=== PATIENT | female | born 1960 | race Caucasian/White ===

== ENCOUNTER → 2020-04-15 15:00 | Outpatient (BNVA) | payer OTHER, SELFPAY | PROVIDERS: PCP Nurse Practitioner Family; Visit Provider Physician Assistant Medical | DX: Z76.89 Persons encountering health services in other specified circumstances (principal) | CPT/HCPCS: G0296 ==

== ENCOUNTER 2020-05-18 | Outpatient (REF) | payer OTHER, SELFPAY ==
--- NOTE | ~2020-05-18 | CT_ITS ---
EXAMINATION: CT CHEST SCREENING CLINICAL INFORMATION: Nicotine dependence. COMPARISON: None. TECHNIQUE: Multidetector volumetric CT imaging of the chest is performed without contrast using low dose technique. Additional 2D coronal and sagittal reformatted images and axial 3D maximum intensity projection (MIP) images are generated on the CT workstation. This CT examination was performed using dose optimization techniques as appropriate, variously including the following: *Automated exposure control *Adjustment of mA and/or kV according to patient size (this includes techniques or standardized protocols for targeted exams where dose is matched to indication/reason for exam; i.e. extremities or head) *Use of iterative reconstruction technique DLP: 69 mGy-cm FINDINGS: LUNGS: The lungs are clear with no evidence of inflammation or nodules. MEDIASTINUM: Thyroid lobes are symmetrical and normal. The central trachea and the bronchi are widely patent. Heart size and the great vessels are normal caliber. There is no pericardial effusion seen. Central trachea and the bronchi are widely patent. No abnormal-sized nasal lymph nodes or mass seen. A pericardial effusion seen. PLEURA: There is no pleural effusion. No pleural mass or thickening. AXILLA: No lymphadenopathy. UPPER ABDOMEN: Visualized liver, spleen, pancreas and bilateral adrenal glands are unremarkable. OSSEOUS STRUCTURES: No lytic or sclerotic process seen. CT/CT lung screening IMPRESSION: Unremarkable CT chest exam. ASSESSMENT: Lung-RADS category 1: Negative RECOMMENDATION: Low-dose annual CT chest
== END 2020-05-18 00:01 | disposition home or self-care (01) ==
LOC: HO.CT
PROVIDERS: PCP Nurse Practitioner Family; Visit Provider Physician Assistant Medical
DX: Z12.2 Encounter for screening for malignant neoplasm of respiratory organs (principal); F17.210 Nicotine dependence, cigarettes, uncomplicated
CPT/HCPCS: 71271

== ENCOUNTER → 2020-06-21 09:49 | Outpatient (REF) | payer OTHER, SELFPAY ==
--- NOTE | 2020-06-21 10:00 | CA_ITS ---
Acquisition Time: 2020-06-21 10:10:29 Total Exercise Time: 00:03:17 Test Indications: Chest Pain Medications: METFORMIN Protocol: LALO Max HR: 144 BPM 88% of Pred: 162 BPM Max BP: 144/084 mmHG Max Work Load: 4.6 METS Test ended prematurely as pt was unable to walk on the treadmill d/t L knee arthritis. Pt was limping despite modifying Lalo protocol. Pt denies CP during exercise, suboptimal test. Will recommend to PCP pharmacological stress test. Pt reports having sx of palpitation last week, recommend holter monitor. call placed to PCP recommendations for pharmacological stress test, Holter and echocardiogram made. Patient's chest pain was at rest felt like pressure with radiating to her arm. Recommendations for cardiology consult also made. Referred By: Zaira Jewell Overread By: Dasia Nava NP
== END ==
LOC: HO.CARD 09:49
PROVIDERS: Visit Provider Nurse Practitioner Family
DX: R07.89 Other chest pain (principal)
CPT/HCPCS: 93016; 93017; 93018

== ENCOUNTER → 2020-06-29 10:19 | Outpatient (BNVA) | payer OTHER, SELFPAY | PROVIDERS: PCP Nurse Practitioner Family; Visit Provider Advanced Practice Midwife ==

== ENCOUNTER → 2020-07-05 09:31 | Outpatient (REF) | payer OTHER, SELFPAY ==
--- NOTE | 2020-07-05 09:34 | CA_ITS ---
Transthoracic Echocardiogram Patient (Last, First, Middle): Rosetta Pressley, Gender: Female Date of : 1960 Age: 60 Procedure Date: 07/05/2020 Procedure Type: Transthoracic Echocardiogram Location: OP Height: 154.94 cm Weight: 99.79 kg BSA: 1.97 m2 Heart Rate: bpm BP: 110 / 74 mmHg Hydraulic Press Tender: DONTE Referring MD: Faustino Monzon MD Symptoms: R06.02 - Shortness of breath Study Quality: Fair ECG Rhythm: Sinus Conclusions: - The left ventricular systolic function is normal. The visually estimated ejection fraction is between 60-65%. - No obvious valvular pathology seen on this study. - Small pericardial effusion posterior to left ventricle. Findings Procedure Information Contrast agent, definity, is being given per protocol without apparent complications. Left Ventricle Normal left ventricular cavity size. There is normal left ventricular wall thickness. The left ventricular systolic function is normal. The visually estimated ejection fraction is between 60-65%. There is no evidence of regional wall motion abnormalities. Diastolic function is normal for age. Right Ventricle Normal right ventricular cavity size and systolic function. Atria The left atrium is normal in size. The right atrium is normal in size. Aortic Valve There is a normal trileaflet aortic valve. There is no aortic valve stenosis. There is no aortic valve regurgitation. Mitral Valve The mitral valve appears normal. There is trace mitral valve regurgitation. There is no mitral valve stenosis. Pulmonic Valve The pulmonic valve was not well visualized. There is trace pulmonic valve regurgitation. Tricuspid Valve Normal tricuspid valve structure. There is trace tricuspid valve regurgitation. The pulmonary artery systolic pressure is normal. Great Vessels The aortic annulus, sinuses of valsalva, and asc aorta are normal in size. Venous The inferior vena cava was not well visualized. The inferior vena cava is normal in size and collapses greater than 50% with inspiration. Pericardium/Pleural Small pericardial effusion posterior to left ventricle. Prior Study Comparison No prior study available for comparison. Recommendations, Care & Conclusions No obvious valvular pathology seen on this study. Measurements 2D Linear Measurements IVSd: 0.78 0.6-0.9/0.6-1.0 cm LVIDd: 5.06 3.9-5.3/4.2-5.9 cm LVIDs: 3.18 2.0-3.6 cm LVPWd: 1.03 0.7-1.1 cm LV Mass: 201.30 67-162/88-224 g LVOT Diam: 2.05 3.0+(-)1.3 cm 2D Systolic Function EF 4C: 54.00 >55% Mitral Valve MV Pk E: 0.69 MV PK A: 0.83 MV Decel Time: 157.04 E/A: 0.83 Decel Hand: 4.38 Aortic Valve AoV Pk Meng: 1.36 AoV Pk Grad: 7.35 LVOT LVOT Pk Meng: 1.10 LVOT Mn Meng: 0.71 LVOT VTI: 0.22 LVOT Pk Grad: 4.82 LVOT Mn Grad: 2.33 LVOT Diam: 2.05 LVOT Area: 3.31 Diastolic Function MV Pk E: 0.69 MV Pk A: 0.83 E/A: 0.83 Tricuspid Valve TR Pk Meng: 2.13 TR Pk Grad: 18.21 RA Press: 3.00 RVSP: 21.00 Great Vessels Aorta Ao Asc: 3.18 2.1-3.4 cm Updated in Other Vendor System with Status of Final Scott Hastings MD electronically signed on 07/05/2020 12:41:47 PM with status of Final
== END ==
LOC: HO.CARD 09:31
PROVIDERS: Visit Provider Internal Medicine Cardiovascular Disease
DX: R07.9 Chest pain, unspecified (principal); R06.02 Shortness of breath
CPT/HCPCS: 93306; Q9957

== ENCOUNTER → 2020-07-19 08:37 | Outpatient (REF) | payer OTHER, SELFPAY ==
--- NOTE | ~2020-07-19 | NM_ITS ---
Lexiscan Myocardial perfusion study Indication: Positive family history, diabetes, assess for coronary disease and ischemia Technique: The patient was brought in for a Lexiscan perfusion study on 07/19/2020 and was injected 0.4 mg of Lexiscan intravenously. Within a minute of this injection 30 mCi of sestamibi was given intravenously. Images were obtained using the SPECT gamma camera interlaced with the gating device. Images were obtained in supine position. Resting perfusion study was performed on 07/20/2020. Patient was administered 30 mCi of sestamibi intravenously at rest. Images were then obtained in supine position. Total DLP 112mGy-cm. Images were processed with the software and compared side to side in short axis, horizontal long axis and vertical long axis views. Findings: Raw acquisition was reviewed. The stress perfusion study showed no significant perfusion abnormality. Both uncorrected as well as CT attenuation corrected images were reviewed. The gated study shows normal LV systolic function with calculated LVEF of 70%. LV cavity is normal in size. The gated study shows normal wall thickening and contraction of segments. Resting study shows mildly diminished tracer uptake at the apex possibly artifactual as this area is normal perfusion during stress. Gating at rest reveals normal wall motion with ejection fraction at 66%. The findings are consistent with no definite reversible or fixed perfusion defects. NM/NM donal perf SPECT rest & str Impression: 1. Myocardial perfusion imaging study shows likely normal myocardial perfusion. No definitive evidence of any ischemia or infarction. 2. Gated LVEF is 70% during stress and 66% during rest. 3. Transient ischemic dilatation not present. EKG component of the test reported separately.
--- NOTE | 2020-07-19 08:41 | CA_ITS ---
Acquisition Time: 2020-07-19 09:25:32 Total Exercise Time: 00:02:00 Test Indications: Chest Pain Medications: METFORMIN Protocol: LEXISCAN Max HR: 113 BPM 69% of Pred: 162 BPM Max BP: 140/080 mmHG Max Work Load: 1.0 METS Pharmacological stress test using Lexiscan while sitting and kicking her feet. Pt tolerated well denies any anginal sx. EKG without any arrhythmias, non-diagnostic for ischemia. Nuclear images to follow. Normotensive response to test. Test reviewed with Dr. Hastings Referred By: Faustino Monzon Overread By: Dasia Nava NP
--- NOTE | 2020-07-19 11:05 | ECG_ITS ---
Hook-up date: 2020-07-19 10:18:00 Duration: 25:50:00 Test Indications: PVC'S Medications: 263114 QRS complexes 6 Ventricular ectopics which represent <1 % of total QRS comp. 83 Supraventricular ectopics which represent <1 % of total QRS comp. * Paced QRS complexs which represent % of total QRS comp. VENTRICULAR ECTOPY 6 Isolated 0 Bigeminal Cycles 0 Couplets 0 Runs 0 Beats in Runs * Beats LONGEST at * BPM at :: -- * Beats FASTEST at * BPM at :: -- SUPRAVENTRICULAR ECTOPY 52 Isolated 1 Couplets 4 Runs 29 Beats in Runs 14 Beats LONGEST at 137 BPM at 04:06:03 2020-07-20 3 Beats FASTEST at 145 BPM at 02:21:47 2020-07-20 HEART RATES 50 MIN at 05:40:46 2020-07-20 83 AVG 121 MAX at 08:55:30 2020-07-20 LONGEST RR 1.4400 secs at 05:40:40 2020-07-20 S-T LEVELS Channel 1 - 128 mm at 10:18:00 2020-07-19 - 128 mm at 10:18:00 2020-07-19 Channel 2 - 128 mm at 10:18:00 2020-07-19 - 128 mm at 10:18:00 2020-07-19 Channel 3 - 128 mm at 02:93:71 -- - 128 mm at 02:93:71 Basic rhythm Normal sinus rhythm No long pause or profound bradycardia Rare ectopics Patient reported symptoms correlated with NSR Referred By: Faustino Monzon Overread By: FAUSTINO MONZON MD
== END ==
LOC: HO.CARD 08:37
PROVIDERS: PCP Nurse Practitioner Family; Visit Provider Internal Medicine Cardiovascular Disease
DX: R07.9 Chest pain, unspecified (principal); I49.3 Ventricular premature depolarization; R00.2 Palpitations; R06.02 Shortness of breath; E11.9 Type 2 diabetes mellitus without complications; Z82.49 Family history of ischemic heart disease and other diseases of the circulatory system
CPT/HCPCS: 78452; 93017; 93225; 93226; A9500; J0280; J2785

== ENCOUNTER → 2020-08-08 11:16 | Outpatient (BNVA) | payer OTHER, SELFPAY | PROVIDERS: PCP Nurse Practitioner Family; Visit Provider Internal Medicine Cardiovascular Disease ==

== ENCOUNTER 2020-12-19 10:00 | Outpatient (REF) | payer OTHER, SELFPAY ==
--- NOTE | ~2020-12-19 | MM_ITS ---
EXAMINATION: MM SCREENING DIGITAL BREAST TOMOSYNTHESIS, BILATERAL CLINICAL INFORMATION: Screening. Asymptomatic. The lifetime risk of breast cancer based on the Tyrer-Cuzick Model is 14%. COMPARISON: Mammography: 12/17/2019, 08/11/2018, 07/27/2017 TECHNIQUE: Digital breast tomosynthesis is performed in both the craniocaudal and mediolateral oblique views along with computer-aided detection (CAD). Synthesized 2D images are generated from the tomosynthesis. Additional bilateral CC views are provided. FINDINGS: There are scattered areas of fibroglandular density (ACR BI-RADS breast composition Category b). There are no significant masses, abnormal calcifications, or other abnormalities. There are some increased vascular calcifications central left breast. The bilateral axilla and skin contours are unremarkable. MM/MM tomosynthesis screening BI IMPRESSION: No mammographic evidence of malignancy. ASSESSMENT: BI-RADS 2: Benign RECOMMENDATION: Routine annual mammography screening. This patient's information was entered into a reminder system with a target due date for their next mammogram.
== END 2020-12-19 10:01 | disposition home or self-care (01) ==
LOC: HO.MAMMO 10:00
PROVIDERS: Visit Provider Nurse Practitioner Family
DX: Z12.31 Encounter for screening mammogram for malignant neoplasm of breast (principal)
CPT/HCPCS: 77063; 77067

== ENCOUNTER 2021-04-27 09:07 | Outpatient (REF) | payer OTHER, SELFPAY ==
--- NOTE | ~2021-04-27 | XR_ITS ---
EXAMINATION: XR KNEES, STANDING AP XR KNEE, LEFT CLINICAL INFORMATION: M25.562 - Pain in left knee COMPARISON: None TECHNIQUE: Standing AP view of both knees is performed. Additional lateral and axial patella views of the left knee are also performed. FINDINGS: Left knee shows tricompartment osteoarthritis, greatest medial knee joint compartment with loss of the joint space and mild subchondral sclerosis and osteophytes from the femoral condyles and tibial plateau. There is secondary genu varus. No visible erosive changes. There is small suprapatellar effusion. No lateralization or obvious tilting of the patellar appreciated on axial view. Right knee also shows multicompartment osteoarthritis greater medial compartment with loss joint space and osteophytes and secondary genu varus. No erosive change. XR/XR knee standing BI IMPRESSION: 1. Left: Tricompartment osteoarthritis with secondary genu varus. Small effusion. 2. Right: Multicompartment osteoarthritis with secondary genu varus.
--- NOTE | ~2021-04-27 | XR_ITS ---
EXAMINATION: XR KNEES, STANDING AP XR KNEE, LEFT CLINICAL INFORMATION: M25.562 - Pain in left knee COMPARISON: None TECHNIQUE: Standing AP view of both knees is performed. Additional lateral and axial patella views of the left knee are also performed. FINDINGS: Left knee shows tricompartment osteoarthritis, greatest medial knee joint compartment with loss of the joint space and mild subchondral sclerosis and osteophytes from the femoral condyles and tibial plateau. There is secondary genu varus. No visible erosive changes. There is small suprapatellar effusion. No lateralization or obvious tilting of the patellar appreciated on axial view. Right knee also shows multicompartment osteoarthritis greater medial compartment with loss joint space and osteophytes and secondary genu varus. No erosive change. XR/XR knee LT 2V IMPRESSION: 1. Left: Tricompartment osteoarthritis with secondary genu varus. Small effusion. 2. Right: Multicompartment osteoarthritis with secondary genu varus.
== END 2021-04-27 09:08 | disposition home or self-care (01) ==
LOC: HO.HOSX 09:07
PROVIDERS: Visit Provider Physician Assistant
DX: M25.561 Pain in right knee (principal); M17.12 Unilateral primary osteoarthritis, left knee
CPT/HCPCS: 73560; 73565; 99202

== ENCOUNTER 2021-07-26 07:58 | Outpatient (RCR) | payer BC, SELFPAY | END 2021-08-23 15:29 | disposition home or self-care (01) | LOC: HO.PTCHIC 07:58 | PROVIDERS: PCP Nurse Practitioner Family; Visit Provider Orthopaedic Surgery | DX: M17.12 Unilateral primary osteoarthritis, left knee (principal) | CPT/HCPCS: 97110; 97162 ==

== ENCOUNTER 2021-11-16 17:00 | Outpatient (RCR) | payer BC, SELFPAY | END 2022-01-05 14:19 | disposition home or self-care (01) | LOC: HO.PTCHIC 17:00 | PROVIDERS: PCP Nurse Practitioner Family; Visit Provider Orthopaedic Surgery | DX: Z96.652 Presence of left artificial knee joint (principal) | CPT/HCPCS: 97110; 97112; 97116; 97140; 97161; 97530 ==

== ENCOUNTER 2021-12-20 10:18 | Outpatient (REF) | payer BC, SELFPAY ==
--- NOTE | ~2021-12-20 | MM_ITS ---
EXAMINATION: MM SCREENING DIGITAL BREAST TOMOSYNTHESIS, BILATERAL CLINICAL INFORMATION: Screening. Asymptomatic. The lifetime risk of breast cancer based on the Tyrer-Cuzick Model is 12%. COMPARISON: Mammography: 12/19/2020, 12/17/2019, 08/11/2018 TECHNIQUE: Digital breast tomosynthesis is performed in both the craniocaudal and mediolateral oblique views along with computer-aided detection (CAD). Synthesized 2D images are generated from the tomosynthesis. FINDINGS: There are scattered areas of fibroglandular density (ACR BI-RADS breast composition Category b). Parenchymal pattern is similar to prior exams and there is no developing density or interval mass or architectural abnormality. There are fine vascular calcifications again noted mid lower left breast. The axilla and skin contours are unremarkable. MM/MM tomosynthesis screening BI IMPRESSION: No mammographic evidence of malignancy. ASSESSMENT: BI-RADS 2: Benign RECOMMENDATION: Routine annual mammography screening. This patient's information was entered into a reminder system with a target due date for their next mammogram.
== END 2021-12-20 10:19 | disposition home or self-care (01) ==
LOC: HO.MAMMO 10:18
PROVIDERS: Visit Provider Nurse Practitioner Family
DX: Z12.31 Encounter for screening mammogram for malignant neoplasm of breast (principal)
CPT/HCPCS: 77063; 77067

== ENCOUNTER 2022-01-31 15:47 | Outpatient (REF) | payer BC, SELFPAY ==
--- NOTE | ~2022-01-31 | US_ITS ---
EXAMINATION: US PELVIS CLINICAL INFORMATION: Pelvic pain. LMP 2003. Postmenopausal. COMPARISON: No similar priors. TECHNIQUE: Ultrasound of the pelvis is performed using both transabdominal and transvaginal transducers along with Doppler. Transvaginal imaging is performed due to inadequate visualization transabdominally. FINDINGS: The uterus is anteverted and anteflexed measuring 6.2 x 4.1 x 4.6 cm. There is a 3.7 x 3.8 x 3.6 cm heterogeneous hypovascular mass in the upper uterine myometrium, distorting the junctional zone and endometrial canal which are not well assessed in this examination. The right ovary was not visualized. The left ovary is only identified transabdominally measuring 2.6 x 2.3 x 1.8 cm (6 mL) with preserved flow on color Doppler at the moment of this examination and no discrete measurable lesions. A small amount of free fluid is noted, nonspecific. US/US pelvic and transvaginal IMPRESSION: 1. Limited examination due to patient body habitus and overlying bowel gas. 2. There is a 3.8 cm heterogeneous mass in the upper uterine myometrium which could represent a fibroid but is incompletely characterized in this examination. Further evaluation with an MR of the pelvis with and without intravenous contrast is recommended. 3. The left ovary is grossly unremarkable. The right ovary was not visualized. 4. Small amount of free fluid is nonspecific.
== END 2022-01-31 15:48 | disposition home or self-care (01) ==
LOC: HO.HMGCX 15:47
PROVIDERS: PCP Nurse Practitioner Family; Visit Provider Advanced Practice Midwife
DX: R10.2 Pelvic and perineal pain (principal)
CPT/HCPCS: 76830; 76856

== ENCOUNTER 2022-03-12 16:30 | Outpatient (REF) | payer BC, SELFPAY ==
--- NOTE | ~2022-03-12 | MR_ITS ---
EXAMINATION: MR PELVIS WITH AND WITHOUT CONTRAST CLINICAL INFORMATION: Uterine disorders. Post menopausal. COMPARISON: Pelvic ultrasound 01/31/2022. TECHNIQUE: Multiple routine MRI sequences through the pelvis were obtained on a high-field 1.5 Nahomy MRI before and after the uneventful administration of 10 mL Gadavist gadolinium-based IV contrast. FINDINGS: UTERUS: Anteverted uterus has a normal configuration and measures 6 cm cervix to fundus x 3.6 cm anterior posterior x 4.8 cm transverse. Junctional zone is normal in signal and thickness. There is a 3.8 cm well-defined, round mass in the right upper myometrium demonstrating predominantly low T2 signal with minimal internal heterogeneity. On postcontrast images, there is heterogeneous enhancement lesser than compared to the adjacent myometrium. There is a 1.3 cm well-defined, homogeneously T2 dark lesion in the fundus with at least 50% of submucosal outpouching into the endometrium. This lesion enhances slightly less than the myometrium. The endometrium is distorted and displaced by the above described lesions; however, the well seen portions are within normal limits. CERVIX: Normal. VAGINA: No mass seen. OVARIES: The ovaries are atrophic and symmetric, left on image 13 and right on image 11, series 7. No adnexal mass. KIDNEYS: Two normally positioned kidneys are seen. No hydronephrosis. BLADDER: Urinary bladder normal. PELVIC FREE FLUID: No free fluid or ascites. LYMPH NODES: Prominent bilateral iliac lymph nodes, for instance measuring 0.7 cm short axis in the left external iliac region (7:13) and 7 mm short axis in the right common iliac region (7:7). OSSEOUS STRUCTURES: No acute or suspicious osseous abnormalities. OTHERS: Diverticulosis. No pericolonic inflammatory changes. 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 There is a 1.3 cm homogeneously T2 dark lesion in the fundus with a submucosal component, favoring to represent an additional conventional fibroid without significant degeneration. Nonspecific prominent iliac lymph nodes. Recommend attention on follow-up in future imaging. Colonic diverticulosis.
== END 2022-03-12 16:31 | disposition home or self-care (01) ==
LOC: HO.MRI 16:30
PROVIDERS: Visit Provider Advanced Practice Midwife
DX: N85.8 Other specified noninflammatory disorders of uterus (principal)
CPT/HCPCS: 72197; A9585

== ENCOUNTER 2022-04-03 15:09 | Outpatient (REF) | payer BC, SELFPAY ==
--- NOTE | ~2022-04-03 | CT_ITS ---
EXAMINATION: CT CHEST SCREENING CLINICAL INFORMATION: Current smoker. 44 pack year history. COMPARISON: Previous chest CT May 2020 TECHNIQUE: Multidetector volumetric CT imaging of the chest is performed without contrast using low dose technique. Additional 2D coronal and sagittal reformatted images and axial 3D maximum intensity projection (MIP) images are generated on the CT workstation. This CT examination was performed using dose optimization techniques as appropriate, variously including the following: *Automated exposure control *Adjustment of mA and/or kV according to patient size (this includes techniques or standardized protocols for targeted exams where dose is matched to indication/reason for exam; i.e. extremities or head) *Use of iterative reconstruction technique DLP: 102 mGy-cm FINDINGS: LUNGS: The lungs are clear with no evidence of inflammation or nodules. No endobronchial or endotracheal lesion. MEDIASTINUM: The mediastinum is normal. CORONARY ARTERY CALCIFICATION: None visualized on this study. PLEURA: There is no pleural effusion. No pleural mass or thickening. AXILLA: No lymphadenopathy. UPPER ABDOMEN: Low-attenuation liver suggestive of fatty infiltration. OSSEOUS STRUCTURES: Degenerative changes of the spine. CT/CT lung screening IMPRESSION: Fatty liver. Otherwise unremarkable exam. ASSESSMENT: Lung-RADS category 1: Negative RECOMMENDATION: Annual low-dose chest CT follow-up recommended.
== END 2022-04-03 15:10 | disposition home or self-care (01) ==
LOC: HO.CT 15:09
PROVIDERS: PCP Nurse Practitioner Family; Visit Provider Physician Assistant Medical
DX: Z12.2 Encounter for screening for malignant neoplasm of respiratory organs (principal); F17.210 Nicotine dependence, cigarettes, uncomplicated
CPT/HCPCS: 71271

== ENCOUNTER 2022-07-24 17:00 | Outpatient (RCR) | payer BC, SELFPAY | END 2022-08-01 17:34 | disposition home or self-care (01) | LOC: HO.PTCHIC 17:00 | PROVIDERS: Visit Provider Orthopaedic Surgery | DX: Z96.651 Presence of right artificial knee joint (principal) | CPT/HCPCS: 97110; 97112; 97116; 97140; 97161; 97530 ==

== ENCOUNTER 2022-10-02 08:50 | Inpatient (IN) | payer BC, SELFPAY ==
[2022-10-02] VITALS (7 sets, daily range): BP systolic 130–186; BP diastolic 67–102; PULSE 73–104; RESP 16–20; TEMP 36.3–37.2; O2SAT 93–98; BMI 42.9
--- NOTE | ~2022-10-02 | US_ITS ---
EXAMINATION: US ABDOMEN LIMITED CLINICAL INFORMATION: Rule out gallbladder disease, right upper quadrant pain. COMPARISON: None available. TECHNIQUE: Real-time imaging of the right upper quadrant abdominal viscera. FINDINGS: PANCREAS: Partially obscured by bowel gas. LIVER: Liver is enlarged measuring 18.8 cm. Diffuse increased echogenicity to the liver parenchyma. No focal hepatic lesion. There is no intrahepatic biliary duct dilatation seen. GALLBLADDER: Gallbladder is distended. Posterior gallbladder wall measures 4 mm. Adjacent to the liver edge, there appears to be fluid within the gallbladder wall which measures 7 mm. No evidence of stones, sludge, polyps, wall thickening or pericholecystic fluid. Tenderness was elicited during the study. COMMON BILE DUCT: Normal in caliber measuring 0.5 cm in diameter. RIGHT KIDNEY: Normal. No hydronephrosis. No renal calculi or focal parenchymal lesions. The kidney measures 11.4 cm in maximum dimension. FREE FLUID: None. US/US abdomen limited IMPRESSION: Distended gallbladder with fluid and gallbladder wall and tenderness during scanning. Evaluate clinically for acalculous cholecystitis. Enlarged fatty liver. Inadequate evaluation of the pancreas. This be a region of clinical concern, consider other imaging modality such as CT.
--- NOTE | ~2022-10-02 | CT_ITS ---
EXAMINATION: CT ABDOMEN AND PELVIS WITH CONTRAST CLINICAL INFORMATION: Reason for Exam acalculus cholecystitis COMPARISON: 04/03/[address] scan and 03/12/2022 pelvic MRI. TECHNIQUE: Multidetector volumetric imaging was performed from the superior aspect of the liver through the pubic symphysis following administration of 85 mL Omnipaque 300 intravenous contrast. Sagittal and coronal reformatted images were obtained on the technologist workstation.. This CT examination was performed using dose optimization techniques as appropriate, variously including the following: *Automated exposure control *Adjustment of mA and/or kV according to patient size (this includes techniques or standardized protocols for targeted exams where dose is matched to indication/reason for exam; i.e. extremities or head) *Use of iterative reconstruction technique DLP: 896 mGy-cm FINDINGS: LUNG BASES: Minimal basilar atelectasis LIVER, GALLBLADDER, AND BILIARY TREE: Diffuse fatty infiltration of the liver with mild focal fatty sparing adjacent to the gallbladder fossa. No focal hepatic lesion nor biliary ductal dilatation. Gallbladder is relatively distended. Interestingly on the prior 03/12/2022 MRI there did appear to be a gallstone within the gallbladder although this is less apparent on the ultrasound from today likely in part due to technical limitations from the patient's body habitus. No radio opaque gallstones seen. There is mild gallbladder wall thickening and a small amount of pericholecystic inflammatory change. In the acute setting early cholecystitis would be favored PANCREAS: Unremarkable. SPLEEN: Unremarkable. ADRENAL GLANDS: Unremarkable. KIDNEYS AND URETERS: The kidneys are normal in size, shape, and attenuation. Tiny fat density angiomyolipoma incidentally seen in the posterior midpole of the right kidney. No hydronephrosis, hydroureter, or calculi seen. No perinephric stranding. BLADDER: Unremarkable. GASTROINTESTINAL TRACT: Scattered colonic diverticulosis but no evidence for diverticulitis. Normal-appearing appendix. Small bowel unremarkable ABDOMINAL WALL: No significant hernia is appreciated. LYMPHOVASCULAR STRUCTURES: No lymphadenopathy. The aorta is unremarkable. PELVIC VISCERA: Unremarkable. OSSEOUS STRUCTURES: Degenerative changes in the spine more so at L3/L4 CT/CT abdomen pelvis w IV con IMPRESSION: 1. Gallbladder is relatively distended with mild gallbladder wall thickening and pericholecystic inflammatory change. In the acute setting early cholecystitis would be favored with this appearance. I do not appreciate any biliary ductal dilatation. 2. Diffuse fatty infiltration of the liver. 3. Diverticulosis but no evidence for diverticulitis.
[2022-10-02 10:32] LABS: MANUAL DIFF FLAG NO
--- NOTE | 2022-10-02 10:32 | ED.ABDPAIN ---
HPI - Abdominal Pain General Chief Complaint: Abdominal Pain Stated Complaint: Gallbladder Issues Time Seen by Provider: 10/02/22 09:29 Source: patient Mode of arrival: ambulatory Limitations: no limitations History of Present Illness HPI narrative: 62 year old female with a history of obesity, diabetes, and hypertension, presents today with epigastric abdominal pain with radiation to the back that began after eating dinner last night. States this began with nausea upon getting home from work yesterday then was followed by increased nausea and abdominal pain after having chicken breast and vegetables for dinner. This pain has been constant since onset prompting her to come in for evaluation. No fever, constipation, or diarrhea. Related Data Home Medications Medication Instructions Recorded Confirmed hydrochlorothiazide 12.5 mg capsule 12.5 mg PO DAILY 01/09/22 topiramate 25 mg tablet 25 mg PO DAILY 01/09/22 phentermine 8 mg tablet (Lomaira) 8 mg PO DAILY 02/08/22 cholecalciferol (vitamin D3) 125 125 mcg PO DAILY 03/22/22 mcg (5,000 unit) capsule Previous Rx's Medication Instructions Recorded cane #1 ea 04/27/21 Allergies Allergy/AdvReac Type Severity Reaction Status Date / Time No Known Allergies Allergy Verified 10/02/22 08:56 [No Known Allergies*] Review of Systems Review of Systems Yes all other systems are reviewed and are negative PMFSH Past Medical History Medical History Diabetes mellitus Family history of premature CAD Hypertension Mass of uterus Obesity Surgical History History of endometrial ablation History of knee replacement Family History Family History Paternal Aunt Breast cancer Lung cancer Social History Social History Alcohol intake: never Patient Tobacco Use Status: Former Tobacco user Years Smoked: 44 Smoked in Last 30 Days: Yes e-Cigarette/Vaping Use: Currently Using Use of substances other than those prescribed or required for medical reasons: No Advance Directives: Yes Advance Directives Information Provided: Yes Advance Directives on File: No Patient : No 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 Physical Exam ED Vital Signs: Vital Signs - 24 hr 10/02/22 08:56 10/02/22 10:09 10/02/22 12:09 Temperature 98 F 97.9 F 98.3 F Pulse Rate 85 73 84 Respiratory Rate 19 16 18 Blood Pressure 182/102 H 177/80 H 186/89 H Pulse Oximetry 98 96 95 Oxygen Delivery Method Room Air Room Air Room Air 10/02/22 14:02 Temperature 98.5 F Pulse Rate 82 Respiratory Rate 20 Blood Pressure 175/85 H Pulse Oximetry 93 Oxygen Delivery Method Room Air BMI result Body Mass Index 42.9 Const Other: obese 62 year old, lying comfortably in bed General: cooperative, healthy appearing, comfortable, no acute distress, alert and awake Nutritional Appearance: obese Orientation/consciousness: oriented to person and patient oriented x3 Limitations: no limitations HENMT Head: Yes normal to inspection Ears: external ears normal General nose exam: Normal external nose present Mouth: Normal oral and palatal mucosa present and oropharynx normal Throat: Yes posterior oropharynx normal Eyes General: appearance normal, both eyes and all related structures Neck Neck: Yes normal visual inspection Chest Chest palpation & inspection: normal inspection of the chest Resp Auscultation: clear to auscultation bilaterally Cardio Jugular venous distension: no JVD Rate: regular rate Rhythm: regular rhythm Heart sounds: S1 normal heart sound present and S2 normal heart sound present GI Other: + brothers's sign Inspection: Yes normal to inspection Palpation (GI): Soft to palpation, nontender and No hepatosplenomegaly present Auscultation: normal bowel sounds General: Yes no CVA tenderness Back/Spine/Pelvis Back: no CVA tenderness Skin General skin exam: no rashes or lesions noted Neuro General: oriented to person and patient oriented x3 Cranial nerves: Yes CN's II-XII intact bilaterally Motor exam (neuro): 5/5 motor strength present throughout Extrem General: Yes normal to inspection Psych Appearance: grossly normal Course Reevaluation(s) Reevaluation #1: Patient with elevated WBC coung, very dilated gallbaldder and fluid in the gallbladder wall. Discussed with dr chaidez. will admit. Time: 15:53 Medical Decision Making Differential Diagnosis Differential Diagnoses: The differential diagnosis associated with the presentation includes (cholecystitis, ascending cholangitis, pancreatitis, gastritis) Admission/Observation Consideration of admission/observation: Escalation of care including admission/observation considered (upon arrival this 62 yo female who's obese w diabetes with RUQ pain was considered for admission.) Consult Healthcare Provider Management of the patient was discussed with: Facilities Maintenance Assistant (Dr. Chaidez, general surgery) Lab Data MDM Lab Attestation statement: I reviewed the patient's lab results. (Elevated white count) 10/02/22 10:28 10/02/22 10:28 Labs: Lab Results 10/02/22 10/02/22 10/02/22 Range/Units 10:28 10:28 10:28 WBC 16.2 H (4.8-10.8) X10*3/uL RBC 5.16 (4.20-5.50) X10*6/uL Hgb 14.3 (12.0-16.0) g/dl Hct 43.4 (37.0-47.0) % MCV 84.1 (80.0-98.0) fL MCH 27.7 (27.0-33.0) pg MCHC 32.9 (31.0-35.0) g/dl RDW 13.2 (11.0-16.0) % Plt Count 295 (160-400) X10*3/uL MPV 9.2 L (9.4-12.3) fL Immature Gran % (Auto) 0.2 (0.0-0.4) % Neut % (Auto) 86.2 H (45-73) % Lymph % (Auto) 8.7 L (20-40) % [place] % (Auto) 4.1 (2-11) % Eos % (Auto) 0.4 (0-4) % Baso % (Auto) 0.4 (0-2) % Lymph # (Auto) 1.4 (1.2-4.9) X10*3/uL [place] # (Auto) 0.7 (0.1-1.2) X10*3/uL Eos # (Auto) 0.1 (0.0-0.4) X10*3/uL Baso # (Auto) 0.1 (0.0-0.2) X10*3/uL Abs Immat Gran (auto) 0.04 H (0.00-0.03) X10*3/uL Absolute Neuts (auto) 14.0 H (2.0-8.3) x10*3/uL Absolute Nucleated RBC 0.000 (0.0-0.012) X10*3/uL Nucleated RBC % (auto) 0.0 (0.0-0.2) /100WBC Sodium 134 L (135-145) mmol/L Potassium 4.0 (3.3-5.1) mmol/L Chloride 96 (96-108) mmol/L Carbon Dioxide 28 (22-29) mmol/L Anion Gap 14 (12-20) BUN 11 (9-16) mg/dL Creatinine 0.70 (0.5-1.4) mg/dL Estim Creat Clear Calc 94.3 Estimated GFR > 60 Random Glucose 182 H (60-115) mg/dL Calcium 10.1 (8.4-10.2) mg/dL Total Bilirubin 0.7 (0.0-1.0) mg/dL Direct Bilirubin 0.2 (0.0-0.5) mg/dL AST 18 (5-31) U/L ALT 29 (0-31) U/L Alkaline Phosphatase 106 (39-117) U/L Troponin I High Sens < 2.7 (<3.5-17.0) ng/L Total Protein 7.6 (6.5-8.0) g/dL Albumin 4.2 (3.5-5.0) g/dL Lipase 22 (8-78) U/L Urine Color Urine Appearance Urine pH (5.0-9.0) Ur Specific [place] (1.005-1.025) Urine Protein (Neg-Trace) mg/dL Urine Glucose (UA) (Negative) mg/dL Urine Ketones (Negative) mg/dL Urine Blood (Negative) Urine Nitrite (Negative) Ur Leukocyte Esterase (Negative) Urine RBC (0-2) /HPF Urine WBC (0-5) /HPF Ur Squamous Epith Cells (0-2) /HPF Urine Bacteria (None Seen) Hyaline Casts (0-2) /LPF 10/02/22 Range/Units 12:11 WBC (4.8-10.8) X10*3/uL RBC (4.20-5.50) X10*6/uL Hgb (12.0-16.0) g/dl Hct (37.0-47.0) % MCV (80.0-98.0) fL MCH (27.0-33.0) pg MCHC (31.0-35.0) g/dl RDW (11.0-16.0) % Plt Count (160-400) X10*3/uL MPV (9.4-12.3) fL Immature Gran % (Auto) (0.0-0.4) % Neut % (Auto) (45-73) % Lymph % (Auto) (20-40) % [place] % (Auto) (2-11) % Eos % (Auto) (0-4) % Baso % (Auto) (0-2) % Lymph # (Auto) (1.2-4.9) X10*3/uL [place] # (Auto) (0.1-1.2) X10*3/uL Eos # (Auto) (0.0-0.4) X10*3/uL Baso # (Auto) (0.0-0.2) X10*3/uL Abs Immat Gran (auto) (0.00-0.03) X10*3/uL Absolute Neuts (auto) (2.0-8.3) x10*3/uL Absolute Nucleated RBC (0.0-0.012) X10*3/uL Nucleated RBC % (auto) (0.0-0.2) /100WBC Sodium (135-145) mmol/L Potassium (3.3-5.1) mmol/L Chloride (96-108) mmol/L Carbon Dioxide (22-29) mmol/L Anion Gap (12-20) BUN (9-16) mg/dL Creatinine (0.5-1.4) mg/dL Estim Creat Clear Calc Estimated GFR Random Glucose (60-115) mg/dL Calcium (8.4-10.2) mg/dL Total Bilirubin (0.0-1.0) mg/dL Direct Bilirubin (0.0-0.5) mg/dL AST (5-31) U/L ALT (0-31) U/L Alkaline Phosphatase (39-117) U/L Troponin I High Sens (<3.5-17.0) ng/L Total Protein (6.5-8.0) g/dL Albumin (3.5-5.0) g/dL Lipase (8-78) U/L Urine Color Yellow Urine Appearance Clear Urine pH 7.0 (5.0-9.0) Ur Specific [place] 1.010 (1.005-1.025) Urine Protein Negative (Neg-Trace) mg/dL Urine Glucose (UA) Negative (Negative) mg/dL Urine Ketones Negative (Negative) mg/dL Urine Blood Trace H (Negative) Urine Nitrite Negative (Negative) Ur Leukocyte Esterase Negative (Negative) Urine RBC 3-5 H (0-2) /HPF Urine WBC 0-5 (0-5) /HPF Ur Squamous Epith Cells 0-2 (0-2) /HPF Urine Bacteria 1+ (None Seen) Hyaline Casts 0-2 (0-2) /LPF Independent Interpretation I performed an independent interpretation of an: Ultrasound (large gallbladder) Radiology Impression Discussion of test interpretation with radiology: I have reviewed the radiologist's reading. Independent Historian Clinical information obtained from an independent historian. History obtained from or confirmed by: Spouse Tests considered The following testing was considered but not selected: Considered ct abd/pelvis but US abnormal and patient to be admitted to surgery Chronic Conditions Patient?s care impacted by: Diabetes and Other (obesity) Medications Administered Discontinued Medications Generic Name Dose Route Start Last Admin Trade Name Freq PRN Reason Stop Dose Admin Ketorolac Tromethamine 30 mg 10/02/22 13:21 10/02/22 14:04 Ketorolac Tromethamine 30 Mg/Ml Vial IVPUSH 10/02/22 13:22 30 mg ONCE ONE Administration Discharge Plan Discharge Clinical Impression: Cholecystitis Patient Disposition: Admitted As Inpatient Prescriptions: No Action (DME) cane Device See Rx Instructions [facility] 0RF Rx Instructions: cane hydrochlorothiazide 12.5 mg capsule 12.5 mg PO DAILY topiramate 25 mg tablet 25 mg PO DAILY cholecalciferol (vitamin D3) 125 mcg (5,000 unit) capsule 125 mcg PO DAILY Lomaira 8 mg tablet 8 mg PO DAILY
[2022-10-02 10:34] LABS: Basophils Absolute Auto 0.1 X10*3/uL (0.0-0.2); Basophils Percent Auto 0.4 % (0-2); Eosinophils Absolute Auto 0.1 X10*3/uL (0.0-0.4); Eosinophils Percent Auto 0.4 % (0-4); Hematocrit 43.4 % (37.0-47.0); Hemoglobin 14.3 g/dl (12.0-16.0); Imm Gran Abs Auto 0.04 X10*3/uL (0.00-0.03); Imm Gran Pct Auto 0.2 % (0.0-0.4); Lymphocytes Absolute Auto 1.4 X10*3/uL (1.2-4.9); Lymphocytes Percent Auto 8.7 % (20-40); Mean Corpuscular HGB Conc 32.9 g/dl (31.0-35.0); Mean Corpuscular Hemoglobin 27.7 pg (27.0-33.0); Mean Corpuscular Volume 84.1 fL (80.0-98.0); Mean Platelet Volume 9.2 fL (9.4-12.3); Monocytes Absolute Auto 0.7 X10*3/uL (0.1-1.2); Monocytes Percent Auto 4.1 % (2-11); Neutrophils Percent Auto 86.2 % (45-73); Platelet Count 295 X10*3/uL (160-400); Red Blood Count 5.16 X10*6/uL (4.20-5.50); Red Cell Distribution Width 13.2 % (11.0-16.0); White Blood Count 16.2 X10*3/uL (4.8-10.8)
[2022-10-02 11:01] LABS: Alanine Aminotransferase 29 U/L (0-31); Albumin Level 4.2 g/dL (3.5-5.0); Alkaline Phosphatase 106 U/L (39-117); Anion Gap 14 (12-20); Aspartate Amino Transferase 18 U/L (5-31); Bilirubin Direct 0.2 mg/dL (0.0-0.5); Bilirubin Total 0.7 mg/dL (0.0-1.0); Blood Urea Nitrogen 11 mg/dL (9-16); Calcium 10.1 mg/dL (8.4-10.2); Carbon Dioxide 28 mmol/L (22-29); Chloride 96 mmol/L (96-108); Creatinine Clr Calc Pharmacy 94.3; Estimated Glomerular Filt Rate > 60; Glucose Random 182 mg/dL (60-115); Sodium 134 mmol/L (135-145); Total Protein 7.6 g/dL (6.5-8.0)
[2022-10-02 11:12] LABS: Lipase 22 U/L (8-78); Troponin-I High Sensitivity < 2.7 ng/L (<3.5-17.0)
[2022-10-02 12:26] LABS: Appearance Urine Clear; Color Urine Yellow; Glucose Urine UA Negative (Negative); Leukocyte Esterase Urine Negative (Negative); Nitrite Urine Negative (Negative); UMIC TRIGGER UACC YES; Urine Blood Trace (Negative); Urine Ketones Negative (Negative); Urine Protein Negative (Neg-Trace)
[2022-10-02 12:31] LABS: Bacteria Urine 1+ (None Seen); Hyaline Casts Urine 0-2 /LPF (0-2); Squamous Epithelial Cell Urine 0-2 /HPF (0-2); WBC Urine 0-5 /HPF (0-5)
[2022-10-02] MEDS: Ketorolac Tromethamine 30 MG/ML VIAL IVPUSH (14:04)
--- NOTE | 2022-10-02 16:00 | P.HPGS_ITS ---
History of Present Illness History of Present Illness Date of Service: 10/02/22 Chief complaint: Cholecystitis Narrative: Rosetta Pressley is a 62 year old female who is seen at the request of Dr. Dhaliwal because of right upper quadrant abdominal pain that started yesterday and is progressing and unrelenting. There is no relationship to eating, however it is worse than this morning, so she came to the emergency department for evaluation. She reports a past medical history of type 2 diabetes and believes her hemoglobin A1c was 7.2 a few weeks ago. She uses nicotine via vaping. Review of Systems Review of Systems: Yes all other systems are reviewed and are negative Constitutional: Constitutional: [place] [facility] Past Medical History Medical History (Updated 10/02/22 @ 16:02 by Josh Chaidez MD) Diabetes mellitus Family history of premature CAD Hypertension Mass of uterus Obesity Family History Family History Paternal Aunt Breast cancer Lung cancer Surgical History Surgical History History of endometrial ablation History of knee replacement Social History Social History Household Members: Spouse Housing: House Do you presently have visiting nurse or other home services: No Alcohol intake: never Patient Tobacco Use Status: Current everyday Tobacco user Tobacco use type: Smokeless Tobacco Years Smoked: 44 e-Cigarette/Vaping Use: Currently Using 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 Allergy/AdvReac Type Severity Reaction Status Date / Time No Known Allergies Allergy Verified 10/02/22 08:56 [No Known Allergies*] Active Medications: Current Medications Piperacillin Sod/Tazobactam (Sod 3.375 gm/ Sodium Chloride) 50 mls @ 100 mls/hr IV ONCE ONE Stop: 10/02/22 16:22 Sodium Chloride (Ns) 1,000 mls @ 125 mls/hr IVCONT .Q8H [facility] Home Medications Medication Instructions Recorded Confirmed Last Taken Type hydrochlorothiazide 12.5 mg capsule 12.5 mg PO DAILY 01/09/22 10/02/22 10/02/22 History cholecalciferol (vitamin D3) 125 125 mcg PO DAILY 03/22/22 10/02/22 10/02/22 History mcg (5,000 unit) capsule atorvastatin 20 mg tablet 20 mg PO DAILY 10/02/22 10/02/22 09/30/22 History magnesium 250 mg tablet 250 mg PO DAILY 10/02/22 10/02/22 10/02/22 History multivitamin 1 tab PO DAILY 10/02/22 10/02/22 10/02/22 History Physical Exam Vital Signs: Vital Signs: Last Vital Signs Temp 98.5 F 10/02/22 14:02 Pulse 82 10/02/22 14:02 Resp 20 10/02/22 14:02 BP 175/85 H 10/02/22 14:02 Pulse Ox 93 10/02/22 14:02 O2 Del Method Room Air 10/02/22 14:02 BMI result Body Mass Index 42.9 The patient is non-toxic, but uncomfortable NC/AT, PERRLA, EOMI Mood, affect & judgment all appear appropriate Sclera anicteric conjunctiva pink and moist Oropharynx is clear with no aphthous ulcers, Mallampati class 4, mucous membranes moist Neck is supple with no masses, adenopathy or bruits Heart is regular, normal S1-S2 no rubs or murmurs Lungs are clear and equal anteriorly with no audible wheezing, rubs or dullness to percussion Abdomen is obese with no demonstrable hernias. Right upper quadrant tenderness with guarding is noted. No HSM, rebound, rigidity, guarding, masses or bruits are present. Rectal exam is deferred Skin has good turgor and is free of rashes Extremities free of cyanosis clubbing edema Results Results Labs: Short CBC 10/02/22 Range/Units 10:28 WBC 16.2 H (4.8-10.8) X10*3/uL Hgb 14.3 (12.0-16.0) g/dl Hct 43.4 (37.0-47.0) % Plt Count 295 (160-400) X10*3/uL BMP 10/02/22 10:28 Sodium 134 L Potassium 4.0 Chloride 96 Carbon Dioxide 28 BUN 11 Creatinine 0.70 Calcium 10.1 Liver Function 10/02/22 Range/Units 10:28 Total Bilirubin 0.7 (0.0-1.0) mg/dL Direct Bilirubin 0.2 (0.0-0.5) mg/dL AST 18 (5-31) U/L ALT 29 (0-31) U/L Alkaline Phosphatase 106 (39-117) U/L Albumin 4.2 (3.5-5.0) g/dL Urine 10/02/22 Range/Units 12:11 Urine Color Yellow Urine Appearance Clear Urine pH 7.0 (5.0-9.0) Ur Specific [place] 1.010 (1.005-1.025) Urine Protein Negative (Neg-Trace) mg/dL Urine Glucose (UA) Negative (Negative) mg/dL Abdomen CT scan report/results: report reviewed and image reviewed CT scan - pelvis: report reviewed and image reviewed Abdominal ultrasound report/results: report reviewed and image reviewed Additional studies: Hemoglobin A1c is 7.1 Assessment and Plan (1) Cholecystitis: Status: Acute (2) Diabetes mellitus: Status: Acute (3) Obesity: Status: Acute (4) Hypertension: Status: Acute Plan Patient is at risk for acalculous cholecystitis given her type 2 diabetes. I have ordered a stat CT with IV contrast to better define. Will admit, start IV Zosyn, IV fluid and NPO. Further plan pending CT. ADDENDUM [id number] images and report, I advised the patient that she likely has early acute cholecystitis or possibly acalculous cholecystitis and options include continued observation in hopes of resolution verses operative intervention. I recommended cholecystectomy. I also reviewed the inherent risks to surgery which include, but are not limited to: Bleeding that could require another operation or blood transfusion, the need for open surgery, the unlikely but possible issue of bile leak that could require an ERCP, the risk of retained common duct stones that could require an ERCP, the risk of common bile duct injury which would require transfer to a larger institution for another operation. The patient's ongoing nicotine use, obesity and type 2 diabetes do put her at a greater risk for complications such as incisional hernia, infectious complications as well as unexpected complications related to cardiopulmonary events. Patient seemed to understand her options, declined a lace cutter or 2nd opinion and wants to proceed. Instructions regarding diet and activity reviewed and apparently understood. The patient is advised to avoid rich fatty foods postoperatively to avoid GI distress/diarrhea and advised to not lift more than 20 lb for medical reasons to minimize the risk of hernia postoperatively. I recommended that she discuss th sariah restrictions with her employer and that she is not disabled during this time frame but can perform light duty. The patient's questions seemed to be satisfactorily answered. Patient is added onto the OR schedule for tomorrow and will be kept NPO. IVF, analgesics and antiemetics are ordered. Trend labs. Void urinary bladder environmental conflict manager to surgery and place SCDs. Hospitalist is consulted for her type 2 diabetes and medical issues. Time Spent With Patient Time: Total time managing care of this patient today ____ minutes. Quality Stroke Does the patient have a stroke diagnosis?: No VTE Prior VTE?: No VTE Risk Level:: Surgical - moderate VTE Device Contraindication: N/A - Device Ordered VTE Drug Contraindication: N/A - Med Ordered Procedures Date of Service Date of Service: 10/02/22
[2022-10-02] MEDS: HYDROmorphone HCl 0.5 MG/0.5 ML SYRINGE 0.25 MG IVPUSH (16:29)
[2022-10-02] MEDS: 0.9 % Sodium Chloride 1,000 ML 125 ML IVCONT (16:29)
[2022-10-02] MEDS: Piperacillin Sodium/Tazobactam 3.375 GM in 0.9 % Sodium Chloride 50 ML IV (16:33)
[2022-10-02] MEDS: iohexoL 350 MG/ML 100 ML INFUS..BTL 85 ML IV (16:45)
[2022-10-02 17:05] LABS: Estimated Average Glucose 157 mg/dL; Hemoglobin A1c % 7.1 %
--- NOTE | 2022-10-02 17:27 | PHA.MEDREC ---
Pharmacy Consult ? Medication Reconciliation Pharmacy has completed the medication reconciliation. Pt with bag of medications at bedside, able to confirm dosing and timing
--- NOTE | 2022-10-02 17:45 | PC.NURSE ---
report given to med/surgical aide
[2022-10-02] MEDS: Lactated Ringers 1,000 ML 125 ML IVCONT (18:06)
--- NOTE | 2022-10-02 19:30 | P.CONHOSP_ITS ---
History of Present Illness Data of Consult Service Date: 10/02/22 Primary Care Provider: Zaira Jewell NP HPI Reason for consult: Medical management Patient is a 62-year-old female H significant for non insulin-dependent diabetes type 2, HTN, and HLD who is admitted to the hospital under general surgery for cholecystitis. Patient is NPO and scheduled to undergo cholecystectomy tomorrow. Hospitalist consult for medical management. Patient states that she continues to have upper right quadrant pain though notes that it is ?much better? than it was at time of presentation. Patient has no other acute medical complaints at this time. Denies fever, chills, nausea, vomiting. No chest pain/pressure, palpitations. Denies shortness of breath. Denies headache, vision changes. Patient states that she was diagnosed with diabetes 10 years ago. Originally tried Trulicity for a short period of time but stopped due to side effects of nausea, vomiting. Patient is not on any diabetic medications. Patient also notes she does not quite follow a diabetic diet. Review of Systems Review of Systems: Right upper quadrant pain No fever, chills, nausea, vomiting, diarrhea Denies chest pain/pressure, palpitations No shortness of breath Yes all other systems are reviewed and are negative [facility] Medical History Diabetes mellitus Family history of premature CAD Hypertension Mass of uterus Obesity Family History Paternal Aunt Breast cancer Lung cancer Surgical History History of endometrial ablation History of knee replacement Social History Household Members: Spouse Housing: House Do you presently have visiting nurse or other home services: No Alcohol intake: never Patient Tobacco Use Status: Current everyday Tobacco user Tobacco use type: Smokeless Tobacco Years Smoked: 44 Smoked in Last 30 Days: Yes e-Cigarette/Vaping Use: Currently Using Use of substances other than those prescribed or required for medical reasons: No Have you been hit, kicked, punched, or otherwise hurt by someone within the past year? 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 Allergies Allergy/AdvReac Type Severity Reaction Status Date / Time No Known Allergies Allergy Verified 10/02/22 08:56 [No Known Allergies*] Active Medications: Current Medications Hydromorphone HCl (Hydromorphone Hcl 0.5 Mg/0.5 Ml Syringe) 0.5 mg IVPUSH Q2H PRN; Protocol PRN Reason: Pain, Severe (Pain Scale 7-10) Hydromorphone HCl (Hydromorphone Hcl 0.5 Mg/0.5 Ml Syringe) 0.25 mg IVPUSH Q2H PRN; Protocol PRN Reason: Pain, Moderate(Pain Scale 4-6) Last Admin: 10/02/22 16:29 Dose: 0.25 mg Sodium Chloride (Ns) 1,000 mls @ 125 mls/hr IVCONT .Q8H [facility] Last Infusion: 10/02/22 18:07 Dose: Infused Piperacillin Sod/Tazobactam (Sod 3.375 gm/ Sodium Chloride) 50 mls @ 100 mls/hr IV Q6H [facility] Lactated Ringer's (Lr) 1,000 mls @ 125 mls/hr IVCONT .Q8H [facility] Last Admin: 10/02/22 18:06 Dose: 125 mls/hr Ondansetron HCl (Ondansetron Hcl 4 Mg/2 Ml Vial) 4 mg IVPUSH Q6H PRN PRN Reason: Nausea and Vomiting Home Medications Medication Instructions Recorded Confirmed Last Taken Type hydrochlorothiazide 12.5 mg capsule 12.5 mg PO DAILY 01/09/22 10/02/22 10/02/22 History cholecalciferol (vitamin D3) 125 125 mcg PO DAILY 03/22/22 10/02/22 10/02/22 History mcg (5,000 unit) capsule atorvastatin 20 mg tablet 20 mg PO DAILY 10/02/22 10/02/22 09/30/22 History magnesium 250 mg tablet 250 mg PO DAILY 10/02/22 10/02/22 10/02/22 History multivitamin 1 tab PO DAILY 10/02/22 10/02/22 10/02/22 History Physical Exam Vital Signs and Narrative: Vital Signs: Last Vital Signs Temp 97.4 F 10/02/22 18:00 Pulse 93 10/02/22 18:00 Resp 20 10/02/22 18:00 BP 157/77 H 10/02/22 18:00 Pulse Ox 95 10/02/22 18:00 O2 Del Method Room Air 10/02/22 18:00 BMI result Body Mass Index 42.9 General: AOx3, no acute distress Resp: CTA bilaterally CVS: S1, S2, RRR GI: +BS, central and right-sided tenderness, especially RUQ, no distention Skin: No rash Neuro: Cranial nerves II-XII grossly intact bilaterally. Motor grossly intact bilaterally Extremities: No edema Psych: Appropriate affect Results Labs 10/02/22 10:28 10/02/22 10:28 Labs: Laboratory Results - last 24 hr 10/02/22 10/02/22 10/02/22 10:28 10:28 10:28 MCV 84.1 MCH 27.7 MCHC 32.9 RDW 13.2 Plt Count 295 MPV 9.2 L Immature Gran % (Auto) 0.2 Neut % (Auto) 86.2 H Lymph % (Auto) 8.7 L [place] % (Auto) 4.1 Eos % (Auto) 0.4 Baso % (Auto) 0.4 Lymph # (Auto) 1.4 [place] # (Auto) 0.7 Eos # (Auto) 0.1 Baso # (Auto) 0.1 Abs Immat Gran (auto) 0.04 H Absolute Neuts (auto) 14.0 H Absolute Nucleated RBC 0.000 Nucleated RBC % (auto) 0.0 Anion Gap 14 Estim Creat Clear Calc 94.3 Estimated GFR > 60 Random Glucose 182 H Estimat Average Glucose Hemoglobin A1c % Calcium 10.1 Total Bilirubin 0.7 Direct Bilirubin 0.2 AST 18 ALT 29 Alkaline Phosphatase 106 Troponin I High Sens < 2.7 Total Protein 7.6 Albumin 4.2 Lipase 22 Urine Color Urine Appearance Urine pH Ur Specific [place] Urine Protein Urine Glucose (UA) Urine Ketones Urine Blood Urine Nitrite Ur Leukocyte Esterase Urine RBC Urine WBC Ur Squamous Epith Cells Urine Bacteria Hyaline Casts 10/02/22 10/02/22 12:11 16:24 MCV MCH MCHC RDW Plt Count MPV Immature Gran % (Auto) Neut % (Auto) Lymph % (Auto) [place] % (Auto) Eos % (Auto) Baso % (Auto) Lymph # (Auto) [place] # (Auto) Eos # (Auto) Baso # (Auto) Abs Immat Gran (auto) Absolute Neuts (auto) Absolute Nucleated RBC Nucleated RBC % (auto) Anion Gap Estim Creat Clear Calc Estimated GFR Random Glucose Estimat Average Glucose 157 Hemoglobin A1c % 7.1 Calcium Total Bilirubin Direct Bilirubin AST ALT Alkaline Phosphatase Troponin I High Sens Total Protein Albumin Lipase Urine Color Yellow Urine Appearance Clear Urine pH 7.0 Ur Specific [place] 1.010 Urine Protein Negative Urine Glucose (UA) Negative Urine Ketones Negative Urine Blood Trace H Urine Nitrite Negative Ur Leukocyte Esterase Negative Urine RBC 3-5 H Urine WBC 0-5 Ur Squamous Epith Cells 0-2 Urine Bacteria 1+ Hyaline Casts 0-2 Imaging Radiologist's Impressions: Impressions Abdomen Ultrasound 10/02/22 13:48 IMPRESSION: Distended gallbladder with fluid and gallbladder wall and tenderness during scanning. Evaluate clinically for acalculous cholecystitis. Enlarged fatty liver. Inadequate evaluation of the pancreas. This be a region of clinical concern, consider other imaging modality such as CT. Abdomen/Pelvis CT 10/02/22 16:52 IMPRESSION: 1. Gallbladder is relatively distended with mild gallbladder wall thickening and pericholecystic inflammatory change. In the acute setting early cholecystitis would be favored with this appearance. I do not appreciate any biliary ductal dilatation. 2. Diffuse fatty infiltration of the liver. 3. Diverticulosis but no evidence for diverticulitis. Assessment and Plan (1) Cholecystitis: Status: Acute (2) Diabetes mellitus: Status: Acute Plan Patient is a 62-year-old female H significant for non insulin-dependent diabetes type 2, HTN, and HLD who is admitted to the hospital under general surgery for cholecystitis. Patient is NPO and scheduled to undergo cholecystectomy tomorrow. Hospitalist consult for medical management. Patient states that she continues to have upper right quadrant pain though notes that it is ?much better? than it was at time of presentation. Patient has no other acute medical complaints at this time. Cholecystitis Plan as per General surgery Non insulin-dependent diabetes type 2 Patient not on any diabetic medications, not following diabetic diet Patient apparently has script for Ozempic but is reluctant to take the medication Latest A1c 7.1 Patient will be placed on sliding scale insulin Patient encouraged to take Ozempic, or possibly start on metformin on discharge Showed follow-up outpatient with PCP for diabetes management HTN Continue hydrochlorothiazide HLD Continue statin Thank you for allowing us to participate in the care of this patient. Will continue to follow at this time. Please let us know if there are any acute complaints or questions. Time Spent With Patient Time: Total time managing care of this patient today ____ minutes.
[2022-10-02] MEDS: Pantoprazole Sodium 40 MG/10 ML VIAL IVPUSH (20:10)
[2022-10-02 20:51] LABS: Glucose, Whole Blood 168 mg/dL (60-115)
[2022-10-03] VITALS (20 sets, daily range): BP systolic 132–187; BP diastolic 60–97; PULSE 75–101; RESP 16–37; TEMP 36.1–37.1; O2SAT 88–100; BMI 42.9
[2022-10-03] MEDS: Piperacillin Sodium/Tazobactam 3.375 GM in 0.9 % Sodium Chloride 50 ML IV ×5 (01:14→23:41)
[2022-10-03] MEDS: Lactated Ringers 1,000 ML 125 ML IVCONT ×2 (01:39→13:05)
[2022-10-03 06:33] LABS: MANUAL DIFF FLAG NO
[2022-10-03 06:45] LABS: Basophils Absolute Auto 0.1 X10*3/uL (0.0-0.2); Basophils Percent Auto 0.3 % (0-2); Eosinophils Absolute Auto 0.1 X10*3/uL (0.0-0.4); Eosinophils Percent Auto 0.4 % (0-4); Hemoglobin 12.2 g/dl (12.0-16.0); Imm Gran Abs Auto 0.11 X10*3/uL (0.00-0.03); Imm Gran Pct Auto 0.7 % (0.0-0.4); Lymphocytes Absolute Auto 1.5 X10*3/uL (1.2-4.9); Lymphocytes Percent Auto 9.3 % (20-40); Mean Corpuscular Hemoglobin 27.6 pg (27.0-33.0); Mean Corpuscular Volume 83.7 fL (80.0-98.0); Mean Platelet Volume 9.8 fL (9.4-12.3); Monocytes Absolute Auto 1.1 X10*3/uL (0.1-1.2); Neutrophils Percent Auto 82.3 % (45-73); Platelet Count 283 X10*3/uL (160-400); Red Blood Count 4.42 X10*6/uL (4.20-5.50); Red Cell Distribution Width 13.5 % (11.0-16.0); White Blood Count 15.8 X10*3/uL (4.8-10.8)
[2022-10-03 07:07] LABS: Alanine Aminotransferase 26 U/L (0-31); Albumin Level 3.5 g/dL (3.5-5.0); Alkaline Phosphatase 91 U/L (39-117); Anion Gap 13 (12-20); Aspartate Amino Transferase 18 U/L (5-31); Blood Urea Nitrogen 9 mg/dL (9-16); Calcium 9.4 mg/dL (8.4-10.2); Carbon Dioxide 25 mmol/L (22-29); Chloride 101 mmol/L (96-108); Creatinine Clr Calc Pharmacy 101.5; Estimated Glomerular Filt Rate > 60; Glucose Random 177 mg/dL (60-115); Potassium 3.6 mmol/L (3.3-5.1); Sodium 135 mmol/L (135-145); Total Protein 6.3 g/dL (6.5-8.0)
--- NOTE | 2022-10-03 07:10 | MHC.SHP ---
Pre-Procedural Eval Section A Date of Service: 10/03/22 The patient is an INPATIENT: Yes The History & Physical has been completed within 30 days and I have reviewed it.: Yes Section B Chief Complaint: Cholecystitis Allergies: Allergies Allergy/AdvReac Type Severity Reaction Status Date / Time No Known Allergies Allergy Verified 10/02/22 08:56 [No Known Allergies*] Plan I have reviewed the history and physical and performed a pertinent physical examination on my patient. No changes have occurred unless specified. Time Spent With Patient Time: Total time managing care of this patient today ____ minutes.
[2022-10-03 07:25] LABS: Glucose, Whole Blood 181 mg/dL (60-115)
--- NOTE | 2022-10-03 07:49 | P.CONAN_ITS ---
[facility] Active Problems Active Problems: All Active Problems (Updated 10/02/22 @ 16:02 by Josh Chaidez MD) Hypertension (Acute) Cholecystitis (Acute) Mass of uterus (Acute) Pelvic pain in female (Acute) Encounter for annual routine gynecological examination (Acute) Primary osteoarthritis of left knee (Acute) Obesity (Acute) Family history of premature CAD (Acute) Diabetes mellitus (Acute) Palpitations (Acute) SOB (shortness of breath) on exertion (Acute) Chest pain (Acute) Past Medical History Medical History Diabetes mellitus Family history of premature CAD Hypertension Mass of uterus Obesity Family History Family History Paternal Aunt Breast cancer Lung cancer Family history of problems with anesthesia: No Surgical History Surgical History History of endometrial ablation History of knee replacement History of Problems with Anesthesia: No Social History Social History Household Members: Spouse Housing: House Do you presently have visiting nurse or other home services: No Alcohol intake: never Patient Tobacco Use Status: Current everyday Tobacco user Tobacco use type: Smokeless Tobacco Years Smoked: 44 Smoked in Last 30 Days: Yes e-Cigarette/Vaping Use: Currently Using Use of substances other than those prescribed or required for medical reasons: No Currently Displaying Signs/Symptoms of Drug Intoxication Withdrawal: No Have you been hit, kicked, punched, or otherwise hurt by someone within the past year? 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 Glucose (Glucose Gel 15 Gm Gel..Gram.) 15 gm PO Q15M PRN; Protocol PRN Reason: per Hypoglycemia Standing Ord. Hydrochlorothiazide (Hydrochlorothiazide 12.5 Mg Tablet) 12.5 mg PO DAILY [facility]; Protocol Hydromorphone HCl (Hydromorphone Hcl 0.5 Mg/0.5 Ml Syringe) 0.5 mg IVPUSH Q2H PRN; Protocol PRN Reason: Pain, Severe (Pain Scale 7-10) Hydromorphone HCl (Hydromorphone Hcl 0.5 Mg/0.5 Ml Syringe) 0.25 mg IVPUSH Q2H PRN; Protocol PRN Reason: Pain, Moderate(Pain Scale 4-6) Last Admin: 10/02/22 16:29 Dose: 0.25 mg Piperacillin Sod/Tazobactam (Sod 3.375 gm/ Sodium Chloride) 50 mls @ 100 mls/hr IV Q6H [facility] Last Infusion: 10/03/22 06:31 Dose: Infused Lactated Ringer's (Lr) 1,000 mls @ 125 mls/hr IVCONT .Q8H [facility] Last Admin: 10/03/22 01:39 Dose: 125 mls/hr Insulin Human Lispro (Insulin Lispro 100 Unit/Ml 3 Ml Vial) 0 unit SUBCUT QID ACHS [facility]; Protocol Last Admin: 10/03/22 07:26 Dose: Not Given Magnesium Oxide (Magnesium Oxide 400 Mg Tablet) 200 mg PO DAILY [facility] Multivitamins/Vitamin C (Multivitamin Tablet) 1 tab PO DAILY [facility] Ondansetron HCl (Ondansetron Hcl 4 Mg/2 Ml Vial) 4 mg IVPUSH Q6H PRN PRN Reason: Nausea and Vomiting Vitamin D (Cholecalciferol (Vitamin D3) 25 Mcg Tablet) 125 mcg PO DAILY [facility] Home Medications Medication Instructions Recorded Confirmed Last Taken Type hydrochlorothiazide 12.5 mg capsule 12.5 mg PO DAILY 01/09/22 10/02/22 10/02/22 History cholecalciferol (vitamin D3) 125 125 mcg PO DAILY 03/22/22 10/02/22 10/02/22 History mcg (5,000 unit) capsule atorvastatin 20 mg tablet 20 mg PO DAILY 10/02/22 10/02/22 09/30/22 History magnesium 250 mg tablet 250 mg PO DAILY 10/02/22 10/02/22 10/02/22 History multivitamin 1 tab PO DAILY 10/02/22 10/02/22 10/02/22 History Exam Exam Date and Time: October 03, 2022 0749 Height,Weight and Vital Signs: Height 5 ft 1 in Weight 103 kg Last Vital Signs Temp 98.5 F 10/03/22 07:26 Pulse 91 10/03/22 07:26 Resp 18 10/03/22 07:26 BP 151/78 H 10/03/22 07:26 Pulse Ox 93 10/03/22 07:26 O2 Del Method Room Air 10/03/22 07:26 Pertinent Lab Results Pertinent Lab Results: Laboratory Tests 10/02/22 10/02/22 10/02/22 10:28 10:28 10:28 WBC 16.2 H RBC 5.16 Hgb 14.3 Hct 43.4 MCV 84.1 MCH 27.7 MCHC 32.9 RDW 13.2 Plt Count 295 MPV 9.2 L Immature Gran % (Auto) 0.2 Neut % (Auto) 86.2 H Lymph % (Auto) 8.7 L [place] % (Auto) 4.1 Eos % (Auto) 0.4 Baso % (Auto) 0.4 Lymph # (Auto) 1.4 [place] # (Auto) 0.7 Eos # (Auto) 0.1 Baso # (Auto) 0.1 Abs Immat Gran (auto) 0.04 H Absolute Neuts (auto) 14.0 H Absolute Nucleated RBC 0.000 Nucleated RBC % (auto) 0.0 Sodium 134 L Potassium 4.0 Chloride 96 Carbon Dioxide 28 Anion Gap 14 BUN 11 Creatinine 0.70 Estim Creat Clear Calc 94.3 Estimated GFR > 60 POC Glucose Random Glucose 182 H Estimat Average Glucose Hemoglobin A1c % Calcium 10.1 Total Bilirubin 0.7 Direct Bilirubin 0.2 AST 18 ALT 29 Alkaline Phosphatase 106 Troponin I High Sens < 2.7 Total Protein 7.6 Albumin 4.2 Lipase 22 Urine Color Urine Appearance Urine pH Ur Specific [place] Urine Protein Urine Glucose (UA) Urine Ketones Urine Blood Urine Nitrite Ur Leukocyte Esterase Urine RBC Urine WBC Ur Squamous Epith Cells Urine Bacteria Hyaline Casts 10/02/22 10/02/22 10/02/22 12:11 16:24 20:41 WBC RBC Hgb Hct MCV MCH MCHC RDW Plt Count MPV Immature Gran % (Auto) Neut % (Auto) Lymph % (Auto) [place] % (Auto) Eos % (Auto) Baso % (Auto) Lymph # (Auto) [place] # (Auto) Eos # (Auto) Baso # (Auto) Abs Immat Gran (auto) Absolute Neuts (auto) Absolute Nucleated RBC Nucleated RBC % (auto) Sodium Potassium Chloride Carbon Dioxide Anion Gap BUN Creatinine Estim Creat Clear Calc Estimated GFR POC Glucose 168 H Random Glucose Estimat Average Glucose 157 Hemoglobin A1c % 7.1 Calcium Total Bilirubin Direct Bilirubin AST ALT Alkaline Phosphatase Troponin I High Sens Total Protein Albumin Lipase Urine Color Yellow Urine Appearance Clear Urine pH 7.0 Ur Specific [place] 1.010 Urine Protein Negative Urine Glucose (UA) Negative Urine Ketones Negative Urine Blood Trace H Urine Nitrite Negative Ur Leukocyte Esterase Negative Urine RBC 3-5 H Urine WBC 0-5 Ur Squamous Epith Cells 0-2 Urine Bacteria 1+ Hyaline Casts 0-2 10/03/22 10/03/22 10/03/22 05:46 05:46 07:21 WBC 15.8 H RBC 4.42 Hgb 12.2 Hct 37.0 MCV 83.7 MCH 27.6 MCHC 33.0 RDW 13.5 Plt Count 283 MPV 9.8 Immature Gran % (Auto) 0.7 H Neut % (Auto) 82.3 H Lymph % (Auto) 9.3 L [place] % (Auto) 7.0 Eos % (Auto) 0.4 Baso % (Auto) 0.3 Lymph # (Auto) 1.5 [place] # (Auto) 1.1 Eos # (Auto) 0.1 Baso # (Auto) 0.1 Abs Immat Gran (auto) 0.11 H Absolute Neuts (auto) 13.0 H Absolute Nucleated RBC 0.000 Nucleated RBC % (auto) 0.0 Sodium 135 Potassium 3.6 Chloride 101 Carbon Dioxide 25 Anion Gap 13 BUN 9 Creatinine 0.65 Estim Creat Clear Calc 101.5 Estimated GFR > 60 POC Glucose 181 H Random Glucose 177 H Estimat Average Glucose Hemoglobin A1c % Calcium 9.4 D Total Bilirubin 1.0 Direct Bilirubin AST 18 ALT 26 Alkaline Phosphatase 91 Troponin I High Sens Total Protein 6.3 L Albumin 3.5 Lipase Urine Color Urine Appearance Urine pH Ur Specific [place] Urine Protein Urine Glucose (UA) Urine Ketones Urine Blood Urine Nitrite Ur Leukocyte Esterase Urine RBC Urine WBC Ur Squamous Epith Cells Urine Bacteria Hyaline Casts Airway Heart: RRR Lungs: CTA Assessment and Plan Assessment Anesthesia Assessment: Anesthesia Plan Discussed and Chart Reviewed Final Anesthetic Review Family History of Problems with Anesthesia: No History of Problems with Anesthesia: No NPO: Yes ASA Class: III and Emergency Final Preanesthetic Review: Meds/Allgs Chart Reviewed, Consent Obtained/Reviewed and Anes Risks/Benef Reviewed Patient Risk: Intermediate Procedure Risk: Intermediate Anesthetic Plan Anesthetic Plan: GA Disposition: Standard PACU
--- NOTE | 2022-10-03 08:37 | W.PM.OPN ---
Operative Note Operative Note Date of Service: 10/03/22 Narrative: Preop diagnosis: [Acute calculous cholecystitis] Postop diagnosis: [Gangrenous acute calculous cholecystitis] Procedure: [Lap kayla] Surgeon: Josh Chaidez MD Assist: [Da Sorenson PA-C] Anesthesia: [GET, local: Marcaine, 0.5%] Estimated blood loss: [100cc] Specimen: [1) gallbladder fluid for Gram stain and culture; 2) gallbladder and content] Drain: CHRIS in Morisson's pouch Intraoperative findings: [Gangrenous acute calculous cholecystitis; cystic duct 5 mm; cystic artery 3-4 mm. Hepatomegaly, NAFLD] Indications: [The patient is a 62-year-old woman with a history of type 2 diabetes, morbid obesity with a BMI 42.3, COPD, nicotine use, hypertension who presented with abdominal pain and a leukocytosis. Hemoglobin A1c was 7.1, LFTs normal and abdominal ultrasound and CT confirmed findings of gallbladder wall edema concerning for acute cholecystitis. Options were reviewed with the patient including observation verses cholecystectomy. She seemed understand the risks, benefits and options. She wanted to proceed with a laparoscopic cholecystectomy and I reviewed the inherent risks to surgery which include, but are not limited to: Bleeding that could require another operation or blood transfusion, the need for open surgery, the unlikely but possible issue of bile leak that could require an ERCP, the risk of retained common duct stones that could require an ERCP, the risk of common bile duct injury which would require transfer to a larger institution for another operation. Her nicotine use, obesity, type 2 diabetes puts her at greater risk for complications such as infectious or hernia/healing complications so the option of non operative observation was discussed at length but declined by the patient. Patient seemed to understand her options, declined a public relations sales marketing or 2nd opinion and wants to proceed.] Procedure: [The patient was identified in preoperative holding and again in the operating room and placed supine on the table. An appropriate time-out was performed and preemptive local used at all trocar insertion sites. I began at the patient's supraumbilical midline and placed a Veress needle through a transverse supraumbilical incision. An appropriate drop test was performed. The needle was connected to high flow and opening pressures were 7 mmHg. A pneumoperitoneum of 15 mmHg was then obtained using carbon dioxide. The Veress needle was then removed and I accessed the patient's abdomen through the supraumbilical midline incision using a 5 mm Optiview trocar and 30 degree/5 mm laparoscopic without incident. Next a a 5 mm epigastric and two 5 mm right subcostal ports were placed with preemptive analgesia under direct laparoscopic vision without incident and the supraumbilical trocar upsized to a 12 mm trocar under direct laparoscopic vision. The 5 mm epigastric trocar was upsized to a 12 mm due to need to use a 10 mm clip spot washer. The omentum covered the gallbladder and liver and required retraction and limited lysis of adhesions bluntly. The gallbladder was clearly identified and grasped by its fundus. It was grossly gangrenous and tense requiring needle decompression. The turbid bilious fluid was sent for Gram stain and culture. It was retracted cranially and anteriorly and dissection began in the lateral cystic triangle. The cystic duct was identified at its junction on the gallbladder and dissection carried medially, then circumferentially using the [place] dissector and hook. The cystic artery was then carefully identified and circumferentially dissected. Once dissection of both structures was complete and the critical view of safety demonstrated, the duct and artery were double clipped proximally and once distally and sharply divided. After division of the cystic artery, there was pulsatile blood flow that was rendered hemostatic with clips. Electrocautery was used to remove the gallbladder from its fossa on the liver. Liver bed was inspected for hemostasis and the clips were noted to be on the respective structures. The gallbladder was placed in an Endo-Catch bag and delivered through the umbilicus under direct laparoscopic vision. The abdomen was again inspected with the laparoscoped and a abdomen deflated to assess for hemostasis. The patient was returned to neutral position, the abdomen deflated and the fascia of the supraumbilical incision closed with interrupted Vicryl sutures. Skin was closed with 4-0 Monocryl subcuticular sutures. Mastisol and Steri-Strips were applied followed by Band-Aids. The patient tolerated the procedure well and was extubated recovered in stable condition. All sponge instrument counts were correct. At the patient's request I spoke to her , Da and apprised him of the operation, drain, importance of nicotine cessation, importance of maintaining stable weight and getting her diabetes better controlled. I also explained we would keep her overnight and assess her for safe discharge possibly tomorrow or the next day. His questions seemed to be satisfactorily answered.
[2022-10-03] MEDS: Lactated Ringers 1,000 ML 100 ML IVCONT ×2 (09:03→19:49)
--- NOTE | 2022-10-03 10:28 | HO.PM.IMPN ---
Subjective Subjective Date of Service: 10/03/22 Interval History: patient complaining of abdominal pain this morning slept well last night with no acute events denies nausea vomiting, no fevers, no chills no headache no lightheadedness or dizziness, offers no other acute complaints is NPO and is due for cholecystectomy this morning Review of Systems all other system reviewed and negative. Physical Exam Vital Signs: Vital Signs: Last Vital Signs Temp 98.8 F 10/03/22 08:36 Pulse 85 10/03/22 08:36 Resp 16 10/03/22 08:36 BP 143/85 H 10/03/22 08:36 Pulse Ox 93 10/03/22 08:36 O2 Del Method Room Air 10/03/22 08:36 BMI result Body Mass Index 42.9 Const: Other: General: awake alert resting comfortably, no acute distress Neck no JVD Resp: CTA bilaterally CVS: S1, S2, RRR GI: right upper quadrant and mid abdominal tenderness to palpation, bowel sounds audible, no rigidity no distention Neuro: Cranial nerves II-XII grossly intact bilaterally. Motor grossly intact bilaterally Extremities: No edema Skin no rash Psych: Appropriate affect Objective Data Active Medications Atorvastatin Calcium (Atorvastatin Calcium 20 Mg Tablet) 20 mg PO DAILY [facility] Dextrose (Dextrose 50 % 25 Gm/50 Ml Syringe) 25 gm IVPUSH Q15M PRN; Protocol PRN Reason: per Hypoglycemia Standing Ord. Glucose (Glucose Gel 15 Gm Gel..Gram.) 15 gm PO Q15M PRN; Protocol PRN Reason: per Hypoglycemia Standing Ord. Hydrochlorothiazide (Hydrochlorothiazide 12.5 Mg Tablet) 12.5 mg PO DAILY [facility]; Protocol Hydromorphone HCl (Hydromorphone Hcl 0.5 Mg/0.5 Ml Syringe) 0.5 mg IVPUSH Q2H PRN; Protocol PRN Reason: Pain, Severe (Pain Scale 7-10) Hydromorphone HCl (Hydromorphone Hcl 0.5 Mg/0.5 Ml Syringe) 0.25 mg IVPUSH Q2H PRN; Protocol PRN Reason: Pain, Moderate(Pain Scale 4-6) Last Admin: 10/02/22 16:29 Dose: 0.25 mg Documented By: YOVANI Piperacillin Sod/Tazobactam (Sod 3.375 gm/ Sodium Chloride) 50 mls @ 100 mls/hr IV Q6H ON LICENSE OF [facility] Last Infusion: 10/03/22 06:31 Dose: 0 mls/hr Documented By: DELON Lactated Ringer's (Lr) 1,000 mls @ 125 mls/hr IVCONT .Q8H ON LICENSE OF [facility] Last Admin: 10/03/22 01:39 Dose: 125 mls/hr Documented By: DELON Lactated Ringer's (Lr) 1,000 mls @ 100 mls/hr IVCONT .Q10H ON LICENSE OF [facility] Last Admin: 10/03/22 09:03 Dose: 100 mls/hr Documented By: ALON Insulin Human Lispro (Insulin Lispro 100 Unit/Ml 3 Ml Vial) 0 unit SUBCUT QIDACHS ON LICENSE OF [facility]; Protocol Last Admin: 10/03/22 07:26 Dose: Not Given Documented By: ODALYS Non-Admin Reason: NPO Magnesium Oxide (Magnesium Oxide 400 Mg Tablet) 200 mg PO DAILY ON LICENSE OF [facility] Multivitamins/Vitamin C (Multivitamin Tablet) 1 tab PO DAILY ON LICENSE OF [facility] Ondansetron HCl (Ondansetron Hcl 4 Mg/2 Ml Vial) 4 mg IVPUSH Q6H PRN PRN Reason: Nausea and Vomiting Ondansetron HCl (Ondansetron Hcl 4 Mg/2 Ml Vial) 4 mg IVPUSH ONCE PRN PRN Reason: Nausea and Vomiting Oxycodone HCl (Oxycodone Hcl Immed Release 5 Mg Tablet) 5 mg PO ONCE PRN PRN Reason: Pain, Severe (Pain Scale 7-10) Vitamin D (Cholecalciferol (Vitamin D3) 25 Mcg Tablet) 125 mcg PO DAILY ON LICENSE OF [facility] Labs 10/03/22 05:46 10/03/22 05:46 Labs: Laboratory Results - last 24 hr 10/02/22 10/02/22 10/02/22 10:28 10:28 10:28 MCV 84.1 MCH 27.7 MCHC 32.9 RDW 13.2 Plt Count 295 MPV 9.2 L Immature Gran % (Auto) 0.2 Neut % (Auto) 86.2 H Lymph % (Auto) 8.7 L [place] % (Auto) 4.1 Eos % (Auto) 0.4 Baso % (Auto) 0.4 Lymph # (Auto) 1.4 [place] # (Auto) 0.7 Eos # (Auto) 0.1 Baso # (Auto) 0.1 Abs Immat Gran (auto) 0.04 H Absolute Neuts (auto) 14.0 H Absolute Nucleated RBC 0.000 Nucleated RBC % (auto) 0.0 Anion Gap 14 Estim Creat Clear Calc 94.3 Estimated GFR > 60 POC Glucose Random Glucose 182 H Estimat Average Glucose Hemoglobin A1c % Calcium 10.1 Total Bilirubin 0.7 Direct Bilirubin 0.2 AST 18 ALT 29 Alkaline Phosphatase 106 Troponin I High Sens < 2.7 Total Protein 7.6 Albumin 4.2 Lipase 22 Urine Color Urine Appearance Urine pH Ur Specific [place] Urine Protein Urine Glucose (UA) Urine Ketones Urine Blood Urine Nitrite Ur Leukocyte Esterase Urine RBC Urine WBC Ur Squamous Epith Cells Urine Bacteria Hyaline Casts 10/02/22 10/02/22 10/02/22 12:11 16:24 20:41 MCV MCH MCHC RDW Plt Count MPV Immature Gran % (Auto) Neut % (Auto) Lymph % (Auto) [place] % (Auto) Eos % (Auto) Baso % (Auto) Lymph # (Auto) [place] # (Auto) Eos # (Auto) Baso # (Auto) Abs Immat Gran (auto) Absolute Neuts (auto) Absolute Nucleated RBC Nucleated RBC % (auto) Anion Gap Estim Creat Clear Calc Estimated GFR POC Glucose 168 H Random Glucose Estimat Average Glucose 157 Hemoglobin A1c % 7.1 Calcium Total Bilirubin Direct Bilirubin AST ALT Alkaline Phosphatase Troponin I High Sens Total Protein Albumin Lipase Urine Color Yellow Urine Appearance Clear Urine pH 7.0 Ur Specific [place] 1.010 Urine Protein Negative Urine Glucose (UA) Negative Urine Ketones Negative Urine Blood Trace H Urine Nitrite Negative Ur Leukocyte Esterase Negative Urine RBC 3-5 H Urine WBC 0-5 Ur Squamous Epith Cells 0-2 Urine Bacteria 1+ Hyaline Casts 0-2 10/03/22 10/03/22 10/03/22 05:46 05:46 07:21 MCV 83.7 MCH 27.6 MCHC 33.0 RDW 13.5 Plt Count 283 MPV 9.8 Immature Gran % (Auto) 0.7 H Neut % (Auto) 82.3 H Lymph % (Auto) 9.3 L [place] % (Auto) 7.0 Eos % (Auto) 0.4 Baso % (Auto) 0.3 Lymph # (Auto) 1.5 [place] # (Auto) 1.1 Eos # (Auto) 0.1 Baso # (Auto) 0.1 Abs Immat Gran (auto) 0.11 H Absolute Neuts (auto) 13.0 H Absolute Nucleated RBC 0.000 Nucleated RBC % (auto) 0.0 Anion Gap 13 Estim Creat Clear Calc 101.5 Estimated GFR > 60 POC Glucose 181 H Random Glucose 177 H Estimat Average Glucose Hemoglobin A1c % Calcium 9.4 D Total Bilirubin 1.0 Direct Bilirubin AST 18 ALT 26 Alkaline Phosphatase 91 Troponin I High Sens Total Protein 6.3 L Albumin 3.5 Lipase Urine Color Urine Appearance Urine pH Ur Specific [place] Urine Protein Urine Glucose (UA) Urine Ketones Urine Blood Urine Nitrite Ur Leukocyte Esterase Urine RBC Urine WBC Ur Squamous Epith Cells Urine Bacteria Hyaline Casts Assessment and Plan (1) Hypertension: Status: Acute (2) Cholecystitis: Status: Acute (3) Diabetes mellitus: Status: Acute Plan 62-year-old female PMH significant for non insulin-dependent diabetes type 2, HTN, and HLD who is admitted to the hospital under general surgery for cholecystitis.? Patient is NPO and scheduled to undergo cholecystectomy tomorrow.? Hospitalist consult for medical management.? Patient states that she continues to have upper right quadrant pain though notes that it is ?much better? than it was at time of presentation.? Patient has no other acute medical complaints at this time. acute Cholecystitis NPO scheduled for surgery this morning, continue IV fluids, pain management as per General surgery Non insulin-dependent diabetes type 2 Patient not on taking any diabetic medications, not following diabetic diet Patient apparently has script for Ozempic but is reluctant to take the medication Latest A1c 7.1 continue sliding scale insulin, monitor point of care blood sugars, diabetic diet post surgery encouraged to take Ozempic, or consider other home oral hypoglycemic will discuss use of metformin upon discharge recommend outpatient follow-up with PCP for diabetes management HTN stable BP,Continue hydrochlorothiazide HLD Continue statin, normal LFTs morbid obesity weight reduction recommended, Ozempic will help in weight loss disposition as per General surgery Time Spent With Patient Time: Total time managing care of this patient today ____ minutes. Quality Stroke Does the patient have a stroke diagnosis?: No VTE Prior VTE?: No VTE Risk Level:: Surgical - moderate VTE Device Contraindication: N/A - Device Ordered VTE Drug Contraindication: N/A - Med Ordered
[2022-10-03 13:05] LABS: Glucose, Whole Blood 289 mg/dL (60-115)
[2022-10-03] MEDS: oxyCODONE HCl Immed Release 5 MG TABLET PO ×2 (13:13→20:04)
--- NOTE | 2022-10-03 14:08 | MHC.CM.PN ---
PATIENT LIVES WITH SPOUSE. HE WILL PROVIDE TRANSPORT HOME AT TIME OF DC. EXPECTED TO NEED NO SERVICES. COPY OF HCP REQUESTED OT MEDICAL RECORD. PATIENT IS FULLY INDEPENDENT WITH ADLS. PLAN IS HOME SATURDAY
[2022-10-03] MEDS: Acetaminophen 325 MG TABLET 975 MG PO (16:02)
[2022-10-03 16:35] LABS: Glucose, Whole Blood 232 mg/dL (60-115)
--- NOTE | 2022-10-03 16:36 | PM.PNGS ---
Subjective Subjective Date of Service: 10/03/22 Patient reports: feels better and still having pain Interval history: The patient is seen for her postop check. She was snoring and occluding her airway and gasping. She now admits to having a CPAP machine and contacted her for him to bring it. I contacted her Da at [phone] and he acknowledged he was on his way back to the hospital with the CPAP. Physical Exam Vital Signs: Vital Signs: Last Vital Signs Temp 96.9 F 10/03/22 16:00 Pulse 85 10/03/22 16:00 Resp 20 10/03/22 16:00 BP 155/82 H 10/03/22 16:00 Pulse Ox 91 L 10/03/22 16:00 O2 Del Method Nasal Cannula 10/03/22 16:00 O2 Flow Rate 2 10/03/22 16:00 BMI result Body Mass Index 42.9 Is a entered the room, the patient was loudly snoring and had a woken abruptly gasping for breath. She reports good analgesia Her CHRIS drain has about 20 cc of bloody drainage Objective Data Active Medications Acetaminophen (Acetaminophen 325 Mg Tablet) 975 mg PO Q6H PRN PRN Reason: Pain, Mild (Pain Scale 1-3) Last Admin: 10/03/22 16:02 Dose: 975 mg Documented By: RAY Atorvastatin Calcium (Atorvastatin Calcium 20 Mg Tablet) 20 mg PO DAILY [facility] Last Admin: 10/03/22 11:36 Dose: Not Given Documented By: ODALYS Non-Admin Reason: Off Unit: Surgery Dextrose (Dextrose 50 % 25 Gm/50 Ml Syringe) 25 gm IVPUSH Q15M PRN; Protocol PRN Reason: per Hypoglycemia Standing Ord. Docusate Sodium (Docusate Sodium 100 Mg Capsule) 200 mg PO BID [facility] Glucose (Glucose Gel 15 Gm Gel..Gram.) 15 gm PO Q15M PRN; Protocol PRN Reason: per Hypoglycemia Standing Ord. Hydrochlorothiazide (Hydrochlorothiazide 12.5 Mg Tablet) 12.5 mg PO DAILY [facility]; Protocol Last Admin: 10/03/22 11:36 Dose: Not Given Documented By: ODALYS Non-Admin Reason: Off Unit: Surgery Hydromorphone HCl (Hydromorphone Hcl 0.5 Mg/0.5 Ml Syringe) 0.5 mg IVPUSH Q2H PRN; Protocol PRN Reason: Pain, Severe (Pain Scale 7-10) Hydromorphone HCl (Hydromorphone Hcl 0.5 Mg/0.5 Ml Syringe) 0.25 mg IVPUSH Q2H PRN; Protocol PRN Reason: Pain, Moderate(Pain Scale 4-6) Last Admin: 10/02/22 16:29 Dose: 0.25 mg Documented By: YOVANI Piperacillin Sod/Tazobactam (Sod 3.375 gm/ Sodium Chloride) 50 mls @ 100 mls/hr IV Q6H [facility] Last Infusion: 10/03/22 13:03 Dose: 0 mls/hr Documented By: ODALYS Lactated Ringer's (Lr) 1,000 mls @ 100 mls/hr IVCONT .Q10H [facility] Last Admin: 10/03/22 09:03 Dose: 100 mls/hr Documented By: ALON Insulin Human Lispro (Insulin Lispro 100 Unit/Ml 3 Ml Vial) 0 unit SUBCUT QIDACHS [facility]; Protocol Last Admin: 10/03/22 13:08 Dose: Not Given Documented By: ODALYS Non-Admin Reason: Off Unit: Surgery Magnesium Oxide (Magnesium Oxide 400 Mg Tablet) 200 mg PO DAILY [facility] Last Admin: 10/03/22 11:36 Dose: Not Given Documented By: ODALYS Non-Admin Reason: Off Unit: Surgery Multivitamins/Vitamin C (Multivitamin Tablet) 1 tab PO DAILY [facility] Last Admin: 10/03/22 11:36 Dose: Not Given Documented By: ODALYS Non-Admin Reason: Off Unit: Surgery Ondansetron HCl (Ondansetron Hcl 4 Mg/2 Ml Vial) 4 mg IVPUSH Q6H PRN PRN Reason: Nausea and Vomiting Ondansetron HCl (Ondansetron Hcl 4 Mg/2 Ml Vial) 4 mg IVPUSH ONCE PRN PRN Reason: Nausea and Vomiting Oxycodone HCl (Oxycodone Hcl Immed Release 5 Mg Tablet) 5 mg PO Q4H PRN PRN Reason: Pain, Moderate(Pain Scale 4-6) Vitamin D (Cholecalciferol (Vitamin D3) 25 Mcg Tablet) 125 mcg PO DAILY [facility] Last Admin: 10/03/22 11:36 Dose: Not Given Documented By: ODALYS Non-Admin Reason: Off Unit: Surgery Labs 10/03/22 05:46 10/03/22 05:46 Labs: Laboratory Results - last 24 hr 10/02/22 10/02/22 10/03/22 16:24 20:41 05:46 MCV MCH MCHC RDW Plt Count MPV Immature Gran % (Auto) Neut % (Auto) Lymph % (Auto) [place] % (Auto) Eos % (Auto) Baso % (Auto) Lymph # (Auto) [place] # (Auto) Eos # (Auto) Baso # (Auto) Abs Immat Gran (auto) Absolute Neuts (auto) Absolute Nucleated RBC Nucleated RBC % (auto) Anion Gap 13 Estim Creat Clear Calc 101.5 Estimated GFR > 60 POC Glucose 168 H Random Glucose 177 H Estimat Average Glucose 157 Hemoglobin A1c % 7.1 Calcium 9.4 D Total Bilirubin 1.0 AST 18 ALT 26 Alkaline Phosphatase 91 Total Protein 6.3 L Albumin 3.5 10/03/22 10/03/22 10/03/22 05:46 07:21 13:00 MCV 83.7 MCH 27.6 MCHC 33.0 RDW 13.5 Plt Count 283 MPV 9.8 Immature Gran % (Auto) 0.7 H Neut % (Auto) 82.3 H Lymph % (Auto) 9.3 L [place] % (Auto) 7.0 Eos % (Auto) 0.4 Baso % (Auto) 0.3 Lymph # (Auto) 1.5 [place] # (Auto) 1.1 Eos # (Auto) 0.1 Baso # (Auto) 0.1 Abs Immat Gran (auto) 0.11 H Absolute Neuts (auto) 13.0 H Absolute Nucleated RBC 0.000 Nucleated RBC % (auto) 0.0 Anion Gap Estim Creat Clear Calc Estimated GFR POC Glucose 181 H 289 H Random Glucose Estimat Average Glucose Hemoglobin A1c % Calcium Total Bilirubin AST ALT Alkaline Phosphatase Total Protein Albumin 10/03/22 16:26 MCV MCH MCHC RDW Plt Count MPV Immature Gran % (Auto) Neut % (Auto) Lymph % (Auto) [place] % (Auto) Eos % (Auto) Baso % (Auto) Lymph # (Auto) [place] # (Auto) Eos # (Auto) Baso # (Auto) Abs Immat Gran (auto) Absolute Neuts (auto) Absolute Nucleated RBC Nucleated RBC % (auto) Anion Gap Estim Creat Clear Calc Estimated GFR POC Glucose 232 H Random Glucose Estimat Average Glucose Hemoglobin A1c % Calcium Total Bilirubin AST ALT Alkaline Phosphatase Total Protein Albumin Microbiology Microbiology Results: Microbiology 10/03/22 Unknown Gram Stain - Final Gallbladder Procedures Date of Service Date of Service: 10/03/22 Progress Note: A&P Assessment and plan (1) SANJANA on CPAP: Status: Acute (2) Hypertension: Status: Acute (3) Cholecystitis: Status: Acute (4) Mass of uterus: Status: Acute (5) Obesity: Status: Acute (6) Diabetes mellitus: Status: Acute Plan Continue antibiotics; CPAP; clear liquid; trend labs Patient had questions about going camping this weekend. She is advised that this is a very bad idea given her comorbidities and recent surgery and I would not endorse it. Patient's expressed concerns and he is in agreement that he will not take her camping. The inherent risks of her comorbidities and increased risk of surgical complications was discussed with both the patient and her . Patient's had questions regarding strict bed rest; patient's is advised that this is also not recommended due to the increased risk for skin breakdown and deep vein thrombosis and fatal pulmonary embolism. Patient is encouraged to be up and walking but should not lift more than 20 lb. She should also not shower while the drain is in and the drain will be assessed tomorrow. She may needed for week depending on output. Both the and the patient's questions seemed to be satisfactorily answered. Time Spent With Patient Time: Total time managing care of this patient today ____ minutes. Quality Stroke Does the patient have a stroke diagnosis?: No VTE Prior VTE?: No VTE Risk Level:: Surgical - moderate VTE Device Contraindication: N/A - Device Ordered VTE Drug Contraindication: N/A - Med Ordered
[2022-10-03] MEDS: Insulin Lispro 100 UNIT/ML 3 ML VIAL SUBCUT ×2 (17:29→20:23)
[2022-10-03] MEDS: Docusate Sodium 100 MG CAPSULE 200 MG PO (20:04)
[2022-10-03 20:18] LABS: Glucose, Whole Blood 259 mg/dL (60-115)
[2022-10-04] VITALS (9 sets, daily range): BP systolic 121–163; BP diastolic 66–87; PULSE 63–82; RESP 18–20; TEMP 35.8–36.5; O2SAT 66–95
[2022-10-04] MEDS: HYDROmorphone HCl 0.5 MG/0.5 ML SYRINGE 0.25 MG IVPUSH ×2 (03:20→14:10)
[2022-10-04 06:12] LABS: Basophils Percent Auto 0.2 % (0-2); Eosinophils Percent Auto 0.1 % (0-4); Hematocrit 34.1 % (37.0-47.0); Hematocrit 34.9 % (37.0-47.0); Hemoglobin 11.2 g/dl (12.0-16.0); Imm Gran Abs Auto 0.08 X10*3/uL (0.00-0.03); Imm Gran Pct Auto 0.5 % (0.0-0.4); Lymphocytes Absolute Auto 1.7 X10*3/uL (1.2-4.9); Lymphocytes Percent Auto 10.5 % (20-40); MANUAL DIFF FLAG NO; Mean Corpuscular HGB Conc 32.1 g/dl (31.0-35.0); Mean Corpuscular HGB Conc 32.8 g/dl (31.0-35.0); Mean Corpuscular Volume 85.3 fL (80.0-98.0); Mean Corpuscular Volume 87.3 fL (80.0-98.0); Mean Platelet Volume 9.4 fL (9.4-12.3); Mean Platelet Volume 9.9 fL (9.4-12.3); Monocytes Absolute Auto 0.8 X10*3/uL (0.1-1.2); Monocytes Percent Auto 5.1 % (2-11); Neutrophils Absolute Auto 13.3 x10*3/uL (2.0-8.3); Neutrophils Percent Auto 83.6 % (45-73); Platelet Count 259 X10*3/uL (160-400); Platelet Count 267 X10*3/uL (160-400); Red Cell Distribution Width 13.5 % (11.0-16.0); Red Cell Distribution Width 13.6 % (11.0-16.0); White Blood Count 15.2 X10*3/uL (4.8-10.8); White Blood Count 15.9 X10*3/uL (4.8-10.8)
[2022-10-04 06:36] LABS: Alanine Aminotransferase 70 U/L (0-31); Albumin Level 3.4 g/dL (3.5-5.0); Alkaline Phosphatase 107 U/L (39-117); Anion Gap 10 (12-20); Aspartate Amino Transferase 51 U/L (5-31); Bilirubin Total 0.7 mg/dL (0.0-1.0); Blood Urea Nitrogen 7 mg/dL (9-16); Calcium 9.4 mg/dL (8.4-10.2); Carbon Dioxide 28 mmol/L (22-29); Chloride 101 mmol/L (96-108); Creatinine Clr Calc Pharmacy 111.9; Estimated Glomerular Filt Rate > 60; Glucose Random 152 mg/dL (60-115); Potassium 4.1 mmol/L (3.3-5.1); Sodium 135 mmol/L (135-145); Total Protein 6.2 g/dL (6.5-8.0)
[2022-10-04 07:44] LABS: Glucose, Whole Blood 152 mg/dL (60-115)
--- NOTE | 2022-10-04 08:19 | PM.PNGS ---
Subjective Subjective Date of Service: 10/04/22 Patient reports: no new complaints, feels better and tolerating liquids well Interval history: The patient denies any chest pain, difficulty breathing or shortness of breath. She reports expected incisional pain. She denies any nausea or vomiting. She did tolerate clears and states she got up to the bathroom. Physical Exam Vital Signs: Vital Signs: Last Vital Signs Temp 97.7 F 10/04/22 07:01 Pulse 78 10/04/22 07:01 Resp 18 10/04/22 07:01 BP 130/66 10/04/22 07:01 Pulse Ox 93 10/04/22 07:01 O2 Del Method Nasal Cannula 10/04/22 07:01 O2 Flow Rate 2 10/04/22 07:01 BMI result Body Mass Index 42.9 On exam, she is anicteric She is having no respiratory distress Abdomen is obese with appropriate incisional tenderness CHRIS is serosanguineous Objective Data Active Medications Acetaminophen (Acetaminophen 325 Mg Tablet) 975 mg PO Q6H PRN PRN Reason: Pain, Mild (Pain Scale 1-3) Last Admin: 10/03/22 16:02 Dose: 975 mg Documented By: RAY Atorvastatin Calcium (Atorvastatin Calcium 20 Mg Tablet) 20 mg PO DAILY [facility] Last Admin: 10/03/22 11:36 Dose: Not Given Documented By: ODALYS Non-Admin Reason: Off Unit: Surgery Dextrose (Dextrose 50 % 25 Gm/50 Ml Syringe) 25 gm IVPUSH Q15M PRN; Protocol PRN Reason: per Hypoglycemia Standing Ord. Docusate Sodium (Docusate Sodium 100 Mg Capsule) 200 mg PO BID [facility] Last Admin: 10/03/22 20:04 Dose: 200 mg Documented By: RAY Glucose (Glucose Gel 15 Gm Gel..Gram.) 15 gm PO Q15M PRN; Protocol PRN Reason: per Hypoglycemia Standing Ord. Hydrochlorothiazide (Hydrochlorothiazide 12.5 Mg Tablet) 12.5 mg PO DAILY [facility]; Protocol Last Admin: 10/03/22 11:36 Dose: Not Given Documented By: ODALYS Non-Admin Reason: Off Unit: Surgery Hydromorphone HCl (Hydromorphone Hcl 0.5 Mg/0.5 Ml Syringe) 0.5 mg IVPUSH Q2H PRN; Protocol PRN Reason: Pain, Severe (Pain Scale 7-10) Hydromorphone HCl (Hydromorphone Hcl 0.5 Mg/0.5 Ml Syringe) 0.25 mg IVPUSH Q2H PRN; Protocol PRN Reason: Pain, Moderate(Pain Scale 4-6) Last Admin: 10/04/22 03:20 Dose: 0.25 mg Documented By: BETTY Piperacillin Sod/Tazobactam (Sod 3.375 gm/ Sodium Chloride) 50 mls @ 100 mls/hr IV Q6H [facility] Last Infusion: 10/04/22 00:11 Dose: 0 mls/hr Documented By: BETTY Lactated Ringer's (Lr) 1,000 mls @ 100 mls/hr IVCONT .Q10H [facility] Last Admin: 10/03/22 19:49 Dose: 100 mls/hr Documented By: RAY Insulin Human Lispro (Insulin Lispro 100 Unit/Ml 3 Ml Vial) 0 unit SUBCUT QIDACHS [facility]; Protocol Last Admin: 10/03/22 20:23 Dose: 6 unit Documented By: RAY Magnesium Oxide (Magnesium Oxide 400 Mg Tablet) 200 mg PO DAILY [facility] Last Admin: 10/03/22 11:36 Dose: Not Given Documented By: ODALYS Non-Admin Reason: Off Unit: Surgery Multivitamins/Vitamin C (Multivitamin Tablet) 1 tab PO DAILY [facility] Last Admin: 10/03/22 11:36 Dose: Not Given Documented By: ODALYS Non-Admin Reason: Off Unit: Surgery Ondansetron HCl (Ondansetron Hcl 4 Mg/2 Ml Vial) 4 mg IVPUSH Q6H PRN PRN Reason: Nausea and Vomiting Ondansetron HCl (Ondansetron Hcl 4 Mg/2 Ml Vial) 4 mg IVPUSH ONCE PRN PRN Reason: Nausea and Vomiting Oxycodone HCl (Oxycodone Hcl Immed Release 5 Mg Tablet) 5 mg PO Q4H PRN PRN Reason: Pain, Moderate(Pain Scale 4-6) Last Admin: 10/03/22 20:04 Dose: 5 mg Documented By: RAY Vitamin D (Cholecalciferol (Vitamin D3) 25 Mcg Tablet) 125 mcg PO DAILY [facility] Last Admin: 10/03/22 11:36 Dose: Not Given Documented By: ODALYS Non-Admin Reason: Off Unit: Surgery Labs 10/04/22 05:55 10/04/22 05:55 Labs: Laboratory Results - last 24 hr 10/03/22 10/03/22 10/03/22 13:00 16:26 20:11 MCV MCH MCHC RDW Plt Count MPV Immature Gran % (Auto) Neut % (Auto) Lymph % (Auto) [place] % (Auto) Eos % (Auto) Baso % (Auto) Lymph # (Auto) [place] # (Auto) Eos # (Auto) Baso # (Auto) Abs Immat Gran (auto) Absolute Neuts (auto) Absolute Nucleated RBC Nucleated RBC % (auto) Anion Gap Estim Creat Clear Calc Estimated GFR POC Glucose 289 H 232 H 259 H Random Glucose Calcium Total Bilirubin AST ALT Alkaline Phosphatase Total Protein Albumin 10/04/22 10/04/22 10/04/22 05:55 05:55 05:55 MCV 87.3 85.3 MCH 28.0 28.0 MCHC 32.1 32.8 RDW 13.6 13.5 Plt Count 267 259 MPV 9.9 9.4 Immature Gran % (Auto) 0.5 H Neut % (Auto) 83.6 H Lymph % (Auto) 10.5 L [place] % (Auto) 5.1 Eos % (Auto) 0.1 Baso % (Auto) 0.2 Lymph # (Auto) 1.7 [place] # (Auto) 0.8 Eos # (Auto) 0.0 Baso # (Auto) 0.0 Abs Immat Gran (auto) 0.08 H Absolute Neuts (auto) 13.3 H Absolute Nucleated RBC 0.000 0.000 Nucleated RBC % (auto) 0.0 0.0 Anion Gap 10 L Estim Creat Clear Calc 111.9 Estimated GFR > 60 POC Glucose Random Glucose 152 H Calcium 9.4 Total Bilirubin 0.7 AST 51 H ALT 70 H Alkaline Phosphatase 107 Total Protein 6.2 L Albumin 3.4 L 10/04/22 06:59 MCV MCH MCHC RDW Plt Count MPV Immature Gran % (Auto) Neut % (Auto) Lymph % (Auto) [place] % (Auto) Eos % (Auto) Baso % (Auto) Lymph # (Auto) [place] # (Auto) Eos # (Auto) Baso # (Auto) Abs Immat Gran (auto) Absolute Neuts (auto) Absolute Nucleated RBC Nucleated RBC % (auto) Anion Gap Estim Creat Clear Calc Estimated GFR POC Glucose 152 H Random Glucose Calcium Total Bilirubin AST ALT Alkaline Phosphatase Total Protein Albumin Microbiology Microbiology Results: Microbiology 10/02/22 16:25 Blood Culture - Preliminary Blood - Venous No growth after 24 hours. 10/02/22 16:25 Blood Culture - Preliminary Blood - Venous No growth after 24 hours. 10/03/22 Unknown Gram Stain - Final Gallbladder Intraoperative culture pending; Gram stain: 4+ GPC Procedures Date of Service Date of Service: 10/04/22 Progress Note: A&P Assessment and plan (1) Cholecystitis: Status: Acute (2) Biliary tract infection: Status: Acute (3) SANJANA on CPAP: Status: Acute (4) Hypertension: Status: Acute (5) Mass of uterus: Status: Acute (6) Diabetes mellitus: Status: Acute (7) Family history of premature CAD: Status: Acute (8) Obesity: Status: Acute Plan 4+ GPC on intraop Gram stain; await final speciation and sensitivity Patient's diabetes and other comorbidities make her at significant risk for abscess/deep space infection secondary to bactobilia; continue IV antibiotics and await final speciation and sensitivities Diabetes management and medical issues as per hospitalist service Advanced to low-fat diet and encourage incentive spirometry and ambulation Pt's , Da was called at [phone] was apprised of updates with the need for drain due to infection, possible need for VNA at discharge, my absolute recommendation that she not go on a camping trip this weekend for medical reasons. The patient's 's questions seemed to be satisfactorily answered. Time Spent With Patient Time: Total time managing care of this patient today ____ minutes. Quality Stroke Does the patient have a stroke diagnosis?: No VTE Prior VTE?: No VTE Risk Level:: Surgical - moderate VTE Device Contraindication: N/A - Device Ordered VTE Drug Contraindication: N/A - Med Ordered
[2022-10-04] MEDS: Insulin Lispro 100 UNIT/ML 3 ML VIAL SUBCUT ×4 (08:27→20:44)
[2022-10-04] MEDS: Cholecalciferol (Vitamin D3) 25 MCG TABLET 125 MCG PO (08:28)
[2022-10-04] MEDS: hydroCHLOROthiazide 12.5 MG TABLET PO (08:28)
[2022-10-04] MEDS: Docusate Sodium 100 MG CAPSULE 200 MG PO ×2 (08:29→20:41)
[2022-10-04] MEDS: Atorvastatin Calcium 20 MG TABLET PO (08:29)
[2022-10-04] MEDS: Magnesium Oxide 400 MG TABLET 200 MG PO (08:29)
--- NOTE | 2022-10-04 09:13 | HO.POSTANES ---
Post Anesthesia Evaluation Post Anesthesia Evaluation Date of Service: 10/04/22 Vital Signs: Vital Signs Temp Pulse Resp BP Pulse Ox O2 Del Method O2 Flow Rate 10/04/22 07:01 97.7 F 78 18 130/66 93 Nasal Cannula 2 10/04/22 04:00 97.1 F 82 18 121/72 94 Nasal Cannula 2 10/04/22 03:50 18 10/04/22 00:00 97 F 70 18 126/67 95 Room Air Anesthesia: General Endotracheal-GETA Mental Status: Awake Pain Control: Satisfactory Nausea/Vomiting: None Hydration: Adequate Anesthesia-Related Issues: No Anes. Related Issues
[2022-10-04] MEDS: Multivitamin TABLET 1 TAB PO (10:57)
[2022-10-04] MEDS: Lactated Ringers 1,000 ML 100 ML IVCONT ×2 (10:58→20:41)
[2022-10-04 11:12] LABS: Glucose, Whole Blood 187 mg/dL (60-115)
[2022-10-04] MEDS: Piperacillin Sodium/Tazobactam 3.375 GM in 0.9 % Sodium Chloride 50 ML IV ×2 (12:16→17:21)
--- NOTE | 2022-10-04 15:11 | P.PNIM_ITS ---
Subjective Subjective Date of Service: 10/04/22 Interval History: seen and examined this morning follow up for medical consultation s/p cholecystectomy. having some incisional pain no overnight events Review of Systems Review of Systems: Yes all other systems are reviewed and are negative Constitutional Constitutional: Denies chills and Denies fever(s) ENT Ears, Nose, Mouth, and Throat: Denies dizziness Cardiovascular Cardiovascular: Denies chest pain, Denies palpitations and Denies dyspnea Respiratory Respiratory: Denies cough and Denies dyspnea Gastrointestinal Gastrointestinal: Reports abdominal pain, Denies nausea and Denies vomiting Neurologic Neurologic: Denies dizziness Endocrine Endocrine: Denies palpitations Physical Exam Vital Signs: Vital Signs: Last Vital Signs Temp 97.7 F 10/04/22 11:46 Pulse 63 10/04/22 11:46 Resp 18 10/04/22 11:46 BP 152/87 H 10/04/22 11:46 Pulse Ox 95 10/04/22 11:46 O2 Del Method Room Air 10/04/22 11:46 O2 Flow Rate 2 10/04/22 07:01 Oxygen Flow Rate 2 10/04/22 08:55 BMI result Body Mass Index 42.9 Const: General: comfortable, no acute distress, alert and awake Nutritional Appearance: overweight Orientation/consciousness: patient oriented x3 Resp: Effort & Inspection: normal respiratory effort, able to speak in complete sentences, no respiratory distress and no use of accessory muscles Auscultation: clear to auscultation bilaterally Cardio: Rate: regular rate Heart sounds: S1 normal heart sound present and S2 normal heart sound present GI: Other: +BS CHRIS drain with minimal serosanguenous drainage Inspection: No distended Palpation (GI): Soft to palpation Neuro: General: patient oriented x3, moves all extremities and CN's II-XI intact bilaterally Extrem: General: Yes no pedal edema Objective Data Active Medications Acetaminophen (Acetaminophen 325 Mg Tablet) 975 mg PO Q6H PRN PRN Reason: Pain, Mild (Pain Scale 1-3) Last Admin: 10/03/22 16:02 Dose: 975 mg Documented By: RAY Atorvastatin Calcium (Atorvastatin Calcium 20 Mg Tablet) 20 mg PO DAILY [facility] Last Admin: 10/04/22 08:29 Dose: 20 mg Documented By: BOBBY Dextrose (Dextrose 50 % 25 Gm/50 Ml Syringe) 25 gm IVPUSH Q15M PRN; Protocol PRN Reason: per Hypoglycemia Standing Ord. Docusate Sodium (Docusate Sodium 100 Mg Capsule) 200 mg PO BID [facility] Last Admin: 10/04/22 08:29 Dose: 200 mg Documented By: BOBBY Glucose (Glucose Gel 15 Gm Gel..Gram.) 15 gm PO Q15M PRN; Protocol PRN Reason: per Hypoglycemia Standing Ord. Hydrochlorothiazide (Hydrochlorothiazide 12.5 Mg Tablet) 12.5 mg PO DAILY [facility]; Protocol Last Admin: 10/04/22 08:28 Dose: 12.5 mg Documented By: BOBBY Hydromorphone HCl (Hydromorphone Hcl 0.5 Mg/0.5 Ml Syringe) 0.5 mg IVPUSH Q2H PRN; Protocol PRN Reason: Pain, Severe (Pain Scale 7-10) Hydromorphone HCl (Hydromorphone Hcl 0.5 Mg/0.5 Ml Syringe) 0.25 mg IVPUSH Q2H PRN; Protocol PRN Reason: Pain, Moderate(Pain Scale 4-6) Last Admin: 10/04/22 14:10 Dose: 0.25 mg Documented By: BOBBY Piperacillin Sod/Tazobactam (Sod 3.375 gm/ Sodium Chloride) 50 mls @ 100 mls/hr IV Q6H [facility] Last Infusion: 10/04/22 14:17 Dose: 0 mls/hr Documented By: BOBBY Lactated Ringer's (Lr) 1,000 mls @ 100 mls/hr IVCONT .Q10H [facility] Last Admin: 10/04/22 10:58 Dose: 100 mls/hr Documented By: BOBBY Insulin Human Lispro (Insulin Lispro 100 Unit/Ml 3 Ml Vial) 0 unit SUBCUT QIDACHS [facility]; Protocol Last Admin: 10/04/22 12:16 Dose: 2 unit Documented By: BOBBY Magnesium Oxide (Magnesium Oxide 400 Mg Tablet) 200 mg PO DAILY [facility] Last Admin: 10/04/22 08:29 Dose: 200 mg Documented By: BOBBY Multivitamins/Vitamin C (Multivitamin Tablet) 1 tab PO DAILY [facility] Last Admin: 10/04/22 10:57 Dose: 1 tab Documented By: BOBBY Ondansetron HCl (Ondansetron Hcl 4 Mg/2 Ml Vial) 4 mg IVPUSH Q6H PRN PRN Reason: Nausea and Vomiting Ondansetron HCl (Ondansetron Hcl 4 Mg/2 Ml Vial) 4 mg IVPUSH ONCE PRN PRN Reason: Nausea and Vomiting Oxycodone HCl (Oxycodone Hcl Immed Release 5 Mg Tablet) 5 mg PO Q4H PRN PRN Reason: Pain, Moderate(Pain Scale 4-6) Last Admin: 10/03/22 20:04 Dose: 5 mg Documented By: RAY Vitamin D (Cholecalciferol (Vitamin D3) 25 Mcg Tablet) 125 mcg PO DAILY [facility] Last Admin: 10/04/22 08:28 Dose: 125 mcg Documented By: BOBBY Labs 10/04/22 05:55 10/04/22 05:55 Labs: Laboratory Results - last 24 hr 10/03/22 10/03/22 10/04/22 16:26 20:11 05:55 MCV 87.3 MCH 28.0 MCHC 32.1 RDW 13.6 Plt Count 267 MPV 9.9 Immature Gran % (Auto) Neut % (Auto) Lymph % (Auto) [place] % (Auto) Eos % (Auto) Baso % (Auto) Lymph # (Auto) [place] # (Auto) Eos # (Auto) Baso # (Auto) Abs Immat Gran (auto) Absolute Neuts (auto) Absolute Nucleated RBC 0.000 Nucleated RBC % (auto) 0.0 Anion Gap Estim Creat Clear Calc Estimated GFR POC Glucose 232 H 259 H Random Glucose Calcium Total Bilirubin AST ALT Alkaline Phosphatase Total Protein Albumin 10/04/22 10/04/22 10/04/22 05:55 05:55 06:59 MCV 85.3 MCH 28.0 MCHC 32.8 RDW 13.5 Plt Count 259 MPV 9.4 Immature Gran % (Auto) 0.5 H Neut % (Auto) 83.6 H Lymph % (Auto) 10.5 L [place] % (Auto) 5.1 Eos % (Auto) 0.1 Baso % (Auto) 0.2 Lymph # (Auto) 1.7 [place] # (Auto) 0.8 Eos # (Auto) 0.0 Baso # (Auto) 0.0 Abs Immat Gran (auto) 0.08 H Absolute Neuts (auto) 13.3 H Absolute Nucleated RBC 0.000 Nucleated RBC % (auto) 0.0 Anion Gap 10 L Estim Creat Clear Calc 111.9 Estimated GFR > 60 POC Glucose 152 H Random Glucose 152 H Calcium 9.4 Total Bilirubin 0.7 AST 51 H ALT 70 H Alkaline Phosphatase 107 Total Protein 6.2 L Albumin 3.4 L 10/04/22 11:09 MCV MCH MCHC RDW Plt Count MPV Immature Gran % (Auto) Neut % (Auto) Lymph % (Auto) [place] % (Auto) Eos % (Auto) Baso % (Auto) Lymph # (Auto) [place] # (Auto) Eos # (Auto) Baso # (Auto) Abs Immat Gran (auto) Absolute Neuts (auto) Absolute Nucleated RBC Nucleated RBC % (auto) Anion Gap Estim Creat Clear Calc Estimated GFR POC Glucose 187 H Random Glucose Calcium Total Bilirubin AST ALT Alkaline Phosphatase Total Protein Albumin Microbiology Microbiology Results: Microbiology 10/03/22 Unknown Gram Stain - Final Gallbladder Routine Culture - Preliminary Culture in progress. 10/02/22 16:25 Blood Culture - Preliminary Blood - Venous No growth after 24 hours. 10/02/22 16:25 Blood Culture - Preliminary Blood - Venous No growth after 24 hours. Assessment and Plan (1) Cholecystitis: Status: Acute (2) Hypertension: Status: Acute (3) Diabetes mellitus: Status: Acute Plan 62-year-old female PMH significant for non insulin-dependent diabetes type 2, HT N, and HLD who is admitted to the hospital under general surgery for cholecystitis.? Patient is NPO and scheduled to undergo cholecystectomy tomorrow.? Hospitalist consult for medical management.? Patient states that she continues to have upper right quadrant pain though notes that it is ?much celeste r? than it was at time of presentation.? Patient has no other acute medical complaints at this time. acute Cholecystitis POD #1 s/p cholecystectomy management per surgical service on zosyn Non insulin-dependent diabetes type 2 Patient not on taking any diabetic medications, not following diabetic diet Patient apparently has script for Ozempic but is reluctant to take the medication Latest A1c 7.1 continue sliding scale insulin, monitor point of care blood sugars, diabetic diet encouraged to take Ozempic, or consider other home oral hypoglycemic will discuss use of metformin upon discharge recommend outpatient follow-up with PCP for diabetes management mild transaminitis will hold statin follow lfts HTN stable BP ,Continue hydrochlorothiazide HLD hold statin, mild elevation in LFTs SANJANA CPAP at night morbid obesity BMI 42.9 weight reduction recommended dvt ppx - per surgical team disposition as per General surgery Time Spent With Patient Time: Total time managing care of this patient today ____ minutes. Quality Stroke Does the patient have a stroke diagnosis?: No VTE Prior VTE?: No VTE Risk Level:: Surgical - moderate VTE Device Contraindication: N/A - Device Ordered VTE Drug Contraindication: N/A - Med Ordered
[2022-10-04 16:08] LABS: Glucose, Whole Blood 178 mg/dL (60-115)
[2022-10-04 20:32] LABS: Glucose, Whole Blood 173 mg/dL (60-115)
[2022-10-05] MEDS: Piperacillin Sodium/Tazobactam 3.375 GM in 0.9 % Sodium Chloride 50 ML IV ×5 (01:06→23:39)
[2022-10-05] MEDS: HYDROmorphone HCl 0.5 MG/0.5 ML SYRINGE IVPUSH ×2 (03:36→20:44)
[2022-10-05 04:00] VITALS: BP 167/73; PULSE 74; RESP 19; TEMP 36.6; O2SAT 95
[2022-10-05 05:22] LABS: MANUAL DIFF FLAG NO
[2022-10-05 05:26] LABS: Basophils Absolute Auto 0.1 X10*3/uL (0.0-0.2); Basophils Percent Auto 0.5 % (0-2); Eosinophils Absolute Auto 0.2 X10*3/uL (0.0-0.4); Eosinophils Percent Auto 1.4 % (0-4); Hematocrit 34.8 % (37.0-47.0); Hemoglobin 11.4 g/dl (12.0-16.0); Imm Gran Abs Auto 0.07 X10*3/uL (0.00-0.03); Imm Gran Pct Auto 0.6 % (0.0-0.4); Lymphocytes Absolute Auto 2.4 X10*3/uL (1.2-4.9); Lymphocytes Percent Auto 21.4 % (20-40); Mean Corpuscular HGB Conc 32.8 g/dl (31.0-35.0); Mean Corpuscular Hemoglobin 28.4 pg (27.0-33.0); Mean Corpuscular Volume 86.8 fL (80.0-98.0); Mean Platelet Volume 9.7 fL (9.4-12.3); Monocytes Absolute Auto 0.7 X10*3/uL (0.1-1.2); Monocytes Percent Auto 6.1 % (2-11); Neutrophils Absolute Auto 7.8 x10*3/uL (2.0-8.3); Platelet Count 278 X10*3/uL (160-400); Red Blood Count 4.01 X10*6/uL (4.20-5.50); Red Cell Distribution Width 13.6 % (11.0-16.0); White Blood Count 11.2 X10*3/uL (4.8-10.8)
[2022-10-05 05:50] LABS: Alanine Aminotransferase 56 U/L (0-31); Albumin Level 3.3 g/dL (3.5-5.0); Alkaline Phosphatase 113 U/L (39-117); Anion Gap 12 (12-20); Aspartate Amino Transferase 30 U/L (5-31); Bilirubin Total 0.5 mg/dL (0.0-1.0); Blood Urea Nitrogen 11 mg/dL (9-16); Calcium 9.2 mg/dL (8.4-10.2); Carbon Dioxide 28 mmol/L (22-29); Chloride 100 mmol/L (96-108); Estimated Glomerular Filt Rate > 60; Glucose Random 140 mg/dL (60-115); Potassium 4.2 mmol/L (3.3-5.1); Sodium 136 mmol/L (135-145); Total Protein 6.3 g/dL (6.5-8.0)
[2022-10-05 07:24] VITALS: BP 146/83; PULSE 66; RESP 18; TEMP 36.7; O2SAT 92
[2022-10-05] MEDS: Cholecalciferol (Vitamin D3) 25 MCG TABLET 125 MCG PO (07:30)
[2022-10-05] MEDS: oxyCODONE HCl Immed Release 5 MG TABLET PO ×2 (07:31→15:02)
[2022-10-05] MEDS: hydroCHLOROthiazide 12.5 MG TABLET PO (07:32)
[2022-10-05] MEDS: Magnesium Oxide 400 MG TABLET 200 MG PO (07:32)
[2022-10-05] MEDS: Multivitamin TABLET 1 TAB PO (07:32)
[2022-10-05] MEDS: Docusate Sodium 100 MG CAPSULE 200 MG PO ×2 (07:32→20:37)
[2022-10-05 07:34] LABS: Glucose, Whole Blood 135 mg/dL (60-115)
--- NOTE | 2022-10-05 07:54 | P.PNGS_ITS ---
Subjective Subjective Date of Service: 10/05/22 Patient reports: no new complaints, still having pain, tolerating a regular diet, flatus and bowel movement Interval history: The patient is postop day 2 status post laparoscopic cholecystectomy for gangrenous cholecystitis and his noted to have 4+ Gram-positive cocci in her gallbladder fluid. She denies any chest pain, difficulty breathing or shortness of breath but reports continued epigastric pain worse with inspiration. She denies nausea or vomiting and is tolerating her diet. Physical Exam Vital Signs: Vital Signs: Last Vital Signs Temp 98.1 F 10/05/22 07:24 Pulse 66 10/05/22 07:24 Resp 18 10/05/22 07:24 BP 146/83 H 10/05/22 07:24 Pulse Ox 92 10/05/22 07:24 O2 Del Method Room Air 10/05/22 07:24 O2 Flow Rate 2 10/04/22 07:01 Oxygen Flow Rate 2 10/04/22 08:55 BMI result Body Mass Index 42.9 On exam she is anicteric She is nontoxic She is in no acute respiratory distress Her abdomen is obese with appropriate incisional tenderness; the CHRIS in Morison's pouch puts out serosanguineous, non bilious drainage Objective Data Active Medications Acetaminophen (Acetaminophen 325 Mg Tablet) 975 mg PO Q6H PRN PRN Reason: Pain, Mild (Pain Scale 1-3) Last Admin: 10/03/22 16:02 Dose: 975 mg Documented By: RAY Dextrose (Dextrose 50 % 25 Gm/50 Ml Syringe) 25 gm IVPUSH Q15M PRN; Protocol PRN Reason: per Hypoglycemia Standing Ord. Docusate Sodium (Docusate Sodium 100 Mg Capsule) 200 mg PO BID [facility] Last Admin: 10/05/22 07:32 Dose: 200 mg Documented By: DEYSI Glucose (Glucose Gel 15 Gm Gel..Gram.) 15 gm PO Q15M PRN; Protocol PRN Reason: per Hypoglycemia Standing Ord. Hydrochlorothiazide (Hydrochlorothiazide 12.5 Mg Tablet) 12.5 mg PO DAILY [facility]; Protocol Last Admin: 10/05/22 07:32 Dose: 12.5 mg Documented By: DEYSI Hydromorphone HCl (Hydromorphone Hcl 0.5 Mg/0.5 Ml Syringe) 0.5 mg IVPUSH Q2H PRN; Protocol PRN Reason: Pain, Severe (Pain Scale 7-10) Last Admin: 10/05/22 03:36 Dose: 0.5 mg Documented By: KAMILA Hydromorphone HCl (Hydromorphone Hcl 0.5 Mg/0.5 Ml Syringe) 0.25 mg IVPUSH Q2H PRN; Protocol PRN Reason: Pain, Moderate(Pain Scale 4-6) Last Admin: 10/04/22 14:10 Dose: 0.25 mg Documented By: BOBBY Piperacillin Sod/Tazobactam (Sod 3.375 gm/ Sodium Chloride) 50 mls @ 100 mls/hr IV Q6H [facility] Last Infusion: 10/05/22 06:12 Dose: 0 mls/hr Documented By: KAMILA Insulin Human Lispro (Insulin Lispro 100 Unit/Ml 3 Ml Vial) 0 unit SUBCUT QIDACHS [facility]; Protocol Last Admin: 10/05/22 07:36 Dose: Not Given Documented By: DARWIN Non-Admin Reason: No Insulin Coverage Magnesium Oxide (Magnesium Oxide 400 Mg Tablet) 200 mg PO DAILY [facility] Last Admin: 10/05/22 07:32 Dose: 200 mg Documented By: DEYSI Multivitamins/Vitamin C (Multivitamin Tablet) 1 tab PO DAILY [facility] Last Admin: 10/05/22 07:32 Dose: 1 tab Documented By: DEYSI Ondansetron HCl (Ondansetron Hcl 4 Mg/2 Ml Vial) 4 mg IVPUSH Q6H PRN PRN Reason: Nausea and Vomiting Ondansetron HCl (Ondansetron Hcl 4 Mg/2 Ml Vial) 4 mg IVPUSH ONCE PRN PRN Reason: Nausea and Vomiting Oxycodone HCl (Oxycodone Hcl Immed Release 5 Mg Tablet) 5 mg PO Q4H PRN PRN Reason: Pain, Moderate(Pain Scale 4-6) Last Admin: 10/05/22 07:31 Dose: 5 mg Documented By: DEYSI Vitamin D (Cholecalciferol (Vitamin D3) 25 Mcg Tablet) 125 mcg PO DAILY [facility] Last Admin: 10/05/22 07:30 Dose: 125 mcg Documented By: DEYSI Labs 10/05/22 05:06 10/05/22 05:06 Labs: Laboratory Results - last 24 hr 10/04/22 10/04/22 10/04/22 11:09 16:01 20:27 MCV MCH MCHC RDW Plt Count MPV Immature Gran % (Auto) Neut % (Auto) Lymph % (Auto) [place] % (Auto) Eos % (Auto) Baso % (Auto) Lymph # (Auto) [place] # (Auto) Eos # (Auto) Baso # (Auto) Abs Immat Gran (auto) Absolute Neuts (auto) Absolute Nucleated RBC Nucleated RBC % (auto) Anion Gap Estim Creat Clear Calc Estimated GFR POC Glucose 187 H 178 H 173 H Random Glucose Calcium Total Bilirubin AST ALT Alkaline Phosphatase Total Protein Albumin 10/05/22 10/05/22 10/05/22 05:06 05:06 07:19 MCV 86.8 MCH 28.4 MCHC 32.8 RDW 13.6 Plt Count 278 MPV 9.7 Immature Gran % (Auto) 0.6 H Neut % (Auto) 70.0 Lymph % (Auto) 21.4 [place] % (Auto) 6.1 Eos % (Auto) 1.4 Baso % (Auto) 0.5 Lymph # (Auto) 2.4 [place] # (Auto) 0.7 Eos # (Auto) 0.2 Baso # (Auto) 0.1 Abs Immat Gran (auto) 0.07 H Absolute Neuts (auto) 7.8 Absolute Nucleated RBC 0.000 Nucleated RBC % (auto) 0.0 Anion Gap 12 Estim Creat Clear Calc 88.0 Estimated GFR > 60 POC Glucose 135 H Random Glucose 140 H Calcium 9.2 Total Bilirubin 0.5 AST 30 ALT 56 H Alkaline Phosphatase 113 Total Protein 6.3 L Albumin 3.3 L Microbiology Microbiology Results: Microbiology 10/02/22 16:25 Blood Culture - Preliminary Blood - Venous No growth after 48 hours. 10/02/22 16:25 Blood Culture - Preliminary Blood - Venous No growth after 48 hours. 10/03/22 Unknown Gram Stain - Final Gallbladder Routine Culture - Preliminary Culture in progress. Procedures Date of Service Date of Service: 10/05/22 Progress Note: A&P Assessment and plan (1) Biliary tract infection: Status: Acute (2) S/P laparoscopic cholecystectomy: Status: Acute (3) SANJANA on CPAP: Status: Acute (4) Hypertension: Status: Acute (5) Mass of uterus: Status: Acute (6) Diabetes mellitus: Status: Acute Plan Awaiting speciation and sensitivities of GPC in gallbladder Continue current antibiotics given clinical improvement. A drain will likely need to stay for at least a week, so begin drain teaching with the patient. Encourage out of bed/ambulation and incentive spirometry. Time Spent With Patient Time: Total time managing care of this patient today ____ minutes. Quality Stroke Does the patient have a stroke diagnosis?: No VTE Prior VTE?: No VTE Risk Level:: Surgical - moderate VTE Device Contraindication: N/A - Device Ordered VTE Drug Contraindication: N/A - Med Ordered
[2022-10-05 08:00] VITALS: O2SAT 94
[2022-10-05 11:41] LABS: Glucose, Whole Blood 189 mg/dL (60-115)
[2022-10-05 11:50] VITALS: BP 173/88; PULSE 71; RESP 18; TEMP 36.6; O2SAT 94
[2022-10-05] MEDS: Insulin Lispro 100 UNIT/ML 3 ML VIAL SUBCUT ×2 (11:57→20:37)
--- NOTE | 2022-10-05 15:05 | HO.PM.IMPN ---
Subjective Subjective Date of Service: 10/05/22 Interval History: seen and examined this morning follow up for medical consultation no overnight events having tenderness around incision. otherwise starting to feel better. tolerating diet, had BM last night Review of Systems Review of Systems: Yes all other systems are reviewed and are negative Constitutional Constitutional: Denies chills and Denies fever(s) ENT Ears, Nose, Mouth, and Throat: Denies dizziness Cardiovascular Cardiovascular: Denies chest pain, Denies palpitations and Denies dyspnea Respiratory Respiratory: Denies cough and Denies dyspnea Gastrointestinal Gastrointestinal: Reports abdominal pain, Denies nausea and Denies vomiting Neurologic Neurologic: Denies dizziness Endocrine Endocrine: Denies palpitations Physical Exam Vital Signs: Vital Signs: Last Vital Signs Temp 97.8 F 10/05/22 11:50 Pulse 71 10/05/22 11:50 Resp 18 10/05/22 11:50 BP 173/88 H 10/05/22 11:50 Pulse Ox 94 10/05/22 11:50 O2 Del Method Room Air 10/05/22 11:50 O2 Flow Rate 2 10/04/22 07:01 Oxygen Flow Rate 2 10/04/22 08:55 BMI result Body Mass Index 42.9 Const: General: comfortable, no acute distress, alert and awake Nutritional Appearance: overweight Orientation/consciousness: patient oriented x3 Resp: Effort & Inspection: normal respiratory effort, able to speak in complete sentences, no respiratory distress and no use of accessory muscles Auscultation: clear to auscultation bilaterally Cardio: Rate: regular rate Heart sounds: S1 normal heart sound present and S2 normal heart sound present GI: Other: +BS CHRIS drain with minimal serosanguenous drainage Inspection: No distended Palpation (GI): Soft to palpation Neuro: General: patient oriented x3, moves all extremities and CN's II-XI intact bilaterally Extrem: General: Yes no pedal edema Objective Data Active Medications Acetaminophen (Acetaminophen 325 Mg Tablet) 975 mg PO Q6H PRN PRN Reason: Pain, Mild (Pain Scale 1-3) Last Admin: 10/03/22 16:02 Dose: 975 mg Documented By: RAY Dextrose (Dextrose 50 % 25 Gm/50 Ml Syringe) 25 gm IVPUSH Q15M PRN; Protocol PRN Reason: per Hypoglycemia Standing Ord. Docusate Sodium (Docusate Sodium 100 Mg Capsule) 200 mg PO BID [facility] Last Admin: 10/05/22 07:32 Dose: 200 mg Documented By: DEYSI Glucose (Glucose Gel 15 Gm Gel..Gram.) 15 gm PO Q15M PRN; Protocol PRN Reason: per Hypoglycemia Standing Ord. Hydrochlorothiazide (Hydrochlorothiazide 12.5 Mg Tablet) 12.5 mg PO DAILY [facility]; Protocol Last Admin: 10/05/22 07:32 Dose: 12.5 mg Documented By: DEYSI Hydromorphone HCl (Hydromorphone Hcl 0.5 Mg/0.5 Ml Syringe) 0.5 mg IVPUSH Q2H PRN; Protocol PRN Reason: Pain, Severe (Pain Scale 7-10) Last Admin: 10/05/22 03:36 Dose: 0.5 mg Documented By: KAMILA Hydromorphone HCl (Hydromorphone Hcl 0.5 Mg/0.5 Ml Syringe) 0.25 mg IVPUSH Q2H PRN; Protocol PRN Reason: Pain, Moderate(Pain Scale 4-6) Last Admin: 10/04/22 14:10 Dose: 0.25 mg Documented By: BOBBY Piperacillin Sod/Tazobactam (Sod 3.375 gm/ Sodium Chloride) 50 mls @ 100 mls/hr IV Q6H [facility] Last Infusion: 10/05/22 12:34 Dose: 0 mls/hr Documented By: DARWIN Insulin Human Lispro (Insulin Lispro 100 Unit/Ml 3 Ml Vial) 0 unit SUBCUT QIDACHS [facility]; Protocol Last Admin: 10/05/22 11:57 Dose: 2 unit Documented By: DARWIN Magnesium Oxide (Magnesium Oxide 400 Mg Tablet) 200 mg PO DAILY [facility] Last Admin: 10/05/22 07:32 Dose: 200 mg Documented By: DEYSI Multivitamins/Vitamin C (Multivitamin Tablet) 1 tab PO DAILY [facility] Last Admin: 10/05/22 07:32 Dose: 1 tab Documented By: DEYSI Ondansetron HCl (Ondansetron Hcl 4 Mg/2 Ml Vial) 4 mg IVPUSH Q6H PRN PRN Reason: Nausea and Vomiting Ondansetron HCl (Ondansetron Hcl 4 Mg/2 Ml Vial) 4 mg IVPUSH ONCE PRN PRN Reason: Nausea and Vomiting Oxycodone HCl (Oxycodone Hcl Immed Release 5 Mg Tablet) 5 mg PO Q4H PRN PRN Reason: Pain, Moderate(Pain Scale 4-6) Last Admin: 10/05/22 15:02 Dose: 5 mg Documented By: DARWIN Vitamin D (Cholecalciferol (Vitamin D3) 25 Mcg Tablet) 125 mcg PO DAILY [facility] Last Admin: 10/05/22 07:30 Dose: 125 mcg Documented By: DEYSI Labs 10/05/22 05:06 10/05/22 05:06 Labs: Laboratory Results - last 24 hr 10/04/22 10/04/22 10/05/22 16:01 20:27 05:06 MCV 86.8 MCH 28.4 MCHC 32.8 RDW 13.6 Plt Count 278 MPV 9.7 Immature Gran % (Auto) 0.6 H Neut % (Auto) 70.0 Lymph % (Auto) 21.4 [place] % (Auto) 6.1 Eos % (Auto) 1.4 Baso % (Auto) 0.5 Lymph # (Auto) 2.4 [place] # (Auto) 0.7 Eos # (Auto) 0.2 Baso # (Auto) 0.1 Abs Immat Gran (auto) 0.07 H Absolute Neuts (auto) 7.8 Absolute Nucleated RBC 0.000 Nucleated RBC % (auto) 0.0 Anion Gap Estim Creat Clear Calc Estimated GFR POC Glucose 178 H 173 H Random Glucose Calcium Total Bilirubin AST ALT Alkaline Phosphatase Total Protein Albumin 10/05/22 10/05/22 10/05/22 05:06 07:19 11:36 MCV MCH MCHC RDW Plt Count MPV Immature Gran % (Auto) Neut % (Auto) Lymph % (Auto) [place] % (Auto) Eos % (Auto) Baso % (Auto) Lymph # (Auto) [place] # (Auto) Eos # (Auto) Baso # (Auto) Abs Immat Gran (auto) Absolute Neuts (auto) Absolute Nucleated RBC Nucleated RBC % (auto) Anion Gap 12 Estim Creat Clear Calc 88.0 Estimated GFR > 60 POC Glucose 135 H 189 H Random Glucose 140 H Calcium 9.2 Total Bilirubin 0.5 AST 30 ALT 56 H Alkaline Phosphatase 113 Total Protein 6.3 L Albumin 3.3 L Microbiology Microbiology Results: Microbiology 10/03/22 Unknown Gram Stain - Final Gallbladder Routine Culture - Preliminary Culture in progress. 10/02/22 16:25 Blood Culture - Preliminary Blood - Venous No growth after 48 hours. 10/02/22 16:25 Blood Culture - Preliminary Blood - Venous No growth after 48 hours. Assessment and Plan (1) S/P laparoscopic cholecystectomy: Status: Acute (2) Hypertension: Status: Acute Plan 62-year-old female PMH significant for non insulin-dependent diabetes type 2, HTN, and HLD who is admitted to the hospital under general surgery for cholecystitis.? Patient is NPO and scheduled to undergo cholecystectomy tomorrow.? Hospitalist consult for medical management.? Patient states that she continues to have upper right quadrant pain though notes that it is ?much better? than it was at time of presentation.? Patient has no other acute medical complaints at this time. acute Cholecystitis POD #2 s/p cholecystectomy management per surgical service on zosyn GB fluid - growing GPC - follow final culture results Non insulin-dependent diabetes type 2 Patient not on taking any diabetic medications, not following diabetic diet Patient apparently has script for Ozempic but is reluctant to take the medication Latest A1c 7.1 continue sliding scale insulin, monitor point of care blood sugars, diabetic diet encouraged to take Ozempic, or consider other home oral hypoglycemic will discuss use of metformin upon discharge recommend outpatient follow-up with PCP for diabetes management mild transaminitis will hold statin LFTs trending down HTN bp with some high readings Continue hydrochlorothiazide, consider increasing trend based on trend of bp HLD hold statin, mild elevation in LFTs SANJANA CPAP at night morbid obesity BMI 42.9 weight reduction recommended dvt ppx - per surgical team disposition as per General surgery Time Spent With Patient Time: Total time managing care of this patient today ____ minutes. Quality Stroke Does the patient have a stroke diagnosis?: No VTE Prior VTE?: No VTE Risk Level:: Surgical - moderate VTE Device Contraindication: N/A - Device Ordered VTE Drug Contraindication: N/A - Med Ordered
[2022-10-05 15:36] VITALS: BP 148/76; PULSE 67; RESP 17; TEMP 36.6; O2SAT 95
[2022-10-05 16:09] LABS: Glucose, Whole Blood 143 mg/dL (60-115)
[2022-10-05] MEDS: Heparin Sodium,Porcine 5,000 UNIT/ML VIAL 5000 UNIT SUBCUT (16:58)
[2022-10-05 19:25] VITALS: BP 132/88; PULSE 75; RESP 16; TEMP 36.5; O2SAT 95
[2022-10-05 20:19] LABS: Glucose, Whole Blood 251 mg/dL (60-115)
[2022-10-06] VITALS: BP 160/74; PULSE 71; RESP 18; TEMP 36.4; O2SAT 95
[2022-10-06] MEDS: Heparin Sodium,Porcine 5,000 UNIT/ML VIAL 5000 UNIT SUBCUT (03:25)
[2022-10-06 03:30] VITALS: BP 149/73; PULSE 70; RESP 16; TEMP 36; O2SAT 93
[2022-10-06] MEDS: Piperacillin Sodium/Tazobactam 3.375 GM in 0.9 % Sodium Chloride 50 ML IV (06:11)
[2022-10-06 07:08] VITALS: BP 170/78; PULSE 62; RESP 18; TEMP 36.1; O2SAT 94
[2022-10-06] MEDS: Magnesium Oxide 400 MG TABLET 200 MG PO (08:52)
[2022-10-06] MEDS: oxyCODONE HCl Immed Release 5 MG TABLET PO (08:52)
[2022-10-06] MEDS: hydroCHLOROthiazide 12.5 MG TABLET PO (08:52)
[2022-10-06] MEDS: Cholecalciferol (Vitamin D3) 25 MCG TABLET 125 MCG PO (08:53)
[2022-10-06] MEDS: Multivitamin TABLET 1 TAB PO (08:53)
[2022-10-06] MEDS: Docusate Sodium 100 MG CAPSULE 200 MG PO (08:53)
--- NOTE | 2022-10-06 09:34 | PM.DS ---
DS: Providers Provider Date of Service: 10/06/22 Date of admission: 10/02/22 16:05 Primary care physician: Zaira Jewell NP Consults: 10/02/22 15:36 Consult to General Surgery Stat Consulting Provider: [facility] Reason for consultation: abnormal gallbladder with pain Has provider been notified: Yes 10/02/22 15:57 Consult to Hospitalist Stat Comment: Consulting Provider: Hospitalist Reason For Exam: DM 2, COPD, medical management DS: Diagnosis Discharge Diagnosis (1) S/P laparoscopic cholecystectomy: Status: Acute (2) Hypertension: Status: Acute DS: Summary Hospital Course Hospital Course: See admitting H&P for full details. Briefly, the pt presented with gangrenous cholecystitis, 4+ bacteria on Gram stainif the GB contents during her lap kayla. A CHRIS was left in Head's pouch & will be removed as out pt. THe importance of controlling her DM2, SANJANA & poor compliance with CPAP & weight management were all reviewed & apparently understood. Sergio teaching was done by RNs. Nicotine cessation & activity restrictions including my recommendation to not go camping this weekend were discussed at length & apparently understood. She is discharged on Augmentin. Overall condition at the time of discharge is improved. Time spent discussing smoking cessation with patient: more than 10 minutes Time Spent with Patient Time attestation: Total time managing care of this patient today ____ minutes. Discharge coordination time: Less than 30 minutes Quality: Safe Use of Opioids Does Pt have an Active Cancer Diagnosis on the Problem List?: No Quality: Stroke Does the patient have a stroke diagnosis?: No Physical Exam Vital Signs: Vital Signs: Last Vital Signs Temp 97 F 10/06/22 07:08 Pulse 62 10/06/22 07:08 Resp 18 10/06/22 07:08 BP 170/78 H 10/06/22 07:08 Pulse Ox 94 10/06/22 07:08 O2 Del Method Room Air 10/06/22 07:23 O2 Flow Rate 2 10/04/22 07:01 Oxygen Flow Rate 2 10/04/22 08:55 BMI result Body Mass Index 42.9 DS: Data Data Completed and Pending Completed studies during hospitalization [Text1]: Pending at discharge 10/03/22 10:14 Surgical [PTH] Routine Labs on day of discharge: Laboratory Results - last 24 hr 10/05/22 10/05/22 10/05/22 11:36 16:05 20:08 WBC RBC Hgb Hct MCV MCH MCHC RDW Plt Count MPV Immature Gran % (Auto) Neut % (Auto) Lymph % (Auto) [place] % (Auto) Eos % (Auto) Baso % (Auto) Lymph # (Auto) [place] # (Auto) Eos # (Auto) Baso # (Auto) Abs Immat Gran (auto) Absolute Neuts (auto) Absolute Nucleated RBC Nucleated RBC % (auto) POC Glucose 189 H 143 H 251 H 10/06/22 10/06/22 07:06 08:43 WBC 9.6 RBC 4.56 Hgb 12.8 Hct 39.1 MCV 85.7 MCH 28.1 MCHC 32.7 RDW 13.6 Plt Count 331 MPV 9.6 Immature Gran % (Auto) 0.8 H Neut % (Auto) 72.6 Lymph % (Auto) 18.4 L [place] % (Auto) 5.3 Eos % (Auto) 2.2 Baso % (Auto) 0.7 Lymph # (Auto) 1.8 [place] # (Auto) 0.5 Eos # (Auto) 0.2 Baso # (Auto) 0.1 Abs Immat Gran (auto) 0.08 H Absolute Neuts (auto) 7.0 Absolute Nucleated RBC 0.000 Nucleated RBC % (auto) 0.0 POC Glucose 144 H Preliminary micro results at discharge 10/02/22 16:25 Blood Culture - Preliminary Blood - Venous No growth after 48 hours. 10/02/22 16:25 Blood Culture - Preliminary Blood - Venous No growth after 48 hours. Discharge Plan Discharge Anticipated Discharge Date/Time: 10/06/22 12:00 Patient Disposition: Home, Self-Care Discharge Diagnosis: s/p lap kayla, DM2, nicotine use, obesity Referrals: Zaira Jewell NP [Primary Care Provider] - 1 Week Josh Chaidez MD [Physician] - 1 Week Discharge Medications: New amoxicillin-pot clavulanate 875-125 mg tablet 1 tab PO BID Qty: 14 0RF oxycodone 5 mg tablet 5 mg PO Q4H PRN (Reason: pain) Qty: 14 0RF Rx Instructions: Partial Fill upon patient request. Continued multivitamin Tablet 1 tab PO DAILY atorvastatin 20 mg tablet 20 mg PO DAILY magnesium 250 mg Tablet 250 mg PO DAILY (DME) cane Device See Rx Instructions .MEDSUPPLY Qty: 1 0RF Rx Instructions: cane hydrochlorothiazide 12.5 mg capsule 12.5 mg PO DAILY cholecalciferol (vitamin D3) 125 mcg (5,000 unit) capsule 125 mcg PO DAILY Discharge Orders: Discharge Order (Routine); Ordered 10/06/22 Ordered By: Josh Chaidez Diet: Low fat, low cholesterol Activity on Discharge: No heavy lifting Stand Alone Forms: Patient Portal Discharge page Activity Restrictions/Additional Instructions: You had a laparoscopic cholecystectomy performed by Dr. Chaidez. It is normal to experience some neck or shoulder pain from the gas used to inflate your abdomen. It is also normal to have pain or discomfort in your abdomen/belly as well as at the trocar sites (small incisions). This discomfort will resolve over the next 1-3 days, however, if it gets progressively worse, if you should develop worsening pain, nausea, vomiting and cannot keep liquids down, chest pain, difficulty breathing or shortness of breath, fevers over 100F please report to the nearest emergency department. You had an infection in your gallbladder and must continue taking the antibiotics as prescribed until the course is complete. Unless otherwise directed by Dr. Chaidez, you should resume taking your regular medications. You must schedule a follow-up appointment within 1-2 weeks with your PCP regarding your diabetes, obstructive sleep apnea and noncompliance with CPAP and your blood pressure which was elevated to your admission. You must stop using nicotine to minimize healing complications and infectious complications following surgery. In addition, maintaining a stable weight or losing weight will minimize risks of incisional hernia. Please call your primary care provider at discharge regarding evaluation for a [employer] given uterine fibroids seen on CT. It is recommended you be evaluated by a computer forensics analyst. As Dr. Chaidez reviewed in the office, you must not lift more than 20 lb for the next 4 weeks. Strenuous activities can tear out your sutures and cause an incisional hernia that would require another operation. Activities to be avoided include: sports, running, bicycling, yoga, lifting more than 20 lb, digging, gardening, splitting/carrying wood, swimming, hiking uphill, and other activities. If you have questions regarding this specific activity, please check with Dr. Chaidez. If your incisions become red, swollen, tender or draining pus, please contact Dr. Chaidez or go to the nearest emergency department. Do not shower or bathe for 48 hours. If there are bandages on your incisions, remove them in 48 hours. Do not allow your bandages to become wet for 48 hours. Do not soak in a tub or swimming pool until your incisions have completely sealed, usually 2 or more weeks. After the dressings are removed in 48 hours, you will notice paper tapes called butterflies/Steri-Strips. These tapes will fall off on their own in 1-2 weeks. You do not need to apply another bandage unless your clothing irritates your incisions. If you need to place another Band-Aid on your incisions, be sure to wait until the Steri strip is dry. You have been prescribed narcotic pain medicine that will cause constipation. Please purchase [id number] stool softener known as Colace/docusate, 100 mg. Take 2 tablets with breakfast and the morning and 2 tablets in the evening after dinner until your bowels are moving and urine or longer taking narcotics. Please note that if you are not taking narcotics, the general anesthesia for the procedure can still cause constipation. If you experience diarrhea, stop taking the stool softener medicine. You can take [id number] Tylenol/acetaminophen. You should also use ice packs to the operative site to help minimize pain and swelling for the first 3 days, or as needed afterwards. Unless there is a medical reason to avoid these medicines, you should take 2 [id number] Tylenol every 6 hours for the first 3 days to help with pain. Remember that the gallbladder helps to to digest fatty foods. If you eat fried foods; rich, creamy sauces; cheese; gravies or other such heavy, greasy foods, you will likely develop gas and bloating and diarrhea. To minimize this risk, eat a high protein, high-fiber, low-fat diet for the next few weeks. Care Plan Goals: Allow adequate healing; discuss nicotine cessation with your PCP; discuss other health issues with PCP Health Concerns: Nicotine use; type 2 diabetes, obesity, hypertension Plan of Treatment: Allow adequate postoperative healing, low-fat diet, nicotine cessation, follow-up with PCP for other medical problems Assessment: s/p lap kayla for acute gangrenous cholecystitis
--- NOTE | 2022-10-06 09:34 | PM.PNGS ---
Subjective Subjective Date of Service: 10/06/22 Interval history: Feels much improved today with decreased abdominal pain, ambulating in hallways. Denies nausea, vomiting, fever or chills. Tolerating regular diet out increased abdominal pain. CHRIS producing scant bloody fluid. Physical Exam Vital Signs: Vital Signs: Last Vital Signs Temp 97 F 10/06/22 07:08 Pulse 62 10/06/22 07:08 Resp 18 10/06/22 07:08 BP 170/78 H 10/06/22 07:08 Pulse Ox 94 10/06/22 07:08 O2 Del Method Room Air 10/06/22 07:23 O2 Flow Rate 2 10/04/22 07:01 Oxygen Flow Rate 2 10/04/22 08:55 BMI result Body Mass Index 42.9 Const: General: comfortable and no acute distress Nutritional Appearance: well nourished Orientation/consciousness: patient oriented x3 Limitations: no limitations Eyes: Sclerae: sclerae normal GI: Other: CHRIS site clean and intact. Laparoscopic incisions clean and intact without redness or discharge. Skin: Other: Warm, dry, no rash Neuro: General: patient oriented x3 Extrem: Other: no pedal edema Objective Data Active Medications Acetaminophen (Acetaminophen 325 Mg Tablet) 975 mg PO Q6H PRN PRN Reason: Pain, Mild (Pain Scale 1-3) Last Admin: 10/03/22 16:02 Dose: 975 mg Documented By: RAY Dextrose (Dextrose 50 % 25 Gm/50 Ml Syringe) 25 gm IVPUSH Q15M PRN; Protocol PRN Reason: per Hypoglycemia Standing Ord. Docusate Sodium (Docusate Sodium 100 Mg Capsule) 200 mg PO BID [facility] Last Admin: 10/06/22 08:53 Dose: 200 mg Documented By: RYAN Glucose (Glucose Gel 15 Gm Gel..Gram.) 15 gm PO Q15M PRN; Protocol PRN Reason: per Hypoglycemia Standing Ord. Heparin Sodium (Porcine) (Heparin Sodium,Porcine 5,000 Unit/Ml Vial) 5,000 unit SUBCUT Q12H [facility] Last Admin: 10/06/22 03:25 Dose: 5,000 unit Documented By: MARIAH Hydrochlorothiazide (Hydrochlorothiazide 12.5 Mg Tablet) 12.5 mg PO DAILY [facility]; Protocol Last Admin: 10/06/22 08:52 Dose: 12.5 mg Documented By: RYAN Hydromorphone HCl (Hydromorphone Hcl 0.5 Mg/0.5 Ml Syringe) 0.5 mg IVPUSH Q2H PRN; Protocol PRN Reason: Pain, Severe (Pain Scale 7-10) Last Admin: 10/05/22 20:44 Dose: 0.5 mg Documented By: DASIA Hydromorphone HCl (Hydromorphone Hcl 0.5 Mg/0.5 Ml Syringe) 0.25 mg IVPUSH Q2H PRN; Protocol PRN Reason: Pain, Moderate(Pain Scale 4-6) Last Admin: 10/04/22 14:10 Dose: 0.25 mg Documented By: BOBBY Piperacillin Sod/Tazobactam (Sod 3.375 gm/ Sodium Chloride) 50 mls @ 100 mls/hr IV Q6H [facility] Last Infusion: 10/06/22 06:41 Dose: 0 mls/hr Documented By: DASIA Insulin Human Lispro (Insulin Lispro 100 Unit/Ml 3 Ml Vial) 0 unit SUBCUT QIDACHS [facility]; Protocol Last Admin: 10/06/22 08:00 Dose: Not Given Documented By: ATIF Non-Admin Reason: No Insulin Coverage Magnesium Oxide (Magnesium Oxide 400 Mg Tablet) 200 mg PO DAILY [facility] Last Admin: 10/06/22 08:52 Dose: 200 mg Documented By: RYAN Multivitamins/Vitamin C (Multivitamin Tablet) 1 tab PO DAILY [facility] Last Admin: 10/06/22 08:53 Dose: 1 tab Documented By: RYAN Ondansetron HCl (Ondansetron Hcl 4 Mg/2 Ml Vial) 4 mg IVPUSH Q6H PRN PRN Reason: Nausea and Vomiting Ondansetron HCl (Ondansetron Hcl 4 Mg/2 Ml Vial) 4 mg IVPUSH ONCE PRN PRN Reason: Nausea and Vomiting Oxycodone HCl (Oxycodone Hcl Immed Release 5 Mg Tablet) 5 mg PO Q4H PRN PRN Reason: Pain, Moderate(Pain Scale 4-6) Last Admin: 10/06/22 08:52 Dose: 5 mg Documented By: RYAN Vitamin D (Cholecalciferol (Vitamin D3) 25 Mcg Tablet) 125 mcg PO DAILY [facility] Last Admin: 10/06/22 08:53 Dose: 125 mcg Documented By: RYAN Labs 10/06/22 08:43 10/05/22 05:06 Labs: Laboratory Results - last 24 hr 10/05/22 10/05/22 10/05/22 11:36 16:05 20:08 MCV MCH MCHC RDW Plt Count MPV Immature Gran % (Auto) Neut % (Auto) Lymph % (Auto) [place] % (Auto) Eos % (Auto) Baso % (Auto) Lymph # (Auto) [place] # (Auto) Eos # (Auto) Baso # (Auto) Abs Immat Gran (auto) Absolute Neuts (auto) Absolute Nucleated RBC Nucleated RBC % (auto) POC Glucose 189 H 143 H 251 H 10/06/22 10/06/22 07:06 08:43 MCV 85.7 MCH 28.1 MCHC 32.7 RDW 13.6 Plt Count 331 MPV 9.6 Immature Gran % (Auto) 0.8 H Neut % (Auto) 72.6 Lymph % (Auto) 18.4 L [place] % (Auto) 5.3 Eos % (Auto) 2.2 Baso % (Auto) 0.7 Lymph # (Auto) 1.8 [place] # (Auto) 0.5 Eos # (Auto) 0.2 Baso # (Auto) 0.1 Abs Immat Gran (auto) 0.08 H Absolute Neuts (auto) 7.0 Absolute Nucleated RBC 0.000 Nucleated RBC % (auto) 0.0 POC Glucose 144 H Microbiology Microbiology Results: Microbiology 10/03/22 Unknown Gram Stain - Final Gallbladder Routine Culture - Final Procedures Date of Service Date of Service: 10/06/22 Progress Note: A&P Assessment and plan (1) S/P laparoscopic cholecystectomy: Status: Acute Assessment and Plan: Patient is much improved today tolerating regular diet without increased abdominal pain. CHRIS drain reveals some sanguinous discharge, minimal. Patient is comfortable with drain care and will return to office next week for drain removal with Dr. Chaidez. She was instructed to call for fever, chills, nausea, vomiting, or increased abdominal pain. She expressed understanding and agrees with the plan. (2) Biliary tract infection: Status: Acute Assessment and Plan: final cultures revealed mixed darshana. Patient to be discharged home on amoxicillin and clavulanic acid for 7 days. Time Spent With Patient Time: Total time managing care of this patient today ____ minutes. Quality Stroke Does the patient have a stroke diagnosis?: No VTE Prior VTE?: No VTE Risk Level:: Surgical - moderate VTE Device Contraindication: N/A - Device Ordered VTE Drug Contraindication: N/A - Med Ordered
--- NOTE | 2022-10-06 10:10 | MHC.CM.PN ---
PT TO [place] HOME TODAY VIA PRIVATE TRANSPORT
[2022-10-06 11:22] VITALS: BP 144/90; PULSE 68; RESP 18; TEMP 36.1; O2SAT 96
[2022-10-06] MEDS: Insulin Lispro 100 UNIT/ML 3 ML VIAL SUBCUT (12:03)
== END 2022-10-06 12:19 | disposition home or self-care (01) | DRG 263 ==
LOC: HO.ED 15:57 → HO.EDOVER 16:12 → HO.S3 17:12
PROVIDERS: Hospitalist; Admitting Provider Surgery; Emergency Provider Emergency Medicine; PCP Nurse Practitioner Family; Visit Provider Surgery
PROC: 0FT44ZZ Resection of Gallbladder, Percutaneous Endoscopic Approach (ICD-10-PCS; CPT 47562; principal; 2022-10-03 09:00)
DX: K80.00 Calculus of gallbladder with acute cholecystitis without obstruction (principal); K76.0 Fatty (change of) liver, not elsewhere classified; Z68.41 Body mass index [BMI] 40.0-44.9, adult; E66.01 Morbid (severe) obesity due to excess calories; I10 Essential (primary) hypertension; K82.A1 Gangrene of gallbladder in cholecystitis; G47.33 Obstructive sleep apnea (adult) (pediatric); E11.9 Type 2 diabetes mellitus without complications; F17.290 Nicotine dependence, other tobacco product, uncomplicated; Z71.6 Tobacco abuse counseling; E78.5 Hyperlipidemia, unspecified; Z91.199 Patient's noncompliance with other medical treatment and regimen due to unspecified reason; Z91.119 Patient's noncompliance with dietary regimen due to unspecified reason; Z79.899 Other long term (current) drug therapy
CPT/HCPCS: 47562; 36415; 74177; 76705; 80053; 81001; 82248; 82947; 83036; 83690; 84484; 85025; 85027; 87040; 87070; 87205; 88304; 99285; J1100; J1170; J1643; J1885; J2250; J2405; J2543; J3010; Q9967

== ENCOUNTER → 2022-10-11 13:43 | Outpatient (BNVA) | payer BC, SELFPAY | PROVIDERS: PCP Nurse Practitioner Family; Visit Provider Surgery ==

== ENCOUNTER 2022-12-27 16:15 | Outpatient (REF) | payer BC, SELFPAY | END 2022-12-27 16:16 | disposition home or self-care (01) | LOC: HO.MAMMO 16:15 | PROVIDERS: PCP Nurse Practitioner Family; Visit Provider Nurse Practitioner Family | DX: Z12.31 Encounter for screening mammogram for malignant neoplasm of breast (principal) | CPT/HCPCS: 77063; 77067 ==

== ENCOUNTER → 2022-12-27 16:15 | Outpatient (BNV) | payer BC, SELFPAY | PROVIDERS: PCP Nurse Practitioner Family; Visit Provider Radiology Diagnostic Radiology | DX: Z12.31 Encounter for screening mammogram for malignant neoplasm of breast (principal) | CPT/HCPCS: 77063; 77067 ==

== ENCOUNTER 2023-04-04 15:53 | Outpatient (REF) | payer BC, SELFPAY ==
--- NOTE | ~2023-04-04 | CT_ITS ---
EXAMINATION: CT CHEST LOW-DOSE SCREENING WITHOUT CONTRAST HISTORY: Asymptomatic patient meeting criteria for lung screening. Smoker PATIENT PACK-YEAR HISTORY: 30+ Current Smoker: Yes If former smoker, years since quitting: NA COMPARISON: 04/03/2022 TECHNIQUE: Multidetector volumetric non-contrast CT imaging of the chest was obtained on a [id number] 128 slice scanner using low dose screening CT technique. Axial thin section 0.625 mm reformations in soft tissue and lung windows were obtained. Sagittal and coronal reformations were obtained. Axial MIP images were also created and reviewed. RECONSTRUCTED WIDTH: 1.25 mm x 1.25 mm TOTAL EXAM DLP: 46.2 mGy-cm CTDIvol: 1.62 mGy FINDINGS: The campus safety officer view is unremarkable LUNGS: Lungs bilaterally symmetrically expanded. No focal lung nodule or mass. No effusion or pneumothorax. Central airways patent. MEDIASTINUM/LYMPHATIC STRUCTURES: No mediastinal, hilar or axillary adenopathy or free fluid collection. THYROID GLAND: Unremarkable to the extent seen. CARDIOVASCULAR STRUCTURES: Aortic and heart size normal. No significant coronary artery calcifications. No pericardial effusion. PLEURA: There is no pleural effusion or pleural thickening VISUALIZED ABDOMEN: Gallbladder is surgically absent. MUS CUL O-SKELETAL: There are mild changes of degenerative thoracic spine spondylosis SPINAL COMPRESSION: Absent. CT/CT lung screening IMPRESSION: No findings suspicious for malignancy/pulmonary nodule(s)/other. LUNG-RADS CATEGORY - 1 ASSESSMENT: Negative. PHYSICAL FINDINGS (S CATEGORY): Finding: No incidental findings. Significance category: Normal or normal variant. RECOMMENDATION: Low dose lung CT. overall in 1 year. Visual estimate of coronary calcified plaque burden: None. However, this exam cannot replace a dedicated cardiac CT calcium score for accurate assessment.
== END 2023-04-04 15:54 | disposition home or self-care (01) ==
LOC: HO.CT 15:53
PROVIDERS: PCP Nurse Practitioner Family; Visit Provider Physician Assistant Medical
DX: Z12.2 Encounter for screening for malignant neoplasm of respiratory organs (principal); F17.210 Nicotine dependence, cigarettes, uncomplicated; Z78.9 Other specified health status
CPT/HCPCS: 71271

== ENCOUNTER 2023-07-11 14:34 | Outpatient (AMB) | payer BC, SELFPAY ==
--- NOTE | 2023-07-11 14:37 | A.OFFVIS_ITS ---
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 She is doing well, with concerns: Pain on the left side weekly, and constipation-takes stools softener. Also a left rib pain x6 months. She denies any injuries to the area. History of uterine fibroid seen at [facility] with Dr. Young on 04/19/22, notes- report he thought this was not the cause of her pain. Attempting to eat a healthy diet, watches what she eats after surgery, with calcium and vitamin D, limited exercise. Currently not sexually active. Denies any vaginal dryness or irritation. STI testing offered; she declines. Last pap smear; 2019. Last mammogram; 2022. Colonoscopy is booked. Denies any family history of ovarian or colon cancer. FH breast cancer. [facility] Medical History (Updated 07/11/23 @ 14:43 by VERNA Lorenzo) Lipoma Mass of uterus Hypertension Obesity Family history of premature CAD Diabetes mellitus Surgical History (Updated 07/11/23 @ 14:43 by VERNA Lorenzo) History of bilateral knee replacement Hx of cholecystectomy History of endometrial ablation Family History Paternal Aunt Breast cancer Lung cancer Social History Household Members: Spouse Housing: House Do you presently have visiting nurse or other home services: No Alcohol intake: never Patient Tobacco Use Status: Current everyday Tobacco user Tobacco use type: Smokeless Tobacco Years Smoked: 44 e-Cigarette/Vaping Use: Currently Using service: No 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 Female Reproductive History Menstrual Menopause type: surgical Total pregnancies: 0 Date of last pap smear: 05/12/19 (neg pap and hpv) Date of Mammogram: 12/27/22 (Birad 1) Review of Systems Const All systems reviewed & are unremarkable except as noted in HPI and below Reports as per HPI Eyes Reports no additional complaints ENT Reports no additional complaints Card Reports no additional complaints Resp Reports no additional complaints GI Reports as per HPI and Reports no additional complaints Reports as per HPI Musc Reports no additional complaints Skin/Breast Reports as per HPI Neuro Reports no additional complaints Psych Reports no additional complaints Endo Reports no additional complaints Aguila/Lymph Reports no additional complaints Aller/Immun Reports no additional complaints Physical Exam Vital Signs: Last Vital Signs BP 120/68 07/11/23 14:38 BMI result Body Mass Index 40.8 Const General: cooperative, healthy appearing, no acute distress, well developed and alert Orientation/consciousness: patient oriented x3 HEENT Head: Yes normal to inspection Eyes General: appearance normal, both eyes and all related structures Neck Neck: Yes normal visual inspection Thyroid: Thyroid normal Chest Chest palpation & inspection: normal inspection of the chest and other (no puckering, dimpling, peau de orange, retraction, discharge, masses) Breast/axilla inspection: normal inspection of the breasts Breast/axilla palpation: normal palpation of the breasts Resp Effort & Inspection: normal respiratory effort GI Inspection: Yes normal to inspection and Yes obesity Palpation (GI): Soft to palpation Rectal Exam - Female: deferred General: Yes bladder normal to palpation External Female Exam: normal external appearance and normal appearance of the urethra Speculum Exam - Vagina: normal appearance of the vagina, normal palpation and normal vaginal discharge Speculum Exam - Cervix: normal appearance of the cervix and normal palpation Bimanual exam- vagina & uterus: normal bimanual exam, normal palpation, uterine size normal, bladder normal to palpation, normal palpation and non-tender Bimanual Exam- Adnexa, other: no masses and Other (Difficult to outline due to body habitus) Skin General skin exam: no rashes or lesions noted Rashes: no rashes Neuro General: patient oriented x3 Cognition (Neuro): normal cognition Extrem General: Yes normal to inspection Psych Attitude: cooperative Thought process: Normal thought process present Assessment & Plan Assessment & Plan (1) Encounter for well woman exam with routine gynecological exam: Code(s): Z01.419 - Encounter for gynecological examination (general) (routine) without abnormal findings (2) Mass of uterus: Code(s): N85.8 - Other specified noninflammatory disorders of uterus (3) Pain in pelvis: Code(s): R10.2 - Pelvic and perineal pain Plan Discussed: Current recommendations for pap smears per ASCCP guidelines. Breast awareness, periodic self breast exams and yearly mammogram. Maintain a healthy lifestyle, well balanced diet including Calcium 1,200 mg and Vitamin D 600 IU daily, and routine exercise. Workup with ultrasound follow up in person in the office. Report to her primary care next month about a rib pain. Contact the office with any postmenopausal bleeding. Patient verbalizes understanding and agrees to the plan of care. She was given opportunity to ask questions and all questions were answered to the best of my ability. RTO in 1 year for annual transfer and line up worker exam. This note is constructed using voice recognition software. While every effort has been made to ensure accuracy, mattress specialist errors may have been included. Orders: Orders US pelvic and transvaginal Today N85.8 - Other specified noninflammatory disorders of uterus, R10.2 - Pelvic and perineal pain Coding Level of Care Code Est Pt Prev Care 40-64y(45366) Diagnoses Encounter for well woman exam with routine gynecological exam Z01.419 Mass of uterus N85.8 Pain in pelvis R10.2
[2023-07-11 14:38] VITALS: BP 120/68; BMI 40.8
== END 2023-07-11 15:52 | disposition home or self-care (01) ==
LOC: HO.HWS 14:34
PROVIDERS: Visit Provider Advanced Practice Midwife
DX: Z01.419 Encounter for gynecological examination (general) (routine) without abnormal findings (principal); N85.8 Other specified noninflammatory disorders of uterus; R10.2 Pelvic and perineal pain
CPT/HCPCS: 99396

== ENCOUNTER → 2023-07-11 14:34 | Outpatient (BNVA) | payer BC, SELFPAY | PROVIDERS: Visit Provider Advanced Practice Midwife ==

== ENCOUNTER 2023-07-26 13:04 | Outpatient (REF) | payer BC, SELFPAY ==
--- NOTE | ~2023-07-26 | US_ITS ---
EXAMINATION: US PELVIS COMPLETE CLINICAL INFORMATION: Uterine fibroid disease; postmenopausal patient. COMPARISON: Pelvic ultrasound dated 01/31/2022; MRI pelvis dated 03/12/2022. TECHNIQUE: Transabdominal and transvaginal imaging were performed. FINDINGS: The uterus is of normal size and echogenicity, measuring 6.7 x 3.4 x 4.7 cm. The uterus is anteverted. The endometrial stripe is thin and poorly evaluated due to fibroid disease. Nabothian cysts are seen within the cervix. FIBROIDS: There are 2 fibroids seen. 1. Location: Fundus. Size: 4.0 x 4.0 x 3.8 cm. Prior: 3.7 x 3.8 x 3.6 cm. Fibroid characteristics: Heterogeneously hypoechoic. 2. Location: Anterior lower body. Size: 0.5 x 0.4 x 0.6 cm. Prior: Not seen. Fibroid characteristics: Hypoechoic. The right ovary is not visualized. The left ovary is normal in size and echotexture, measuring 1.7 x 1.7 x 2.0 cm for a volume of 3.0 mL. There is trace free fluid within the cul-de-sac. No adnexal mass is seen. US/US pelvic and transvaginal IMPRESSION: 1. Uterine fibroids are noted, as detailed. 2. The endometrial stripe is thin and poorly evaluated due to fibroid disease. 3. Nabothian cysts are seen within the cervix. 4. The right ovary is not visualized. 5. There is trace nonspecific free fluid within the cul-de-sac.
== END 2023-07-26 13:05 | disposition home or self-care (01) ==
LOC: HO.HMGCX 13:04
PROVIDERS: PCP Internal Medicine; Visit Provider Advanced Practice Midwife
DX: R10.2 Pelvic and perineal pain (principal); N85.8 Other specified noninflammatory disorders of uterus
CPT/HCPCS: 76830; 76856

== ENCOUNTER 2023-09-12 15:21 | Outpatient (AMB) | payer BC, SELFPAY ==
[2023-09-12 15:22] VITALS: BP 118/74; BMI 40.8
--- NOTE | 2023-09-12 15:22 | MHC.OFFVIS ---
Vital Signs 09/12/23 15:22 Height 5 ft 1 in Weight 216 lb BMI 40.8 BP 118/74 Intake Visit Reasons: Ultra sound follow up Scrap Burner Required: No Embosser Operator: Embosser Operator Present Allergies No Known Allergies [No Known Allergies*] Allergy (Verified 09/12/23 15:26) Is last menstrual period known: No Post menopausal: Yes Patient : No HPI Comments Details: Patient is here today for a follow up on our ultrasound due to fibroids, she admits that she is feeling pelvic cramping, pain was previously jabbing sensation. She had a previous consult in April of [address] Fenton at [facility] cover making machine operator group regarding her fibroids and pain, she was told at the time the pain was most likely not due to her fibroid. 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 Reproductive History Menstrual control method: none Review of Systems Const All systems reviewed & are unremarkable except as noted in HPI and below Endo Reports no additional complaints Physical Exam Vital Signs: Last Vital Signs BP 118/74 09/12/23 15:22 BMI result Body Mass Index 40.8 Const General: cooperative, healthy appearing and no acute distress Psych Appearance: well kempt Attitude: cooperative Thought process: Normal thought process present Assessment & Plan Assessment & Plan (1) Fibroid: Code(s): D21.9 - Benign neoplasm of connective and other soft tissue, unspecified Category: Medical (2) Pain in pelvis: Code(s): R10.2 - Pelvic and perineal pain Plan Discussed: Ultrasound findings new fibroid noted along with the larger fibroid is slightly increased in size from last comparison. Counseled re: Leiomyoma: common pelvic neoplasm. Differential diagnosis-may include leiomyosarcoma which is a rare uterine sarcoma 3-7/100,000, difficult to distinguish from fibroids on ultrasound from uterine sarcoma's. Unlikely any single test will have a highly positive predictive value. Hysterectomy is not recommended for sole purpose of excluding malignant neoplasm. Consult for surgical exploration verses expectant management offered. Patient prefers to have another surgical consult and options for treatment with a female provider. Referral placed to Dr. Ezra pickering at [facility] [place] [place] in the [facility]. Schedule annual for 07/26/2024. All of her questions and concerns were addressed to the best of my ability and shared decision making. She is agreeable to the plan of care. This note is constructed using voice recognition software. While every effort has been made to ensure accuracy, field rep errors may have been included. Orders: Referrals SWAGING MACHINE ADJUSTER Referral D21.9 - Benign neoplasm of connective and other soft tissue, unspecified, R10.2 - Pelvic and perineal pain Coding Level of Care Code Est Pt Level 3 (38637) Diagnoses Fibroid D21.9 Pain in pelvis R10.2
--- OUTSIDE RECORDS SUMMARY | 2023-09-13 11:23 | XMS_ITS | Continuity of Care Document ---
Author Organization [facility] ter Address [address] [place] [id number]- Care Team Providers Care Motor Pool Clerk Name Role Phone Zaira Jewell NP Primary Care Physician [place] [facility](s[place]/10/21 - 08/11/[address] [id number] Discharge Disposition: A-D/C Home Attending Physician: Yazan Rodriguez MD Admitting Physician: Yazan Rodriguez MD Referring Physician: Yazan Rodriguez MD Allergies, Adverse Reactions, Alerts No Known Allergies Medications acetaminophen 325 mg oral tablet 650 mg, By Mouth, Every 6 hours, may use home med as instructed on bottle, Refills 0, Maintenance, 08/11/21 8:20:00 EDT, Partial fill upon patient request if the prescription is for a schedule II opioid drug. Start Date: 08/11/21 Status: Ordered Aspirin Tablet 325 mg, By Mouth, 2 times a day, Refills 0, Maintenance, 08/11/21 8:20:00 EDT, Partial fill upon patient request if the prescription is for a schedule II opioid drug. Start Date: 08/11/21 Status: Ordered cefadroxil 500 mg oral capsule 1 capsule = 500 mg, By Mouth, Every 12 hours, for 7 days, # 14 capsule, 0 Refills, Acute 08/18/21 8:23:00 EDT, 08/11/21 8:23:00 EDT, Capsule, [facility], Partial fill upon patient request if the prescription is for a schedule II opioid d... Start Date: 08/11/21 Stop Date: 08/18/21 Status: Ordered celecoxib 200 mg oral capsule 1 capsule = 200 mg, By Mouth, Daily in AM, 0 Refills, Maintenance, 08/11/21 8:20:00 EDT, Capsule, Partial fill upon patient request if the prescription is for a schedule II opioid drug. Start Date: 08/11/21 Status: Ordered Colace Capsule 100 mg, 1, capsule, By Mouth, 2 times a day, Refills 0, Maintenance, 08/11/21 8:20:00 EDT, Partial fill upon patient request if the prescription is for a schedule II opioid drug. Start Date: 08/11/21 Status: Ordered hydroCHLOROthiazide 12.5 mg oral capsule 1 capsule = 12.5 mg, By Mouth, Daily, # 30 capsule, 0 Refills, Maintenance, 07/21/21 9:06:00 EDT, Capsule, Partial fill upon patient request if the prescription is for a schedule II opioid drug. Start Date: 07/21/21 Status: Ordered oxyCODONE 5 mg oral tablet See Instructions, PRN, 5 mg, 1 to 2 tablet By Mouth Every 4 hours, # 60 tablet, Refills 0, Tot. Refills 0, Acute 08/16/21 8:21:00 EDT, Pain , Moderate, 08/11/21 8:20:00 EDT, Instructions Replace Required Details, Route to Pharmacy Electronically, [facility]... Start Date: 08/11/21 Stop Date: 08/16/21 Status: Ordered OxyCODONE IR Tablet 10 mg, Tablet, By Mouth, Every 4 hours, PRN for Pain , Severe, Routine, 08/10/21 15:48:00 EDT Start Date: 08/10/21 Stop Date: 08/11/21 Status: Discontinued pantoprazole 40 mg oral delayed release tablet = 40 mg, By Mouth, Daily in AM, 0 Refills, Maintenance, 08/11/21 8:20:00 EDT, EC Tablet Start Date: 08/11/21 Status: Ordered traMADol 50 mg oral tablet See Instructions, PRN Pain , Mild, 50 mg tab, 1 to 2 tablet By Mouth Every 6 hours, # 56 tablet, 0 Refills, Acute 08/18/21 8:21:00 EDT, 08/11/21 8:21:00 EDT, Tablet, [facility], Partialfill upon patient request if the prescription is fo... Start Date: 08/11/21 Stop Date: 08/18/21 Status: Ordered Problem List Condition Effective Dates Status Health Status Inform ant Asthma-mild intermittent(Confirmed) Active Heartburn(Confirmed) Active Hyperlipidemia(Confirmed) Active IBS - Irritable bowel syndrome(Confirmed) Active Morbid obesity(Confirmed) Active Nicotine dependence due to v aping tobacco product(Confirmed) Active OA (osteoarthritis) of knee(Confirmed) Active Psoriasis(Confirmed) Active Severe obesity(Confirmed) Active Type 2 diabetes mellitus(Confirmed) Active Results Radiology Reports * Exam Date Time Procedure Performing Provider Status 08/10/21 11:09 PM Knee 1 or 2 Views Left Millicent Khoury ; Auth (Verified) Notes: (Knee 1 or 2 Views Left) Reason For Exam: Postop;Postop RESULT: Knee 1 or 2 Views Left Knee 1 or 2 Views Left INDICATION: Postop knee replacement COMPARISON: None. FINDINGS: Distal femoral and proximal tibial metallic components are in typical position. No periprosthetic fracture. Soft tissue emphysema, but no unexpected soft tissue findings. IMPRESSION: Typical postoperative appearance. WSN: [id number] Ordering Physician: Edilia Espinoza Dictated By: Baldo Anglin MD Dictated Date/Time: 08/10/21 11:12 p Reviewed By: Baldo Anglin MD Signed By: Baldo Anglin MD Signed Date/Time: 08/10/21 11:12 pm Transcribed By: GUILLERMO Transcribed Date/Time: 08/10/21 11:11 pm Vital Signs Most recent to oldest [Reference Range]: 1 2 3 Height 154 cm (08/11/21 6:35 AM) 154 cm (08/10/21 5:33 PM) 154 cm (08/10/21 11:47 AM) Weight 100 kg (08/10/21 11:47 AM) 100 kg (08/10/21 7:24 AM) Oxygen Saturation [94-100 %] 96 % (08/11/21 6:35 AM) 95 % (08/11/21 3:00 AM) 94 % (08/10/21 11:00 PM) Pulse Rate [55-90 bpm] 61 bpm (08/11/21 6:35 AM) 75 bpm (08/11/21 3:00 AM) 67 bpm (08/10/21 11:00 PM) Body Mass Index [18.5-24.99] 42.17 *>HHI* (08/10/21 11:47 AM) 42.17 *>HHI* (08/10/21 7:24 AM) Blood Pressure [90-138/55-84 mm Hg] 129/74mm Hg (08/11/21 6:35 AM) 131/72mm Hg (08/11/21 3:00 AM) 121/68mm Hg (08/10/21 11:00 PM) Respiratory Rate [16-30 br/min] 16 br/min (08/11/21 7:47 AM) 18 br/min (08/11/21 6:35 AM) 16 br/min (08/11/21 3:00 AM) Temperature [96.8-100.4 DegF] 97.4 DegF (08/11/21 6:35 AM) 97.5 DegF (08/11/21 3:00 AM) 97.5 DegF (08/10/21 11:00 PM) Liters per Minute 2 L/min (08/10/21 4:30 PM) 2 L/min (08/10/21 3:45 PM) 5 L/min (08/10/21 3:30 PM) Mode of Delivery (Oxygen) Room air (08/11/21 6:35 AM) Room air (08/11/21 3:00 AM) Room air (08/10/21 11:00 PM) Blood pressure sites Arm, left (08/11/21 6:35 AM) Arm, left (08/11/21 3:00 AM) Arm, left (08/10/21 11:00 PM) Temperature Route Oral (08/11/21 6:35 AM) Oral (08/11/21 3:00 AM) Oral (08/10/21 11:00 PM) Dry Weight 100 kg (08/10/21 7:24 AM) Social History Social History Type Response Tobacco Other: Quit smoking cigarettes 2017.. Sex
--- OUTSIDE RECORDS SUMMARY | 2023-09-13 11:23 | XMS_ITS | Continuity of Care Document ---
Author Organization [facility] Address [address] [place] [id number]- Care Team Providers Care Coordinator Of Rehabilitation Services Name Role Phone Zaira Jewell NP Primary Care Physician Encounter [facility] [place] Date(s): 04/04/22 - 05/04/22 [facility] [address] [place] [id number] Attending Physician: Michael Falcon Admitting Physician: Michael Falcon Referring Physician: AdmtrMichael Allergies, Adverse Reactions, Alerts No Known Allergies Medications acetaminophen 325 mg oral tablet 650 mg, By Mouth, Every 6 hours, may take OTC. not to exceed 4000 mg/day, Refills 0, Maintenance, 05/04/22 7:58:00 EST, Partial fill upon patient request if the prescription is for a schedule II opioid drug. Start Date: 05/04/22 Status: Ordered Aspirin Tablet 325 mg, By Mouth, 2 times a day, Refills 0, Maintenance, 05/04/22 7:59:00 EST, Partial fill upon patient request if the prescription is for a schedule II opioid drug. Start Date: 05/04/22 Status: Ordered celecoxib 200 mg oral capsule 1 capsule = 200 mg, By Mouth, Daily, 0 Refills, Maintenance, 05/04/22 7:59:00 EST, Capsule, Partialfill upon patient request if the prescription is for a schedule II opioid drug. Start Date: 05/04/22 Status: Ordered Colace Capsule 100 mg, 1, capsule, By Mouth, 2 times a day, Refills 0, Maintenance, 05/04/22 7:59:00 EST, Partial fill upon patient request if the prescription is for a schedule II opioid drug. Start Date: 05/04/22 Status: Ordered hydroCHLOROthiazide 12.5 mg oral capsule 1 capsule = 12.5 mg, By Mouth, Daily, # 30 capsule, 0 Refills, Maintenance, 07/21/21 9:06:00 EDT, Capsule, Partial fill upon patient request if the prescription is for a schedule II opioid drug. Start Date: 07/21/21 Status: Ordered MiraLax Powder 1 pack/packet = 17 Gm, By Mouth, Daily, PRN Constipation, 0 Refills, Maintenance, 05/04/22 7:59:00 EST, Powder, Partial fill upon patient request if the prescription is for a schedule II opioid drug. Start Date: 05/04/22 Status: Ordered oxyCODONE 5 mg oral tablet See Instructions, PRN, 1-2 tablet By Mouth Every 4 hours, # 60 tablet, Refills 0, Tot. Refills 0, Acute 05/11/22 7:00:00 EST, Pain , Moderate, 05/04/22 7:55:00 EST, Instructions Replace Required Details, Route to Pharmacy Electronically, [facility]... Start Date: 05/04/22 Stop Date: 05/11/22 Status: Ordered pantoprazole 40 mg oral delayed release tablet = 40 mg, By Mouth, Daily, 0 Refills, Maintenance, 05/04/22 7:59:00 EST, EC Tablet Start Date: 05/04/22 Status: Ordered senna 187 mg oral tablet 1 tablet = 8.6 mg, By Mouth, Daily at bedtime, PRN as needed for constipation, 0 Refills, Maintenance, 05/04/22 7:59:00 EST, Tablet, Partial fill upon patient request if the prescription is for a schedule II opioid drug. Start Date: 05/04/22 Status: Ordered topiramate 50 mg oral tablet 1 tablet = 50 mg, By Mouth, 2 times a day, 0 Refills, Maintenance, 04/04/22 13:36:00 EST, Partial fill upon patient request if the prescription is for a schedule II opioid drug. Start Date: 04/04/22 Status: Ordered traMADol 50 mg oral tablet See Instructions, PRN Pain , Mild, 1-2 tablet By Mouth Every 6 hours not to exceed 400 mg/day, # 56tablet, 0 Refills, Acute 05/11/22 7:00:00 EST, 05/04/22 7:57:00 EST, Tablet, [facility], Partial fill upon patient request if the prescr... Start Date: 05/04/22 Stop Date: 05/11/22 Status: Ordered Problem List Condition Confirmation Course Effective Dates Status H ealth Status Informant Asthma-mild intermittent Confirmed Active Heartburn Confirmed Active Hyperlipidemia Confirmed Active IBS - Irritable bowel syndrome Confirmed Active Morbid obesity Confirmed Active Nicotine dependence due to vaping tobacco product Confirmed Active OA (osteoarthritis) of knee Confirmed Active Psoriasis Confirmed Active Severe obesity Confirmed Active Type 2 diabetes mellitus Confirmed Active Social History Social History Type Response Tobacco Other: Quit smoking cigarettes 2017.. Sex Patient Care team information Care Team Personnel Name: Juana Santacruz RN Position: [facility] SN RN Member Role: Primary Care Nurse Name: Rosemary Mosley RN Position: S RN Member Role: Primary Care Nurse Name: Jessica Subramanian Position: S Outreach Member Role: Lifetime Consulting Physician Name: Zaira Jewell NP Position: S Outreach Member Role: PCP Address: Address: [address] [place] [address] Internal Medicine [address] Name: Lee Ann Hagen RN Position: S RN Member Role: Primary Care Nurse Name: Pat Benavidez RN Position: S RN Member Role: Primary Care Nurse Care Team Related Persons Name: THIERNO BO Address: home [address] [place] [address] Name: FELIX PATRICIA Address: home [address] [place] [address] Name: FELIX PATRICIA Address: home [address] [place] [address] Name: SANDRA PATRICIA Address: home [address] [place] [address]
--- OUTSIDE RECORDS SUMMARY | 2023-09-13 11:23 | XMS_ITS | Continuity of Care Document ---
Author Organization [facility] Address [address] [place] [address]- Care Team Providers Care Ballet Company Member Name Role Phone Zaira Jewell NP Primary Care Physician Encounter [facility] [id number] Date(s): 05/24/23 - 06/23/23 [facility] [address] [place] [address]- Attending Physician: Michael Falcon Admitting Physician: Michael [...] opioid drug. Start Date: 05/04/22 Status: Ordered pantoprazole 40 mg oral delayed [...] opioid drug. Start Date: 04/04/22 Status: Ordered Problem List Condition Confirmation Course Effective Dates Status H ealth Status Informant Asthma-mild intermittent Confirmed Active Hyperlipidemia Confirmed Active HTN (hypertension) Confirmed Active IBS - Irritable bowel syndrome Confirmed Active Morbid obesity Confirmed Active Nicotine dependence due to vaping tobacco product Confirmed Active OA (osteoarthritis) of knee Confirmed Active Psoriasis Confirmed Active Severe obesity Confirmed Active Thyroid nodule Confirmed Active Type 2 diabetes mellitus Confirmed Active Social History Social History Type Response Tobacco Other: Quit smoking cigarettes 2017.. Sex Patient Care team information Care Team Personnel Name: Juana Santacruz RN Position: [facility] RN Member Role: Primary Care Nurse Name: Rosemary Mosley RN Position: [facility] RN Member Role: Primary Care Nurse Name: Jessica Subramanian Position: [facility] Fisher Pot Member Role: Lifetime Consulting Physician Name: Zaira Jewell NP Position: [facility] Outreach Member Role: PCP Address: Address: [address] [place] [address] Internal Medicine [place], [place] [address] Name: Lee Ann Hagen RN Position: S RN Member Role: Primary Care Nurse Name: Pat Benavidez RN Position: S RN Member Role: Primary Care Nurse Care Team Related Persons Name: THIERNO BO Address: home [address] [place] [address] Name: FELIX PATRICIA Address: home [address] [place] [address] Name: FELIX PATRICIA Address: home [address] [place] [address] Name: SANDRA PATRICIA Address: home [address] [place] [address]
--- OUTSIDE RECORDS SUMMARY | 2023-09-13 11:23 | XMS_ITS | Continuity of Care Document ---
Author Organization [facility] Address [address] [place] [address]- Care Team Providers Care Landscape Photographer Name Role Phone Fanta DIAZ, Zaira Primary Care Physician [phone] [place] [facility] [place]24/23 - 05/31/23 [facility] [address] [place] [id number] Attending Physician: Kaleb Trinidad DO Referring Physician: Yazan Rodriguez MD Allergies, Adverse [...] Active Type 2 diabetes mellitus Confirmed Active Procedures Procedure Date Related Diagnosis Body Site Status Cholecystectomy Completed Knee arthroplasty-bilateral 1 Completed 1Left 08/10/2021, right 05/03/2022 Vital Signs Most recent to oldest [Reference Range]: 1 Height 155 cm (05/24/23 10:30 AM) Weight 97.6 kg (05/24/23 10:30 AM) Oxygen Saturation [94-100 %] 98 % (05/24/23 10:30 AM) Pulse Rate [55-90 bpm] 73 bpm (05/24/23 10:30 AM) Body Mass Index [18.5-24.99 kg/m2] 40.62 kg/m2 *>HHI* (05/24/23 10:30 AM) Blood Pressure [90-138/55-84 mm Hg] 119/ 67mm Hg (05/24/23 10:30 AM) Respiratory Rate [16-30 br/min] 20 br/mi n (05/24/23 10:30 AM) Blood pressure sites Arm, left (05/24/23 10:30 AM) Weight Obtained Via Standing scale (05/24/23 10:30 AM) Social History Social History Type Response Tobacco Other: Quit smoking cigarettes 2017.. Sex EKG study * Event Display: ECG 12-Lead Authored Date: Please click on pdf link to open report * Event Display: ECG 12-Lead Authored Date: Ventricular Rate: 66 BPM Atrial Rate: 66 BPM P-R Interval: 184 ms QRS Duration: 90 ms Q-T Interval: 422 ms QTC Calculation(Bazett): 442 ms P [place]: 40 degrees R [place]: 43 degrees T [place]: 47 degrees Normal sinus rhythm Nonspecific T wave abnormality Abnormal ECG When compared with ECG of 04-APR-2022 14:30, No significant change was found Confirmed by PAULINA HERNANDEZ ([id number]) on 05/24/2023 12:40:04 PM [place]: PAULINA HERNANDEZ Patient Care team information Care Team Personnel Name: Juana Santacruz RN Position: [facility] RN Member Role: Primary Care Nurse Name: Rosemary Mosley RN Position: [facility] RN Member Role: Primary Care Nurse Name: Jessica Subramanian Position: [facility] Winder Hand Member Role: Lifetime Consulting Physician Name: Zaira Jewell NP Position: [facility] Outreach Member Role: PCP Address: Address: [address] [place] [address] Internal Medicine [place], [place] [address] Name: Lee Ann Hagen RN Position: [facility] RN Member Role: Primary Care Nurse Name: Pat Benavidez RN Position: [facility] RN Member Role: Primary Care Nurse Care Team Related Persons Name: THIERNO BO Address: home [address] [place] [address] Name: FELIX PATRICIA Address: [address] [address] Name: FELIX PATRICIA Address: [address] [address] Name: SANDRA PATRICIA Address: [address] [address]
--- OUTSIDE RECORDS SUMMARY | 2023-09-13 11:23 | XMS_ITS | Continuity of Care Document ---
Author Organization [facility] Address [address] [place] [address]- Care Team Providers Care Education Counselor Name Role Phone Zaira Jewell NP Primary Care Physician [phone] Encounter 05/05/22 - 05/11/22 [facility] [address] [place] [address]- Discharge Disposition: GOALS MET Allergies, Adverse Reactions, Alerts No Known Allergies [...] Team Personnel Name: Juana Santacruz RN Position: [facility] RN Member Role: Primary Care Nurse Name: Rosemary Mosley RN Position: [facility] RN Member Role: Primary Care Nurse Name: Jessica Subramanian Position: S Outreach Member Role: Lifetime Consulting Physician Name: Zaira Jewell NP Position: [facility] Outreach Member Role: PCP Address: Address: [address] [place] [address] Internal Medicine [address] Name: Lee Ann Hagen RN Position: S RN Member Role: Primary Care Nurse Name: Pat Benavidez RN Position: S RN Member Role: Primary Care Nurse Care Team Related Persons Name: THIERNO BO Address: home [address] [place] [address] Name: BELEM FELIX Address: home [address] [place] [address] Name: NEELAM PATRICIACAROLYN Address: [place] [address] Name: SANDRA PATRICIA Address: [place] [address]
--- OUTSIDE RECORDS SUMMARY | 2023-09-13 11:23 | XMS_ITS | Continuity of Care Document ---
Author Organization [facility] Address [address] [place] [address]- Care Team Providers Care Digitizer Operator Name Role Phone Zaira Jewell NP Primary Care Physician [phone] Encounter [facility] Date(s): 01/07/20 - 02/06/20 [facility] [address] [place] [address]- [facility] Attending Physician: Michael Falcon Admitting Physician: Michael Falcon Referring Physician: AdmtrMichael Allergies, Adverse Reactions, Alerts Substance Reaction Severity Status NKA Active Medications Multivitamin Daily, 0 Refills, Maintenance, 02/06/16 9:30:51 Start Date: 02/06/16 Status: Ordered Problem List Condition Effective Dates Status Health Status Inform ant Asthma-mild intermittent(Confirmed) Active Heartburn(Confirmed) Active Hyperglycemia(Confirmed) Active Hyperlipidemia(Confirmed) Active IBS - Irritable bowel syndrome(Confirmed) Active Obesity (BMI 30-39.9)(Confirmed) Active OA (osteoarthritis) of knee(Confirmed) Active Smoking(Confirmed) Active Type 2 diabetes mellitus(Confirmed) Active Social History Social History Type Response Smoking Status Current every day sm oker; Type: e-Cigarettes entered on: 01/05/16 Sex
--- OUTSIDE RECORDS SUMMARY | 2023-09-13 11:24 | XMS_ITS | Continuity of Care Document ---
Author Organization [facility] [facility] Address [address] [place] [address]- Care Team Providers Care Truck Mechanic Name Role Phone Zaira Jeewll NP Primary Care Physician Encounter [facility] Date(s): 04/04/22 - 05/04/22 [facility] [facility] On[facility] [address] [place] [address]- Attending Physician: Michael Falcon Admitting Physician: Mcihael Falcon Referring Physician: AdmtrMichael Allergies, Adverse Reactions, [...] Replace Required Details, Route to Pharmacy Electronically, [facility]... Start Date: 05/04/22 Stop Date: [...] 05/11/22 7:00:00 EST, 05/04/22 7:57:00 EST, Tablet, [facility], Partial fill upon patient request if the [...] Team Personnel Name: Juana Santacruz RN Position: [facility] SN RN Member Role: Primary Care Nurse Name: Rosemary Mosley RN Position: S RN Member Role: Primary Care Nurse Name: Jessica Subramanian Position: S Outreach Member Role: Lifetime Consulting Physician Name: Zaira Jewell NP Position: [facility] Outreach Member Role: PCP Address: Address: [address] [place] [address] Internal Medicine [address] Name: Lee Ann Hagen RN Position: S RN Member Role: Primary Care Nurse Name: Pat Benavidez RN Position: S RN Member Role: Primary Care Nurse Care Team Related Persons Name: THIERNO BO Address: home [address] [place] [address] Name: FELIX PATRICIA Address: [address] [place] [address] Name: FELIX PATRICIA Address: home [address] [place] [id number] Name: SANDRA PATRICIA Address: home [address] [place] [address]
--- OUTSIDE RECORDS SUMMARY | 2023-09-13 11:24 | XMS_ITS | Continuity of Care Document ---
Author Organization [facility] ter Address [address] [place] [phone] Care Team Providers Care Product Engineering Manager Name Role Phone Zaira Jewell NP Primary Care Physician [phone] Encounter [facility] [place] [facility] [place] Date(s): 05/03/22 - 05/04/[address] [address] Discharge Disposition: A-Transfer VNA/Home Health Attending Physician: Yazan Rodriguez MD Admitting Physician: [...] opioid drug. Start Date: 05/04/22 Status: Ordered Acetaminophen Tablet 650 mg, Tablet, By Mouth, 05/04/22 10:00:00 EST Start Date: 05/04/22 Stop Date: 05/04/22 Status: Completed Aspirin Tablet 325 mg, By Mouth, 2 [...] Replace Required Details, Route to Pharmacy Electronically, [facility] Start Date: 05/04/22 Stop Date: 05/11/22 Status: Ordered OxyCODONE IR Tablet 10 mg, Tablet, By Mouth, Every 4 hours, PRN for Pain , Severe, Routine, 05/03/22 15:21:00 EST Start Date: 05/03/22 Stop Date: 05/04/22 Status: Discontinued pantoprazole 40 mg oral delayed [...] 05/11/22 7:00:00 EST, 05/04/22 7:57:00 EST, Tablet, [facility], Partial fill upon patient request if [...] Active Type 2 diabetes mellitus Confirmed Active Results Radiology Reports * Exam Date Time Procedure Performing Provider Status 05/03/22 10:46 PM Knee 1 or 2 Views Right Kathy , Joan miner; Auth (Verified) Notes: (Knee 1 or 2 Views Right) Reason For Exam: Postop;Postop RESULT: Knee 1 or 2 Views Right Knee 1 or 2 Views Right 2 views INDICATION/CLINICAL QUESTION: Reason: Postop; Clinical Question(s): Other:; Implant Position; Special Instructions: Do today at 2200, No flexed knee in the lateral position. Keep leg straight; 2 Views COMPARISON: None. FINDINGS: Total knee arthroplasty with intact hardware and normal alignment. No fracture. Expected subcutaneous gas. IMPRESSION: No apparent complication. WSN: [id number] Ordering Physician: Danielle Soliz Dictated By: Antelmo Ayala MD Dictated Date/Time: 05/03/22 10:51 p Reviewed By: Antelmo Ayala MD Signed By: Antelmo Ayala MD Signed Date/Time: 05/03/22 10:51 pm Transcribed By: GUILLERMO Transcribed Date/Time: 05/03/22 10:51 pm Vital Signs Most recent to oldest [Reference Range]: 1 2 3 Height 155 cm (05/04/22 6:33 AM) 155 cm (05/04/22 4:14 AM) 155 cm (1/26/23 11:27 PM) Weight 102.1 kg (05/03/22 1:15 PM) 102.1 kg (05/03/22 8:36 AM) Oxygen Saturation [94-100 %] 94 % (05/04/22 6:33 AM) 95 % (05/04/22 4:14 AM) 96 % (05/03/22 11:27 PM) Pulse Rate [55-90 bpm] 73 bpm (05/04/22 6:33 AM) 76 bpm (05/04/22 4:14 AM) 79 bpm (05/03/22 11:27 PM) Body Mass Index [18.5-24.99 kg/m2] 42.5 kg/m2 *>HHI* (05/03/22 1:15 PM) 42.5 kg/m2 *>HHI* (05/03/22 8:36 AM) Blood Pressure [90-138/55-84 mm Hg] 115/72mm Hg (05/04/22 6:33 AM) 121/71mm Hg (05/04/22 4:14 AM) 143/79mm Hg *H* (05/03/22 11:27 PM) Respiratory Rate [16-30 br/min] 17 br/min (05/04/22 10:28 AM) 17 br/min (05/04/22 10:27 AM) 18 br/min (05/04/22 8:59 AM) Temperature [96.8-100.4 DegF] 97.8 DegF (05/04/22 6:33 AM) 98.4 DegF (05/04/22 4:14 AM) 97.8 DegF (05/03/22 11:27 PM) Liters per Minute 2 L/min (05/04/22 4:14 AM) 2 L/min (05/03/22 11:27 PM) 2 L/min (05/03/22 6:35 PM) Mode of Delivery (Oxygen) Room air (05/04/22 6:33 AM) Nasal cannula (05/04/22 4:14 AM) Nasal cannula (05/03/22 11:27 PM) Blood pressure sites Arm, left (05/04/22 6:33 AM) Arm, left (05/04/22 4:14 AM) Arm, left (05/03/22 11:27 PM) Temperature Route Oral (05/04/22 6:33 AM) Oral (05/04/22 4:14 AM) Oral (05/03/22 11:27 PM) Dry Weight 102.1 kg (05/03/22 8:36 AM) Weight Obtained Via Standing scale (05/03/22 8:36 AM) Dry Weight Obtained Via Standing scale (05/03/22 8:36 AM) Social History Social History Type Response Tobacco Other: Quit smoking cigarettes 2017.. Sex History and physical note * Event Display: History and Physical Hospital Authored Date: [id number] SURGICAL HISTORY AND PHYSICAL DATE: 05/03/2022 PRIMARY DIAGNOSIS: Osteoarthritis of the right knee. REASON FOR ADMISSION: The patient is being admitted for right total knee replacement with Dr. Rodriguez on 05/03/2022. HISTORY OF PRESENT ILLNESS: The patient is a 62-year-old female who presents today for evaluation of her right knee for upcoming surgery. She has a known longstanding history of right knee osteoarthritis and has undergone a lengthy course of conservative management with generalized failure of nonsurgical options. Her pain is severe and worsened with activities. She is now ready to pursue a right total knee replacement with Dr. Rodriguez on 05/03/2022. She is well known to the practice due to herprevious left total knee replacement with Dr. Rodriguez in August 2021. She reports it has healed well;however, she does report that she has a little bit of pain on the outer side of her knee. She reports that she saw her primary care provider for this and they did an ultrasound, which did not show much per the patient and that they ordered an MRI in July for further evaluation, I will try to obtain the records to see what they said. The patient denies calf pain, however. PAST MEDICAL HISTORY: 1. Osteoarthritis of the right knee. 2. Hypertension. 3. Hyperlipidemia. 4. Diabetes. Preop A1c 6.7. 5. Obesity, BMI 41.4. 6. Asthma. 7. GERD. 8. IBS. 9. Psoriasis. 10. Obstructive sleep apnea. She does not use a CPAP machine. 11. Nicotine dependence due to vaping tobacco products. She reports she vapes about a pack a day. PAST SURGICAL HISTORY: 1. Endometrial ablation 2004. 2. Left total knee replacement by Dr. Rodriguez 08/2021. CURRENT MEDICATIONS: 1. Hydrochlorothiazide 12.5 mg daily in the morning. 2. Phentermine 15 mg once daily, which she reports she has not started yet. 3. Topiramate 50 mg 2 times a day. 4. Trulicity pen, which she reports that she recently stopped due to making her feel sick. 5. Multiple vitamins and supplements, which she was instructed to stop in preparation for surgery. ALLERGIES: No known drug allergies. SOCIAL HISTORY: The patient is . She denies alcohol or illicit drug usage. She reports that she uses e-cigarettes about a pack a day. PHYSICIANS: The patient's primary care physician is nurse practitioner, Zaira Jewell. REVIEW OF SYSTEMS: The patient denies headache, dizziness or syncope. Denies fever, chills, unexplained weight loss, fatigue. Denies rash or lesions. Denies rhinorrhea, earache, sore throat or swollen glands. Denies cough, shortness of breath or wheezing. Denies chest pain, pressure, palpitations or edema. Denies nausea, vomiting, diarrhea, constipation, abdominal pain. Denies dysuria, urinary urgency or frequency. Denies calf pain or history of blood clots in the legs. Denies any bleeding tendencies. Denies any active dental issues at this time. PHYSICAL EXAMINATION: VITAL SIGNS: Height 61 inches, weight 224 pounds. Temperature 97.1, blood pressure 136/77, pulse 77. GENERAL: Alert and oriented. Normal insight, affect, and grooming, in no acute distress. SKIN: Intact without rash or lesions. She does have a well-healed scar over her left knee. Nails without clubbing or cyanosis. HEENT: Normocephalic. Conjunctivae pink. Sclerae are anicteric. NECK: Supple. Trachea midline. No lymphadenopathy. CHEST: Clear to auscultation bilaterally. Breathing is unlabored. CARDIOVASCULAR: Has a regular rate and rhythm with normal S1, S2, no murmurs, rubs or gallops appreciated. No JVD. Carotid pulses without bruits. ABDOMEN: Soft, nontender with normal bowel sounds. No masses noted. No bruits appreciated. EXTREMITIES: No erythema, no abrasions. No edema noted. She does have a well- healed scar over her left knee. She does report some mild pain on the outer side of her left knee. There does appear to besmall bumps or palpitation. She reports that she saw her primary care provider for this and they did an ultrasound, which was negative and they ordered an MRI for further evaluation and I will try toobtain the records. She denies calf pain however. She has 2+ dorsalis pedis pulses bilaterally, good dorsi and plantar flexion bilaterally with full strength. Calves are supple, nontender. Skin aboutthe feet is intact. Her left knee range of motion is 0-115 degrees. Her right knee range of motion is 0-110 degrees. PREOPERATIVE DIAGNOSTIC DATA: Orthopedic x-rays demonstrate osteoarthritis of the right knee. EKG, which reads 74 beats per minute, normal sinus rhythm, low voltage QRS, nonspecific T-wave abnormality. LABORATORY DATA: CBC, chem panel, coag studies within normal limits except her white blood cell count 12.8, chloride 97, glucose 55. A1c 6.7. ASSESSMENT AND PLAN: The patient has advanced osteoarthritis of the right knee and is now scheduledfor right total knee replacement with Dr. Rodriguez on 05/03/2022. The patient saw the medical consult team for preoperative clearance, who stated she was a low cardiovascular and low pulmonary risk for upcoming surgery and no further testing was required at this time. Discharge plans are to home. The patient wishes to spend at least 1 night in the hospital. She reports that she struggled with pain management her last time. The patient will receive IV TXA. She will be on aspirin postoperatively for DVT prophylaxis. We will monitor her O2 and end tidal CO2 levels. She will be monitored with point of care and sliding scale insulin as needed. The patient has been counseled regarding the risks and benefits of the proposed procedure. Her questions have been answered and she acknowledges understanding. The patient wishes to proceed with surgery and has signed the consents. CONTACTS: Her , Thierno, phone number [phone]. Prescriptions given at the time of the H and P include aspirin, Celebrex, Colace, and pantoprazole.She will require prescription for pain medications upon discharge. Dictated by: Kathryn Gibson N.P. Signing Clinician: Yazan Rodriguez M.D. Dictated: 04/24/2022 11:30:40 Transcribed: 05:56:50 AM Transcribed by: ZAHIRA DocID: [id number] PRELIMINARY REPORT UNLESS MANUALLY/ELECTRONICALLY SIGNED Note * Event Display: Adult Preadmission Health Questionnaire Authored Date: * Event Display: Cardiac Rhythm Strips Authored Date: * Patricia Daniels RN: PERFORM Event Display: Discharge/Transfer Note Hospital Authored Date: [id number] Nursing Discharge Note Entered On: 05/04/2022 11:16 EST Performed On: 05/04/2022 11:16 EST by Patricia Daniels RN Nursing Discharge Note 2 Discharge Time : 05/04/2022 11:16 EST Discharge Level of Care at Discharge : Homehealth/VNA Patient Left Unit Via : Wheelchair Patient Accompanied Off Unit with : Significant other DC Instructions Provided & Signed by Pt : Yes Patient Understands D/C Instructions : Yes Patient Instructions Discharge Signed : Yes Did Pt have Specialty Bed or Wound Vac : No Patricia Daniels RN - 05/04/2022 11:16 EST * Kathryn Gibson NP: PERFORM, SIGN, VERIFY Event Display: Discharge/Transfer Note Hospital Authored Date: [id number] Patient: SONALI BO Age: 62 years Sex: Female : 1960 Associated Diagnoses: None Author: Kathryn Gibson NP Discharge Summary Admission Date: 05/03/22 Discharge Date: 05/04/22 Admitting Diagnosis: osteoarthritis right knee Discharge Diagnosis: osteoarthritis right knee Final Diagnosis : osteoarthritis right knee Procedure: arthroplasty right knee Surgeon: Dr. Rodriguez Past Medical History: 1. Osteoarthritis of the right knee. 2. Hypertension. 3. Hyperlipidemia. 4. Diabetes. Preop A1c 6.7. 5. Obesity, BMI 41.4. 6. Asthma. 7. GERD. 8. IBS. 9. Psoriasis. 10. Obstructive sleep apnea. She does not use a CPAP machine. 11. Nicotine dependence due to vaping tobacco products. She reports she vapes about a pack a day. Orthopedics: The patient is status post right total knee arthroplasty. It is anticipated that she will be discharged home today pending PT clearance. The patient is doing well from a surgical standpoint. Her incision is healing well. Neurovascular status is intact. Calves are supple and nontender. Making good progress with Physical Therapy. Supervision with ambulation walking 25 feet , ambulatingwith a walker. ROM 0-90. Pain is well controlled on her current regimen, Acetaminophen 650 mg every6 hours and Oxycodone 5 mg every 4 hours as needed, Tramadol 50mg every 6 hours as needed. Patient is tolerating this well. She will be sent home with a prescription for this medication. Prescription: Tramadol 50 mg tablet. Take 1-2 tablets every 6 hours as needed for pain x 7 days. # 56 tablet. Oxycodone IR 5mg tablet. Take 1-2 tablets every 4 hours as needed for pain x 7 days. # 60 tablet. Hospital course: Relatively uneventful medically. Patient is voiding spontaneously. + bowel sounds. No other issues.No calf tenderness. Current Medication List: Acetaminophen: 650 mg, By Mouth, Every 6 hours, may take OTC. not to exceed 4000 mg/day Aspirin: 325 mg, By Mouth, 2 times a day Celecoxib: 200 mg = 1 capsule, By Mouth, Daily Docusate: 100 mg = 1 capsule, By Mouth, 2 times a day Hydrochlorothiazide: 12.5 mg = 1 capsule, By Mouth, Daily Oxycodone: See Instructions, PRN (Pain , Moderate), 1-2 tablet By Mouth Every 4 hours Pantoprazole: 40 mg, By Mouth, Daily Polyethylene Glycol 3350: 17 Gm = 1 pack/packet, By Mouth, Daily, PRN (Constipation) Senna: 8.6 mg = 1 tablet, By Mouth, Daily at bedtime, PRN (as needed for constipation) Topiramate: 50 mg = 1 tablet, By Mouth, 2 times a day Tramadol: See Instructions, PRN (Pain , Mild), 1-2 tablet By Mouth Every 6 hoursnot to exceed 400 mg/day Allergies: Allergies (Active and Proposed Allergies Only) NKA (Severity: Unknown severity, Onset: Unknown) Current Labs: Last 24 Hours Basic Metabolic Panel: Hematology: Sodium: 135 mmol/L (05/04/22) Hgb: 13.3 Gm/dL (05/04/22) Potassium (POC): 4.5 mmol/L (05/04/22) Hemoglobin A1C (Monitoring): ------ Phosphorus: ------ WBC: 16.6 k/mm3 (05/04/22) Magnesium: ------ Platelets: 316 k/mm3 (05/04/22) BUN (POC) POC Cartridge: 12 mg/dL (05/04/22) INR Level: ------ Creatinine-Blood: 0.5 mg/dL (05/04/22) Creatinine Clearance: ------ Additional - Last 24 Hours Abs. NRBC: 0.0 k/mm3 (05/04/22) Anion Gap: 13 (05/04/22) Bicarbonate Level: 23 mmol/L (05/04/22) BUN: BUN (05/04/22) Chloride: 99 mmol/L (05/04/22) Creatinine, Blood: Creatinine, Blood (05/04/22) Estimated GFR Creatinine: 106 ML/MIN/1.73 M2 (05/04/22) Glucose, POC: Glucose, POC (05/04/22) Hct: 40.7 % (05/04/22) MCH: 28.7 pg (05/04/22) MCHC: 32.7 g/dL (05/04/22) MCV: 87.9 femtoliters (05/04/22) MPV: 9.9 femtoliters (05/04/22) Nucleated RBC (Automated): 0.0 #/100 WBC'S (05/04/22) RBC: 4.63 m/mm3 (05/04/22) RDW-SD: 42.5 femtoliters (05/04/22) DVT prophylaxis ASA EC 325 mg p o bid x 30 days Disposition: Anticipates being discharged today to home. Follow up at [facility] on 05/16/22 at 1:45pm , patient is aware of this. The patient has an Silverlon dressing in place. He may shower with it and the dressing can be discontinued on POD 14. Case discussed with Michael Avalos Discharge Information Admission Date: 05/03/2022 Principal Discharge Diagnosis Discharge Plan Discharge Disposition Discharge: home with VNA. Home Health Face to Face I certify that this patient is under my care and that I or an allowed non- physician practitioner working with me, had a [id number] encounter with the patient on this date: 05/04/2022. The encounter with the patient was in whole, or in part, for the following medical condition, whichis the primary reason for home health care: Osteoarthritis of right knee. Physical Therapy: Functional mobility training, Home exercise program to strengthen, increase ROM, Falls prevention training. Homebound due to: Inability to leave home without assistance/supervision, Inability to ambulate without assistance, Pain, decreased strength, and endurance, Unsteady gait. Physician Signature: Michael BLAKE, Yazan Rod * Jeremiah TOM, Patricia: PERFORM, MODIFY Event Display: Patient Education/Instruction Authored Date: [id number] Inpatient Adult Discharge Instructions [address] [address] Name: SONALI BO : 1960 Visit: 05/03/2022 08:04:00 Current Date: 05/04/2022 09:44 Account: [id number] Inpatient Adult Discharge Instructions We would like to thank you for allowing us to assist you with your healthcare needs. The following includes patient education materials and information regarding your injury/illness. Our entire staffstrives to provide an excellent experience for our patients and their families. PLEASE ENSURE YOU FOLLOW-UP PER THE INSTRUCTIONS BELOW! ?? YOUR OPINION IS IMPORTANT TO US! Please complete the survey you may receive by mail or email. Your feedback will be used to make improvements to the healthcare experiences of our patients and their families. Surveys are administered by [employer] ?? If further treatment with your primary care physician or another doctor is recommended, it is important for you to keep the appointment. Call your primary care physician or return to the Emergency Department immediately if your condition worsens, fails to improve, or new symptoms develop. If you need to find a doctor, you can call [facility] for a referral at [phone] or toll free at [phone]) or log in to [email or web address].. ?? You can view and manage your care through the patient portal or by using a health care dominique of your choosing. [employer] is a website that allows you to securely view your medical information including your hospital discharge summary, office visit summaries, medications and follow-up visits. You can also request appointments, renew medications, and request access to your medical information using a health care dominique of your choosing, or just ask a question. You can enroll at [email or web address] or register during your next office visit. You have been discharged from [facility], Patient Care Unit: SW7. If you have any questions regarding these instructions after you leave, please call us and we will be happy to assist you. [facility] Your Care Team Attending Physician Michael BLAKE, Yazan Merlos Discharging Providers Paige DIAZ, Kathryn Silva Reason for Admission OA RIGHT KNEE TOTAL ARTHROPLASTY [place] Your Diagnosis Osteoarthritis of right knee Tests Performed Below is a partial list of the tests performed during your hospitalization. You may have had other tests and procedures not included in this list. Please discuss all test results with your provider. BUN CBC COVID-19 (2019 Novel Coronavirus) PCR?-- Results Pending -- Creatinine Electrolytes GLUCOSE POC XR Knee 1 or 2 Views Right ? You will be contacted within 72 hours with your results. Primary Care Provider Zaira Jewell NP Advance Directive Health Care Proxy on File Yes - Health Care Proxy No qualifying data available. Discharge Vitals Temperature: 97.8 DegF Height: 155 cm Pulse Rate: 73 bpm Weight: 102.1 kg Respiratory Rate: 18 br/min Body Mass Index:??42.5 kg/m2??Critical Systolic Blood Pressure: 115 mm Hg Body surface area: 2.1 Diastolic Blood Pressure: 72 mm Hg ?? Oxygen Saturation: 94 % ?? Studies Pending All tests and labs ordered during this hospital stay have been completed unless listed below. Please discuss all pending results with your provider listed above in these instructions. ?? BUN CBC COVID-19 (2019 Novel Coronavirus) PCR Creatinine Electrolytes What to do next Instructions From Your Doctor Discharge Orders You Need to Schedule the Following Appointments Follow Up with??[facility] When?? Why: Follow up Appointments: ?? 05/16/22 1:45PM ?? 06/08/22 10:40AM Where: Discharge Medications SONALI BO :1960 Visit Date:05/03/2022 Medications: Please continue your medications until treatment is completed or stopped by your provider. Medications not listed below should be discontinued. Discuss any questions related to medications with your provider. What How Much When Instructions Next Dose New Acetaminophen (acetaminophen 325 mg oral tablet) 650 Milligram Oral Every 6 hours may take OTC. ?? not to exceed 4000 mg/ day ?? Today 4PM New Aspirin (Aspirin Tablet) 325 Milligram Oral Twice a day Tonight 8PM New Celecoxib (celecoxib 200 mg oral capsule) 1 capsule Oral Daily Tomorrow 8AM New Docusate (Colace Capsule) 100 Milligram Oral Twice a day Today 8PM New Oxycodone (oxyCODONE 5 mg oral tablet) See instructions 1-2 tablet By Mouth Every 4 hours ?? Pickup at [facility] 3 Today 1PM, if needed New Pantoprazole (pantoprazole 40 mg oral delayed release tablet) 40 Milligram Oral Daily Tomorrow 8AM New Polyethylene Glycol 3350 (MiraLax Powder) 17 gram Oral Daily as needed for Constipation Tomorrow as needed New Senna (senna 187 mg oral tablet) 1 tab(s) Oral Daily at Bedtime as needed for as needed for constipation Tonight 8PM, as needed New Tramadol (traMADol 50 mg oral tablet) See instructions 1-2 tablet By Mouth Every 6 hours not to exceed 400 mg/ day ?? Pickup at [facility] 3 As needed, do not take if also taking Oxycodone Unchanged Hydrochlorothiazide (hydroCHLOROthiazide 12.5 mg oral capsule) 1 capsule Oral Daily Resume normal home dosing Unchanged Topiramate (topiramate 50 mg oral tablet) 1 tab(s) Oral Twice a day Tonight 8PM Pharmacy Information [facility] 3: [address], [place] [id number] [phone] ?? What How Much When Comments Stop Taking dulaglutide (Trulicity Pen 0.75 mg/ 0.5 mL subcutaneous solution) 0.5 Milliliter Subcutaneous Injection Every week Stop Taking Phentermine (Lomaira 8 mg oral tablet) TAKE 1 TABLET BY MOUTH EVERY DAY ?? Test Results Below is a partial list of the most recent Laboratory test results done prior to this discharge. You may have had other tests and procedures not included in this list. Please discuss all test resultswith your provider. BUN (05/04/2022) ???BUN - 12 mg/dL CBC (05/04/2022) ???WBC - 16.6 k/mm3???RBC - 4.63 m/mm3???Hgb - 13.3 Gm/dL???Hct - 40.7 %???MCV - 87.9 femtoliters???MCH - 28.7 pg???MCHC - 32.7 g/dL???Platelet Count - 316 k/mm3???RDW-SD - 42.5 femtoliters???MPV - 9.9 femtoliters???Nucleated RBC (Automated) - 0.0 #/100 WBC'S???Abs. NRBC - 0.0 k/mm3 Creatinine (05/04/2022) ???Creatinine-Blood - 0.5 mg/dL???Estimated GFR Creatinine - 106 ML/MIN/1.73 M2 Electrolytes (05/04/2022) ???Sodium - 135 mmol/L???Potassium - 4.5 mmol/L???Chloride - 99 mmol/L???Bicarbonate Level - 23 mmol/L???Anion Gap - 13 GLUCOSE POC (05/04/2022) ???Glucose, POC - 219 mg/dL Allergies (NKA means No Known Allergies) NKA Problems Active Problems??(10) Asthma-mild intermittent?? Heartburn?? Hyperlipidemia?? IBS - Irritable bowel syndrome?? Morbid obesity?? Nicotine dependence due to vaping tobacco product?? OA (osteoarthritis) of knee?? Psoriasis?? Severe obesity?? Type 2 diabetes mellitus?? Education Materials Below is the list of Educational Leaflet Providered with your Discharge Instructions. Total Knee Replacement Discharge Instructions?? Valuables and Belongings I fully understand and agree that [facility] accepts no responsibility for all my personal property including clothing, toilet articles, radios, jewelry, dentures, hearing aids, rings, money, or any other property that is in my possession or is brought to me after admission. I understand certain valuables may be placed in a hospital safe for a short period of time. I understand that the hospital is not liable for loss or damage due to accident, fire, or other natural occurrence while said property is in the safe. I accept full responsibility for any personal property that I keep with me, and will not hold the hospital responsible in case of loss or disappearance. I acknowledge that i have been encouraged to send valuables and belongings home. ?? No Valuables/Belongings: No valuables/belongings present Review of Valuable and Belonging List: With patient Date for Pt to Sign Valuables/Belongings: 05/04/22 09:22:00 ?? Other Discharge Information ? Case Management Discharge Plan?? Discharge Plan?? Discharge Agency Information?? Discharge Level of Care at Discharge: Homehealth/VNA Name of Agency #1: [facility] ?? Agency Hand Tube Bender #1: [phone] ?? Service Categories #1: Physical Therapy ?? Service Comments #1: [facility] will contact you to set up a visit time after discharge. Please call [phone] if you don't hear from them. ?? Pulmonary Rehab Status?? Pulmonary Rehab Discharge Status?? CPAP/BiPAP Mask Type: Full CPAP/BiPAP Mask Size: Small Respiratory Rate: 18 br/min ? Common Emergency Awareness Tips IS IT A STROKE? Act FAST and Check for these signs: FACE Does the face look uneven? ARM Does one arm drift down? SPEECH Does their speech sound strange? TIME Call at any sign of stroke ?? Heart Attack Signs Chest discomfort: Most heart attacks involve discomfort in the center of the chest and lasts more than a few minutes, or goes away and comes back. It can feel like uncomfortable pressure, squeezing, fullness or pain. Discomfort in upper body: Symptoms can include pain or discomfort in one or both arms, back, neck, jaw or stomach. Shortness of breath: With or without discomfort. Other signs: Breaking out in a cold sweat, nausea, or lightheaded. Remember, MINUTES DO MATTER. If you experience any of these heart attack warning signs, call to get immediate medical attention! ?? Smoking can increase your chances of developing chronic health problems and can cause harmful effects to other family members in your house. If you smoke, you are strongly encouraged to quit. Please call [facility] [employer] at [phone] or [phone] ([phone]) or log in to [email or web address] for referrals to smoking cessation programs. ?? The National Suicide Prevention Hotline is available 29/10 if you or someone you know needs to find a reason to keep living. By calling 3-412-438-[employer] (7344) you'll be connected to a skilled, trained counselor at a crisis center in your area. INPATIENT DISCHARGE INSTRUCTIONS SIGNATURE PAGE SONALI BO [facility]:[id number] Location:[facility] Registration Date and Time:05/03/2022 08:04 [facility] Primary Care Physician: Zaira Jewell NP, I SONALI BO, have received the above patient education materials/instructions and have verbalized understanding. If ambulance or transport services are being used I further acknowledge being given a choice of service. ?? If you need to contact me, please call me at this number: . Patient/Carroting Machine Offbearer Name: Patient/Carroting Machine Offbearer Signature: Relationship to Patient: Witness Name/Signature: Date: * Patricia Daniels RN: PERFORM Event Display: Patient Education Leaflets Authored Date: [id number] Total Knee Replacement Discharge Instructions ?? 667 Total Knee Replacement Discharge Instructions ??? Please read and review your Total Knee Replacement Book for detailed information ??? Your appetite may be decreased but try to maintain a good balanced diet ?? Ice and elevation ?Ice is important to help keep swelling down. ?Keep elevated as much as possible. ?Ice the knee 4 times a day for 20 minutes each time. Be sure not to put the ice/ice pack directly on your skin. Use a dish towel or something similar between the ice and your skin. ??? Moving ? Get up and walk frequently. ??? Do 20 ankle pumps every hour. ??? Complete your exercises 4times a day, bending and straightening your knee ??? Begin exercises the evening you go home ??? Moving is especially important. This helps to prevent blood clots. Take short frequent walks. ? Wear your knee brace when walking until your surgeon or physical therapist tells you to stop. ??? You may sleep with or without the brace and sleep anyway you are comfortable. ??? Place a pillow underthe ankle/lower leg when lying down to help with extension of your knee. ??? Do not put a pillow under your knee ??? Continue to move your foot up and down, this exercise helps to prevent blood clotsand to help reduce swelling in your knee ??? No driving until approved by your surgeon ?? Incision ?Your incision is closed with absorbable stitches and surgical glue. ?The dressing iswaterproof. You may shower the next day. ??? You may develop some discoloration around your incision (yellowish or bruising) ??? Your dressing will stay on for 1-2 weeks ?You cannot go in a bath, pool, ocean, pond, ware or jacuzzi for 6 weeks. This is to reduce your risk of infection ? You may have some numbness around the incision. This is normal and will improve with time. Some patients have numbness that does not completely go away. ?? When to call the Surgeon?CALL [phone] ?If you have shortness of breath or chest pain, call 411 or go to the nearest emergency department. ??? If you have drainage and/or redness around your wound. ?If you have a fever greater than 101.5 (38.5 degrees Celsius). ?If you have persistent calf pain or swelling (This couldbe a blood clot). ??? If your pain is worsening. ? If you have any difficulty with urination or burning with urination ? EKG study * Event Display: EKG Authored Date: Hospital Progress note * Patricia Daniels RN: SIGN, MODIFY, PERFORM, SIGN, VERIFY Event Display: Progress Note Hospital Authored Date: Patient: SONALI BO Age: 62 years Sex: Female : 1960 Associated Diagnoses: None Author: Patricia Daniels RN Findings Problem Related to Alteration in Comfort : Alteration in Comfort/new 05/04/2022 8:34 EST Alteration in Comfort Related to Surgery Goals & Outcomes: Comfort Pt will report acceptable level of comfort & pain control, Pt will state importance of adhering to pain strategy regime, Pt will demonstrate necessary skills to manage pain, Non-verbal indicators will indicate comfort/pain control Interventions Implemented: Comfort Assess pain using appropriate pain scale/tools, Assess aggravating factors & prevent them accordingly, Assess alleviating factors & promote them accordingly Goals/Interventions, Comfort Yes Comfort, Problem Start 05/04/2022 8:35 Reviewed plan with, Comfort Patient Patient Progression, Comfort Plan Initiation Comfort, Problem Ongoing Yes . Alteration in Musculoskeletal : Alteration in Musculoskeletal Func/new 05/04/2022 8:35 EST Alteration in Musculoskeletal Related to Mobility, Orthopedic Procedure, Total joint replacement, Other: R TKR 05/03 w/ Dr. Rodriguez Goals & Outcomes, Musculoskeletal Affected extremity will maintain color/motion/sensation, Pt able to perform ADL's to best of ability, Pt demonstrates precautions/exercise/ transfers per protocol, Pt will ambulate safely with assistive device, Pt will be free from complications of immobility, Pt will report acceptable level of comfort/pain relief Interventions, Musculoskeletal Monitor patients ambulation status, monitor Color/Motion/Sensation, Assist with repositioning, Encourage deep breathing & coughing exercises, Notify MD immediately if tissue perfusion deteriorates, Obtain assistive devices as needed, Teach & Encourage use of Incentive spirometer, Teach Pt/caregiver on ADL's & adaptive equipment, Teach Pt/caregiver on exercises, Teach pt/caregiver on use of pain scale, Teach Pt/caregiver complications of immobility, Teach Pt/caregiver techniques to increase mobility, Teach Pt/caregiver on safety precautions BH Goals/Interventions, Musculoskeletal Yes Musculoskeletal, Problem Start 05/03/2022 8:44 Reviewed Plan with, Musculoskeletal Patient Patient Progression, Musculoskeletal Pt progressing according to plan . Nursing Data Vital Signs : VITAL SIGNS SECTION 05/04/2022 6:33 EST Temperature 97.8 DegF Temperature Route Oral Pulse Rate 73 bpm Respiratory Rate 16 br/min Systolic Blood Pressure 115 mm Hg Diastolic Blood Pressure 72 mm Hg Blood pressure sites Arm, left Mean Arterial Pressure 86 mm Hg Pulse Pressure 43 mm Hg Oxygen Saturation 94 % Mode of Delivery (Oxygen) Room air . Narrative/Incidental Care assumed 0600, VSS afebrile, alert and orientedx4, Pt reports pain as 4/10, plan for next pain med dosing 0855. Pt reports her pain control has been adequate. LS CTA/Dim on RA, no SOB, no CP. TOlerating carb controlled diet, no n/v. Pt is up with one assist and walker to BR, voiding without difficulty. R knee with silverlon dsg CDI +PP +CSM +DF+PF denies N/T. Knee immobilizer in place when upright, RN updated pt with plan of care, nsg will continue to monitor. Problem- Alterationin in comfort Interventions- see above interventions Eval- Pt reports her pain is well controlled with Tylenol, ice packs prn and Oxy 10mg PO Problem-Alteration in musculoskeletal system Interventions - see above interventions Eval- Pt is up with one assist and walker to bathroom. Discharge Information Case Management Discharge Plan : Case Management Discharge Plan Data 05/03/2022 15:18 EST Discharge Level of Care at Discharge Homehealth/VNA Name of Agency #1 [facility] Agency Hand Tube Bender # Service Categories #1 Physical Therapy Service Comments #1 [facility] will contact you to set up a visit time after discharge. Please call [phone] if you don't hear from them. Pulmonary Rehab Discharge : Pulmonary Rehab Discharge Status 05/03/2022 22:38 EST CPAP/BiPAP Mask Type Full CPAP/BiPAP Mask Size Small * Jeremiah TOM, Patricia: PERFORM Event Display: Progress Note Hospital Authored Date: RN reviewed DC instructions with pt regarding f/u appts, meds, prescriptions, activity restrictions, etc. Pt verbalized understanding, IV removed. Pt says her will arrive at 11 for warp picker. * Rama Zarate: VERIFY, PERFORM, SIGN Event Display: Progress Note Hospital Authored Date: Patient: SONALI BO Age: 62 years Sex: Female : 1960 Associated Diagnoses: None Author: Rama Zarate Findings Problem Related to Alteration in Musculoskeletal : Alteration in Musculoskeletal Func/new 05/04/2022 0:00 EST Alteration in Musculoskeletal Related to Mobility, Orthopedic Procedure, Total joint replacement, Other: R TKR 05/03 w/ Dr. Rodriguez Goals & Outcomes, Musculoskeletal Affected extremity will maintain color/motion/sensation, Pt able to perform ADL's to best of ability, Pt demonstrates precautions/exercise/ transfers per protocol, Pt will ambulate safely with assistive device, Pt will be free from complications of immobility, Pt will report acceptable level of comfort/pain relief Interventions, Musculoskeletal Monitor patients ambulation status, monitor Color/Motion/Sensation, Assist with repositioning, Encourage deep breathing & coughing exercises, Notify MD immediately if tissue perfusion deteriorates, Obtain assistive devices as needed, Teach & Encourage use of Incentive spirometer, Teach Pt/caregiver on ADL's & adaptive equipment, Teach Pt/caregiver on exercises, Teach pt/caregiver on use of pain scale, Teach Pt/caregiver complications of immobility, Teach Pt/caregiver techniques to increase mobility, Teach Pt/caregiver on safety precautions, Mineral Pt/caregiver to Total Knee Replacement protocol Goals/Interventions, Musculoskeletal Yes Musculoskeletal, Problem Start 05/03/2022 8:44 Reviewed Plan with, Musculoskeletal Patient Patient Progression, Musculoskeletal Pt progressing according to plan . Nursing Data Vital Signs : VITAL SIGNS SECTION 05/03/2022 23:27 EST Temperature 97.8 DegF Temperature Route Oral Pulse Rate 79 bpm Respiratory Rate 18 br/min Systolic Blood Pressure 143 mm Hg H Diastolic Blood Pressure 79 mm Hg Blood pressure sites Arm, left Mean Arterial Pressure 100 mm Hg Pulse Pressure 64 mm Hg Oxygen Saturation 96 % Liters per Minute 2 L/min Mode of Delivery (Oxygen) Nasal cannula End Tidal CO2 41 mm Hg 05/03/2022 22:38 EST FiO2 21 % 05/03/2022 21:37 EST Early Warning Score 4.00 05/03/2022 21:00 EST Early Warning Score 4.00 05/03/2022 20:59 EST Respiratory Rate 16 br/min 05/03/2022 18:35 EST Early Warning Score 4.00 05/03/2022 18:35 EST Temperature 97.4 DegF Temperature Route Oral Pulse Rate 74 bpm Respiratory Rate 18 br/min Systolic Blood Pressure 150 mm Hg H Diastolic Blood Pressure 87 mm Hg H Blood pressure sites Arm, left Mean Arterial Pressure 108 mm Hg Pulse Pressure 63 mm Hg Oxygen Saturation 95 % Liters per Minute 2 L/min Mode of Delivery (Oxygen) Nasal cannula . Narrative/Incidental Pt s/p R TKA with Dr. Rodriguez on 05/03, POD#0. Pt is A+Ox3, denies CP or SOB. Lungs are clear to auscultation bilaterally; IS education provided and encouraged 10x per hour, pt demonstrated accurately with +effort. Pt with 02/capnography monitoring in place. Pt tolerating diabetic carb counting diet, denies N/V, +BS4Q, abdomen is s/nt/nd, LBM 05/03. Pt voiding adequate cyu in bathroom. Pt educatedon all center medical and lab director, pt verbalized understanding. Cboots in place bilaterally and plan for ASA for DVTprophylaxis. Pt educated on safety and fall precautions. Bed in low locked position, hourly rounding, and call faustin within reach. P: Alteration in musculoskeletal status I: See interventions listed in care plan above E: +CMS +DF +PF +PP to RLE. Acewrap over silverlon dsg to R knee, c/d/i. Ice to R knee for comfort.Pt 1 assist when OOB with walker ambulating with steady gait. Knee immobilizer in use when OOB. Ankle pumps encouraged. Pt endorsing up to 7/10 pain this evening, medicated with scheduled tylenol andoxycodone 5mg with pending effect. Pt progressing along plan of care. . Discharge Information Case Management Discharge Plan : Case Management Discharge Plan Data 05/03/2022 15:18 EST Discharge Level of Care at Discharge Homehealth/VNA Name of Agency #1 [facility] Agency Hand Tube Bender # Service Categories #1 Physical Therapy Service Comments #1 [facility] will contact you to set up a visit time after discharge. Please call [phone] if you don't hear from them. Pulmonary Rehab Discharge : Pulmonary Rehab Discharge Status 05/03/2022 22:38 EST CPAP/BiPAP Mask Type Full CPAP/BiPAP Mask Size Small XR Knee - right 1 or 2 Views * BHSPowerscribe , CIS S: TRANSCRIBE Antelmo Ayala MD: VERIFY Event Display: Result: Authored Date: [id number] Knee 1 or 2 Views Right 2 views INDICATION/CLINICAL QUESTION: Reason: Postop; Clinical Question(s): Other:; Implant Position; Special Instructions: Do today at 2200, No flexed knee in the lateral position. Keep leg straight; 2 Views COMPARISON: None. FINDINGS: Total knee arthroplasty with intact hardware and normal alignment. No fracture. Expected subcutaneous gas. IMPRESSION: No apparent complication. WSN: [id number] Ordering Physician: Danielle Soliz Dictated By: Antelmo Ayala MD Dictated Date/Time: 05/03/22 10:51 p Reviewed By: Antelmo Ayala MD Signed By: Antelmo Ayala MD Signed Date/Time: 05/03/22 10:51 pm Transcribed By: GUILLERMO Transcribed Date/Time: 05/03/22 10:51 pm Patient Care team information Care Team Personnel Name: Juana Santacruz RN Position: [facility] RN Member Role: Primary Care Nurse Name: Rosemary Mosley RN Position: [facility] RN Member Role: Primary Care Nurse Name: Jessica Subramanian Position: S Outreach Member Role: Lifetime Consulting Physician Name: Zaira Jewell NP Position: [facility] Outreach Member Role: PCP Address: Address: [address] [place] [address] [place] [address]- Name: Lee Ann Hagen RN Position: S RN Member Role: Primary Care Nurse Name: Pat Benavidez RN Position: S RN Member Role: Primary Care Nurse Care Team Related Persons Name: THIERNO BO Address: home [address] [place] [address] Name: FELIX PATRICIA Address: home [address] [place] [address] Name: FELIX PATRICIA Address: home [address] [place] [address] Name: SANDRA PATRICIA Address: [place] [address]
--- OUTSIDE RECORDS SUMMARY | 2023-09-13 11:24 | XMS_ITS | Continuity of Care Document ---
Author Organization [facility] Address [address] [facility] [place] [address]- Care Team Providers Care Cdl Company Driver Name Role Phone Zaira Jewell NP Primary Care Physician [phone] Encounter 03/28/23 - 05/30/23 [facility] [address], [address] [place] [address]- Attending Physician: Zaira Jewell NP Admitting Physician: Zaira Jewell NP Referring Physician: Zaira Jewell NP Allergies, Adverse Reactions, Alerts No Known Allergies [...] Team Personnel Name: Juana Santacruz RN Position: [facility] RN Member Role: Primary Care Nurse Name: Rosemary Mosley RN Position: [facility] RN Member Role: Primary Care Nurse Name: Jessica Subramanian Position: [facility] Collaborating Supervising Physician Member Role: Lifetime Consulting Physician Name: Zaira Jewell NP Position: [facility] Outreach Member Role: PCP Address: Address: [address] [place] [address] Internal Medicine [place], [place] [address] Name: Lee Ann Hagen RN Position: S RN Member Role: Primary Care Nurse Name: Pat Benavidez RN Position: S RN Member Role: Primary Care Nurse Care Team Related Persons Name: THIERNO BO Address: home [address] [place] [address] Name: FELIX PATRICIA Address: home [address] [place] [address] Name: FELIX PATRICIA Address: home [address] [place] [address] Name: SANDRA PATRICIA Address: home [address] [place] [address]
--- OUTSIDE RECORDS SUMMARY | 2023-09-13 11:24 | XMS_ITS | Continuity of Care Document ---
Author Organization [facility] ter Address [address] [place] [address]- Care Team Providers Care Reinforcing Rod Layer Name Role Phone Fanta DIAZ, Zaira Primary Care Physician [phone] Encounter [facility] Date(s): 05/24/23 - 05/24/[address] [address] [[email or web address]] Attending Physician: Not on Staff, Attending MD Allergies, Adverse Reactions, Alerts No Known [...] Team Personnel Name: Juana Santacruz RN Position: [facility] RN Member Role: Primary Care Nurse Name: Rosemary Mosley RN Position: [facility] RN Member Role: Primary Care Nurse Name: Jessica Subramanian Position: [facility] Health Physicist Member Role: Lifetime Consulting Physician Name: Zaira Jewell NP Position: [facility] Outreach Member Role: PCP Address: Address: [address] [place] [address] Internal [place], [place] [address] Name: Lee Ann Hagen RN Position: S RN Member Role: Primary Care Nurse Name: Pat Benavidez RN Position: S RN Member Role: Primary Care Nurse Care Team Related Persons Name: THIERNO BO Address: home [address] [place] [address] Name: FELIX PATRICIA Address: home [address] [place] [address] Name: FELIX PATRICIA Address: home [address] [place] [address] Name: SANDRA PATRICIA Address: [place] [address]
--- OUTSIDE RECORDS SUMMARY | 2023-09-13 11:24 | XMS_ITS | Continuity of Care Document ---
Author Organization [facility] ter Address [address] [place] [address]- Care Team Providers Care Piecer Name Role Phone Zaira Jewell NP Primary Care Physician Encounter [facility] Date(s): 04/19/22 - 05/19/[address] [address] Attending Physician: Michael Falcon Admitting Physician: AdmMichael bernal Referring Physician: Admtr ArMima Allergies, Adverse Reactions, Alerts No Known Allergies [...] Team Personnel Name: Juana Santacruz RN Position: [facility] RN Member Role: Primary Care Nurse Name: Rosemary Mosley RN Position: [facility] RN Member Role: Primary Care Nurse Name: Jessica Subramanian Position: S Outreach Member Role: Lifetime Consulting Physician Name: Zaira Jewell NP Position: [facility] Outreach Member Role: PCP Address: Address: [address] [place] [address]- Name: Lee Ann Hagen RN Position: S RN Member Role: Primary Care Nurse Name: Pat Benavidez RN Position: S RN Member Role: Primary Care Nurse Care Team Related Persons Name: BETZYTHIERNO SEGOVIA Address: home [address] [place] [address] Name: FELIX PATRICIA Address: home [address] [place] [address] Name: FELIX PATRICIA Address: home [address] [place] [address] Name: SANDRA PATRICIA Address: home [address] [place] [address]
--- OUTSIDE RECORDS SUMMARY | 2023-09-13 11:24 | XMS_ITS | Continuity of Care Document ---
Author Organization [facility] Address [address] [place] [address]- Care Team Providers Care Locate Technician Name Role Phone Zaira Jewell NP Primary Care Physician Encounter [facility] Date(s): 07/21/21 - 08/20/21 [facility] [address] [place] [address]- Attending Physician: Michael Falcon Admitting Physician: Michael [...] opioid drug. Start Date: 08/11/21 Status: Ordered celecoxib 200 mg oral capsule [...] opioid drug. Start Date: 07/21/21 Status: Ordered pantoprazole 40 mg oral delayed release tablet = 40 mg, By Mouth, Daily in AM, 0 Refills, Maintenance, 08/11/21 8:20:00 EDT, EC Tablet Start Date: 08/11/21 Status: Ordered Problem List Condition Effective Dates Status Health Status Inform ant Asthma-mild intermittent(Confirmed) Active Heartburn(Confirmed) Active Hyperlipidemia(Confirmed) Active IBS - Irritable bowel syndrome(Confirmed) Active Morbid obesity(Confirmed) Active Nicotine dependence due to v aping tobacco product(Confirmed) Active OA (osteoarthritis) of knee(Confirmed) Active Psoriasis(Confirmed) Active Severe obesity(Confirmed) Active Type 2 diabetes mellitus(Confirmed) Active Social History Social History Type Response Tobacco Other: Quit smoking cigarettes 2016.. Sex
--- OUTSIDE RECORDS SUMMARY | 2023-09-13 11:24 | XMS_ITS | Continuity of Care Document ---
Author Organization [facility] CLINICAL SUPERVISOR Oncolog y Address [address] [place] [address]- Care Team Providers Care Chip Silo Tender Name Role Phone Zaira Jewell NP Primary Care Physician Encounter [facility] Date(s): 03/27/22 - 04/26/22 [facility] CLINICAL SUPERVISOR Oncology [address] [place] [address] Allergies, Adverse Reactions, Alerts No Known Allergies Medications hydroCHLOROthiazide 12.5 mg oral capsule 1 capsule = 12.5 mg, By Mouth, Daily, # 30 capsule, 0 Refills, Maintenance, 07/21/21 9:06:00 EDT, Capsule, Partial fill upon patient request if the prescription is for a schedule II opioid drug. Start Date: 07/21/21 Status: Ordered Lomaira 8 mg oral tablet TAKE 1 TABLET BY MOUTH EVERY DAY Start Date: 04/04/22 Status: Ordered topiramate 50 mg oral tablet 1 tablet = 50 mg, By Mouth, 2 times a day, 0 Refills, Maintenance, 04/04/22 13:36:00 EST, Partial fill upon patient request if the prescription is for a schedule II opioid drug. Start Date: 04/04/22 Status: Ordered Trulicity Pen 0.75 mg/0.5 mL subcutaneous solution 0.5 mL = 0.75 mg, Subcutaneous Injection, Every week, 0 Refills, Maintenance, 04/04/22 14:00:00 EST, Solution, Partial fill upon patient request if the [...] Team Personnel Name: Juana Santacruz RN Position: [facility] SN RN Member Role: Primary Care Nurse Name: Jessica Subramanian Position: [facility] Outreach Member Role: Lifetime Consulting Physician Name: Zaira Jewell NP Position: [facility] Outreach Member Role: PCP Address: Address: [address] [place] [address] Internal Medicine [address] Care Team Related Persons Name: THIERNO BO Address: home [address] [place] [address] Name: FELIX PATRICIA Address: home [address] [place] [address] Name: FELIX PATRICIA Address: home [address] [place] [address] Name: SANDRA PATRICIA Address: home [address] [place] [address]
--- OUTSIDE RECORDS SUMMARY | 2023-09-13 11:24 | XMS_ITS | Continuity of Care Document ---
Author Organization [facility] ter Address [address] [place] [address]- Care Team Providers Care Medical Art Therapist Name Role Phone Zaira Jewell NP Primary Care Physician Encounter [facility] Date(s): 08/10/21 - 09/09/[address] [address]- Attending Physician: Not on Staff, Attending MD Admitting Physician: Not on Staff, Admitting MD Referring Physician: Not on Staff, Referring MD Allergies, Adverse Reactions, Alerts No Known [...]
--- OUTSIDE RECORDS SUMMARY | 2023-09-13 11:24 | XMS_ITS | Continuity of Care Document ---
Author Organization [facility] ter Address [address] [place] [address]- Care Team Providers Care Insurance Attorney Name Role Phone Zaira Jewell NP Primary Care Physician Encounter [facility] Date(s): 03/20/22 - 05/19/[address] [address]- Attending Physician: Yazan Rodriguez MD Admitting Physician: [...] Team Personnel Name: Juana Santacruz RN Position: [facility] RN Member Role: Primary Care Nurse Name: Rosemary Mosley RN Position: Era RN Member Role: Primary Care Nurse Name: Jessica Subramanian Position: S Outreach Member Role: Lifetime Consulting Physician Name: Zaira Jewell NP Position: [facility] Outreach Member Role: PCP Address: Address: [address] [place] [address] Internal [place], [place] [address] Name: Lee Ann Hagen RN Position: S RN Member Role: Primary Care Nurse Name: Pat Benavidez RN Position: S RN Member Role: Primary Care Nurse Care Team Related Persons Name: THIERNO BO Address: home [address] [place] [address] Name: FELIX PATRICIA Address: home [address] [place] [address] Name: FELIX PATRICIA Address: home [address] [place] [address] Name: SANDRA PATRICIA Address: home [address] [place] [address]
--- OUTSIDE RECORDS SUMMARY | 2023-09-13 11:24 | XMS_ITS | Continuity of Care Document ---
Author Organization [facility] Address [address] [place] [address]- Care Team Providers Care Finishing Supervisor Plastic Sheets Name Role Phone Zaira Jewell NP Primary Care Physician [phone] Encounter [facility] Date(s): 03/27/22 - 05/04/22 [facility] [address] [place] [address] Attending Physician: Padmini Taylor MD Admitting Physician: Padmini Taylor MD Referring Physician: Suyapa Alarcon CNM, I Allergies, Adverse Reactions, Alerts No Known Allergies [...] Replace Required Details, Route to Pharmacy Electronically, [facility]... Start Date: 05/04/22 Stop Date: 05/11/22 [...] 05/11/22 7:00:00 EST, 05/04/22 7:57:00 EST, Tablet, [facility], Partial fill upon patient request if [...] Team Personnel Name: Juana Santacruz RN Position: [facility] SN RN Member Role: Primary Care Nurse Name: Rosemary Mosley RN Position: S RN Member Role: Primary Care Nurse Name: Jessica Subramanian Position: S Outreach Member Role: Lifetime Consulting Physician Name: Zaira Jewell NP Position: S Outreach Member Role: PCP Address: Address: [address] [place] [address] Internal Medicine [address] Name: Lee Ann Hagen RN Position: S RN Member Role: Primary Care Nurse Name: Pat Benavidez RN Position: S RN Member Role: Primary Care Nurse Care Team Related Persons Name: THIERNO BO Address: home [address] [place] [address] Name: FELIX PATRICIA Address: home [address] [place] [address] Name: FELIX PATRICIA Address: home [address] [place], [place] Name: SANDRA PATRICIA Address: home [address] [place] [address]
--- OUTSIDE RECORDS SUMMARY | 2023-09-13 11:24 | XMS_ITS | Continuity of Care Document ---
Author Organization [facility] ter Address [address] [place] [address]- Care Team Providers Care Licensed Massage Practitioner Name Role Phone Zaira Jewell NP Primary Care Physician [phone] Encounter [facility] Date(s): 07/25/21 - 08/24/[address] [address] Attending Physician: Michael Falcon Admitting Physician: AdmMichael bernal Referring Physician: AdmtrMichael Allergies, Adverse Reactions, Alerts [...]
--- OUTSIDE RECORDS SUMMARY | 2023-09-13 11:24 | XMS_ITS | Patient Health Record ---
Author Organization [facility] Address [address] [place] [address] Care Team Providers Care Static Balancer Name Role Phone Zaira Jewell NP Primary Care Provider Fernando Lilly [phone] ALLERGIES Allergen (clinical drug ingredient) Drug/Non Drug Allergy documented on EMR Reaction Allergy Type Onset Date Status LamISIL Unknown Drug Allergy Active REASON FOR REFERRAL No Information MEDICATIONS Medication SIG (Take, Route, Frequency, Duration) Notes Start Date End Date Status Extra Depth Orthopedic Shoes (1 Pair) with Customized Heat Molded Multidensity Innersoles (3 Pair) as directed Dx: NIDDM (E11.9), Hammertoe Foot Deformity (M20.41,M20.42), Preulcerative Skin Lesion(s) (L85.1) 05/22/2016 Active Ciclopirox Olamine 0.77% external Apply to effected areas twice a day for 30 days 05/22/2016 Active IMMUNIZATIONS Vaccine Route Administration Date Status Comme nts Influenza Unknown 01/12/2016 Administered SOCIAL HISTORY Sex Assigned At : Social History Observation Description Sex Assigned At Unknown Tobacco use other than smoking: Question Answer Notes Are you an other tobacco user? No PROBLEMS Problem Type ICD Code Onset Dates Problem Status W/U Status Risk SNOMED Code Notes Problem Type 2 diabetes mellitus without complications (E11.9) Active confirmed Type II diabetes mellitus without complication (485749411) Encounters Encounter Location Date Provider Diagnosis [facility] [address] [place] [address] 10/31/2022 [facility] [place] [address] [place] [address] 11/21/2022 Fernando Sr [facility] [place] [address] [place] [address] 11/21/2022 Fernando Sr PLAN OF TREATMENT Pending Test Test Name Order Date Hemoglobin A1c 05/24/2015 Insurance Providers Payer Name Payer Address Payer Phone Subscriber Number Group Number Insured Name Patient Relationship to Insured Coverage Start Date Coverage End Date [facility] [address] [place] [address] [id number] Rosetta Pressley Self - patient is the insured MEDICAL (GENERAL) HISTORY Medical History History ICD Code Arthritis Back,Hip,and Knee pain Diabetic Psoriasis/eczema Chicken pox High blood pressure Joint implants/screws Surgical History Surgery Date(Month/Year) knee replacement 08/10/2021 knee replacement 05/03/2022
--- OUTSIDE RECORDS SUMMARY | 2023-09-13 11:24 | XMS_ITS | Continuity of Care Document ---
Author Organization [facility] Address [address] [place] [address]- Care Team Providers Care Contact Lens Manufacturer Name Role Phone Zaira Jewell NP Primary Care Physician [phone] Encounter 08/12/21 - 08/18/21 [facility] [address] [place] [address]- Discharge Disposition: [facility] Allergies, Adverse Reactions, [...]
== END 2023-09-12 15:55 | disposition home or self-care (01) ==
LOC: HO.HWS 15:21
PROVIDERS: PCP Internal Medicine; Visit Provider Advanced Practice Midwife
DX: D21.9 Benign neoplasm of connective and other soft tissue, unspecified (principal); R10.2 Pelvic and perineal pain
CPT/HCPCS: 99213

== ENCOUNTER → 2023-09-12 15:21 | Outpatient (BNVA) | payer BC, SELFPAY | PROVIDERS: PCP Internal Medicine; Visit Provider Advanced Practice Midwife ==

== ENCOUNTER 2023-12-31 16:12 | Outpatient (REF) | payer BC, SELFPAY ==
--- NOTE | ~2023-12-31 | MM_ITS ---
EXAMINATION: MM SCREENING DIGITAL BREAST TOMOSYNTHESIS, BILATERAL CLINICAL INFORMATION: Screening. Asymptomatic. COMPARISON: Mammography: Comparison is made with available priors TECHNIQUE: Digital breast mammography with tomosynthesis is performed in both the craniocaudal and mediolateral oblique views along with computer-aided detection (CAD). FINDINGS: There are scattered areas of fibroglandular density (ACR BI-RADS breast composition Category b). There are no significant masses, abnormal calcifications, or other abnormalities. MM/MM tomosynthesis screening BI IMPRESSION: No mammographic evidence of malignancy. ASSESSMENT: BI-RADS BI-RADS 1 - Negative RECOMMENDATION: Routine annual mammography screening. 1 year F/U This examination should not preclude the clinical evaluation of a suspicious palpable abnormality. This patient's information was entered into a reminder system with a target due date for their next mammogram. Electronically signed by: Trista Craven DO 01/12/2024 05:30 PM EDT
== END 2023-12-31 16:13 | disposition home or self-care (01) ==
LOC: HO.MAMMO 16:12
PROVIDERS: PCP Internal Medicine; Visit Provider Internal Medicine
DX: Z12.31 Encounter for screening mammogram for malignant neoplasm of breast (principal)
CPT/HCPCS: 77063; 77067

== ENCOUNTER → 2023-12-31 16:15 | Outpatient (BNV) | payer BC, SELFPAY | PROVIDERS: PCP Internal Medicine; Visit Provider Internal Medicine | DX: Z12.31 Encounter for screening mammogram for malignant neoplasm of breast (principal) | CPT/HCPCS: 77063; 77067 ==

== ENCOUNTER 2024-06-11 16:18 | Outpatient (REF) | payer MEDICAID, SELFPAY ==
--- NOTE | ~2024-06-11 | CT_ITS ---
CLINICAL HISTORY: F17.210 - Nicotine dependence, cigarettes, uncomplicated CT lung cancer screening (LDCT) Comparison: None Technique: Axial CT images of the chest using low-dose technique. Referring provider counseled the patient on shared decision-making for LDCT screening. Additional counseling was provided on smoking cessation. Effective radiation dose total: DLP 54.1 mGycm, CTDIvol 1.8 mGy. Findings: Pulmonary nodules: No suspicious pulmonary nodules Incidental pulmonary findings: Moderate centrilobular emphysema. Mild airway thickening. Non pulmonary findings: Coronary artery calcifications: None Limited upper abdomen: Cholecystectomy clips noted Other: None Impression: LungRADS 1: Negative exam. Continue annual screening with low dose Chest CT in 12 months. ##L1# Category 1: Normal; continue annual screening Category 2: Benign appearance or behavior, continue annual screening Category 3: Probably benign, [address] recommended Category 4A: Suspicious, [address] recommended; may consider PET/CT Category 4B: Suspicious, Additional diagnostics and/or tissue sampling recommended Category 4X: Suspicious, Additional diagnostics and/or tissue sampling recommended Category 0: Recalls (incomplete screen due to Incomplete coverage, Noise, Respiratory motion, Expiration, Obscured by acute abnormality) This document has been electronically signed by: Mamadou Teran MD on 06/13/2024 05:27:55
--- OUTSIDE RECORDS SUMMARY | 2024-06-11 19:24 | XMS_ITS | Patient Health Record ---
Author Organization [facility] Address [address] [facility] [place] [address] Care Team Providers Care Dietary Internship Name Role Phone Zaira Jewell NP Primary Care Provider Fernando Lilly Unavailable [phone] Allergies Allergen (clinical drug ingredient) Drug/Non Drug Allergy documented on EMR Reaction Allergy Type Onset Date Status LamISIL Unknown Drug Allergy Active Reason For Referral No Information Medications Medication SIG (Take, Route, Frequency, Duration) Notes Start Date End Date Status Extra Depth Orthopedic Shoes (1 Pair) with Customized Heat Molded Multidensity Innersoles (3 Pair) as directed Dx: NIDDM (E11.9), Hammertoe Foot Deformity (M20.41,M20.42), Preulcerative Skin Lesion(s) (L85.1) 05/22/2016 Active Ciclopirox Olamine 0.77% external Apply to effected areas twice a day for 30 days 05/22/2016 Active Immunizations Vaccine Route Administration Date Status Comme nts Influenza Unknown 01/12/2016 Administered Social History Tobacco use other than smoking: Question Answer Notes Are you an other tobacco user? No Problems Problem Type SNOMED Code ICD Code Onset Dates Problem Status W/U Status Risk Notes Problem Type II diabetes mellitus without complication (969272268) Type 2 diabetes mellitus without complications (E11.9) Active confirmed Plan Of Treatment Pending Test Test Name Order Date Hemoglobin A1c 05/24/2015 Insurance Providers Payer Name Payer Address Payer Phone Subscriber Number Group Number Insured Name Patient Relationship to Insured Coverage Start Date Coverage End Date [facility] [address] [place] [address] [id number] Rosetta Pressley Self - patient is the insured Medical (General) History Medical History History ICD Code Arthritis Back,Hip,and Knee pain Diabetic Psoriasis/eczema Chicken pox High blood pressure Joint implants/screws Surgical History Surgery Date(Month/Year) knee replacement 08/10/2021 knee replacement 05/03/2022
--- OUTSIDE RECORDS SUMMARY | 2024-06-11 19:24 | XMS_ITS | Continuity of Care Document ---
Author Organization [facility] Address [address] [facility] [address] [place], [place] Phone [phone] Care Team Providers Care Life Skills Coordinator Name Role Phone Zaira Jewell NP Care Team Information Clinical Exercise Specialist U navailable PREETHI MONROY M.D. Care Team Information Rec eiver Unavailable Zaira Jewell NP Primary Care Physician Unavailab le Problems Active Problems Provider Date Alopecia Preethi Monroy M.D. Onset: 0 11/04/2018 Kathy thyroiditis Preethi Monroy M.D. On set: 11/04/2018 Metabolic syndrome X Preethi Monroy M.D. Ons et: 11/04/2018 Social History Type Date Description Comments Sex Unknown Allergies and adverse reactions Description No Known Drug Allergies Medications Active Medications SIG Qnty Indications Ordering Provider Date Metformin HCL [id number] Tablets ER 24HR 3 tab by mouth every day 90tabs E88.81 Preethi Monroy M.D. 11/04/2018
== END 2024-06-11 16:19 | disposition home or self-care (01) ==
LOC: HO.CT 16:18
PROVIDERS: PCP Internal Medicine; Visit Provider Physician Assistant Medical
DX: Z12.2 Encounter for screening for malignant neoplasm of respiratory organs (principal); F17.210 Nicotine dependence, cigarettes, uncomplicated
CPT/HCPCS: 71271

== ENCOUNTER → 2024-06-11 16:21 | Outpatient (BNV) | payer MEDICAID, SELFPAY | PROVIDERS: PCP Internal Medicine; Visit Provider Radiology Vascular & Interventional Radiology | DX: F17.210 Nicotine dependence, cigarettes, uncomplicated (principal) | CPT/HCPCS: 71271 ==

== ENCOUNTER 2024-08-17 10:18 | Outpatient (AMB) | payer OTHER, SELFPAY ==
[2024-08-17 10:32] VITALS: BP 136/78; PULSE 74; RESP 14; TEMP 36.6; O2SAT 97; BMI 44.0
--- NOTE | 2024-08-17 10:32 | A.OFFPC_ITS ---
Vital Signs 08/17/24 10:32 Height 5 ft 1 in Weight 233 lb BMI 44.0 BP 136/78 Blood Pressure Location Rt radial Position Sitting Respiration 14 Pulse 74 Pulse Source Pulse Oximeter Temp 97.8 F Temp Source Temporal Artery Scan Pulse Oximetry (%) 97 Oxygen Delivery Method Room Air Intake Visit Reasons: establish care Cfa Required: No Accompanied by: Self / Same As Patient Allergies No Known Allergies [No Known Allergies*] Allergy (Verified 08/17/24 12:01) Medication List - Last Reconciled 08/17/24 by Winter Dietrich PA-C atorvastatin 20 mg PO DAILY calcium carbonate (Calcium 600) 600 mg PO DAILY cholecalciferol (vitamin D3) 125 mcg PO DAILY hydrochlorothiazide 12.5 mg PO DAILY losartan 25 mg PO DAILY magnesium 250 mg PO DAILY multivitamin 1 tab PO DAILY omega-3 fatty acids 1,000 mg PO DAILY semaglutide (Ozempic) 0.25 mg (0.368 mL) subcut QWEEK Tobacco use date assessed: 08/17/24 Dental Screening Dental Screen Date: 08/17/24 Did you have a dental visit in the last 12 months?: Yes Did you have a dental problem in the last 6 months where you did not have access to dental care?: No Was dental information given to patient?: Patient has dentist HPI establish care HPI Details The patient is a 64-year-old female presenting to establish a new primary care provider and with concerns with a follow-up for chronic condition management. Her history denotes hyperlipidemia managed with atorvastatin and hypertension managed with antihypertensives. She supplements vitamin D and calcium for previous deficiencies and bone health, respectively, and magnesium for deficiency. Concern arises from uterine fibroids, which have shown slow growth over the years, yet remain asymptomatic and non-cancerous. Despite evaluation by two gynecologists, surgery was not recommended. The patient underwent cholecystectomy following a gallbladder attack. Patient reports she was told she was prediabetic or diabetic and was started on Ozempic although has not been on a few months and is concerned that she needs to be started back on Ozempic for her diabetes/prediabetes. She is currently not testing her blood glucose levels. Her A1c level in 2022 was 7.1. Today her A1c level was 7.0 consistent with diabetes not prediabetes. Social History - Level of Activity: Uses cane occasiona lly due to previous knee surgery - Nutrition: Uses multivitamin and omega -3 fatty acids as supplements; previously on Ozempic for weight management - Weight Management: Concern with Ozempi c coverage for managing prediabetes and weight COUNT INCLUDES THE [facility] Medical History (Updated 08/17/24 @ 12:08 by Winter Dietrich PA-C) Magnesium deficiency Vitamin D deficiency Uterine fibroid Hyperlipidemia LDL goal <70 Type 2 diabetes mellitus with hemoglobin A1c goal of less than 7.0% Establishing care with new doctor, encounter for Abdominal pain History of mammogram (~12/31/23) Nicotine dependence, cigarettes, uncomplicated Lipoma Mass of uterus Hypertension Obesity Family history of premature CAD Diabetes mellitus Surgical History History of colonoscopy (~04/2024) History of bilateral knee replacement Hx of cholecystectomy History of endometrial ablation Family History Paternal Aunt Breast cancer Lung cancer Social History Household Members: Spouse Housing: House Do you presently have visiting nurse or other home services: No Alcohol intake: current Alcohol intake frequency: holidays/special occasions only Patient Tobacco Use Status: Current everyday Tobacco user Tobacco use type: Smokeless Tobacco Years Smoked: 44 e-Cigarette/Vaping Use: Currently Using service: No Current occupational status: retired Cognitive needs: No Hearing needs: No Vision needs: Yes (rx glasses) Questionnaire PHQ-9 Over the last 2 weeks, how often have you been bothered by any of the following problems? 1. Little interest or pleasure in doing things: not at all 2. Feeling down, depressed, or hopeless: not at all 3. Trouble falling or staying asleep, or sleeping too much: not at all 4. Feeling tired or having little energy: not at all 5. Poor appetite or overeating: not at all 6. Feeling bad about yourself - or that you are a failure or have let yourself or your family down: not at all 7. Trouble concentrating on things, such as reading the newspaper or watching television: not at all 8. Moving or speaking so slowly that other people could have noticed. Or the opposite - being so fidgety or restless that you have been moving around a lot more than usual: not at all 9. Thoughts that you would be better off or of hurting yourself in some way: not at all Total score: 0 Depression Screening Interpretation: Negative Depression Screening Done: Yes 64675 - PHQ-9 Billing: Yes Source: Developed by Drs. Chon Ahmadi, Tegan Morrison, Vasquez Paniagua and colleagues, with an educational roberta from [employer]. Thrive Questionnaire Date Thrive assessed: 08/17/24 I am a: Patient What is your living situation today?: I have a steady place to live Within the past 12 months, did the food you bought not last and you didn't have the money to get more?: Never true Within the past 12 months, did you worry whether your food would run out before you got money to buy more?: Never true Do you have trouble paying for medicines?: No Do you have trouble getting transportation to medical appointments?: No Do you have trouble paying your heating and electricity bill?: No Do you have trouble taking care of your child, family member or friend?: No Do you have trouble with day-to-day activities such as bathing, preparing meals, shopping, managing finances, etc.?: No Are you currently unemployed and looking for a job?: No Are you interested in more education?: No Please select the resources that you would like help with: None THRIVE Score: 0 AUDIT C Alcohol Use Questionnaire (AUDIT-C) 1. How often do you have a drink containing alcohol?: Monthly or less 2. How many drinks containing alcohol do you have on a typical day when you are drinking?: 1 or 2 3. How often do you have six or more drinks on one occasion?: Never Total Score: 1 Score Reviewed/Action Taken: No SONU-7 AMB Questionnaire SONU-7 Date SONU - 7 assessed: 08/17/24 Feeling nervous, anxious, or on edge: 0 = Not at all Not being able to stop or control worryin = Not at all Worrying too much about different things: 0 = Not at all Trouble relaxin = Not at all Being so restless that it is hard to sit still: 0 = Not at all Becoming easily annoyed or irritable: 0 = Not at all Feeling afraid as if something awful might happen: 0 = Not at all Total SONU-7 score (0-4 normal; 5-9 mild; 10-14 moderate; 15-21 severe): 0 Source: Developed by Drs. Chon Ahmadi, Tegan Morrison, Vasquez Paniagua and colleagues, with an educational roberta from [employer]. SONU-7 Assessment Billing SONU-7 Assessment Tool: SONU-7 Assessment 93295 Review of Systems Const Details: - Musculoskeletal: Denies persistent cane use - Genitourinary: Reports uterine fibroids - Metabolic: Reports prediabetes diagnosis with elevated A1c - Cardiovascular: Denies chest pain or shortness of breath - Gastrointestinal: Reports history of gallbladder removal - Hematologic/Lymphatic: Reports polypectomy during colonoscopy - Endocrine: Takes vitamin D and magnesium for deficiency - Neurologic: Denies significant neurological concerns Physical exam (Primary Care) Vital Signs: Last Vital Signs Temp 97.8 F 08/17/24 10:32 Pulse 74 08/17/24 10:32 Resp 14 08/17/24 10:32 BP 142/80 H 08/17/24 10:32 Pulse Ox 97 08/17/24 10:32 Oxygen Delivery Method Room Air 08/17/24 10:32 Care Plan Goal for BP management: <130/90 at Goal BMI result Body Mass Index 44.0 BMI Assessment/Plan discussion: High BMI High, discussed plan: lifestyle, weight reduction, dietary, physical activity and alcohol moderation Tobacco/Smoking Status: Tobacco use Status Tobacco use date assessed 08/17/24 08/17/24 10:34 Patient Tobacco Use Status Current everyday Tobacco 08/17/24 10:44 Tobacco use type Smokeless Tobacco 08/17/24 10:44 e-Cigarette/Vaping Use Currently Using 08/17/24 10:44 PHQ-9: PHQ-9 Score PHQ-9: Total score 0 08/17/24 11:17 Depression Screening Interpretation: Negative Thrive Assessment: Date of Thrive Assessment Date Thrive assessed 08/17/24 08/17/24 10:34 Const Other: Appearance: Alert. Oriented X3. No acute distress. Head: Normal external exam. Normocephalic. Atraumatic. Eyes: Pupils are equal, round, and reactive to light. Extraocular movements intact. Conjunctiva and sclera normal. Eyelids normal. Ears: External auditory canal normal. Tympanic membranes normal. A little ear wax noted, not much. Throat: Pharynx normal. Uvula midline. Moist mucous membranes. Neck: Normal inspection. Neck supple. Full range of motion. No adenopathy. Thyroid Normal. No meningeal signs. No neck mass noted. Cardiovascular: Normal heart rate and rhythm. Heart sound normal. No murmurs noted. Pulses normal throughout. Respiratory: No respiratory distress. Painless inspiration. Breath sounds normal. No wheezes/rales/rhonchi noted. Chest nontender. No accessory muscle usage noted or decreased air movement noted. Abdomen: Soft and nontender. Bowel sounds normal in all 4 quadrants. No distention noted. No organomegaly noted. No visible injury noted. Reports pain at the top of the abdomen that radiates down the side and across, occurring intermittently over the past couple of weeks. Back: No costovertebral angle tenderness. Full range of motion noted. Skin: Skin warm and dry. Normal skin color. Normal skin turgor. No rashes/lesions/lacerations noted. Extremities: No lower extremity edema. Extremities exhibit normal range of motion. Extremities nontender. Neuro: Oriented X 3. No motor deficit. No sensory deficit. Reflexes normal. Results AMB Hemoglobin A1c AMB Hemoglobin A1c 7.0 % Last Edit by VERNA Oh on 08/17/24 11:18 Results Reviewed Results Reviewed: Laboratory Last Values Hgb A1c (Clinic) 7.0 % (4.0-6.0) H 08/17/24 11:17 - Labs: A1c of 7.0 Coding Level of Care Code New Pt Level 4 (23198) Complex EM visit Add On G2211 Diagnoses Establishing care with new doctor, encounter for Z76.89 Type 2 diabetes mellitus with hemoglobin A1c goal of less than 7.0% E11.9 Hypertension I10 Hyperlipidemia LDL goal <70 E78.5 Uterine fibroid D25.9 Vitamin D deficiency E55.9 Magnesium deficiency E61.2 Abdominal pain R10.9 Additional Codes PHQ-9 - 22507 - PHQ-9 Billing: Yes ([id number]) SONU-7 Assessment Billing - SONU-7 Assessment Tool: SONU-7 Assessment 46400 ( [id number]) Assessment & Plan Assessment & Plan (1) Establishing care with new doctor, encounter for: Code(s): Z76.89 - Persons encountering health services in other specified circumstances Category: Medical (2) Type 2 diabetes mellitus with hemoglobin A1c goal of less than 7.0%: Code(s): E11.9 - Type 2 diabetes mellitus without complications Category: Medical Plan: Verify amid insurance updates for Ozempic; continue to explore oral diabetic therapies if required; adhere to diet and exercise recommendations. Condition is chronic and stable will continue to monitor. (3) Hypertension: Code(s): I10 - Essential (primary) hypertension Category: Medical Plan: Maintain current medication regimen with hydrochlorothiazide and losartan; self- monitor blood pressure regularly. Condition is chronic and stable will continue to monitor. (4) Hyperlipidemia LDL goal <70: Code(s): E78.5 - Hyperlipidemia, unspecified Category: Medical Plan: Continue atorvastatin and regular lipid monitoring; dietary modifications recommended for additional cholesterol management. Condition is chronic and stable will continue to monitor. (5) Uterine fibroid: Code(s): D25.9 - Leiomyoma of uterus, unspecified Category: Medical Plan: Conduct routine gynecological assessments; consider further intervention only if symptomatic changes occur. Condition is chronic and stable will continue to monitor. (6) Vitamin D deficiency: Code(s): E55.9 - Vitamin D deficiency, unspecified Category: Medical Plan: Supplement Vitamin D; keep track of levels to ensure adequacy. Condition is chronic and stable continue to monitor. (7) Magnesium deficiency: Code(s): E61.2 - Magnesium deficiency Category: Medical Plan: Continue magnesium intake; re-evaluate levels periodically. Condition is chronic and they will continue to monitor. (8) Abdominal pain: Code(s): R10.9 - Unspecified abdominal pain Category: Medical Plan: Patient with nonspecific diffuse abdominal pain. Will order basic labs and a CT scan abdomen pelvis with IV and p.o. contrast and re-evaluate patient instructed go to the ER if symptoms worsen. Not consistent with acute abdomen, appendicitis, perforation, bowel obstruction, ischemic bowel at this time. Plan Plan Patient was informed and verbally consented to the use of an ambient scribe for clinic note documentation during this visit. 1. Hyperlipidemia Continue atorvastatin and regular lipid monitoring; dietary modifications recommended for additional cholesterol management. 2. Hypertension Maintain current medication regimen with hydrochlorothiazide and losartan; self- monitor blood pressure regularly. 3. diabetes Verify amid insurance updates for Ozempic; continue to explore oral diabetic therapies if required; adhere to diet and exercise recommendations. 4. Uterine Fibroids Conduct routine gynecological assessments; consider further intervention only if symptomatic changes occur. 5. History Of Cholecystectomy Vigilance for gastrointestinal complaints; avoid medications impacting the gallbladder if applicable. 6. Vitamin D Deficiency Supplement Vitamin D; keep track of levels to ensure adequacy. 7. Magnesium Deficiency Continue magnesium intake; re-evaluate levels periodically. I discussed the patient's current conditions, focusing prominently on the luiz gement and monitoring plans for her hyperlipidemia, hypertension, and prediabetes. The importance of maintaining antihypertensive and lipid-lowering therapy was reiterated. Moreover, I addressed concerns surrounding her uterine fibroids, reinforcing the non-cancerous nature and advisement against surgical intervention without significant symptomology. Given the recent adjustments in insurance coverage impacting her Ozempic medication, I emphasized the necessity of verifying diabetes status through current A1c levels, noting the possibility of needing alternative oral medications under the constraints of her insurance's policy terms. This discussion was underscored by a comprehensive review of the available treatment benefits, potential side effects, and patient preferences, including insights on the previous issues noted with medications like metformin and Trulicity. Furthermore, we reviewed and documented her supplemental regimen for Vitamin D and magnesium, along with periodic testing strategies to evaluate adequacy. Follow-up appointments are scheduled to assess blood sugar control, evaluate medication strategies, and ensure continued well-being. Orders: Orders Complete Blood Count Auto Diff Today Z00.00 - Encounter for general adult medical examination without abnormal findings Liver Panel Today Z00.00 - Encounter for general adult medical examination without abnormal findings Magnesium Today Z00.00 - Encounter for general adult medical examination without abnormal findings Erythrocyte Sedimentation Rate Today Z00.00 - Encounter for general adult medical examination without abnormal findings CT abdomen w IV con Today R10.9 - Unspecified abdominal pain Comprehensive Robertson. Panel Fast Today Z00.00 - Encounter for general adult medical examination without abnormal findings C Reactive Protein Today Z00.00 - Encounter for general adult medical examination without abnormal findings Lipid Panel Today Z00.00 - Encounter for general adult medical examination without abnormal findings Vitamin B12 and Folate Today Z00.00 - Encounter for general adult medical examination without abnormal findings Vitamin D 25-OH Total Today Z00.00 - Encounter for general adult medical examination without abnormal findings TSH reflex Free T4 Today Z00.00 - Encounter for general adult medical examination without abnormal findings Microalbumin, Random (w Creat) Today E11.9 - Type 2 diabetes mellitus without complications Lyme IgG/IgM w/reflex to WB Today Z00.00 - Encounter for general adult medical examination without abnormal findings AMB Hemoglobin A1c Today E11.9 - Type 2 diabetes mellitus without complications Medications: New losartan 25 mg PO DAILY 90 tabs 1RF semaglutide (Ozempic) for 4 weeks 0.25 mg (0.368 mL) subcut QWEEK 3 mL 0RF E11.9 - Type 2 diabetes mellitus without complications Patient Instructions: - Continue taking your hypertension and cholesterol medications as prescribed. - Monitor your blood pressure regularly and report any significant changes. - Adhere to dietary and lifestyle adjustments to assist with weight and blood sugar management. - Follow-up on the insurance situation for diabetes medication and contact them if necessary. - Obtain your upcoming lab work while fasting, as requested. - Seek evaluation if you experience any new symptoms or concerns related to your gallbladder, fibroids, or medication side effects.
--- OUTSIDE RECORDS SUMMARY | 2024-08-17 10:48 | XMS_ITS | Patient Health Record ---
[facility] Address [address] [place] [address] Care Team Providers Care Embedded Case Manager Name Role Phone Zaira Jewell NP Primary Care Provider Fernando Lilly Unavailable [phone] Allergies Allergen (clinical drug ingredient) Drug/Non Drug [...] Problem Type II diabetes mellitus without complication ([id number]) Type 2 diabetes mellitus without complications (E11.9) Active confirmed Plan Of Treatment Pending Test Test Name Order Date Hemoglobin A1c 05/24/2015 Insurance Providers Payer Name Payer Address Payer Phone Subscriber Number Group Number Insured Name Patient Relationship to Insured Coverage Start Date Coverage End Date [facility] [address] [place] [address] [id number] Rosetta Pressley Self - patient is the insured Medical (General) History Medical History History ICD Code Arthritis Back,Hip,and Knee pain Diabetic Psoriasis/eczema Chicken pox High blood pressure Joint implants/screws Surgical History Surgery Date(Month/Year) knee replacement 08/10/2021 knee replacement 05/03/2022
--- OUTSIDE RECORDS SUMMARY | 2024-08-17 10:48 | XMS_ITS | Continuity of Care Document ---
Author Organization [facility] Address [address] [place], [place] Phone [phone] Care Team Providers Care Construction Secretary Name Role Phone Zaira Jewell NP Care Team Information Automotive Lube Technician U navailable PREETHI MONROY M.D. Care Team [...] Qnty Indications Ordering Provider Date Metformin HCL [id number] Tablets ER 24HR 3 tab by mouth every day 90tabs E88.81 Preethi Monroy M.D. 11/04/2018
== END 2024-08-17 11:28 | disposition home or self-care (01) ==
LOC: HO.HMCSH 10:18
PROVIDERS: PCP Internal Medicine; Visit Provider Physician Assistant Medical
DX: Z76.89 Persons encountering health services in other specified circumstances (principal); E11.9 Type 2 diabetes mellitus without complications; I10 Essential (primary) hypertension; E78.5 Hyperlipidemia, unspecified; D25.9 Leiomyoma of uterus, unspecified; E55.9 Vitamin D deficiency, unspecified; E61.2 Magnesium deficiency; R10.9 Unspecified abdominal pain

== ENCOUNTER → 2024-08-17 10:18 | Outpatient (BNVA) | payer OTHER, SELFPAY | PROVIDERS: PCP Internal Medicine; Visit Provider Physician Assistant Medical | DX: E11.9 Type 2 diabetes mellitus without complications (principal); I10 Essential (primary) hypertension; E78.5 Hyperlipidemia, unspecified; D25.9 Leiomyoma of uterus, unspecified; E55.9 Vitamin D deficiency, unspecified; E61.2 Magnesium deficiency; R10.9 Unspecified abdominal pain; Z76.89 Persons encountering health services in other specified circumstances; Z79.899 Other long term (current) drug therapy | CPT/HCPCS: 83036; 96127; 99202 ==

== ENCOUNTER 2024-09-02 10:01 | Outpatient (REF) | payer OTHER, SELFPAY ==
--- OUTSIDE RECORDS SUMMARY | 2024-09-02 10:54 | XMS_ITS ---
Continuity of Care Document (CCD) Created on: September 02, 2024 Rosetta Pressley External Reference #: [id number] : [id number] Sex: Female Author Organization [facility] Address [address] [place], [place] Phone [phone] Care Team Providers Care Spray Dyer Name Role Phone Zaira Jewell NP Care Team Information Assurance Officer U navailable PREETHI MONROY M.D. Care Team [...] Qnty Indications Ordering Provider Date Metformin HCL [id number] Tablets ER 24HR 3 tab by mouth every day 90tabs E88.81 Preethi Monroy M.D. 11/04/2018
[2024-09-02 13:29] LABS: MANUAL DIFF FLAG NO
[2024-09-02 13:32] LABS: Basophils Absolute Auto 0.1 X10*3/uL (0.0-0.2); Basophils Percent Auto 0.9 % (0-2); Eosinophils Absolute Auto 0.2 X10*3/uL (0.0-0.4); Eosinophils Percent Auto 1.9 % (0-4); Hematocrit 41.6 % (37.0-47.0); Hemoglobin 13.8 g/dl (12.0-16.0); Imm Gran Abs Auto 0.02 X10*3/uL (0.00-0.03); Imm Gran Pct Auto 0.2 % (0.0-0.4); Lymphocytes Absolute Auto 1.8 X10*3/uL (1.2-4.9); Lymphocytes Percent Auto 22.2 % (20-40); Mean Corpuscular HGB Conc 33.2 g/dl (31.0-35.0); Mean Corpuscular Volume 87.4 fL (80.0-98.0); Mean Platelet Volume 10.1 fL (9.4-12.3); Monocytes Absolute Auto 0.4 X10*3/uL (0.1-1.2); Monocytes Percent Auto 5.2 % (2-11); Neutrophils Absolute Auto 5.6 x10*3/uL (2.0-8.3); Neutrophils Percent Auto 69.6 % (45-73); Platelet Count 281 X10*3/uL (160-400); Red Blood Count 4.76 X10*6/uL (4.20-5.50); Red Cell Distribution Width 13.5 % (11.0-16.0); White Blood Count 8.1 X10*3/uL (4.8-10.8)
[2024-09-02 14:12] LABS: Creatinine Urine 166.19 mg/dL; Microalbum/Creatinine Ratio Ur 6.6 ug/mg cr (<30)
[2024-09-02 14:16] LABS: Alanine Aminotransferase 50 U/L (0-31); Albumin Level 4.3 g/dL (3.5-5.0); Alkaline Phosphatase 100 U/L (39-117); Anion Gap 14 (12-20); Aspartate Amino Transferase 42 U/L (5-31); Bilirubin Direct 0.2 mg/dL (0.0-0.5); Bilirubin Total 0.5 mg/dL (0.0-1.0); Blood Urea Nitrogen 14 mg/dL (9-16); C Reactive Protein 0.98 mg/dL (< or = 0.50); Calcium 9.4 mg/dL (8.4-10.2); Carbon Dioxide 27 mmol/L (22-29); Chloride 100 mmol/L (96-108); Cholesterol 149 mg/dL (<200); Estimated Glomerular Filt Rate > 60; Glucose Fasting 247 mg/dL (60-99); HDL Cholesterol 52 mg/dL (>40); LDL Cholesterol Calculated 68 mg/dL (<100); Magnesium 1.9 mg/dL (1.6-2.6); Potassium 4.1 mmol/L (3.3-5.1); Sodium 137 mmol/L (135-145); TSH reflex Free T4 1.21 uIU/mL (0.32-4.0); Total Protein 7.1 g/dL (6.5-8.0); Triglycerides 146 mg/dL (<150); Vitamin D 25-OH Total 42.5 ng/mL (>30)
[2024-09-02 14:48] LABS: Folate 12.3 ng/mL (> or = 4.0); Vitamin B12 911 pg/mL (200-900)
[2024-09-02 15:04] LABS: Erythrocyte Sedimentation Rate 8 MM/HR (0-20)
[2024-09-03 03:58] LABS: Lyme Abs Screen <0.90 index
== END 2024-09-02 10:02 | disposition home or self-care (01) ==
LOC: HO.HMGCLDS 10:01
PROVIDERS: Visit Provider Physician Assistant Medical
DX: Z00.00 Encounter for general adult medical examination without abnormal findings (principal); E11.9 Type 2 diabetes mellitus without complications
CPT/HCPCS: 36415; 80053; 80061; 80076; 82043; 82248; 82306; 82570; 82607; 82746; 83735; 84443; 85025; 85652; 86140; 86617; 86618

== ENCOUNTER 2024-09-23 08:55 | Outpatient (AMB) | payer OTHER, SELFPAY ==
[2024-09-23 09:05] VITALS: BP 145/65; PULSE 81; RESP 20; TEMP 36.6; O2SAT 96; BMI 44.6
--- NOTE | 2024-09-23 09:05 | MHC.PC.OV ---
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 Required: No Accompanied by: Self / Same As Patient Allergies No Known Allergies (No Known Allergies*) Allergy (Verified 09/23/24 09:45) Medication List - Last Reconciled 09/23/24 by Winter Dietrich PA-C alcohol swabs (Alcohol Pads) 1 pad topical TIDWMEAL atorvastatin 20 mg PO DAILY blood sugar diagnostic (FreeStyle Precision Delgado Strips) Please check glucose levels 3 times a day before meals blood-glucose meter (FreeStyle Precision Delgado Meter) Please check glucose levels 3 times a day before meals calcium carbonate (Calcium 600) 600 mg PO DAILY cholecalciferol (vitamin D3) 125 mcg PO DAILY hydrochlorothiazide 12.5 mg PO DAILY lancets (FreeStyle Lancets) Please check glucose levels 3 times a day before meals lancets (Accu-Chek Fastclix Lancet Drum) check glucose three times a day before meals losartan 25 mg PO DAILY magnesium 250 mg PO DAILY multivitamin 1 tab PO DAILY omega-3 fatty acids 1,000 mg PO DAILY pioglitazone (Actos) 30 mg PO DAILY Tobacco use date assessed: 08/17/24 Dental Screening Dental Screen Date: 08/17/24 Did you have a dental visit in the last 12 months?: Yes Did you have a dental problem in the last 6 months where you did not have access to dental care?: No Was dental information given to patient?: Patient has dentist HPI 1 month follow up HPI Details The patient is a 64-year-old female presenting with Type 2 Diabetes Mellitus management issues. She has been experiencing difficulties with insurance coverage for Ozempic, which she previously used for a year and a half. The patient reports intolerance to metformin due to gastrointestinal upset and has been advised to consider alternative oral medications such as glyburide or Actos. The patient also reports obesity and hyperlipidemia, which are being managed alongside her diabetes. She has attempted weight management through a program called [employer] and has engaged in physical activities such as gym workouts and hyperbaric oxygen therapy, although she reports recent weight gain. Recent laboratory results indicate elevated liver enzymes with AST and ALT levels slightly above normal, and elevated Vitamin B12 levels. The patient is advised to reduce the frequency of B12 supplementation to once a week. Social History - Exercise: Engages in gym workouts and hyperbaric oxygen therapy. - Weight Management: Participating in [employer] program with a kids activities coach. [facility] Medical History (Updated 09/23/24 @ 09:51 by Winter Dietrich PA-C) Elevated vitamin B12 level Elevated ALT measurement Elevated AST (SGOT) Morbid obesity with BMI of 40.0-44.9, adult General medical exam Magnesium deficiency Vitamin D deficiency Uterine fibroid Hyperlipidemia LDL goal <70 Type 2 diabetes mellitus with hemoglobin A1c goal of less than 7.0% Establishing care with new doctor, encounter for Abdominal pain History of mammogram (~12/31/23) Nicotine dependence, cigarettes, uncomplicated Lipoma Mass of uterus Hypertension Obesity Family history of premature CAD Diabetes mellitus Surgical History History of colonoscopy (~04/2024) History of bilateral knee replacement Hx of cholecystectomy History of endometrial ablation Family History Paternal Aunt Breast cancer Lung cancer Social History Household Members: Spouse Housing: House Do you presently have visiting nurse or other home services: No Alcohol intake: current Alcohol intake frequency: holidays/special occasions only Patient Tobacco Use Status: Current everyday Tobacco user Tobacco use type: Smokeless Tobacco Years Smoked: 44 e-Cigarette/Vaping Use: Currently Using service: No Current occupational status: retired Cognitive needs: No Hearing needs: No Vision needs: Yes (rx glasses) Questionnaire PHQ-9 Over the last 2 weeks, how often have you been bothered by any of the following problems? 1. Little interest or pleasure in doing things: not at all 2. Feeling down, depressed, or hopeless: not at all 3. Trouble falling or staying asleep, or sleeping too much: not at all 4. Feeling tired or having little energy: not at all 5. Poor appetite or overeating: not at all 6. Feeling bad about yourself - or that you are a failure or have let yourself or your family down: not at all 7. Trouble concentrating on things, such as reading the newspaper or watching television: not at all 8. Moving or speaking so slowly that other people could have noticed. Or the opposite - being so fidgety or restless that you have been moving around a lot more than usual: not at all 9. Thoughts that you would be better off or of hurting yourself in some way: not at all Total score: 0 Depression Screening Interpretation: Negative Depression Screening Done: Yes 25617 - PHQ-9 Billing: Yes Source: Developed by Drs. Chon Ahmadi, Tegan Morrison, Vasquez Paniagua and colleagues, with an educational roberta from [employer]. Thrive Questionnaire Date Thrive assessed: 08/17/24 I am a: Patient What is your living situation today?: I have a steady place to live Within the past 12 months, did the food you bought not last and you didn't have the money to get more?: Never true Within the past 12 months, did you worry whether your food would run out before you got money to buy more?: Never true Do you have trouble paying for medicines?: No Do you have trouble getting transportation to medical appointments?: No Do you have trouble paying your heating and electricity bill?: No Do you have trouble taking care of your child, family member or friend?: No Do you have trouble with day-to-day activities such as bathing, preparing meals, shopping, managing finances, etc.?: No Are you currently unemployed and looking for a job?: No Are you interested in more education?: No Please select the resources that you would like help with: None THRIVE Score: 0 AUDIT C Alcohol Use Questionnaire (AUDIT-C) 1. How often do you have a drink containing alcohol?: Monthly or less 2. How many drinks containing alcohol do you have on a typical day when you are drinking?: 1 or 2 3. How often do you have six or more drinks on one occasion?: Never Total Score: 1 Score Reviewed/Action Taken: No SONU-7 AMB Questionnaire SONU-7 Date SONU - 7 assessed: 08/17/24 Feeling nervous, anxious, or on edge: 0 = Not at all Not being able to stop or control worryin = Not at all Worrying too much about different things: 0 = Not at all Trouble relaxin = Not at all Being so restless that it is hard to sit still: 0 = Not at all Becoming easily annoyed or irritable: 0 = Not at all Feeling afraid as if something awful might happen: 0 = Not at all Total SONU-7 score (0-4 normal; 5-9 mild; 10-14 moderate; 15-21 severe): 0 Source: Developed by Drs. Chon Ahmadi, Teagn Morrison, Vasquez Paniagua and colleagues, with an educational roberta from [employer]. SONU-7 Assessment Billing SONU-7 Assessment Tool: SONU-7 Assessment 01068 Review of Systems Const Details: - Gastrointestinal: Reports gastrointestinal upset with metformin. - Endocrine: Reports high blood sugar levels in the morning, around 250 mg/dL. - General: Reports recent weight gain despite efforts to lose weight. Physical exam (Primary Care) Vital Signs: Last Vital Signs Temp 97.9 F 09/23/24 09:05 Pulse 81 09/23/24 09:05 Resp 20 09/23/24 09:05 BP 145/65 H 09/23/24 09:05 Pulse Ox 96 09/23/24 09:05 Oxygen Delivery Method Room Air 09/23/24 09:05 Care Plan Goal for BP management: <140/90 at Goal BMI result Body Mass Index 44.6 BMI Assessment/Plan discussion: High BMI High, discussed plan: lifestyle, weight reduction, dietary, physical activity and alcohol moderation Tobacco/Smoking Status: Tobacco use Status Tobacco use date assessed 08/17/24 09/23/24 09:11 Patient Tobacco Use Status Current everyday Tobacco 09/23/24 09:11 Tobacco use type Smokeless Tobacco 09/23/24 09:11 e-Cigarette/Vaping Use Currently Using 09/23/24 09:11 PHQ-9: PHQ-9 Score PHQ-9: Total score 0 09/23/24 09:11 Depression Screening Interpretation: Negative Thrive Assessment: Date of Thrive Assessment Date Thrive assessed 08/17/24 09/23/24 09:11 Const Other: Appearance: Alert. Oriented X3. No acute distress. Head: Normal external exam. Normocephalic. Atraumatic. Eyes: Pupils are equal, round, and reactive to light. Extraocular movements intact. Conjunctiva and sclera normal. Eyelids normal. Ears: External auditory canal normal. Tympanic membranes show a little bit of blood, likely due to trauma from diving. Throat: Pharynx normal. Uvula midline. Moist mucous membranes. Neck: Normal inspection. Neck supple. Full range of motion. Cardiovascular: Normal heart rate and rhythm. Respiratory: No respiratory distress. Painless inspiration. Back: Full range of motion noted. Skin: Skin warm and dry. Normal skin color. Normal skin turgor. No rashes/lesions/lacerations noted. Extremities: Extremities exhibit normal range of motion. Results Reviewed Results Reviewed: - Labs: Complete Blood Count (CBC) normal, Comprehensive Metabolic Panel (CMP) normal, Hemoglobin A1c 7.5%, AST 42 U/L, ALT 50 U/L, Vitamin B12 911 pg/mL. Coding Level of Care Code Est Pt Level 4 (17178) Complex EM visit Add On G2211 Diagnoses Type 2 diabetes mellitus with hemoglobin A1c goal of less than 7.0% E11.9 Morbid obesity with BMI of 40.0-44.9, adult E66.01; Z68.41 Hyperlipidemia LDL goal <70 E78.5 Elevated AST (SGOT) R74.01 Elevated ALT measurement R74.01 Elevated vitamin B12 level R79.89 Additional Codes SONU-7 Assessment Billing - SONU-7 Assessment Tool: SONU-7 Assessment 48206 ([id number]) PHQ-9 - 45620 - PHQ-9 Billing: Yes ([id number]) Assessment & Plan Assessment & Plan (1) Type 2 diabetes mellitus with hemoglobin A1c goal of less than 7.0%: Code(s): E11.9 - Type 2 diabetes mellitus without complications Category: Medical Plan: The patient is advised to start Actos as an alternative to metformin due to gastrointestinal intolerance. The plan includes monitoring blood glucose levels and reassessing the medication regimen in one to two months. Condition is chronic and stable will continue to monitor. (2) Morbid obesity with BMI of 40.0-44.9, adult: Code(s): E66.01 - Morbid (severe) obesity due to excess calories; Z68.41 - Body mass index [BMI] 40.0-44.9, adult Category: Medical Plan: The patient is encouraged to continue with the [employer] program and maintain regular physical activity. Condition is chronic and stable will continue to monitor. (3) Hyperlipidemia LDL goal <70: Code(s): E78.5 - Hyperlipidemia, unspecified Category: Medical Plan: The patient is advised to continue monitoring lipid levels and maintain lifestyle modifications. Condition is chronic and stable will continue to monitor. (4) Elevated AST (SGOT): Code(s): R74.01 - Elevation of levels of liver transaminase levels Category: Medical Plan: The patient is advised to monitor liver function tests and report any abdominal pain. Condition is chronic and stable will continue to monitor. (5) Elevated ALT measurement: Code(s): R74.01 - Elevation of levels of liver transaminase levels Category: Medical Plan: The patient is advised to monitor liver function tests and report any abdominal pain. Condition is chronic and stable will continue to monitor. (6) Elevated vitamin B12 level: Code(s): R79.89 - Other specified abnormal findings of blood chemistry Category: Medical Plan: The patient is instructed to reduce B12 supplementation to once a week. Condition is chronic and stable will continue to monitor. Plan Plan Patient was informed and verbally consented to the use of an ambient scribe for clinic note documentation during this visit. 1. Type 2 Diabetes Mellitus The patient is advised to start Actos as an alternative to metformin due to gastrointestinal intolerance. The plan includes monitoring blood glucose levels and reassessing the medication regimen in one to two months. 2. Obesity The patient is encouraged to continue with the [employer] program and maintain regular physical activity. 3. Hyperlipidemia The patient is advised to continue monitoring lipid levels and maintain lifestyle modifications. 4. Elevated Liver Enzymes The patient is advised to monitor liver function tests and report any abdominal pain. 5. Elevated Vitamin B12 Levels The patient is instructed to reduce B12 supplementation to once a week. During the visit, we discussed the challenges with insurance coverage for Ozempic and the need to explore alternative oral medications such as Actos for diabetes management. We reviewed the patient's recent lab results, including elevated liver enzymes and Vitamin B12 levels, and advised on appropriate adjustments to her supplementation regimen. The patient was informed about the importance of maintaining lifestyle modifications for obesity and hyperlipidemia management. Medications: New pioglitazone (Actos) 30 mg PO DAILY 90 tabs 1RF E11.9 - Type 2 diabetes mellitus without complications Discontinued empagliflozin (Jardiance) Discontinued Reason: Doctor's Order 25 mg PO DAILY 90 tabs 1RF E11.9 - Type 2 diabetes mellitus without complications Patient Instructions: - Start Actos as prescribed for diabetes management. - Monitor blood glucose levels regularly and report any significant changes. - Continue with the [employer] program and regular physical activity. - Reduce Vitamin B12 supplementation to once a week. - Report any abdominal pain or unusual symptoms to the healthcare provider.
--- OUTSIDE RECORDS SUMMARY | 2024-09-23 09:31 | XMS_ITS | Continuity of Care Document ---
Author Organization [facility] Address [address] [place], [place] Phone [phone] Care Team Providers Care Manager Stars Name Role Phone Zaira Jewell NP Care Team Information Elephant Keeper U navailable PREETHI MONROY M.D. Care Team Information Rec eiver Unavailable Zaira Jewell NP Primary Care Physician Unavailab le Problems Active Problems Provider Date Alopecia Preethi Monroy M.D. Onset: 0 11/04/2018 Kathy thyroiditis Preethi Monroy M.D. On set: 11/04/2018 Metabolic syndrome X Preethi Monroy M.D. Ons et: 11/04/2018 Social History Type Date Description Comments Sex Female Sex Unknown Allergies and adverse reactions Description No Known Drug Allergies Medications Active Medications SIG Qnty Indications Ordering Provider Date Metformin HCL [id number] Tablets ER 24HR 3 tab by mouth every day 90tabs E88.81 Preethi Monroy M.D. 11/04/2018
== END 2024-09-23 09:43 | disposition home or self-care (01) ==
LOC: HO.HMCSH 08:55
PROVIDERS: PCP Internal Medicine; Visit Provider Physician Assistant Medical
DX: E11.9 Type 2 diabetes mellitus without complications (principal); E66.01 Morbid (severe) obesity due to excess calories; Z68.41 Body mass index [BMI] 40.0-44.9, adult; E78.5 Hyperlipidemia, unspecified; R74.01 Elevation of levels of liver transaminase levels; R79.89 Other specified abnormal findings of blood chemistry

== ENCOUNTER → 2024-09-23 08:55 | Outpatient (BNVA) | payer OTHER, SELFPAY | PROVIDERS: PCP Internal Medicine; Visit Provider Physician Assistant Medical | DX: E11.9 Type 2 diabetes mellitus without complications (principal); E66.9 Obesity, unspecified; E78.5 Hyperlipidemia, unspecified; E66.01 Morbid (severe) obesity due to excess calories; R74.01 Elevation of levels of liver transaminase levels; R79.89 Other specified abnormal findings of blood chemistry; Z68.41 Body mass index [BMI] 40.0-44.9, adult; Z79.899 Other long term (current) drug therapy | CPT/HCPCS: 96127; 99212 ==

== ENCOUNTER 2024-09-29 06:23 | Outpatient (REF) | payer OTHER, SELFPAY ==
--- NOTE | ~2024-09-29 | CT_ITS ---
EXAMINATION: CT ABDOMEN AND PELVIS WITH CONTRAST CLINICAL INFORMATION: Unspecified abdominal pain. COMPARISON: October 02, 2022 TECHNIQUE: Multidetector volumetric images were obtained from the superior aspect of the liver through the pubic symphysis following administration 85 mL of Omnipaque 350 intravenous contrast. Sagittal and coronal reformatted images were obtained on the technologist's workstation. Oral contrast: Yes This CT examination was performed using dose optimization techniques as appropriate, variously including the following: *Automated exposure control *Adjustment of mA and/or kV according to patient size (this includes techniques or standardized protocols for targeted exams where dose is matched to indication/reason for exam; i.e. extremities or head) *Use of iterative reconstruction technique DLP: 721 mGy centimeter. FINDINGS: LUNG BASES: No acute airspace disease. LIVER, GALLBLADDER, AND BILIARY TREE: Liver measures 20 cm. Decreased enhancement pattern. No focal mass. There is a less than 6 mm hypodensity in the dome of the right hepatic lobe too small to be fully characterized. Portal veins, hepatic veins and intrahepatic portion of the IVC are patent. No intrahepatic biliary ductal dilatation. Status post cholecystectomy. Common bile duct measures 4 mm. PANCREAS: No focal lesion. No peripancreatic fluid collection. No main pancreatic ductal dilatation. SPLEEN: 10 cm. No focal mass. ADRENAL GLANDS: No nodular lesions. KIDNEYS AND URETERS: No hydronephrosis. No nephrolithiasis. No enhancing mass. Subcentimeter cystic lesions in the right kidney. Nonspecific perinephric edema pattern. The ureters are not dilated. BLADDER: Fluid-filled. GASTROINTESTINAL TRACT: No intestinal obstruction pattern. No pneumatosis intestinalis. Appendix is normal. No intestinal wall thickening. No ascites. No pneumoperitoneum. ABDOMINAL WALL: Small fat-containing umbilical hernia and diastases abdominal rectus muscles in the periumbilical region. LYMPH NODES: No specific prominent, retroperitoneum. VASCULAR: The abdominal aorta wall without aneurysm or dissection. Small trace pericardial effusion. PELVIC VISCERA: 4 cm heterogeneous low density mass, right side of the uterine body. OSSEOUS STRUCTURES: Sclerosis and vacuum phenomenon both sacroiliac joints. Multilevel marginal osteophyte formation and endplate sclerosis decreased intervertebral disc height with the vacuum phenomenon throughout the axial skeleton or pronounced at L3-4. No acute fracture or gross listhesis. CT/CT abdomen pelvis w IV con IMPRESSION: Hepatomegaly and steatosis. Subcentimeter low density lesion dome right hepatic lobe, nonspecific. Small fat-containing umbilical hernia. 4 cm uterine fibroid. Multilevel thoracolumbar spondylosis. Subcentimeter renal cysts. Fleischner guidelines were followed. Electronically signed by: Carlos Joshua MD 09/29/2024 09:14 AM EDT
--- OUTSIDE RECORDS SUMMARY | 2024-09-29 06:26 | XMS_ITS | Continuity of Care Document ---
Author Organization [facility] Address [address] [place], [place] Phone [phone] Care Team Providers Care Instructional Media Services Technician Name Role Phone Zaira Jewell NP Care Team Information Rig Hand U navailable PREETHI MONROY M.D. Care Team [...] Qnty Indications Ordering Provider Date Metformin HCL [id number] Tablets ER 24HR 3 tab by mouth every day 90tabs E88.81 Preethi Monroy M.D. 11/04/2018
[2024-09-29] MEDS: iohexoL 350 MG/ML 100 ML INFUS..BTL IV (09:03)
[2024-09-29] MEDS: Barium Sulfate Oral (Mocha) 450 ML ORAL.SUSP 900 ML PO (09:05)
== END 2024-09-29 06:24 | disposition home or self-care (01) ==
LOC: HO.CT 06:23
PROVIDERS: PCP Internal Medicine; Visit Provider Physician Assistant Medical
DX: R10.9 Unspecified abdominal pain (principal)
CPT/HCPCS: 74177; Q9967

== ENCOUNTER → 2024-09-29 06:25 | Outpatient (BNV) | payer OTHER, SELFPAY | PROVIDERS: PCP Internal Medicine; Visit Provider Radiology Diagnostic Radiology | DX: R16.0 Hepatomegaly, not elsewhere classified (principal); K75.81 Nonalcoholic steatohepatitis (NASH); K42.9 Umbilical hernia without obstruction or gangrene; D25.9 Leiomyoma of uterus, unspecified; M47.815 Spondylosis without myelopathy or radiculopathy, thoracolumbar region; N28.9 Disorder of kidney and ureter, unspecified | CPT/HCPCS: 74177 ==

== ENCOUNTER 2024-11-24 09:32 | Outpatient (AMB) | payer OTHER, SELFPAY ==
--- OUTSIDE RECORDS SUMMARY | 2024-11-24 03:36 | XMS_ITS ---
Author Organization [facility] Care Team Providers Care Rack Room Worker Name Role Phone Alana Gonzalez MD Primary Care Physician [phone] Allergies Not Yet Asked Medications No Information Problems Problem Status Assessment and P villa Asthma Inactive Hyperlipidemia Inactive Hypertension Inactive Diabetes mellitus type 2 Inactive History of Procedures Order Codes Created Status No known procedures Results Tests Date Results Flag Units Reference Interval No Results Within Months MENTAL STATUS No information Family History No Known Family History Social History Social History Observation Description Dates Observed Smoking Status Unknown if ever smoked Social Data No Known Social Data Immunizations Vaccine Date Status SARS-CoV-2 mRNA vaccine (Pfizer) 07/03/2020 Completed influenza (6 mos+, preservative-free) 01/20/2022 Completed influenza (6 mos+, preservative-free) 03/28/2021 Completed pneumococcus (PPSV 23) 02/20/2012 Completed influenza (6 mos+, preservative-free) 01/15/2023 Completed SARS-CoV-2 mRNA vaccine (Pfizer) 06/11/2020 Completed [Tdap] (tetanus, diphtheria & acellular pertussi s (age 7+) 02/20/2012 Completed influenza (6 mos+, preservative-free) 12/30/2018 Completed Influenza (trivalent) 01/06/2013 Completed Influenza (trivalent) 01/25/2012 Completed Plan of Treatment Health Screenings Date Goal Action Comments October 19, 2024 Cervical cancer screening October 19, 2024 Colon cancer screening Fecal immunochemi panda test (FIT) October 19, 2024 Breast cancer screening Digital breast t omosynthesis October 19, 2024 Depression screening PHQ-2 Insurance Providers Payer name Policy type / Covera ge type Policy ID Covered alliance party ID Policy [facility] PPO [id number] Lucero curran
[2024-11-24 09:39] VITALS: BP 176/96; PULSE 73; RESP 20; TEMP 36.4; O2SAT 98; BMI 44.5
--- NOTE | 2024-11-24 09:39 | A.OFFPC_ITS ---
Vital Signs 11/24/24 09:39 11/24/24 10:15 Height 5 ft 1 in Weight 235 lb 6 oz BMI 44.5 BP 176/96 H 151/78 H Blood Pressure Location Lt brachial Lt brachial Position Sitting Sitting Respiration 20 Pulse 73 Pulse Source Pulse Oximeter Temp 97.5 F Temp Source Temporal Artery Scan Pulse Oximetry (%) 98 Oxygen Delivery Method Room Air Intake Visit Reasons: 2 month follow up Drawing Supervisor Required: No Accompanied by: Self / Same As Patient Allergies No Known Allergies (No Known Allergies*) Allergy (Verified 11/24/24 13:05) Medication List - Last Reconciled 11/24/24 by Winter Dietrich PA-C alcohol swabs (Alcohol Pads) 1 pad topical TIDWMEAL atorvastatin 20 mg PO DAILY blood sugar diagnostic (FreeStyle Precision Delgado Strips) Please check glucose levels 3 times a day before meals blood-glucose meter (FreeStyle Precision Delgado Meter) Please check glucose levels 3 times a day before meals calcium carbonate (Calcium 600) 600 mg PO DAILY cholecalciferol (vitamin D3) 125 mcg PO DAILY hydrochlorothiazide 12.5 mg PO DAILY lancets (FreeStyle Lancets) Please check glucose levels 3 times a day before meals lancets (Accu-Chek Fastclix Lancet Drum) check glucose three times a day before meals losartan 25 mg PO DAILY magnesium 250 mg PO DAILY multivitamin 1 tab PO DAILY omega-3 fatty acids 1,000 mg PO DAILY semaglutide (Ozempic) mg subcut Tobacco use date assessed: 08/17/24 Dental Screening Dental Screen Date: 08/17/24 Did you have a dental visit in the last 12 months?: Yes Did you have a dental problem in the last 6 months where you did not have access to dental care?: No Was dental information given to patient?: Patient has dentist HPI 2 month follow up HPI Details The patient is a 64-year-old female presenting with management of hypertension and evaluation of abdominal pain. The patient reports a history of hypertension, with recent measurements indicating elevated blood pressure levels of 176/96 mmHg, which improved to 151/70 mmHg upon recheck. She is currently on losartan 25 mg, taken at night, and plans to monitor her blood pressure at home with a new monitor. The patient experiences abdominal pain, particularly in the upper abdomen, which has been present since before starting Ozempic. She does not have a gallbladder, and there is a concern about potential pancreatic involvement due to medication side effects. A liver cyst less than 6 mm was identified on a recent CT scan, deemed too small to characterize further without risk factors for malignancy. The patient is considering a referral to gastroenterology for further evaluation. The patient has a history of kidney cysts, which are common and typically benign, with no current intervention planned. An umbilical hernia was noted, but it is not currently bothersome, and surgical intervention is not planned unless symptoms develop. The patient has a small uterine fibroid, which is benign and not causing significant symptoms at this time. Arthritis and degenerative disc disease were identified, contributing to chronic back pain, which is common with aging. The patient has a history of carotid artery disease, previously treated with medication, and a follow-up carotid duplex ultrasound is planned. The patient has a diagnosis of fatty liver, with management focusing on weight control, diabetes, and cholesterol management. Social History - Exercise: Participated in a bariatric chamber session for diabetes management. REPLACED BY [facility] Medical History (Updated 11/24/24 @ 13:33 by Winter Dietrich PA-C) Fatty liver Degenerative disc disease Umbilical hernia Liver cyst Renal cyst Carotid artery disease Elevated vitamin B12 level Elevated ALT measurement Elevated AST (SGOT) Morbid obesity with BMI of 40.0-44.9, adult General medical exam Magnesium deficiency Vitamin D deficiency Uterine fibroid Hyperlipidemia LDL goal <70 Type 2 diabetes mellitus with hemoglobin A1c goal of less than 7.0% Establishing care with new doctor, encounter for Abdominal pain History of mammogram (~12/31/23) Nicotine dependence, cigarettes, uncomplicated Lipoma Mass of uterus Hypertension Obesity Family history of premature CAD Diabetes mellitus Surgical History History of colonoscopy (~04/2024) History of bilateral knee replacement Hx of cholecystectomy History of endometrial ablation Family History Paternal Aunt Breast cancer Lung cancer Social History Household Members: Spouse Housing: House Do you presently have visiting nurse or other home services: No Alcohol intake: current Alcohol intake frequency: holidays/special occasions only Patient Tobacco Use Status: Current everyday Tobacco user Tobacco use type: Smokeless Tobacco Years Smoked: 44 e-Cigarette/Vaping Use: Currently Using service: No Current occupational status: retired Cognitive needs: No Hearing needs: No Vision needs: Yes (rx glasses) Questionnaire PHQ-9 Over the last 2 weeks, how often have you been bothered by any of the following problems? 1. Little interest or pleasure in doing things: not at all 2. Feeling down, depressed, or hopeless: not at all 3. Trouble falling or staying asleep, or sleeping too much: not at all 4. Feeling tired or having little energy: not at all 5. Poor appetite or overeating: not at all 6. Feeling bad about yourself - or that you are a failure or have let yourself or your family down: not at all 7. Trouble concentrating on things, such as reading the newspaper or watching television: not at all 8. Moving or speaking so slowly that other people could have noticed. Or the opposite - being so fidgety or restless that you have been moving around a lot more than usual: not at all 9. Thoughts that you would be better off or of hurting yourself in some way: not at all Total score: 0 Depression Screening Interpretation: Negative Depression Screening Done: Yes 93526 - PHQ-9 Billing: Yes Source: Developed by Drs. Chon Ahmadi, Tegan Morrison, Vasquez Paniagua and colleagues, with an educational roberta from [employer]. Thrive Questionnaire Date Thrive assessed: 08/17/24 I am a: Patient What is your living situation today?: I have a steady place to live Within the past 12 months, did the food you bought not last and you didn't have the money to get more?: Never true Within the past 12 months, did you worry whether your food would run out before you got money to buy more?: Never true Do you have trouble paying for medicines?: No Do you have trouble getting transportation to medical appointments?: No Do you have trouble paying your heating and electricity bill?: No Do you have trouble taking care of your child, family member or friend?: No Do you have trouble with day-to-day activities such as bathing, preparing meals, shopping, managing finances, etc.?: No Are you currently unemployed and looking for a job?: No Are you interested in more education?: No Please select the resources that you would like help with: None THRIVE Score: 0 AUDIT C Alcohol Use Questionnaire (AUDIT-C) 1. How often do you have a drink containing alcohol?: Monthly or less 2. How many drinks containing alcohol do you have on a typical day when you are drinking?: 1 or 2 3. How often do you have six or more drinks on one occasion?: Never Total Score: 1 Score Reviewed/Action Taken: No SONU-7 AMB Questionnaire SONU-7 Date SONU - 7 assessed: 08/17/24 Feeling nervous, anxious, or on edge: 0 = Not at all Not being able to stop or control worryin = Not at all Worrying too much about different things: 0 = Not at all Trouble relaxin = Not at all Being so restless that it is hard to sit still: 0 = Not at all Becoming easily annoyed or irritable: 0 = Not at all Feeling afraid as if something awful might happen: 0 = Not at all Total SONU-7 score (0-4 normal; 5-9 mild; 10-14 moderate; 15-21 severe): 0 Source: Developed by Drs. Chon Ahmadi, Tegan Morrison, Vasquez Paniagua and colleagues, with an educational roberta from [employer]. SONU-7 Assessment Billing SONU-7 Assessment Tool: SONU-7 Assessment 20183 Review of Systems Const Details: - Gastrointestinal: Reports abdominal pain, particularly in the upper abdomen. Denies suprapubic pain. - Cardiovascular: Reports history of carotid artery disease. Denies current chest pain. - Musculoskeletal: Reports chronic back pain due to arthritis and degenerative disc disease. - Endocrine: Reports diabetes management with Ozempic. All systems reviewed & are unremarkable except as noted in HPI and below Physical exam (Primary Care) Vital Signs: Last Vital Signs Temp 97.5 F 11/24/24 09:39 Pulse 73 11/24/24 09:39 Resp 20 11/24/24 09:39 BP 151/78 H 11/24/24 10:15 Pulse Ox 98 11/24/24 09:39 Oxygen Delivery Method Room Air 11/24/24 09:39 Care Plan Goal for BP management: <140/90 patient will continue hydrochlorothiazide 12.5 mg and losartan 25 mg daily she will monitor her blood pressure over the next month and bring her blood pressure diary and blood pressure monitor BMI result Body Mass Index 44.5 BMI Assessment/Plan discussion: High BMI High, discussed plan: lifestyle, weight reduction, dietary, physical activity and alcohol moderation Tobacco/Smoking Status: Tobacco use Status Tobacco use date assessed 08/17/24 11/24/24 09:43 Patient Tobacco Use Status Current everyday Tobacco 11/24/24 09:43 Tobacco use type Smokeless Tobacco 11/24/24 09:43 e-Cigarette/Vaping Use Currently Using 11/24/24 09:43 PHQ-9: PHQ-9 Score PHQ-9: Total score 0 11/24/24 10:17 Depression Screening Interpretation: Negative Thrive Assessment: Date of Thrive Assessment Date Thrive assessed 08/17/24 11/24/24 09:43 Const Other: Appearance: Alert. Oriented X3. No acute distress. Head: Normal external exam. Normocephalic. Atraumatic. Eyes: Pupils are equal, round, and reactive to light. Extraocular movements intact. Conjunctiva and sclera normal. Eyelids normal. Ears: External auditory canal normal. Tympanic membranes normal. Patient reports water gets in the ear easily, but examination shows it looks normal. Throat: Pharynx normal. Uvula midline. Moist mucous membranes. Neck: Normal inspection. Neck supple. Full range of motion. Cardiovascular: Normal heart rate and rhythm. Heart sound normal. No murmurs noted. Pulses normal throughout. Blood pressure recorded at 176/96, rechecked at 151/70. Respiratory: No respiratory distress. Painless inspiration. Breath sounds normal. No wheezes/rales/rhonchi noted. Chest nontender. No accessory muscle usage noted or decreased air movement noted. Abdomen: Soft and mild TTP upper abdomen. No distention noted. No organomegaly noted. Patient reports upper abdominal pain. Back: Full range of motion noted. Patient reports chronic back pain due to arthritis and degenerative disc disease. Skin: Skin warm and dry. Normal skin color. Extremities: Extremities exhibit normal range of motion. Results Reviewed Results Reviewed: - Imaging: CT scan showed a liver cyst less than 6 mm, kidney cysts, and a small uterine fibroid. - Imaging: Degenerative disc disease and arthritis noted in the spine and sacroiliac joints. Coding Level of Care Code Est Pt Level 4 (33262) Complex EM visit Add On G2211 Diagnoses Hypertension I10 Abdominal pain R10.9 Liver cyst K76.89 Renal cyst N28.1 Umbilical hernia K42.9 Uterine fibroid D25.9 Degenerative disc disease Carotid artery disease I77.9 Fatty liver K76.0 Additional Codes SONU-7 Assessment Billing - SONU-7 Assessment Tool: SONU-7 Assessment 40080 ([id number]) PHQ-9 - 45114 - PHQ-9 Billing: Yes ([id number]) Time Spent (min) 45 Assessment & Plan Assessment & Plan (1) Hypertension: Code(s): I10 - Essential (primary) hypertension Category: Medical Plan: The patient will monitor blood pressure at home using a new monitor and record readings regularly. Losartan 25 mg will continue to be taken daily, and a follow-up appointment is scheduled in one month to reassess blood pressure contr ol. (2) Abdominal pain: Code(s): R10.9 - Unspecified abdominal pain Category: Medical Plan: The patient will undergo blood work to check pancreatic function due to potential medication side effects. A referral to gastroenterology is planned for further evaluation of abdominal pain and liver cyst. (3) Liver cyst: Code(s): K76.89 - Other specified diseases of liver Category: Medical Plan: The liver cyst is currently too small to characterize further, and a referral to gastroenterology is considered for additional evaluation. (4) Renal cyst: Code(s): N28.1 - Cyst of kidney, acquired Category: Medical Plan: The kidney cysts are benign, no intervention indicated although patient would like to be referred to urologist for further evaluation management. (5) Umbilical hernia: Code(s): K42.9 - Umbilical hernia without obstruction or gangrene Category: Medical Plan: The umbilical hernia is not currently symptomatic, and surgical intervention will be considered only if symptoms arise. (6) Uterine fibroid: Code(s): D25.9 - Leiomyoma of uterus, unspecified Category: Medical Plan: The uterine fibroid is small and benign, with no current intervention planned unless symptoms develop. (7) Degenerative disc disease: Category: Medical Plan: Management focuses on symptomatic relief and monitoring, as these conditions are common with aging. (8) Carotid artery disease: Code(s): I77.9 - Disorder of arteries and arterioles, unspecified Category: Medical Plan: A bilateral carotid duplex ultrasound is ordered to assess the current status of carotid artery disease. (9) Fatty liver: Code(s): K76.0 - Fatty (change of) liver, not elsewhere classified Category: Medical Plan: Management includes weight control, diabetes management, and cholesterol management, with no specific medication prescribed for fatty liver. Plan Plan Patient was informed and verbally consented to the use of an ambient scribe for clinic note documentation during this visit. 1. Hypertension The patient will monitor blood pressure at home using a new monitor and record readings regularly. Losartan 25 mg will continue to be taken at night, and a follow-up appointment is scheduled in one month to reassess blood pressure control. 2. Abdominal Pain The patient will undergo blood work to check pancreatic function due to potential medication side effects. A referral to gastroenterology is planned for further evaluation of abdominal pain and liver cyst. 3. Liver Cyst The liver cyst is currently too small to characterize further, and a referral to gastroenterology is considered for additional evaluation. 4. Kidney Cyst The kidney cysts are benign, and no intervention is planned unless symptoms develop. 5. Umbilical Hernia The umbilical hernia is not currently symptomatic, and surgical intervention will be considered only if symptoms arise. 6. Uterine Fibroid The uterine fibroid is small and benign, with no current intervention planned unless symptoms develop. 7. Arthritis And Degenerative Disc Disease Management focuses on symptomatic relief and monitoring, as these conditions are common with aging. 8. Carotid Artery Disease A bilateral carotid duplex ultrasound is ordered to assess the current status of carotid artery disease. 9. Fatty Liver Management includes weight control, diabetes management, and cholesterol management, with no specific medication prescribed for fatty liver. During the visit, we discussed the management of hypertension, including home monitoring and medication adherence. We also addressed the abdominal pain, considering potential pancreatic involvement due to medication side effects, and planned a referral to gastroenterology. The patient was informed about the benign nature of the liver and kidney cysts, with monitoring as the current approach. We reviewed the management of the umbilical hernia and uterine fibroid, emphasizing that intervention would only be necessary if symptoms develop. The importance of weight management and control of diabetes and cholesterol for fatty liver was highlighted. A follow-up carotid duplex ultrasound was ordered to assess carotid artery disease. Orders: Orders US carotid duplex BI Today I10 - Essential (primary) hypertension, I77.9 - Disorder of arteries and arterioles, unspecified Complete Blood Count Auto Diff Today Z00.00 - Encounter for general adult medical examination without abnormal findings Comprehensive Met. Panel Today Z00.00 - Encounter for general adult medical examination without abnormal findings Magnesium Today Z00.00 - Encounter for general adult medical examination without abnormal findings Lipase Today R10.9 - Unspecified abdominal pain, R74.01 - Elevation of levels of liver transaminase levels, Z90.49 - Acquired absence of other specified parts of digestive tract Referrals Gastroenterology Referral K76.89 - Other specified diseases of liver Urology Referral N28.1 - Cyst of kidney, acquired Medications: New blood pressure kit-extra large Monitor blood pressure daily 1 ea 0RF Patient Instructions: - Monitor blood pressure at home regularly and bring the readings to the next appointment. - Continue taking losartan 25 mg at night. - Schedule and attend the gastroenterology referral for abdominal pain and liver cyst evaluation. - Undergo blood work to check pancreatic function. - Maintain weight control and manage diabetes and cholesterol levels. - Return for a follow-up appointment in one month with blood pressure readings.
[2024-11-24 10:15] VITALS: BP 151/78
--- OUTSIDE RECORDS SUMMARY | 2024-11-24 10:36 | XMS_ITS | Encounter Summary ---
Author Organization [facility] Address [address] [place] [address] [place] [address] Phone Care Team Providers Care Medical Laboratory Scientist Name Role Phone Zaira Jewell NP Primary Care Provider Karan Wick MD Primary Care Provider [phone] Karan Wick MD Unavailable [phone] Winter Dietrich Primary Care Provider [phone] Encounter Details Date Type Department Care Team (Late st Contact Info) Description 04/12/2022 Procedure Pass [facility], [address] [id number] Social History Tobacco Use Types Packs/Day Years Used Date Smoking Tobacco: Former Cigarettes 1 30 0 05/11/1984 - 05/11/2014 Smokeless Tobacco: Never Alcohol Use Standard Drinks/Week Comments Yes 0 (1 standard drink = 0.6 oz pur e alcohol) 1-2 x month if that Child or Family Care Answer Date Record ed Do you have problems with on e of the following making it difficult for you to work, study, or receive health care? No 03/15/2022 Education Answer Date Recorded Are you interested in help w ith more adult education (for example, completing high school, GED, job training, learning the Urdu language, technical skills, or developing parenting skills)? No 03/15/2022 Food Answer Date Recorded Within the past 6 months we worried whether our food would run out before we got money to buy more. Never True 03/15/2022 Within the past 6 months the food we bought just didn't last and we didn't have enough money to get more. Never True Residential Stability Answer Date Recor ded What is your housing situation today? I have philomena vasques 03/15/2022 How many times have you move d in the past 12 months? Zero (I did not move) 03/15/2022 Paying for Meds Answer Date Recorded Do you have trouble paying for medicines? No 03/15/2022 Paying Utility Bills Answer Date Record ed Do you have trouble paying your heating or elect ricity bill? No 03/15/2022 Transportation Answer Date Recorded Has the lack of transportati on kept you from medical appointments or from getting medications? No 03/15/2022 Unemployment Answer Date Recorded Are you currently unemployed or working on a part-time or temporary basis, and looking for work? No 03/15/2022 Comments Unknown Sex and Gender Information Value Date Recorded Sex Assigned at Not on file Legal Sex Female 9:45 PM EDT Gender Identity Not on file Sexual Orientation Not on file documented as of this encounter Plan of Treatment Upcoming Encounters Date Type Department Care Team (Late st Contact Info) Description 04/12/2025 8:40 AM EST Office Visit [facility] Endocrinology [address] [id number] Monse Pete MD [address] [place] [id number] documented as of this encounter Visit Diagnoses Not on filedocumented in this encounter Additional Health Concerns Assessment Noted Time PHQ-2 Depression Total Score: 1 03/15/20 22 9:45 AM EST documented as of this encounter Care Teams Medical Laboratory Scientist Relationship Specialty Start Date End Date Zaira Jewell NP PCP - General Family Medicine 12/13/17 06/11/23 Karan Wick MD [address] [place] [address], [address] [place] [address] [email or web address] PCP - General Internal Medicine 06/12/23 10/19/24 Winter Dietrich PA [address] [place] [id number] PCP - General Physician Golf Sales Manager 10/20/24 Karan Wick MD [address] [place] [address], [address] [place] [address] [email or web address] Insurance Assigned Provider 12/14/23 07/12/24 documented as of this encounter Additional Source Comments The information contained in this document represents components of the legal health record. It is not the complete legal health record.[facility]
--- OUTSIDE RECORDS SUMMARY | 2024-11-24 10:36 | XMS_ITS | Patient Health Record ---
[facility] Address [address] [place] [address] Care Team Providers Care Community Outreach Manager Name Role Phone Zaira Jewell NP Primary Care Provider Fernando Lilly Unavailable [phone] Allergies Allergen (clinical drug ingredient) Drug/Non Drug [...] external Apply to effected areas twice a day; Duration: 30 days 05/22/2016 Active Immunizations Vaccine Route Administration Date Status Comme nts Influenza Unknown 01/12/2016 Administered Social History Tobacco use other than smoking: Question Answer Notes Are you an other tobacco user? No Problems Problem Type SNOMED Code ICD Code Onset Dates Problem Status W/U Status Risk Notes Problem Type 2 diabetes mellitus without complications (E11.9) Active confirmed Plan Of Treatment Pending Test Test Name Order Date Hemoglobin A1c 05/24/2015 Insurance Providers Payer Name Payer Address Payer Phone Subscriber Number Group Number Insured Name Patient Relationship to Insured Coverage Start Date Coverage End Date [facility] [address] [place] [address] [id number] Rosetta Pressley Self - patient is the insured Medical (General) History Medical History History ICD Code Arthritis Back,Hip,and Knee pain Diabetic Psoriasis/eczema Chicken pox High blood pressure Joint implants/screws Surgical History Surgery Date(Month/Year) knee replacement 08/10/2021 knee replacement 05/03/2022
--- OUTSIDE RECORDS SUMMARY | 2024-11-24 10:36 | XMS_ITS | Continuity of Care Document ---
Author Organization [facility] Address [address] [facility] [address] [place], [place] Phone [phone] Care Team Providers Care Screen Repairer Crusher Name Role Phone Zaira Jewell NP Care Team Information Rn Triage U navailable PREETHI MONROY M.D. Care Team [...] Qnty Indications Ordering Provider Date Metformin HCL NA194cn Tablets ER 24HR 3 tab by mouth every day 90tabs E88.81 Preethi Monroy M.D. 11/04/2018
== END 2024-11-24 10:11 | disposition home or self-care (01) ==
LOC: HO.HMCSH 09:32
PROVIDERS: PCP Internal Medicine; Visit Provider Physician Assistant Medical
DX: I10 Essential (primary) hypertension (principal); R10.9 Unspecified abdominal pain; K76.89 Other specified diseases of liver; N28.1 Cyst of kidney, acquired; K42.9 Umbilical hernia without obstruction or gangrene; D25.9 Leiomyoma of uterus, unspecified; I77.9 Disorder of arteries and arterioles, unspecified; K76.0 Fatty (change of) liver, not elsewhere classified

== ENCOUNTER → 2024-11-24 09:32 | Outpatient (BNVA) | payer OTHER, SELFPAY | PROVIDERS: PCP Internal Medicine; Visit Provider Physician Assistant Medical | DX: I10 Essential (primary) hypertension (principal); R10.9 Unspecified abdominal pain; K76.89 Other specified diseases of liver; N28.1 Cyst of kidney, acquired; K42.9 Umbilical hernia without obstruction or gangrene; D25.9 Leiomyoma of uterus, unspecified; K76.0 Fatty (change of) liver, not elsewhere classified; I25.10 Atherosclerotic heart disease of native coronary artery without angina pectoris | CPT/HCPCS: 96127; 99212 ==

== ENCOUNTER 2025-01-09 10:26 | Outpatient (REF) | payer OTHER, SELFPAY ==
--- OUTSIDE RECORDS SUMMARY | 2025-01-09 03:30 | XMS_ITS ---
Author Organization [facility] Care Team Providers Care Traffic Inspector Name Role Phone Alana Gonzalez MD Primary Care Physician [phone] Allergies Not Yet Asked Medications No Information [...] / Covera ge type Policy ID Covered libertarian ID Policy Odom [facility] PPO [id number] Lucero curran
--- OUTSIDE RECORDS SUMMARY | 2025-01-09 10:30 | XMS_ITS | Encounter Summary ---
Author Organization [facility] Address [address] [place] [address] [place] [address] Phone Care Team Providers Care Drug Safety Scientist Name Role Phone Karan Wick MD Primary Care Provider [phone] Karan Wick MD Unavailable [phone] Winter Dietrich Primary Care Provider [phone] Encounter Details Date Type Department Care Team (Late st Contact Info) Description 09/06/2023 Procedure Pass [facility] Endoscopy Admitting Dept Virtual Department [address] [place], [place] [id number] Social History Tobacco Use Types Packs/Day Years Used Date Smoking Tobacco: Former Cigarettes 1 30 0 05/11/1984 - 05/11/2014 Smokeless Tobacco: Never Alcohol Use Standard Drinks/Week Comments Yes 0 (1 standard drink = 0.6 oz pur e alcohol) 3-4 drinks, monthly or less Child or Family Care Answer Date Record ed Do you have problems with on e of the following making it difficult for you to work, study, or receive health care? No 06/05/2023 Education Answer Date Recorded Are you interested in help w ith more adult education (for example, completing high school, GED, job training, learning the Faroese language, technical skills, or developing parenting skills)? No 06/05/2023 Are you concerned about learning? Not on file 06/05/2023 No 06/05/2023 Yes 06/05/2023 Food Answer Date Recorded Within the past 6 months we worried whether our food would run out before we got money to buy more. Never True 06/05/2023 Within the past 6 months the food we bought just didn't last and we didn't have enough money to get more. Never True Residential Stability Answer Date Recor ded What is your housing situation today? I have philomena vasques 06/05/2023 How many times have you move d in the past 12 months? Zero (I did not move) 06/05/2023 Paying for Meds Answer Date Recorded Do you have trouble paying for medicines? No 06/05/2023 Paying Utility Bills Answer Date Record ed Do you have trouble paying your heating or elect ricity bill? No 06/05/2023 Transportation Answer Date Recorded Has the lack of transportati on kept you from medical appointments or from getting medications? No 06/05/2023 Unemployment Answer Date Recorded Are you currently unemployed or working on a part-time or temporary basis, and looking for work? No 03/15/2022 Digital Access Answer Date Recorded No 06/05/2023 Yes 06/05/2023 Do you have reliable internet access at home? Ye s 06/05/2023 Do you have a device (e.g., phone, tablet, computer) with a working camera? Yes 06/05/2023 Intimate Partner Violence Answer Date R ecorded Denied Basic Needs Not on file 06/05/2023 In the past 12 months have y ou been in a relationship with a person who hurts, threatens, or tries to control you? No 06/05/2023 Worried food would run out Not on file 06/05 In the past 12 months have y ou been in a relationship with a person who hurts, threatens, or tries to control you? 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 Not on file Not on file documented as of this encounter Plan of Treatment Upcoming Encounters Date Type Department Care Team (Late st Contact Info) Description 04/12/2025 8:40 AM EST Office Visit [facility] Endocrinology [address] [place] [phone] Monse Pete MD [address] [place] [address] [email or web address] documented as of this encounter Visit Diagnoses Not on filedocumented in this encounter Additional Health Concerns Assessment Noted Time PHQ-2 Depression Total Score: 0 09/04/19 24 9:15 AM EDT documented as of this encounter Care Teams Drug Safety Scientist Relationship Specialty Start Date End Date Karan Wick MD [address] [place] [address], [address] [place] [address] [email or web address] PCP - General Internal Medicine 06/12/23 10/19/24 Winter Dietrich PA [address] [place] [address] PCP - General Physician Storage Worker 10/20/24 Karan Wick MD [address] [place] [address], [address] [place] [address] [email or web address] Insurance Assigned Provider 12/14/23 07/12/24 documented as of this encounter Additional Source Comments The information contained in this document represents components of the legal health record. It is not the complete legal health record.[facility]
--- OUTSIDE RECORDS SUMMARY | 2025-01-09 10:30 | XMS_ITS | Encounter Summary ---
Author Organization [facility] Address [address] [place] [address] Phone Care Team Providers Care Sales Service Professional Name Role Phone Nate Vaughn MD Unavailable [phone] Zaira Jewell [employer] PATIENTS Unavailable [phone] Nate Vaughn MD Primary Care Provider [phone] Zaira Jewell NP Primary Care Provider [phone] Karan Wick MD Primary Care Provider [phone] Karan Wick MD Unavailable [phone] Winter Dietrich Primary Care Provider [phone] Encounter Details Date Type Department Care Team (Late st Contact Info) Description 11/29/2017 Transcribe Orders [facility] [address] [address] Monse Pete MD [address] [place] [address] [email or web address] Multinodular goiter (Primary Dx) Social History Tobacco Use Types Packs/Day Years Used Date Smoking Tobacco: Former Cigarettes 1 30 0 05/11/1984 - 05/11/2014 Smokeless Tobacco: Never Comments:smoking e-cig Alcohol Use Standard Drinks/Week Comments Yes 0 (1 standard drink = 0.6 oz pur e alcohol) socially Comments Unknown Sex and Gender Information Value Date Recorded Sex Assigned at Not on file Legal Sex Female 9:45 PM EDT Gender Identity Not on file Sexual Orientation Not on file documented as of this encounter Plan of Treatment Upcoming Encounters Date Type Department Care Team (Late st Contact Info) Description 04/12/2025 8:40 AM EST Office Visit [facility] Endocrinology [place] [address] [place] [address] Monse Pete MD [address] [place] [address] documented as of this encounter Results * TSH (11/29/2017 8:14 AM EDT) TSH 3.51 0.27 - 4.20 uIU/mL [facility] Blood 11/29/2017 8:14 AM EDT 11/29/2017 8:19 AM EDT us Monse Pete MD LAB BLOOD ORDERABLES F inal Result Performing Organization Address City/State/[facility] Co de Phone Number [facility] [address] [place] [address] documented in this encounter Visit Diagnoses Diagnosis Multinodular goiter- Primary Nontoxic multinodular goiter documented in this encounter Additional Health Concerns Infection Onset Date Last Indicated Resolved Time CoV-Risk 12/22/2020 12/22/2020 01/01/2021 1:22 AM EDT Assessment Noted Time PHQ-2 Depression Total Score: 0 07/10/19 18 3:26 PM EDT documented as of this encounter Care Teams Sales Service Professional Relationship Specialty Start Date End Date Nate Vaughn MD [address] [place] [address] PCP - General Internal Medicine 07/09/17 12/12/17 Zaria Jewell NP [address] [place] [address] PCP - General Family Medicine 12/13/17 06/11/23 Karan Wick MD [address] [place] [address], [address] [place] [address] PCP - General Internal Medicine 06/12/23 10/19/24 Winter Dietrich PA [address] [place] [address] PCP - General Physician Auditor/Quality 10/20/24 Nate Vaughn MD [address] [place] [address] Historical LMR Provider 01/23/17 12/03/19 Zaira Jewell NP [address] [place] [address] Historical LMR Provider 01/23/17 12/03/19 Karan Wick MD [address] [place] [address], [address] [place] [address] Insurance Assigned Provider 12/14/23 07/12/24 documented as of this encounter Additional Source Comments The information contained in this document represents components of the legal health record. It is not the complete legal health record.[facility]
--- OUTSIDE RECORDS SUMMARY | 2025-01-09 10:30 | XMS_ITS | Clinical Summary ---
Author Organization [address] Address [address] [place] [address] Phone Care Team Providers Care Operating Room Coordinator Name Role Phone Jaret Bourgeois MD Primary Care Provider [phone] Allergies Active Allergy Reactions Criticality Noted Date Comments Terbinafine Hcl Swelling 09/19/2009 Made hands and feet swell and itch Medications HYDROcodone-acet aminophen (NORCO) 5-325 mg per tablet Take 1 tablet by mouth at bedtime. Max Daily Amount: 1 tablet 01/06/2013 Active ibuprofen (ADVIL,MOTRIN) 200 mg tablet Take 1 tablet (200 mg total) by mouth every 6 (six) hours if needed (2 tabs twice daily). Active aspirin-acetamin ophen-caffeine (EXCEDRIN MIGRAINE) 250-250-65 mg per tablet Take by mouth. Active Active Problems Problem Noted Date Diagnosed Date Carotid stenosis 09/20/2009 Pure hypercholesterolemia 09/19/2009 Uterine fibroid 09/19/2009 Immunizations Immunization Administration Dates Next Due Influenza trivalent, with pr eservative (Fluzone; Afluria) 6mo and older 01/06/2013,01/25/2012 Pneumococcal polysaccharide 23 valent (Pneumovax 23) 2yo and older 02/20/2012 Tdap Tetanus diptheria acell ular pertussis (Boostrix; Adacel) 7yo and older 02/20/2012 Surgical History Surgery Date Site/Laterality Comments COLONOSCOPY 03/22/11 PROCEDURE: HISTORICAL COLONOSCOPY; COMMENT: hemorrhoids; repeat in ten yrs Medical History Medical History Date Comments HTN (hypertension) 09/19/2009 DX:HTN (hyper tension) Pure hypercholesterolemia 09/19/2009 DX:Pur e hypercholesterolemia Uterine fibroid 09/19/2009 DX:Uterine fibro id Carotid stenosis 09/20/2009 DX:Carotid sten osis Type II or unspecified type diabetes mellitus without mention of complication, not stated as uncontrolled 03/20/2011 DX:Type II or unspecified ty pe diabetes mellitus without mention of complication, not stated as uncontrolled Family History Medical History Relation Name Comments Breast cancer Aunt 1 Lung cancer Aunt 2 Heart attack Father from 1st M I at age 42, smoker, obese Cataracts Mother Other: brain ca Uncle Blindness Neg Hx Glaucoma Neg Hx Macular degeneration Neg Hx Strabismus Neg Hx Relation Name Status Comments Aunt 1 Aunt 2 Father Mother Uncle Social History Tobacco Use Types Packs/Day Years Used Date Smoking Tobacco: Every Day Cigarettes Smokeless Tobacco: Never Alcohol Use Standard Drinks/Week Comments No 0 (1 standard drink = 0.6 oz pur e alcohol) Comments Unknown Sex and Gender Information Value Date Recorded Sex Assigned at Not on file Legal Sex Female 12:17 AM EST Gender Identity Not on file Sexual Orientation Not on file Obstetrics History Plan of Treatment Upcoming Encounters Date Type Department Care Team (Late st Contact Info) Description 01/20/2025 10:20 AM EDT Office Visit [facility] - [address] [address] Moses Jose MD [address] [place] [address] Health Maintenance Due Date Last Done Comments Breast Cancer Screening 1962 Colorectal Cancer Screening: Colonoscopy 1962 Cervical Cancer Screening: P ap Smear 1983 Zoster Vaccines (1 of 2) 01/25/2012 Pneumococcal Vaccine: 50+ Years (2 of 2 - PCV) 02/19/2013 02/20/2012 DTaP,Tdap,and Td Vaccines (2 - Td or Tdap) 02/19/2022 02/20/2012 Cholesterol Screening (Lipid Panel) 04/05/2024 02/29/2012 HIV Screening 04/05/2024 Hepatitis C Screening 04/05/2024 Medicare Annual Wellness Visit 04/05/2024 Social Influencers of Health Screening 04/05/2024 Depression Screening 04/08/2024 COVID-19 Vaccine (2023-2 5 season) 2024 Influenza Vaccine (#1) 2024 3, 01/25/2012 RSV Immunization Adult Patients (1 - 1-dose 75+ series) 2037 HIB Vaccines Aged Out No longer eligi ble based on patient's age to complete this topic HPV Vaccines Aged Out No longer eligi ble based on patient's age to complete this topic Hepatitis A Vaccines Aged Out No long er eligible based on patient's age to complete this topic Hepatitis B Vaccines Aged Out No long er eligible based on patient's age to complete this topic IPV Vaccines Aged Out No longer eligi ble based on patient's age to complete this topic MMR Vaccines Aged Out No longer eligi ble based on patient's age to complete this topic Meningococcal ACWY Vaccine Aged Out N o longer eligible based on patient's age to complete this topic Meningococcal B Vaccine Aged Out No l onger eligible based on patient's age to complete this topic RSV Immunization Patients Under 20 months Aged Out No longer eligible b ased on patient's age to complete this topic Varicella Vaccines Aged Out No longer eligible based on patient's age to complete this topic Procedures Procedure Name Priority Date/Time Associated Diagnosis Comments LIPID PANEL Routine 02/29/2012 from Last 3 Months or Most Recently Relevant to Health Maintenance Results * (ABNORMAL) Lipid panel (02/29/2012) LDL/HDL Ratio 3 0 - 4 Triglycerides 42 0 - 150 mg/dL Cholesterol 168 0 - 200 mg/dL HDL 59 >=40 mg/dL LDL Cholesterol 101(A) 0 - 100 mg/dL Blood Venous blood specimen / Unknown us Historical Provider LAB BLOOD ORDERABLES Maura l Result from Last 3 Months or Most Recently Relevant to Health Maintenance Insurance [employer] MEDICARE ADVANTAGE MEDICAID - [place] Care Teams Operating Room Coordinator Relationship Specialty Start Date End Date Jaret Bourgeois MD [address] [place] [address] PCP - General 07/29/09
--- OUTSIDE RECORDS SUMMARY | 2025-01-09 10:30 | XMS_ITS | Encounter Summary ---
Author Organization [facility] Address [address] [place] [address] [place] [address] Phone Care Team Providers Care Station Supervisor Name Role Phone Karan Wick MD Primary Care Provider [phone] Karan Wick MD Unavailable Winter Dietrich Primary Care Provider [phone] Encounter Details Date Type Department Care Team (Late st Contact Info) Description 06/08/2024 Procedure Pass [facility] Endoscopy Admitting Dept Virtual Department [address] [place], [place] [phone] Social History Tobacco Use Types Packs/Day Years Used Date Smoking Tobacco: Former Cigarettes 1 30 0 05/11/1984 - 05/11/2014 Smokeless Tobacco: Never Comments:Does Vape Alcohol Use Standard Drinks/Week Comments Yes 0 [...] high school, GED, job training, learning the Burmese language, technical skills, or developing parenting skills)? [...] Intimate Partner Violence Answer Date R ecorded Are you denied basic needs s uch as food, clothing, or medical care? No 06/08/2024 In the past 12 months have y ou been in a relationship with a person who hurts, threatens, or tries to control you? No 06/08/2024 Are you denied basic needs s uch as food, clothing, or medical care? No 06/08/2024 In the past 12 months have y ou been in a relationship with a person who hurts, threatens, or tries to control you? 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 Not on file Not on file documented as of this encounter Plan of Treatment Upcoming Encounters Date Type Department Care Team (Late st Contact Info) Description 04/12/2025 8:40 AM EST Office Visit [facility] Endocrinology [address] [address] Monse Pete MD [address] [place] [address] [email or web address] documented as of this encounter Visit Diagnoses Not on filedocumented in this encounter Additional Health Concerns Assessment Noted Time PHQ-2 Depression Total Score: 0 09/04/19 9:15 AM EDT documented as of this encounter Care Teams Station Supervisor Relationship Specialty Start Date End Date Karan Wick MD [address] [place] [address], [address] [place] [address] [email or web address] PCP - General Internal Medicine 06/12/23 10/19/24 Winter Dietrich PA [address] [place] [address] PCP - General Physician Impregnator And Drier 10/20/24 Karan Wick MD [address] [place] [address], [address] [place] [address] [email or web address] Insurance Assigned Provider 12/14/23 07/12/24 documented as of this encounter Additional Source Comments The information contained in this document represents components of the legal health record. It is not the complete legal health record.[facility]
--- OUTSIDE RECORDS SUMMARY | 2025-01-09 10:30 | XMS_ITS | Patient Health Record ---
[facility] Address [address] [facility] [place] [address] Care Team Providers Care Adjunct Professor Of English Name Role Phone Zaira Jewell NP Primary Care Provider Fernando Griffin Unavailable [phone] Allergies Allergen (clinical drug ingredient) Drug/Non Drug [...] Problem Type II diabetes mellitus without complication (010778090) Type 2 diabetes mellitus without complications (E11.9) Active confirmed Plan Of Treatment Pending Test Test Name Order Date Hemoglobin A1c 05/24/2015 Insurance Providers Payer Name Payer Address Payer Phone Subscriber Number Group Number Insured Name Patient Relationship to Insured Coverage Start Date Coverage End Date [employer] Blue Card [address] [place] [address] [id number] Rosetta Pressley Self - patient is the insured Medical (General) History Medical History History ICD Code Arthritis Back,Hip,and Knee pain Diabetic Psoriasis/eczema Chicken pox High blood pressure Joint implants/screws Surgical History Surgery Date(Month/Year) knee replacement 08/10/2021 knee replacement 05/03/2022
--- OUTSIDE RECORDS SUMMARY | 2025-01-09 10:30 | XMS_ITS | Continuity of Care Document ---
Author Organization [facility] Address [address] [facility] [address] [place], [place] Phone [phone] Care Team Providers Care Insurance Loss Adjuster Name Role Phone Zaira Jewell NP Care Team Information Boat Builder U navailable PREETHI MONROY M.D. Care Team [...] Qnty Indications Ordering Provider Date Metformin HCL [id number] Tablets ER 24HR 3 tab by mouth every day 90tabs E88.81 Preethi Monroy M.D. 11/04/2018
--- OUTSIDE RECORDS SUMMARY | 2025-01-09 10:30 | XMS_ITS | Encounter Summary ---
Author Organization [facility] Address [address] [place] [address] Phone Care Team Providers Care Linux Network Systems Administrator Name Role Phone Nate Vaughn MD Unavailable [phone] Zaira Jewell V GROOVE CUTTER Unavailable [phone] Nate Vaughn MD Primary Care Provider [phone] Zaira Jewell NP Primary Care Provider [phone] Karan Wick MD Primary Care Provider + [phone] Karan Wick MD Unavailable [phone] Winter Dietrich Primary Care Provider [phone] Encounter Details Date Type Department Care Team (Late st Contact Info) Description 12/02/2017 Procedure Pass [facility] Endoscopy Admitting Dept Virtual Department [address] [place] [address] Social History Tobacco Use Types Packs/Day Years [...] Encounters Date Type Department Care Team (Late Contact Info) Description 04/12/2025 8:40 AM EST Office Visit [facility] Endocrinology [place] [address] [place] [address] Monse Pete MD [address] [place] [address] documented as of this encounter Visit Diagnoses Not on filedocumented in this encounter Additional Health Concerns Infection Onset Date Last Indicated Resolved Time CoV-Risk 12/22/2020 12/22/2020 01/01/2021 1:22 AM EDT Assessment Noted Time PHQ-2 Depression Total Score: 0 07/10/19 3:26 PM EDT documented as of this encounter Care Teams Linux Network Systems Administrator Relationship Specialty Start Date End Date Nate Vaughn MD [address] [place] [address] PCP - General Internal Medicine 07/09/17 12/12/17 Zaira Jewell NP [address] [place] [address] PCP - General Family Medicine 12/13/17 06/11/23 Karan Wick MD [address] [place] [address], [address] [place] [address] PCP - General Internal Medicine 06/12/23 10/19/24 Winter Dietrich PA [address] [place] [address] PCP - General Physician Pantry Chef 10/20/24 Nate Vaughn MD [address] [place] [address] Historical LMR Provider 01/23/17 12/03/19 Zaira Jewell NP [address] [place] [address] 6 [place] [address] Historical LMR Provider 01/23/17 12/03/19 Karan Wick MD [address] [place] [address], [address] [place] [address] [email or web address] Insurance Assigned Provider 12/14/23 07/12/24 documented as of this encounter Additional Source Comments The information contained in this document represents components of the legal health record. It is not the complete legal health record.[facility]
--- OUTSIDE RECORDS SUMMARY | 2025-01-09 10:30 | XMS_ITS | Clinical Summary ---
Author Organization [facility] Address [address] [place] [phone] Phone Care Team Providers Care Forms Builder Name Role Phone Winter Dietrich Primary Care Provider [phone] Allergies Active Allergy Reactions Criticality Noted Date Comments Terbinafine Hcl Swelling 09/19/2009 Made hands and feet swell and itch Medications cholecalciferol (VITAMIN D3) 5,000 unit capsule Take 5,000 Units by mouth daily. Active blood sugar diagnostic Strp strips 1 each by Miscellaneous route 2 (two) times a day. 100 strip 1 023 Active Additional Information Patient taking differently:1 each MiscellaneousEvery morning, Reported on 10/20/2024 MULTIVITAMIN ORAL Take 1 capsule by mouth daily. Active CALCIUM ORAL Take by mouth. Ac tive cyanocobalamin, vitamin B-12, (VITAMIN B-12 ORAL) Take by mouth. Activ e TURMERIC ORAL Take by mouth. A ctive MAGNESIUM ORAL Take by mouth. Active ONETOUCH VERIO Strp stripsIndicatio ns:Type 2 diabetes mellitus without complication, without long-term current use of insulin Use to test glucose 1x/day 50 strip 3 025 Active Additional Information Patient not taking.Reported on 10/20/2024 losartan (COZAAR) 25 MG tabletIndicatio ns:Essential hypertension Take 1 tablet (25 mg total) by mouth daily. 90 tablet 3 025 Active AMOXICILLIN, BULK, MISC by Miscellaneous route. Active atorvastatin (LIPITOR) 20 MG tablet Take 1 tablet (20 mg total) by mouth daily. 90 tablet 1 Active hydroCHLOROthia zide 25 MG tablet Take 1 tablet (25 mg total) by mouth daily. 90 tablet 1 Active insulin pen needles, disposable, 31 gauge x /16 Ndle 1 each by Miscellaneous route every morning. 100 each 1 Active Additional Information Patient not taking.Reported on 10/20/2024 amoxicillin (AMOXIL) 500 MG capsule Take 4 capsules 1 hour prior to dental procedure Active EASY TOUCH ALCOHOL PREP PADS PadM every morning. Active TRUEPLUS LANCETS 28 gauge Misc 1 each every morning. Active pioglitazone (ACTOS) 30 MG tablet Take 30 mg by mouth every evening. Active semaglutide (OZEMPIC) 0.25 mg or 0.5 mg (2 mg/3 mL) subcutaneous injection penIndications: Type 2 diabetes mellitus without complication, without long-term current use of insulin 0.5 mg subcutaneously, once weekly 3 mL 5 Active semaglutide (OZEMPIC) 0.25 mg or 0.5 mg (2 mg/3 mL) subcutaneous injection penIndications: Type 2 diabetes mellitus without complication, without long-term current use of insulin 0.25 mg subcutaneously, once weekly, increase to 0.5 mg weekly as tolerated after 4th dose 3 mL 1 025 2024 Disconti nued(Reo rder) Active Problems Problem Noted Date Diagnosed Date History of tobacco use 07/06/2024 Fatigue 10/14/2023 Assessment & Plan (10/14/2023 10:31 AM EDT): Will check TFTs. Has SANJANA, not using rx. Would consider re-evaluating/treating to help w/ energy. S/P cholecystectomy 10/11/2022 Nicotine dependence due to vaping tobacco produc t 09/13/2022 09/13/2022 Essential hypertension 07/20/2021 Assessment & Plan (09/04/2023 12:11 PM EDT): Well-controlled, continue current medication. Vitamin D deficiency 05/01/2021 Assessment & Plan (07/10/2021 11:38 AM EDT): Vitamin D levels replete with 5000 units of cholecalciferol she has been using the medication for 8 months so does not seem that she is becoming vitamin D toxic she should continue the current dose. Assessment & Plan (05/01/2021 10:04 AM EST): She is currently on cholecalciferol 5000 units daily and has been on it for 3 months repeat vitamin D levels to see if these about replete. Metabolic syndrome 05/01/2021 Assessment & Plan (07/10/2021 11:39 AM EDT): He has metabolic syndrome due to the obesity, elevated glucose levels and high blood pressure. She is hyperinsulinemic. I will prescribe weight loss medications that should help. Assessment & Plan (05/01/2021 10:03 AM EST): She has elevated glucose level in fact one of the glucose level was in the diabetic range elevated triglycerides 7 increased circumference of the waist. She has at least 3 findings consistent with metabolic syndrome. I will check insulin levels and lipid panel again. Class 3 severe obesity due t o excess calories without serious comorbidity with body mass index (BMI) of 40.0 to 44.9 in adult 12/04/2018 Assessment & Plan (09/04/2023 12:11 PM EDT): Doing better with Ozempic. Taking multivitamin seems reasonable but other supplements recommended by weight loss center and I think are probably superfluous him some possibly harmful including omega-3 fatty acid supplement. I recommend she discontinue these. Assessment & Plan (05/24/2022 2:08 PM EST): She has decided to resume phentermine 15 mg daily and topiramate 100 mg daily. This is for weight loss. She should continue diet and exercise as best that she can. Assessment & Plan (02/14/2022 4:46 PM EST): The patient has lost a total of 5 pounds with phentermine and topiramate. I will increase phentermine from 8 mg to 15 mg and topiramate from 25 mg to 50 mg she will return for follow-up in 3 months. If she tolerates the medication I am considering increasing the topiramate further to 100 mg in the follow-up visit. Assessment & Plan (07/10/2021 11:38 AM EDT): The patient does not have any personal history of cardiac disease. Her father did from massive heart attack at the age of 42. She is agreed to try Qsymia with starting out with the lowest dose for 14 days and then the second highest dose for least 90 days. She will follow-up then. Assessment & Plan (05/01/2021 10:03 AM EST): The patient would like weight loss medication if she can get them. However I informed the patient that it will be best for us to do a biochemical evaluation. For instance if we can say that she is diabetic that she may benefit from GLP-1 agonist which will help her lose weight. She has informed me that Metformin upset her stomach so she probably want to use this. Metformin is not an official obesity medication but it can help with weight loss. Electronic cigarette use 08/01/2018 Hyperlipidemia LDL goal <100 07/09/2017 Assessment & Plan (03/20/2023 4:17 PM EST): Uncontrolled. Her LDL was 105 mg/dL apparently missed 2 weeks of the medications I asked her to repeat the lipid panel prior to this visit she did not do so. I canceled the lab work and reordered it. Assessment & Plan (11/22/2022 5:21 PM EDT): Uncontrolled. LDL was 105 mg/dL this should be less than 100. You are on atorvastatin 20 mg she is on atorvastatin 20 mg and this may have to be increased to 40 mg. We will repeat the lipid panel first because she states she missed medications for 2 weeks. Assessment & Plan (05/24/2022 2:04 PM EST): The patient has diabetes, hypertension, obesity based on diabetes along her LDL should be less than 100 mg I will prescribe atorvastatin 10 mg and she should repeat lipid panel prior to the follow-up visit. Assessment & Plan (07/10/2021 11:40 AM EDT): LDL was 133 she has 2 risk factors obesity and hypertension the LDL should be less than 130 mg/dL but I am not prescribing statins. Maybe she would to lose weight her numbers will improve. Type 2 diabetes mellitus wit hout complication, without long-term current use of insulin 07/09/2017 Assessment & Plan (10/20/2024 10:40 AM EDT): Control had been good based on HbA1c, has deteriorated with shift from ozempic to pioglitazone based on reported HbA1c & SMBG readings. Does not sound like there was a clinical reason to stop the medication, so will resume low dose & titrate back up as tolerated, if covered/affordable. Will continue pioglitazone for now & taper that off assuming control improves back on ozempic. Continue to work on eating healthy & keeping active. To call or send in BG with problems with glycemic control. Up to date with opho. BP under reasonable control. Will call for recent labs. Assessment & Plan (04/20/2024 1:04 PM EST): Control good based on HbA1c in August. Will repeat today. Weight is up, will plan on increasing ozempic to 2 mg dose pending labs. Continue to work on eating healthy & keeping active. To call or send in BG with problems with glycemic control. Up to date with opho. Umalb/creat up to date, normal. BP under reasonable control. Assessment & Plan (02/19/2024 5:31 PM EST): Clinically doing well. Continue current medication. Follow-up as planned with endocrinology. Assessment & Plan (10/14/2023 10:28 AM EDT): Control good. Continue to work on eating healthy & keeping active. To call or send in BG with problems with glycemic control. Up to date with ophtho. Foot & nail care good. Umalb/creat due, will have done today. BP under reasonable control. Assessment & Plan (09/04/2023 12:11 PM EDT): Blood sugars well-controlled. Continue current medication and follow-up with me in about 6 months. Assessment & Plan (03/20/2023 4:23 PM EST): Uncontrolled. Hemoglobin A1c is elevated at 7.6%. I increased her Ozempic to 1 mg. She will follow-up in 3 months. Assessment & Plan (11/22/2022 5:20 PM EDT): Fair control the hemoglobin A1c increased slightly to 7.1% she could not tolerate the GLP-1 agonist apparently the Ozempic pen got stuck and she decided to stop it. She cannot tolerate metformin due to GI symptoms will try Jardiance 10 mg daily. With this medication you must drink plenty of water. You must use proper hygiene and after urinating use a wet wipe. This is to prevent yeast infections. Assessment & Plan (05/24/2022 2:03 PM EST): The patient has a good hemoglobin A1c of 6.6 with diet control but I suspect that this may also have been due to the use of Trulicity which she had to stop. She had tried metformin in the past and that also caused GI upset. So at the moment she can try Acarbose but that can cause flatulence and GI upset as well. I suggested that she just continue monitoring her diet and exercising. Assessment & Plan (02/14/2022 4:42 PM EST): Unfortunately the patient did not obtain lab work such as hemoglobin A1c and urine microalbumin creatinine ratio. The orders are still pending and advised him to do this fasting. She does have to do a urine microalbumin ratio fasting. We can review the results on the follow-up visit. Assessment & Plan (07/10/2021 12:29 PM EDT): The patient informs me that in the past she was diagnosed with diabetes mellitus. She lost weight and was glucose controlled. I checked a hemoglobin A1c in the office today on 07/10/2021 and it was 6.8% so she has diabetes mellitus. Technically we should have said in the past that she was actually diabetic but was diet controlled. That remains to be the case although her hemoglobin A1c has increased to the diabetic range. What can she do not to prevent the progression of diabetes. She can do diet and exercise this is based on the diabetes prevention program trial. She has had difficulty losing weight so weight loss medications may be helpful which I have already prescribed. She may benefit from the use of Metformin extended release 500 mg which can help prevent the progression of diabetes. But because she is trying to lose weight a GLP-1 agonist will be the better choice. At this point I have already prescribed weight loss medication so I think that we should observe her glycemic levels. I will request urine microalbumin creatinine ratio. Eczema 07/09/2017 Psoriasis 07/09/2017 Assessment & Plan (07/09/2017 4:05 PM EDT): Continue medications as prescribed by supervisor carding. Chronic idiopathic constipation 07/09/2017 Assessment & Plan (02/19/2024 5:32 PM EST): Pain most likely due to constipation. I asked her to let me know the name of the bowel medication that was prescribed by the weight loss center. I suspect it is senna and would suggest switching to docusate. Goal is to have a soft but formed bowel movement at least once daily. Assessment & Plan (09/04/2023 12:10 PM EDT): Constipation likely being exacerbated by calcium supplement. She probably could get enough calcium in her diet. She has had some trouble lactose intolerance so I asked her to add a small amount of milk in her diet. She is able to tolerate yogurt and she could increase the amount of this. She has been using docusate and she could continue this if needed but she may be able to discontinue it with dietary changes and avoid any calcium supplement. Assessment & Plan (07/09/2017 4:05 PM EDT): Discussed importance of including vegetables and over 70 oz water daily. Multinodular goiter Overview (10/14/2023): See sma note , TPO antibody +ve, FNA bilaterally ~ [id number], [facility] - benign Assessment & Plan (10/20/2024 10:38 AM EDT): Has undergone FNA bilaterally ~ 10 yrs ago @ [facility]. + TPO antibody. Has been euthyroid other than an isolated TSH of 8 several years ago. Last u/s without suspicious findings, right lobe TIRADS 5 nodule stable [id number]. No compressive symptoms. Exam stable. Would continue to monitor TFTs yearly & prn symptoms of thyroid dysfunction. Assessment & Plan (04/20/2024 1:05 PM EST): Has undergone FNA bilaterally ~ 10 yrs ago @ [facility]. + TPO antibody. Has been euthyroid other than an isolated TSH of 8 several years ago. Had recent u/s without suspicious findings. Would continue to monitor TFTs yearly & prn symptoms of thyroid dysfunction. Assessment & Plan (10/14/2023 10:30 AM EDT): Has undergone FNA bilaterally ~ 10 yrs ago @ [facility]. + TPO antibody. Has been euthyroid other than an isolated TSH of 8 several years ago. Had recent u/s without suspicious findings. Will check TFTs. Assessment & Plan (09/04/2023 10:16 AM EDT): Follow-up as planned with Dr. Pete in October Resolved Problems Problem Noted Date Diagnosed Date Resolved Date Left elbow tendonitis 06/05/20232023 Carotid stenosis 09/20/2009 09/04/2023 Encounters Date Type Department Care Team Description 11/03/2024 Telephone [facility] [address] [place] [address] [place] [id number] Monse Pete MD Ultra Sound Order 10/20/2024 8:40 AM EDT Office Visit [facility] Endocrinology [address] [place] [phone] Monse Pete MD Type 2 diabetes mellitus without complication, without long-term current use of insulin (Primary Dx); Multinodular goiter 10/20/2024 Telephone [facility] [address] [place] [address] [place] [phone] Monse Pete MD Medication Prior Authorization 10/20/2024 Telephone [facility] Endocrinology [address] [place] [phone] Monse Pete MD Medication Prior Authorization (semaglutide (OZEMPIC) 0.25 mg or 0.5 mg (2 mg/3 mL) subcutaneous injection pen) from Last 3 Months Immunizations Immunization Administration Dates Next Due COVID-19 (Pre-01/28) Pfizer Vaccine, mRNA, PF 07/03/2020,06/11/2020 INFLUENZA, SPLIT VIRUS, TRIV ALENT W/ PRESERVATIVE IM 01/11/2016,01/13/2015,01/06/2013,01/24 Influenza Quadrivalent Prese rvative Free IM 01/15/2023,01/20/2022,03/28/2021,01/16,12/30/2018 Influenza Quadrivalent w/ Pr eservative IM 2018 Influenza, Unspecified Formulation 01/06/2018 Pneumococcal polysaccharide PPSV23 02/20/2012 Tdap 10/11/2018,02/20/2012 Family History Medical History Relation Comments Heart attack Father Obesity Mother Breast cancer Paternal Aunt Diabetes Paternal Grandmother Hypertension Sister 1 Coronary artery disease Sister 2 Hypertension Sister 2 Thyroid disease Neg Hx Relation Status Comments Father (Age 42) Mother Alive Paternal Aunt Alive Paternal Grandmother Sister 1 Alive Sister 2 Alive Social History Tobacco Use Types Packs/Day Years Used Date Smoking Tobacco: Former Cigarettes 1 30 0 05/11/1984 - 05/11/2014 Smokeless Tobacco: Never Tobacco Cessation:Counseling Given: Not Answered Comments:Does Vape Alcohol Use Standard Drinks/Week Comments [...] high school, GED, job training, learning the [place] language, technical skills, or developing parenting skills)? [...] your housing situation today? 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 Not on file Not on file Last Filed Vital Signs Vital Sign Reading Time Taken Comments Blood Pressure 108/68 10/20/2024 8:43 AM EDT Pulse 76 10/20/2024 8:43 AM EDT Temperature 36.7 C (98.1 F) 02/19/2024 3:40 PM EST Respiratory Rate 18 06/08/2024 9:33 AM EST Oxygen Saturation 96% 10/20/2024 8:43 AM EDT Inhaled Oxygen Concentration - - Weight 105.9 kg (233 lb 6.4 oz) 10/20/2024 8:43 AM EDT Height 155.3 cm (5' 1.14 ) 10/20/2024 8:43 AM ED T Body Mass Index 43.9 10/20/2024 8:43 AM EDT Plan of Treatment Upcoming Encounters Date Type Department Care Team (Late st Contact Info) Description 04/12/2025 8:40 AM EST Office Visit [facility] Endocrinology [address] [phone] Monse Pete MD [address] [place] [id number] [email or web address] Health Maintenance Due Date Last Done Comments COLOGUARD 2007 FIT TEST 2007 FOBT 2007 SIGMOIDOSCOPY 2007 VIRTUAL COLONOSCOPY 2007 ZOSTER VACCINES (1 of 2) 01/25/2012 PNEUMOCOCCAL VACCINES (50+ years) (2 of 2 - PCV) 02/19/2013 02/20/2012 RSV VACCINE (1 - Risk 60-74 years 1-dose series) 2022 PAP SMEAR 05/12/2024 05/12/2019, 06/02/2014 DIABETIC EYE EXAM 07/17/2024 07/18/2023, , 06/12/2021, Additional history exists DEPRESSION SCREENING 09/03/2024 09/04/2023 HEMOGLOBIN A1C 10/19/2024 04/21/2024, 05/2 12/2023, 04/10/2023, Additional history exists INFLUENZA VACCINE (#1) 2024 , 01/15/2023, 01/20/2022, Additional history exists CREATININE LEVEL 04/21/2025 04/21/2024, , 05/24/2023, Additional history exists POTASSIUM LEVEL 04/21/2025 04/21/2024, 08/07, 05/24/2023, Additional history exists BLOOD PRESSURE 04/22/2025 10/20/2024 LUNG CANCER SCREENING (LDCT Only) 06/11/2025 06/11/2024, 04/04/2023, 01/15/2023, Additional history exists MAMMOGRAM 02/18/2026 02/19/2024, 12/08, 12/20/2021, Additional history exists Adult Td,Tdap Booster 10/11/2028 10/11/2018, 012 COLONOSCOPY 06/08/2029 06/08/2024, 12/07, 10/07/1996 COLORECTAL CANCER SCREENING 06/08/2029 HEPATITIS C SCREENING Completed 12/30/2018 HIV ONE-TIME SCREENING (18-65 YEARS) Completed 12/30/2018 COVID-19 VACCINE Completed 02/19/2024, , 11/09/2021, Additional history exists HEPATITIS A VACCINES Aged Out No long er eligible based on patient's age to complete this topic HIB VACCINES Aged Out No longer eligi ble based on patient's age to complete this topic MENINGOCOCCAL VACCINES (ACWY) Aged Out No longer eligible based on patient's age to complete this topic MENINGOCOCCAL VACCINES (B) Aged Out N o longer eligible based on patient's age to complete this topic Medical Devices Not on file Procedures Procedure Name Priority Date/Time Associated Diagnosis Comments HM LDCT PROCEDURE FOR RESULT ENTRY ONLY Routine 06/11/2024 2:50 PM EST ENDOSCOPY, COLON 06/08/2024 8:54 AM EST HEMOGLOBIN A1C Routine 04/21/2024 1:11 PM EST Type 2 diabetes mellitus without complication, without long-term current use of insulin BASIC METABOLIC PANEL Routine 04/21/2024 1:11 PM EST Type 2 diabetes mellitus without complication, without long-term current use of insulin MAMMOGRAPHY Routine 02/19/2024 4:12 PM EST DIABETES EYE EXAM FOR RESULT ENTRY ONLY Routine 07/18/2023 10:00 AM EDT PAP SMEAR FOR RESULT ENTRY ONLY Routine 05/12/2019 HEPATITIS C ANTIBODY, QUALITATIVE Routine 12/30/2018 9:27 AM EDT Need for hepatitis C screening test from Last 3 Months or Most Recently Relevant to Health Maintenance Results * LDCT PROCEDURE FOR RESULT ENTRY ONLY (06/11/2024 2:50 PM EST) us Historical Provider HEALTH MAINTENANCE Edited Result - Final * ENDOSCOPY, COLON (06/08/2024 8:54 AM EST) Narrative Transcriptions Thien Heath MD - 06/08/2024 8:54 AM EST [facility] Patient Name: Rosetta Pressley Attending MD:: THIEN HEATH MD, , Procedure Date: 06/08/2024 8:54 AM Date of : 1960 Age: 64 Admit Type: Outpatient Gender: Female Room: [place] [address] Referring MD: Karan Wick MD Exam Type: Colonoscopy Indications: High risk colon cancer surveillance: Personalhistory of colonic polyps Medications: Monitored Anesthesia Care Procedure: Informed consent was obtained from the patientafter discussion of the indications, limitations, alternatives, benefits, and risks of the procedure. Risks specifically discussed include but are not limited to medication reactions, missed lesions, bleeding, perforation, or the need for emergent surgery. Throughout the procedure, the patient's blood pressure, pulse, end-tidal CO2, and oxygensaturations were monitored continuously. The Olympus adult variable colonoscope [id number] #3 was introduced through the anus and advanced to the cecum, identified by appendiceal orifice andileocecal valve. The colonoscopy was performed without difficulty. The patient tolerated the procedurewell. The quality of the bowel preparation was adequate.The quality of the bowel preparation was evaluatedusing the BBPS ([place] Bowel Preparation Scale) withscores of: Right Colon = 3 (entire mucosa seen well withno residual staining, small fragments of stool oropaque liquid), Transverse Colon = 2 (minor amount of residual staining, small fragments of stool and/or opaque liquid, but mucosa seen well) and Left Colon= 2 (minor amount of residual staining, smallfragments of stool and/or opaque liquid, but mucosa seenwell). The total BBPS score equals 7. The quality of the bowel preparation was good. Anatomical landmarkswere photographed. Complications: No immediate complications. Estimated blood loss: Minimal. Findings: Hemorrhoids were found on perianal exam. Two sessile polyps were found in the ascendingcolon. The polyps were diminutive in size. These polypswere removed with a cold biopsy forceps. Resection and retrieval were complete. Internal hemorrhoids were found duringretroflexion. The hemorrhoids were moderate. The exam was otherwise normal throughout theexamined colon. Impression: - Hemorrhoids found on perianal exam. - Two diminutive polyps in the ascending colon, removed with a cold biopsy forceps. Resected and retrieved. - Internal hemorrhoids. Recommendation: - Discharge patient to home. - Await pathology results. - Repeat colonoscopy in 5 years for surveillancewith nancy prep. THIEN HEATH MD, 06/08/2024 9:21:44 AM This report has been signed electronically. Number of Addenda: 0 Note Initiated On: 06/08/2024 8:54 AM Procedure Code(s): --- Professional --- 14819, Colonoscopy, flexible; with biopsy, single or multiple --- Technical --- 44083, Colonoscopy, flexible; with biopsy, single or multiple Diagnosis Code(s): --- Professional --- Z86.010, Personal history of colonic polyps K64.8, Other hemorrhoids D12.2, Benign neoplasm of ascending colon --- Technical --- Z86.010, Personal history of colonic polyps K64.8, Other hemorrhoids D12.2, Benign neoplasm of ascending colon CPT copyright 2021 [employer]. All rights reserved. The codes documented in this report are preliminary and upon drawing kiln supervisor reviewmay be revised to meet current compliance requirements. Procedure Date: 06/08/2024 8:54:[address] [place] [id number] Karan Wick MD GI PROCEDURE ORDERABLES Fi nal Result * (ABNORMAL) Hemoglobin A1c (04/21/2024 1:11 PM EST) HEMOGLOBIN A1C 6.2(H) 4.3 - 5.8 % [facility] Blood 04/21/2024 1:11 PM EST 04/21/2024 1:14 PM EST Karan Wick MD LAB BLOOD ORDERABLES Final Result [address] [id number] * (ABNORMAL) Basic metabolic panel (04/21/2024 1:11 PM EST) SODIUM 138 133 - 146 mmol/L [facility] CHLORIDE 100 96 - 108 mmol/L [facility] POTASSIUM 4.3 3.3 - 5.1 mmol/L [facility] CO2 27 21 - 35 mmol/L [facility] BUN 10 6 - 19 mg/dL [facility] CREATININE 0.50 0.5 - 1.5 mg/dL [facility] GLUCOSE 114(H) 70 - 99 mg/dL [facility] CALCIUM 9.5 8.4 - 10.3 mg/dL [facility] EGFR 106 >59 mL/min/1.7 3m2 [facility] Comment:Estimated glomerular filtration rate calculated using the CKD-EPI refit equation. ANION GAP 15 10 - 20 mmol/L [facility] Blood 04/21/2024 1:11 PM EST 04/21/2024 1:14 PM EST Karan Wick MD LAB BLOOD ORDERABLES Final Result Performing Organization Address City/[facility]/ZIP Co de Phone Number [address] [address] [address] * HM MAMMOGRAPHY FOR RESULT ENTRY ONLY (02/19/2024 4:12 PM EST) Karan Wick MD HEALTH MAINTENANCE Edited Result - Final * DIABETES EYE EXAM FOR RESULT ENTRY ONLY (07/18/2023 10:00 AM EDT) Historical Provider HEALTH MAINTENANCE Final Result * HM PAP SMEAR FOR RESULT ENTRY ONLY (05/12/2019) Historical Provider HEALTH MAINTENANCE Edited Result - Final * Hepatitis C antibody, qualitative (12/30/2018 9:27 AM EDT) HCV NON-REACTIV E NON-REACTI VE [facility] Blood 12/30/2018 9:27 AM EDT 12/30/2018 9:32 AM EDT Zaira Jewell NP LAB BLOOD ORDERABLES Final Resu lt Performing Organization Address [facility]/ZIP Co de Phone Number [address] [address] from Last 3 Months or Most Recently Relevant to Health Maintenance Insurance WELLSENSE NON NSPG PCP SILVER CLARITY CONNECTORCARE DOUGLASENSE NON NSPG PCP SILVER CLARITY CONNECTORCARE DOUGLASENSE NON NSPG PCP SILVER CLARITY CONNECTORCARE WELLSENSE NON NSPG PCP SILVER CLARITY CONNECTORCARE [facility] NON NSPG PCP SILVER CLARITY CONNECTORCARE [facility] NON NSPG PCP SILVER CLARITY CONNECTORCARE Care Teams Forms Builder Relationship Specialty Start Date End Date Winter Dietrich PA [address] [place] [address] PCP - General Physician Generation Engineering Technologist 10/20/24 Additional Source Comments The information contained in this document represents components of the legal health record. It is not the complete legal health record.[facility]
--- OUTSIDE RECORDS SUMMARY | 2025-01-09 10:30 | XMS_ITS | Encounter Summary ---
Author Organization [facility] Address [address] [place] [address] Phone Care Team Providers Care Domestic Laundry Worker Name Role Phone Nate Vaughn MD Unavailable [phone] Zaira Jewell PROJECT MANAGEMENT ADVISOR Unavailable [phone] Zaira Jewell NP Primary Care Provider [phone] Karan Wick MD Primary Care Provider + [phone] Karan Wick MD Unavailable [phone] Winter Dietrich Primary Care Provider [phone] Encounter Details Date Type Department Care Team (Late st Contact Info) Description 05/23/2018 Transcribe Orders [facility] Laboratory [address] [place] [address] Monse Pete MD [address] [place] [address] [phone] [email or web address] Abnormal thyroid screen (blood) (Primary Dx) Social History Tobacco Use Types [...] Description 04/12/2025 8:40 AM EST Office Visit [facility] Endocrinology [address] [facility] [address] Monse Pete MD [address] [place] [address] [email or web address] documented as of this encounter Results * Free T4 (05/23/2018 8:39 AM EST) FREE T4 1.3 0.9 - 1.7 ng/dL [facility] Blood 05/23/2018 8:39 AM EST 05/23/2018 8:43 AM EST Monse Pete MD LAB BLOOD ORDERABLES F inal Result Performing Organization Address [facility]/ZIP Co de Phone Number [address] [address] * TSH with reflex (05/23/2018 8:39 AM EST) TSH 1.89 0.27 - 4.20 uIU/mL [facility] Blood 05/23/2018 8:39 AM EST 05/23/2018 8:43 AM EST Monse Pete MD LAB BLOOD ORDERABLES F inal Result Performing Organization Address [facility] Co de Phone Number [address] [address] documented in this encounter Visit Diagnoses Diagnosis Abnormal thyroid screen (blood)- Primary Nonspecific abnormal results of thyroid function study documented in this encounter Additional Health Concerns Infection Onset Date Last Indicated Resolved Time CoV-Risk 12/22/2020 12/22/2020 01/01/2021 1:22 AM EDT Assessment Noted Time PHQ-2 Depression Total Score: 0 07/10/19 3:26 PM EDT documented as of this encounter Care Teams Domestic Laundry Worker Relationship Specialty Start Date End Date Zaira Jewell NP [address] [place] [address] PCP - General Family Medicine 12/13/17 06/11/23 Karan Wick MD [address] [place] [address], [address] [place] [address] PCP - General Internal Medicine 06/12/23 10/19/24 Winter Dietrich PA [address] [place] [address] PCP - General Physician Mammal Control Agent 10/20/24 Nate Vaughn MD [address] [place] [address] Historical LMR Provider 01/23/17 12/03/19 Zaira Jewell NP [address] [place] [address] Historical LMR Provider 01/23/17 12/03/19 Karan Wick MD [address] [place] [address], [address] [place] [address] Insurance Assigned Provider 12/14/23 07/12/24 documented as of this encounter Additional Source Comments The information contained in this document represents components of the legal health record. It is not the complete legal health record.[facility]
== END 2025-01-09 10:27 | disposition home or self-care (01) ==
LOC: HO.MAMMO 10:26
PROVIDERS: PCP Physician Assistant Medical; Visit Provider Physician Assistant Medical
DX: Z12.31 Encounter for screening mammogram for malignant neoplasm of breast (principal)
CPT/HCPCS: 77063; 77067

== ENCOUNTER → 2025-01-09 10:30 | Outpatient (BNV) | payer OTHER, SELFPAY | PROVIDERS: PCP Physician Assistant Medical; Visit Provider Internal Medicine | DX: Z12.31 Encounter for screening mammogram for malignant neoplasm of breast (principal) | CPT/HCPCS: 77063; 77067 ==

== ENCOUNTER 2025-01-19 13:59 | Outpatient (REF) | payer OTHER, SELFPAY ==
--- NOTE | ~2025-01-19 | US_ITS ---
EXAMINATION: BILATERAL CAROTID ULTRASOUND WITH DOPPLER HISTORY: I77.9 - Disorder of arteries and arterioles, unspecified COMPARISON: There are no prior studies available for comparison. TECHNIQUE: Real time and Color and Spectral doppler ultrasonography of the carotid and vertebral arteries was performed in multiple planes. FINDINGS: A small amount of plaque is seen bilaterally. VERTEBRAL FLOW DIRECTION: Antegrade bilaterally. PEAK SYSTOLIC VELOCITIES (in cm/sec): RIGHT: CCA: Prox: 99.1 Dist: 78.0 ICA: Prox: 127 Mid: 76.8 Dist: 79.2 ICA/CCA Ratio: 1.3 ECA: 112 Peak ICA end diastolic velocity (EDV): 26.4 LEFT: CCA: Prox: 99.8 Dist: 58.6 ICA: Prox: 89.7 Mid: 105 Dist: 83.3 ICA/CCA Ratio: 0.90 ECA: 90.3 Peak ICA end diastolic velocity (EDV): 30.6 US/US carotid duplex BI IMPRESSION: Findings consistent with 50-79% stenosis of the right internal carotid artery and 0-49% stenosis of the left internal carotid artery. Electronically signed by: Chon Walker MD 01/19/2025 02:56 PM EDT
--- OUTSIDE RECORDS SUMMARY | 2025-01-19 09:58 | XMS_ITS ---
Author Organization [facility] Care Team Providers Care Masticator Name Role Phone Alana Gonzalez MD Primary Care Physician Allergies Not Yet Asked Medications No Information [...] / Covera ge type Policy ID Covered democrat ID Policy [facility] PPO [id number] Lucero curran
--- OUTSIDE RECORDS SUMMARY | 2025-01-19 16:58 | XMS_ITS | Patient Health Record ---
Author Organization [facility] Address [address] [place] [address] Care Team Providers Care Medical Researcher Name Role Phone Zaira Jewell NP Primary Care Provider Fernando Griffin Unavailable [phone] Allergies Allergen (clinical drug ingredient) Drug/Non Drug [...] Problem Type II diabetes mellitus without complication ([id number]) Type 2 diabetes mellitus without complications (E11.9) Active confirmed Plan Of Treatment Pending Test Test Name Order Date Hemoglobin A1c 05/24/2015 Insurance Providers Payer Name Payer Address Payer Phone Subscriber Number Group Number Insured Name Patient Relationship to Insured Coverage Start Date Coverage End Date [employer] Blue Card [address] [place] [address] [phone] [id number] Rosetta Pressley Self - patient is the insured Medical (General) History Medical History History ICD Code Arthritis Back,Hip,and Knee pain Diabetic Psoriasis/eczema Chicken pox High blood pressure Joint implants/screws Surgical History Surgery Date(Month/Year) knee replacement 08/10/2021 knee replacement 05/03/2022
--- OUTSIDE RECORDS SUMMARY | 2025-01-19 16:58 | XMS_ITS | Encounter Summary ---
Author Organization [facility] Address [address] [place] [address] [place] [address] Phone Care Team Providers Care Massotherapist Name Role Phone Karan Wick MD Primary Care Provider [phone] Karan Wick MD Unavailable [phone] Winter Dietrich Primary Care Provider [phone] Encounter Details Date Type Department Care Team (Late st Contact Info) Description 06/08/2024 Procedure Pass [facility] Endoscopy Admitting Dept Virtual Department [address] [place], [place] [phone] Social History Tobacco Use Types Packs/Day Years [...] high school, GED, job training, learning the Luxembourger language, technical skills, or developing parenting skills)? 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 Not on file Not on file documented as of this encounter Plan of Treatment Upcoming Encounters Date Type Department Care Team (Late st Contact Info) Description 04/12/2025 8:40 AM EST Office Visit [facility] Endocrinology [address] [address] Monse Pete MD [address] [place] [address] [email or web address] documented as of this encounter Visit Diagnoses Not on filedocumented in this encounter Additional Health Concerns Assessment Noted Time PHQ-2 Depression Total Score: 0 09/04/19 9:15 AM EDT documented as of this encounter Care Teams Massotherapist Relationship Specialty Start Date End Date Karan Wick MD [address] [place] [address], [address] [place] [address] [email or web address] PCP - General Internal Medicine 06/12/23 10/19/24 Winter Dietrich PA [address] [place] [address] PCP - General Physician Construction Producer 10/20/24 Karan Wick MD [address] [place] [address], [address] [place] [address] [email or web address] Insurance Assigned Provider 12/14/23 07/12/24 documented as of this encounter Additional Source Comments The information contained in this document represents components of the legal health record. It is not the complete legal health record.[facility]
--- OUTSIDE RECORDS SUMMARY | 2025-01-19 16:58 | XMS_ITS | Encounter Summary ---
Author Organization [facility] Address [address] [place] [address] [place] [address] Phone Care Team Providers Care Multimedia Specialist Name Role Phone Zaira Jewell NP Primary Care Provider [phone] Karan Wick MD Primary Care Provider [phone] Karan Wick MD Unavailable [phone] Winter Dietrich Primary Care Provider [phone] Encounter Details Date Type Department Care Team (Late st Contact Info) Description 04/12/2022 Procedure Pass [facility], [address] [phone] Social History Tobacco Use Types Packs/Day Years [...] high school, GED, job training, learning the Hong Konger language, technical skills, or developing parenting skills)? [...] Description 04/12/2025 8:40 AM EST Office Visit [facility] Endocrinology [address] [phone] Monse Pete MD [address] [place] [address] documented as of this encounter Visit Diagnoses Not on filedocumented in this encounter Additional Health Concerns Assessment Noted Time PHQ-2 Depression Total Score: 1 03/15/20 22 9:45 AM EST documented as of this encounter Care Teams Multimedia Specialist Relationship Specialty Start Date End Date Zaira Jewell NP PCP - General Family Medicine 12/13/17 06/11/23 Karan Wick MD [address] [place] [address], [address] [place] [address] [email or web address] PCP - General Internal Medicine 06/12/23 10/19/24 Winter Dietrich PA [address] [place] [address] PCP - General Physician Child Care Group Leader 10/20/24 Karan Wick MD [address] [place] [address], [address] [place] [address] [email or web address] Insurance Assigned Provider 12/14/23 07/12/24 documented as of this encounter Additional Source Comments The information contained in this document represents components of the legal health record. It is not the complete legal health record.[facility]
--- OUTSIDE RECORDS SUMMARY | 2025-01-19 16:58 | XMS_ITS | Encounter Summary ---
Author Organization [facility] Address [address] [place] [address] Phone Care Team Providers Care Law Reporter Name Role Phone Nate Vaughn MD Unavailable [phone] INS[address] Unavailable [phone] Zaira Jewell NP Primary Care Provider [phone] Karan Wick MD Primary Care Provider + [phone] Karan Wick MD Unavailable [phone] Winter Dietrich Primary Care Provider [phone] Encounter Details Date Type Department Care Team (Late st Contact Info) Description 05/23/2018 Transcribe Orders [facility] Laboratory [address] [place] [address] Monse Pete MD [address] [place] [address] [phone] [email or web address] Abnormal thyroid screen (blood) (Primary Dx) Social [...] Description 04/12/2025 8:40 AM EST Office Visit [facility] Endocrinology [address] [place] [address] Monse Pete MD [address] [place] [address] [email or web address] documented as of this encounter Results * Free T4 (05/23/2018 8:39 AM EST) FREE T4 1.3 0.9 - 1.7 ng/dL [facility] Blood 05/23/2018 8:39 AM EST 05/23/2018 8:43 AM EST Monse Pete MD LAB BLOOD ORDERABLES F inal Result Performing Organization Address [facility]/ZIP Co de Phone Number [address] [address] * TSH with reflex (05/23/2018 8:39 AM EST) TSH 1.89 0.27 - 4.20 uIU/mL [facility] Blood 05/23/2018 8:39 AM EST 05/23/2018 8:43 AM EST Monse Pete MD LAB BLOOD ORDERABLES F inal Result Performing Organization Address [facility] Co de Phone Number [address] [address] documented in this encounter Visit Diagnoses Diagnosis Abnormal thyroid screen (blood)- Primary Nonspecific abnormal results of thyroid function study documented in this encounter Additional Health Concerns Infection Onset Date Last Indicated Resolved Time CoV-Risk 12/22/2020 12/22/2020 01/01/2021 1:22 AM EDT Assessment Noted Time PHQ-2 Depression Total Score: 0 07/10/19 3:26 PM EDT documented as of this encounter Care Teams Law Reporter Relationship Specialty Start Date End Date Zaira Jewell NP [address] [place] [address] PCP - General Family Medicine 12/13/17 06/11/23 Karan Wick MD [address] [place] [address], [address] [place] [address] PCP - General Internal Medicine 06/12/23 10/19/24 Winter Dietrich PA [address] [place] [address] PCP - General Physician Water System Operator 10/20/24 Nate Vaughn MD [address] [place] [address] Historical LMR Provider 01/23/17 12/03/19 Zaira Jewell NP [address] [place] [address] Historical LMR Provider 01/23/17 12/03/19 Karan Wick MD [address] [place] [address], [address] [place] [address] Insurance Assigned Provider 12/14/23 07/12/24 documented as of this encounter Additional Source Comments The information contained in this document represents components of the legal health record. It is not the complete legal health record.[facility]
--- OUTSIDE RECORDS SUMMARY | 2025-01-19 16:58 | XMS_ITS | Clinical Summary ---
Author Organization [facility] Address [address] [place] [address] Phone Care Team Providers Care Vacation Sales Advisor Name Role Phone Winter Dietrich Primary Care Provider [phone] Allergies Active Allergy Reactions Criticality Noted Date [...] PM EDT): Continue medications as prescribed by certified pharmacy tech. Chronic idiopathic constipation 07/09/2017 Assessment & Plan [...] , TPO antibody +ve, FNA bilaterally ~ [id number], [facility] endo - benign Assessment & Plan (10/20/2024 10:38 AM EDT): Has undergone FNA bilaterally ~ 10 yrs ago @ [facility] endo. + TPO antibody. Has been euthyroid other than an isolated TSH of 8 several years ago. Last u/s without suspicious findings, right lobe TIRADS 5 nodule stable [id number]. No compressive symptoms. Exam stable. Would continue [...] Care Team Description 11/03/2024 Telephone [facility] [address] [place] [address] [place] [address] Monse Pete MD Ultra Sound Order 10/20/2024 8:40 AM EDT Office Visit [facility] Endocrinology [address] [place] [address] Monse Pete MD Type 2 diabetes mellitus without complication, without long-term current use of insulin (Primary Dx); Multinodular goiter 10/20/2024 Telephone [facility] Endocrinology [address] [place] [address] [place] [address] Monse Pete MD Medication Prior Authorization 10/20/2024 Telephone [facility] Endocrinology [address] [place] [phone] Monse Ptee MD Medication Prior Authorization (semaglutide (OZEMPIC) 0.25 [...] high school, GED, job training, learning the Estonian language, technical skills, or developing parenting skills)? 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 on file [...] Description 04/12/2025 8:40 AM EST Office Visit [facility] Endocrinology [address] [address] Monse Pete MD [address] [place] [address] .[email or web address] Health Maintenance Due Date Last Done Comments COLOGUARD 2007 FIT TEST 2007 FOBT 2007 SIGMOIDOSCOPY 2007 VIRTUAL COLONOSCOPY 2007 RSV VACCINE (1 - Risk 50-74 years 1-dose series) 01/25/2012 ZOSTER VACCINES (1 of 2) 01/25/2012 PNEUMOCOCCAL VACCINES (50+ years) (2 of 2 - PCV) 02/19/2013 02/20/2012 PAP SMEAR 05/12/2024 05/12/2019, 06/02/2014 DIABETIC EYE EXAM 07/17/2024 07/18/2023, , 06/12/2021, Additional history exists DEPRESSION SCREENING 09/03/2024 09/04/2023 HEMOGLOBIN A1C 10/19/2024 04/21/2024, 05/2 12/2023, 04/10/2023, Additional history exists INFLUENZA VACCINE (#1) 2024 , 01/15/2023, 01/20/2022, Additional history exists COVID-19 VACCINE ( season) 2024 02/19/2024, 03/23/2022, 11/09/2021, Additional history exists CREATININE LEVEL 04/21/2025 04/21/2024, [...] HIV ONE-TIME SCREENING (18-65 YEARS) Completed 12/30/2018 HEPATITIS A VACCINES Aged Out No long [...] ENTRY ONLY Routine 07/18/2023 10:00 AM EDT HM PAP SMEAR FOR RESULT ENTRY ONLY Routine [...] Heath MD - 06/08/2024 8:54 AM EST [facility] Patient Name: Ros[place] Pressley Attending MD:: THIEN HEATH MD, , Procedure Date: 06/08/2024 8:54 AM Date of : 1960 Age: 64 Admit Type: Outpatient Gender: Female Room: [place] [address] Referring MD: Karan Wick MD Exam Type: [...] monitored continuously. The Olympus adult variable colonoscope [id number] #3 was introduced through the anus and advanced to the cecum, identified by appendiceal orifice andileocecal valve. The colonoscopy was performed without difficulty. The patient tolerated the procedurewell. The quality of the bowel preparation was adequate.The quality of the bowel preparation was evaluatedusing the BBPS (Galt Bowel Preparation Scale) withscores of: Right Colon [...] Repeat colonoscopy in 5 years for surveillancewith golytely prep. THIEN HEATH MD, 06/08/2024 9:21:44 AM This report has been signed electronically. Number of Addenda: 0 Note Initiated On: 06/08/2024 8:54 AM Procedure Code(s): --- Professional --- 68057, Colonoscopy, flexible; with biopsy, single or multiple --- Technical --- 92187, Colonoscopy, flexible; with biopsy, single or multiple Diagnosis Code(s): --- Professional --- Z86.010, Personal history of colonic polyps K64.8, Other hemorrhoids D12.2, Benign neoplasm of ascending colon --- Technical --- Z86.010, Personal history of colonic polyps K64.8, Other hemorrhoids D12.2, Benign neoplasm of ascending colon CPT copyright 2021 [employer]. All rights reserved. The codes documented in this report are preliminary and upon feather curling machine operator reviewmay be revised to meet current compliance requirements. Procedure Date: 06/08/2024 8:54:[address] [place] [address] Karan Wick MD GI PROCEDURE ORDERABLES Fi nal Result * (ABNORMAL) Hemoglobin A1c (04/21/2024 1:11 PM EST) HEMOGLOBIN A1C 6.2(H) 4.3 - 5.8 % Blood 04/21/2024 1:11 PM EST 04/21/2024 1:14 PM EST Karan Wick MD LAB BLOOD ORDERABLES Final Result [address] [address] * (ABNORMAL) Basic metabolic panel (04/21/2024 1:11 PM EST) SODIUM 138 133 - 146 mmol/L CHLORIDE 100 96 - 108 mmol/L POTASSIUM 4.3 3.3 - 5.1 mmol/L CO2 27 21 - 35 mmol/L BUN 10 6 - 19 mg/dL CREATININE 0.50 0.5 - 1.5 mg/dL [facility] GLUCOSE 114(H) 70 - 99 mg/dL CALCIUM 9.5 8.4 - 10.3 mg/dL EGFR 106 >59 mL/min/1.7 3m2 Comment:Estimated glomerular filtration rate calculated using the CKD-EPI refit equation. ANION GAP 15 10 - 20 mmol/L Blood 04/21/2024 1:11 PM EST 04/21/2024 1:14 PM EST Karan Wick MD LAB BLOOD ORDERABLES Final Result Performing Organization Address [facility] Co de Phone Number [address] [address] * MAMMOGRAPHY FOR RESULT ENTRY ONLY (02/19/2024 4:12 PM EST) Karan Wick MD HEALTH MAINTENANCE Edited Result - Final * DIABETES EYE EXAM FOR RESULT ENTRY ONLY (07/18/2023 10:00 AM EDT) Historical Provider HEALTH MAINTENANCE Final Result * PAP SMEAR FOR RESULT ENTRY ONLY (05/12/2019) Historical Provider HEALTH MAINTENANCE Edited Result - Final * Hepatitis C antibody, qualitative (12/30/2018 9:27 AM EDT) HCV NON-REACTIV E NON-REACTI VE Blood 12/30/2018 9:27 AM EDT 12/30/2018 9:32 AM EDT Zaira Jewell NP LAB BLOOD ORDERABLES Final Resu lt Performing Organization Address [facility]/ZIP Co de Phone Number [address] [address] from Last 3 Months or Most Recently Relevant to Health Maintenance Insurance [employer] NON NSPG PCP SILVER CLARITY [facility]CARE [facility] NON NSPG PCP SILVER CLARITY CONNECTORCARE [place] NON NSPG PCP SILVER CLARITY CONNECTORCARE [place] NON NSPG PCP SILVER CLARITY CONNECTORCARE [facility] NON NSPG PCP SILVER CLARITY CONNECTORCARE [facility] NON NSPG PCP SILVER CLARITY CONNECTORCARE Care Teams Vacation Sales Advisor Relationship Specialty Start Date End Date Winter Dietrich PA [address] [place] [address] PCP - General Physician Lead Sql Developer 10/20/24 Additional Source Comments The information contained in this document represents components of the legal health record. It is not the complete legal health record.[facility]
--- OUTSIDE RECORDS SUMMARY | 2025-01-19 16:59 | XMS_ITS | Encounter Summary ---
Author Organization [facility] Address [address] [place] [address] [place] [address] Phone Care Team Providers Care Rattling Machine Tender Name Role Phone Karan Wick MD Primary Care Provider [phone] Karan Wick MD Unavailable [phone] Winter Dietrich Primary Care Provider [phone] Encounter Details Date Type Department Care Team (Late st Contact Info) Description 09/06/2023 Procedure Pass [facility] Endoscopy Admitting Dept Virtual Department [address] [place], [place] [phone] Social History Tobacco Use Types Packs/Day Years [...] high school, GED, job training, learning the Thai language, technical skills, or developing parenting skills)? 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 Not on file documented as of this encounter Plan of Treatment Upcoming Encounters Date Type Department Care Team (Late st Contact Info) Description 04/12/2025 8:40 AM EST Office Visit [facility] Endocrinology [address] [place] [address] Monse Pete MD [address] [place] [address] [email or web address] documented as of this encounter Visit Diagnoses Not on filedocumented in this encounter Additional Health Concerns Assessment Noted Time PHQ-2 Depression Total Score: 0 09/04/19 24 9:15 AM EDT documented as of this encounter Care Teams Rattling Machine Tender Relationship Specialty Start Date End Date Karan Wick MD [address] [place] [address], [address] [place] [address] [email or web address] PCP - General Internal Medicine 06/12/23 10/19/24 Winter Dietrich PA [address] [place] [address] PCP - General Physician Asbestos Hazard Abatement Worker 10/20/24 Karan Wick MD [address] [place] [address], [address] [place] [address] [email or web address] Insurance Assigned Provider 12/14/23 07/12/24 documented as of this encounter Additional Source Comments The information contained in this document represents components of the legal health record. It is not the complete legal health record.[facility]
--- OUTSIDE RECORDS SUMMARY | 2025-01-19 16:59 | XMS_ITS ---
Continuity of Care Document (CCD) Created on: January 19, 2025 Rosetta Pressley External Reference #: [id number] : [id number] Sex: Female Author Organization [facility] Address [address] [facility] [address] [place], [place] Phone [phone] Care Team Providers Care Service Clerk Name Role Phone Zaira Jewell NP Care Team Information Insulation Board Head Saw Operator U navailable PREETHI MONROY M.D. Care Team [...] Qnty Indications Ordering Provider Date Metformin HCL CR167gn Tablets ER 24HR 3 tab by mouth every day 90tabs E88.81 Preethi Monroy M.D. 11/04/2018
--- OUTSIDE RECORDS SUMMARY | 2025-01-19 16:59 | XMS_ITS | Clinical Summary ---
Author Organization [address] Address [address] [place] [phone] Phone Care Team Providers Care Software Licensing Specialist Name Role Phone Jaret Bourgeois MD Primary Care Provider Allergies Active Allergy Reactions Criticality Noted Date [...] Description 01/20/2025 10:20 AM EDT Office Visit [facility] - [address] [address] Moses Jose MD [address] [place] [address] Health Maintenance Due Date Last Done Comments [...] MEDICARE ADVANTAGE [place]ICA[place] - [place] Care Teams Software Licensing Specialist Relationship Specialty Start Date End Date Jaret Bourgeois MD [address] [place] [address] PCP - General 07/29/09
--- OUTSIDE RECORDS SUMMARY | 2025-01-19 16:59 | XMS_ITS | Encounter Summary ---
Author Organization [facility] Address [address] [place] [address] Phone Care Team Providers Care Ship Boat Or Barge Mate Name Role Phone Nate Vaughn MD Unavailable [phone] Zaira Jewell CONSUMER SALES REPRESENTATIVE Unavailable [phone] Nate Vaughn MD Primary Care Provider [phone] Zaira Jewell NP Primary Care Provider [phone] Karan Wick MD Primary Care Provider [phone] Karan Wick MD Unavailable [phone] Winter Dietrich Primary Care Provider [phone] Encounter Details Date Type Department Care Team (Late st Contact Info) Description 12/02/2017 Procedure Pass [facility] Endoscopy Admitting Dept Virtual Department [address] [place] [address] Social History Tobacco Use Types Packs/Day Years [...] Description 04/12/2025 8:40 AM EST Office Visit [facility] Endocrinology [place] [address] [place] [address] Monse Pete MD [address] [place] [address] documented as of this encounter Visit Diagnoses Not on filedocumented in this encounter Additional Health Concerns Infection Onset Date Last Indicated Resolved Time CoV-Risk 12/22/2020 12/22/2020 01/01/2021 1:22 AM EDT Assessment Noted Time PHQ-2 Depression Total Score: 0 07/10/19 3:26 PM EDT documented as of this encounter Care Teams Ship Boat Or Barge Mate Relationship Specialty Start Date End Date Nate Vaughn MD [address] [place] [address] PCP - General Internal Medicine 07/09/17 12/12/17 Zaira Jewell NP [address] [place] [address] PCP - General Family Medicine 12/13/17 06/11/23 Karan Wick MD [address] [place] [address], [address] [place] [address] PCP - General Internal Medicine 06/12/23 10/19/24 Winter Dietrich PA [address] [place] [address] PCP - General Physician Marine Engineering Teacher 10/20/24 Nate Vaughn MD [address] [place] [address] Historical LMR Provider 01/23/17 12/03/19 Zaira Jewell NP [address] [place] [address] 6 [place] [address] Historical LMR Provider 01/23/17 12/03/19 Karan Wick MD [address] [place] [address], [address] [place] [address] [email or web address] Insurance Assigned Provider 12/14/23 07/12/24 documented as of this encounter Additional Source Comments The information contained in this document represents components of the legal health record. It is not the complete legal health record.[facility]
--- OUTSIDE RECORDS SUMMARY | 2025-01-19 16:59 | XMS_ITS | Encounter Summary ---
Author Organization [facility] Address [address] [place] [address] Phone Care Team Providers Care Load Manager Name Role Phone Nate Vaughn MD Unavailable [phone] Zaira Jewell [employer]CHO[employer] Unavailable [phone] Nate Vaughn MD Primary Care Provider [phone] Zaira Jewell NP Primary Care Provider [phone] Karan Wick MD Primary Care Provider + [phone] Karan Wick MD Unavailable [phone] Winter Dietrich Primary Care Provider [phone] Encounter Details Date Type Department Care Team (Late st Contact Info) Description 11/29/[address] [facility] Laboratory [address], [place] [address] Monse Pete MD [address] [place] [address] [email or web address] Multinodular goiter (Primary Dx) Social History Tobacco [...] Description 04/12/2025 8:40 AM EST Office Visit [facility] Endocrinology [place] [address] [place] [address] Monse Pete MD [address] [place] [address] documented as of this encounter Results * TSH (11/29/2017 8:14 AM EDT) TSH 3.51 0.27 - 4.20 uIU/mL [facility] Blood 11/29/2017 8:14 AM EDT 11/29/2017 8:19 AM EDT us Monse Pete MD LAB BLOOD ORDERABLES F inal Result Performing Organization Address City/State/[facility] Co de Phone Number [facility] [address] [place] [address] documented in this encounter Visit Diagnoses Diagnosis Multinodular goiter- Primary Nontoxic multinodular goiter documented in this encounter Additional Health Concerns Infection Onset Date Last Indicated Resolved Time CoV-Risk 12/22/2020 12/22/2020 01/01/2021 1:22 AM EDT Assessment Noted Time PHQ-2 Depression Total Score: 0 07/10/19 18 3:26 PM EDT documented as of this encounter Care Teams Load Manager Relationship Specialty Start Date End Date Nate Vaughn MD [address] [place] [address] PCP - General Internal Medicine 07/09/17 12/12/17 Zaira Jewell NP [address] [place] [address] PCP - General Family Medicine 12/13/17 06/11/23 Karan Wick MD [address] [place] [address], [address] [place] [address] PCP - General Internal Medicine 06/12/23 10/19/24 Winter Dietrich PA [address] [place] [address] PCP - General Physician Teaching Aide 10/20/24 Nate Vaughn MD [address] [place] [address] Historical LMR Provider 01/23/17 12/03/19 Zaira Jewell NP [address] [place] [address] Historical LMR Provider 01/23/17 12/03/19 Karan Wick MD [address] [place] [address], [address] [place] [address] Insurance Assigned Provider 12/14/23 07/12/24 documented as of this encounter Additional Source Comments The information contained in this document represents components of the legal health record. It is not the complete legal health record.[facility]
== END 2025-01-19 14:00 | disposition home or self-care (01) ==
LOC: HO.HMGCX 13:59
PROVIDERS: PCP Physician Assistant Medical; Visit Provider Physician Assistant Medical
DX: I10 Essential (primary) hypertension (principal); I77.9 Disorder of arteries and arterioles, unspecified
CPT/HCPCS: 93880

== ENCOUNTER → 2025-01-19 14:02 | Outpatient (BNV) | payer OTHER, SELFPAY | PROVIDERS: PCP Physician Assistant Medical; Visit Provider Radiology Diagnostic Radiology | DX: I65.21 Occlusion and stenosis of right carotid artery (principal) | CPT/HCPCS: 93880 ==

== ENCOUNTER 2025-02-15 10:49 | Outpatient (AMB) | payer OTHER, SELFPAY ==
--- NOTE | 2025-02-15 10:56 | MHC.OFFVIS ---
Intake Visit Reasons: Kidney Cysts Intake Note: New Patient is present for KIDNEY CYST c/o Flank Pain Urology Rx:NONE Blood Thinners:NONE Imaging completed: ABD/PELVIS CT 09/29/24 Geodetic Survey Director Required: No Accompanied by: Self / Same As Patient Allergies No Known Allergies (No Known Allergies*) Allergy (Verified 02/15/25 12:00) Medication List - Last Reconciled 02/15/25 by SUKH Lim alcohol swabs (Alcohol Pads) 1 pad topical TIDWMEAL atorvastatin 20 mg PO DAILY blood pressure kit-extra large Monitor blood pressure daily blood sugar diagnostic (FreeStyle Precision Delgado Strips) Please check glucose levels 3 times a day before meals blood-glucose meter (FreeStyle Precision Delgado Meter) Please check glucose levels 3 times a day before meals calcium carbonate (Calcium 600) 600 mg PO DAILY cholecalciferol (vitamin D3) 125 mcg PO DAILY hydrochlorothiazide 12.5 mg PO DAILY lancets (FreeStyle Lancets) Please check glucose levels 3 times a day before meals lancets (Accu-Chek Fastclix Lancet Drum) check glucose three times a day before meals losartan 25 mg PO DAILY magnesium 250 mg PO DAILY multivitamin 1 tab PO DAILY omega-3 fatty acids 1,000 mg PO DAILY semaglutide (Ozempic) mg subcut HPI Comments Details: Rosetta is a very pleasant 65-year-old female patient of Dr. Clancy. She has a past medical history of bilateral stenosis of carotid arteries, thyroid nodule, fatty liver, degenerative disc disease, umbilical hernia, liver cyst, renal cysts, coronary artery disease, uterine fibroid, hyperlipidemia, type 2 diabetes, nicotine dependence, hypertension, and obesity. She presents to the office today as a new patient for renal cysts. In discussion with the patient today she reports having had recent CT performed due to generalized abdominal pain she had been experiencing at which time renal cysts were noted and recommendations were made for urology referral for further assessment evaluation. In review of patient's chart it appears CT of the abdomen and pelvis with IV contrast 09/30 notes no hydronephrosis or renal calculi noted bilaterally. No enhancing mass. Subcentimeter cystic lesion on the right kidney. Nonspecific perinephric edema pattern. She denies any bothersome urinary issues. In office urinalysis results reviewed with the patient today 2+ glucosuria otherwise within normal limits. We did discussed importance of management and diabetes for improvement in overall health and well-being. When asked she does continue to report episodes of bilateral flank pain. She denies urinary urgency, urinary frequency, incontinence, nocturia, hematuria, dysuria, foul smelling urine, changes to urinary stream, fever, and or chills. We did discuss potential causes of renal cysts as well as further treatment options and risks and benefits of these treatment options. All questions were answered. She otherwise offers no other issues or concerns at this time. [facility] Medical History (Updated 02/15/25 @ 11:37 by Sonal Mc [facility]) Stenosis of left carotid artery Stenosis of right carotid artery Thyroid nodule Fatty liver Degenerative disc disease Umbilical hernia Liver cyst Renal cyst Carotid artery disease Elevated vitamin B12 level Elevated ALT measurement Elevated AST (SGOT) Morbid obesity with BMI of 40.0-44.9, adult General medical exam Magnesium deficiency Vitamin D deficiency Uterine fibroid Hyperlipidemia LDL goal <70 Type 2 diabetes mellitus with hemoglobin A1c goal of less than 7.0% Establishing care with new doctor, encounter for Abdominal pain History of mammogram (~01/09/25) Nicotine dependence, cigarettes, uncomplicated Lipoma Mass of uterus Hypertension Obesity Family history of premature CAD Diabetes mellitus Surgical History History of colonoscopy (~04/2024) History of bilateral knee replacement Hx of cholecystectomy History of endometrial ablation Family History Paternal Aunt Breast cancer Lung cancer Social History Household Members: Spouse Housing: House Do you presently have visiting nurse or other home services: No Alcohol intake: current Alcohol intake frequency: holidays/special occasions only Patient Tobacco Use Status: Current everyday Tobacco user Tobacco use type: Smokeless Tobacco Years Smoked: 44 e-Cigarette/Vaping Use: Currently Using service: No Current occupational status: retired Cognitive needs: No Hearing needs: No Vision needs: Yes (rx glasses) Review of Systems Const All systems reviewed & are unremarkable except as noted in HPI and below Physical Exam Const General: cooperative, healthy appearing, comfortable, no acute distress, well developed, alert and awake Nutritional Appearance: overweight Orientation/consciousness: patient oriented x3 Limitations: no limitations HEENT Head: Yes normal to inspection, Yes normocephalic and Yes atraumatic Ears: hearing grossly normal bilaterally Eyes General: appearance normal, both eyes and all related structures Neck Neck: Yes normal visual inspection and Yes trachea midline Chest Chest palpation & inspection: normal inspection of the chest Resp Effort & Inspection: normal respiratory effort and able to speak in complete sentences Cardio Rate: regular rate GI Inspection: Yes normal to inspection General: Yes no CVA tenderness Back/Spine/Pelvis Back: no CVA tenderness Skin General skin exam: no rashes or lesions noted Neuro General: patient oriented x3 Extrem General: Yes normal to inspection Psych Appearance: grossly normal and well kempt Mental Status: mental status grossly normal Speech and movement: Normal speech and movement present and Clear speech present Affect: normal affect Attitude: cooperative Thought process: Normal thought process present Thought content: Normal thought content present Insight: Fair insight present (Psych) Judgement: Fair judgement present (Psych) Results AMB Urinalysis, Automated UA Leukoctes 0 Jacques/uL Last Edit by Meme Bergman [facility] on 02/15/25 11:06 UA Nitrite Negative Last Edit by [facility] on 02/15/25 11:06 UA Urobilinogen 0.2 mg/dL Last Edit by [facility] on 02/15/25 11:06 UA Protein 0 mg/dL Last Edit by [facility] on 02/15/25 11:06 UA pH 7.0 Last Edit by [facility] on 02/15/25 11:06 UA Blood 0 Marco/uL Last Edit by [facility] on 02/15/25 11:06 UA Specific [place] 1.010 Last Edit by [facility] on 02/15/25 11:06 UA Ketone Negative Last Edit by [facility] on 02/15/25 11:06 UA Bilirubin 0 mg/dL Last Edit by [facility] on 02/15/25 11:06 UA Glucose 500 mg/dL Last Edit by [facility] on 02/15/25 11:06 Results Reviewed Results Reviewed: Laboratory Last Values Urine pH (Auto) 7.0 02/15/25 11:04 Specific [place] (Auto) 1.010 02/15/25 11:04 Urine Protein (Auto) 0 mg/dL 02/15/25 11:04 Glucose (UA)(Auto) 500 mg/dL 02/15/25 11:04 Urine Ketones (Auto) Negative 02/15/25 11:04 Urine Blood (Auto) 0 Marco/uL 02/15/25 11:04 Urine Nitrite (Auto) Negative 02/15/25 11:04 Urine Bilirubin (Auto) 0 mg/dL 02/15/25 11:04 Urine Urobilinogen (Auto) 0.2 mg/dL 02/15/25 11:04 Leukocyte Esterase (Auto) 0 Jacques/uL 02/15/25 11:04 Date of Service: 09/29/24 Procedure(s): CT abdomen pelvis w IV con FINDINGS: LUNG BASES: No acute airspace disease. LIVER, GALLBLADDER, AND BILIARY TREE: Liver measures 20 cm. Decreased enhancement pattern. No focal mass. There is a less than 6 mm hypodensity in the dome of the right hepatic lobe too small to be fully characterized. Portal veins, hepatic veins and intrahepatic portion of the IVC are patent. No intrahepatic biliary ductal dilatation. Status post cholecystectomy. Common bile duct measures 4 mm. PANCREAS: No focal lesion. No peripancreatic fluid collection. No main pancreatic ductal dilatation. SPLEEN: 10 cm. No focal mass. ADRENAL GLANDS: No nodular lesions. KIDNEYS AND URETERS: No hydronephrosis. No nephrolithiasis. No enhancing mass. Subcentimeter cystic lesions in the right kidney. Nonspecific perinephric edema pattern. The ureters are not dilated. BLADDER: Fluid-filled. GASTROINTESTINAL TRACT: No intestinal obstruction pattern. No pneumatosis intestinalis. Appendix is normal. No intestinal wall thickening. No ascites. No pneumoperitoneum. ABDOMINAL WALL: Small fat-containing umbilical hernia and diastases abdominal rectus muscles in the periumbilical region. LYMPH NODES: No specific prominent, retroperitoneum. VASCULAR: The abdominal aorta wall without aneurysm or dissection. Small trace pericardial effusion. PELVIC VISCERA: 4 cm heterogeneous low density mass, right side of the uterine body. OSSEOUS STRUCTURES: Sclerosis and vacuum phenomenon both sacroiliac joints. Multilevel marginal osteophyte formation and endplate sclerosis decreased intervertebral disc height with the vacuum phenomenon throughout the axial skeleton or pronounced at L3-4. No acute fracture or gross listhesis. IMPRESSION: Hepatomegaly and steatosis. Subcentimeter low density lesion dome right hepatic lobe, nonspecific. Small fat-containing umbilical hernia. 4 cm uterine fibroid. Multilevel thoracolumbar spondylosis. Subcentimeter renal cysts. Fleischner guidelines were followed. Assessment & Plan Assessment & Plan (1) Renal cyst: Code(s): N28.1 - Cyst of kidney, acquired Category: Medical (2) Flank pain: Code(s): R10.9 - Unspecified abdominal pain Category: Medical Plan In office urinalysis results reviewed with the patient today; as noted above. Most recent CT results reviewed with the patient today; as noted above. We did discussed potential causes of flank pain as well as renal cysts; we did discussed further treatment options and risks and benefits of these treatment options. She denies any bothersome urinary issues. She reports be happy with current voiding parameters. We did discussed the importance of management and diabetes for improvement in overall health and well-being All questions were answered. Will obtain retroperitoneal ultrasound for further assessment evaluation. Follow-up in 1-3 months with imaging and PVR; or sooner with any issues, concerns, and or questions. Orders: Orders US retroperitoneal comp Today N28.1 - Cyst of kidney, acquired, R10.9 - Unspecified abdominal pain Patient Instructions: The patient had an opportunity to ask questions regarding the treatment plan. All questions were answered. Physical exam, labs, and imaging were discussed and reviewed in detail. As well as risks, benefits, and discussion of treatment choices. No major barriers to understanding were identified. The patient expressed understanding and agreement with the above treatment plan. The patient was made aware they should contact our office by phone for worsening of their current condition, the appearance of new symptoms, or with any questions or concerns. Compliance is encouraged with any medications and follow up testing that is ordered. It is a privilege to be allowed the opportunity to participate in? your urological care.? Again, if you have any questions or concerns If you have any questions or concerns please do not hesitate to contact me. The office is [phone]. This note is constructed using voice recognition software. While every effort has been made to ensure accuracy manufacturing technology analyst errors may have been included. Yours sincerely, SUKH Lim Coding Level of Care Code New Pt Level 3 (89768) Diagnoses Renal cyst N28.1 Flank pain R10.9
--- OUTSIDE RECORDS SUMMARY | 2025-02-15 12:54 | XMS_ITS | Encounter Summary ---
Author Organization [facility] Address [address] [place] [address] [place] [address] Phone Care Team Providers Care Microbiology Quality Control Technician Name Role Phone Zaira Jewell NP Primary Care Provider [phone] Karan Wick MD Primary Care Provider [phone] Karan Wick MD Unavailable [phone] Winter Dietrich Primary Care Provider [phone] Encounter Details Date Type Department Care Team (Late st Contact Info) Description 04/12/2022 Procedure Pass [facility], [address] [id number] Social History Tobacco Use Types Packs/Day Years [...] high school, GED, job training, learning the [place] language, technical skills, or developing parenting skills)? [...] Description 04/12/2025 8:40 AM EST Office Visit [facility] Endocrinology [address] [phone] Monse Pete MD [address] [place] [address] documented as of this encounter Visit Diagnoses Not on filedocumented in this encounter Additional Health Concerns Assessment Noted Time PHQ-2 Depression Total Score: 1 03/15/20 22 9:45 AM EST documented as of this encounter Care Teams Microbiology Quality Control Technician Relationship Specialty Start Date End Date Zaira Jewell NP PCP - General Family Medicine 12/13/17 06/11/23 Karan Wick MD [address] [place] [address], [address] [place] [address] [email or web address] PCP - General Internal Medicine 06/12/23 10/19/24 Winter Dietrich PA [address] [place] [address] PCP - General Physician Test Center Administrator 10/20/24 Karan Wick MD [address] [place] [address], [address] [place] [address] [email or web address] Insurance Assigned Provider 12/14/23 07/12/24 documented as of this encounter Additional Source Comments The information contained in this document represents components of the legal health record. It is not the complete legal health record.[facility]
--- OUTSIDE RECORDS SUMMARY | 2025-02-15 12:55 | XMS_ITS | Encounter Summary ---
Author Organization [facility] Address [address] [place] [address] Phone Care Team Providers Care Prepared Foods Associate Name Role Phone Nate Vaughn MD Unavailable [phone] Zaira Jewell DIRECTOR OPERATING Unavailable [phone] Nate Vaughn MD Primary Care Provider [phone] Zaira Jewell NP Primary Care Provider [phone] Karan Wick MD Primary Care Provider + [phone] Karan Wick MD Unavailable [phone] Winter Dietrich Primary Care Provider [phone] Encounter Details Date Type Department Care Team (Late st Contact Info) Description 11/29/2017 Transcribe Orders [address] [address] Monse Pete MD [address] [place] [address] [email or web address] Multinodular goiter (Primary Dx) Social History Tobacco [...] Description 04/12/2025 8:40 AM EST Office Visit [facility] [place] [address] [place] [phone] Monse Pete MD [address] [place] [address] documented as of this encounter Results * TSH (11/29/2017 8:14 AM EDT) TSH 3.51 0.27 - 4.20 uIU/mL [facility] Blood 11/29/2017 8:14 AM EDT 11/29/2017 8:19 AM EDT us Monse Pete MD LAB BLOOD BKR ORDERABL ES Final Result [facility] [address] [place] [address] documented in this encounter Visit Diagnoses Diagnosis Multinodular goiter- Primary Nontoxic multinodular goiter documented in this encounter Additional Health Concerns Infection Onset Date Last Indicated Resolved Time CoV-Risk 12/22/2020 12/22/2020 01/01/2021 1:22 AM EDT Assessment Noted Time PHQ-2 Depression Total Score: 0 07/10/19 18 3:26 PM EDT documented as of this encounter Care Teams Prepared Foods Associate Relationship Specialty Start Date End Date Nate Vaughn MD [address] [place] [address] PCP - General Internal Medicine 07/09/17 12/12/17 Zaira Jewell DIRECTOR OPERATING [address] [place] [address] PCP - General Family Medicine 12/13/17 06/11/23 Karan Wick MD [address] [place] [address], [address] [place] [address] PCP - General Internal Medicine 06/12/23 10/19/24 Winter Dietrich PA [address] [place] [address] PCP - General Physician Deputy Coroner 10/20/24 Nate Vaughn MD [address] [place] [address] Historical LMR Provider 01/23/17 12/03/19 Zaira Jewell NP [address] [place] [address] Historical LMR Provider 01/23/17 12/03/19 Karan Wick MD [address] [place] [address], [address] [place] [address] Insurance Assigned Provider 12/14/23 07/12/24 documented as of this encounter Additional Source Comments The information contained in this document represents components of the legal health record. It is not the complete legal health record.[facility]
--- OUTSIDE RECORDS SUMMARY | 2025-02-15 12:55 | XMS_ITS | Encounter Summary ---
Author Organization [facility] Address [address] [place] [address] [place] [address] Phone Care Team Providers Care Muskrat Trapper Name Role Phone Karan Wick MD Primary Care Provider [phone] Karan Wick MD Unavailable [phone] Winter Dietrich Primary Care Provider [phone] Encounter Details Date Type Department Care Team (Late st Contact Info) Description 09/06/2023 Procedure Pass [facility] Endoscopy Admitting Dept Virtual Department [address] [place], [place] [phone] Social History Tobacco Use Types Packs/Day Years [...] high school, GED, job training, learning the Portuguese language, technical skills, or developing parenting skills)? 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 Not on file Not on file Not on file documented as of this encounter Plan of Treatment Upcoming Encounters Date Type Department Care Team (Late st Contact Info) Description 04/12/2025 8:40 AM EST Office Visit [facility] Endocrinology [address] [place] [phone] Monse Pete MD [address] [place] [address] [email or web address] documented as of this encounter Visit Diagnoses Not on filedocumented in this encounter Additional Health Concerns Assessment Noted Time PHQ-2 Depression Total Score: 0 09/04/19 24 9:15 AM EDT documented as of this encounter Care Teams Muskrat Trapper Relationship Specialty Start Date End Date Karan Wick MD [address] [place] [address], [address] [place] [address] [email or web address] PCP - General Internal Medicine 06/12/23 10/19/24 Winter Dietrich PA [address] [place] [address] PCP - General Physician Bed Setter 10/20/24 Karan Wick MD [address] [place] [address], [address] [place] [address] [email or web address] Insurance Assigned Provider 12/14/23 07/12/24 documented as of this encounter Additional Source Comments The information contained in this document represents components of the legal health record. It is not the complete legal health record.[facility]
--- OUTSIDE RECORDS SUMMARY | 2025-02-15 12:55 | XMS_ITS | Encounter Summary ---
Author Organization [facility] Address [address] [place] [address] Phone Care Team Providers Care Scientific Manager Name Role Phone Nate Vaughn MD Unavailable [phone] Zaira Jewell LENS MARKER Unavailable [phone] Nate Vaughn MD Primary Care Provider [phone] Zaira Jewell NP Primary Care Provider [phone] Karan Wick MD Primary Care Provider [phone] Karan Wick MD Unavailable [phone] Winter Dietrich Primary Care Provider [phone] Encounter Details Date Type Department Care Team (Late st Contact Info) Description 12/02/2017 Procedure Pass [facility] Endoscopy Admitting Dept Virtual Department [address] [place] [address] Social History Tobacco Use Types Packs/Day Years [...] Description 04/12/2025 8:40 AM EST Office Visit [facility] Endocrinology [place] [address] [place] [address] Monse Pete MD [address] [place] [address] documented as of this encounter Visit Diagnoses Not on filedocumented in this encounter Additional Health Concerns Infection Onset Date Last Indicated Resolved Time CoV-Risk 12/22/2020 12/22/2020 01/01/2021 1:22 AM EDT Assessment Noted Time PHQ-2 Depression Total Score: 0 07/10/19 3:26 PM EDT documented as of this encounter Care Teams Scientific Manager Relationship Specialty Start Date End Date Nate Vaughn MD [address] [place] [address] PCP - General Internal Medicine 07/09/17 12/12/17 Zaira Jewell NP [address] [place] [address] PCP - General Family Medicine 12/13/17 06/11/23 Karan Wick MD [address] [place] [address], [address] [place] [address] PCP - General Internal Medicine 06/12/23 10/19/24 Winter Dietrich PA [address] [place] [address] PCP - General Physician Abattoir Supervisor 10/20/24 Nate Vaughn MD [address] [place] [address] Historical LMR Provider 01/23/17 12/03/19 Zaira Jewell NP [address] [place] [address] 6 [place] [address] Historical LMR Provider 01/23/17 12/03/19 Karan Wick MD [address] [place] [address], [address] [place] [address] [email or web address] Insurance Assigned Provider 12/14/23 07/12/24 documented as of this encounter Additional Source Comments The information contained in this document represents components of the legal health record. It is not the complete legal health record.[facility]
--- OUTSIDE RECORDS SUMMARY | 2025-02-15 12:55 | XMS_ITS | Clinical Summary ---
Author Organization [place] [id number] [facility] Address [address] [place] [address] Phone Care Team Providers Care Nitric Acid Concentrator Operator Name Role Phone Jaret Bourgeois MD Primary Care Provider [phone] Allergies Active Allergy Reactions Criticality Noted Date Comments Terbinafine Hcl Swelling 09/19/2009 Made hands and feet swell and itch Medications HYDROcodone-harjinder taminophen (NORCO) 5-325 mg per tablet Take 1 tablet by mouth at bedtime. Max Daily Amount: 1 tablet 3 Active aspirin-acetami nophen-caffeine (EXCEDRIN MIGRAINE) 250-250-65 mg per tablet Take by mouth. Active calcium carbonate (CALCIUM 500 ORAL) Take by mouth. Active cyanocobalamin, vitamin B-12, 1,000 mcg/mL drops Take by mouth. Active MAGNESIUM ORAL Take by mouth. Active MULTIVITAMIN ORAL Take 1 capsule by mouth daily. Active TURMERIC ORAL Take by mouth. Active amoxicillin (AMOXIL) 500 mg capsule Take 4 capsules 1 hour prior to dental procedure Active atorvastatin (LIPITOR) 20 mg tablet Take 1 tablet (20 mg total) by mouth daily. 5 Active glucose blood test strip 1 each by Other route 2 times daily. 3 Active cholecalciferol (VITAMIN D-3) 125 mcg (5,000 unit) capsule Take 1 capsule (5,000 Units total) by mouth daily. Active hydroCHLOROthia zide (HYDRODIURIL) 25 mg tablet Take 1 tablet (25 mg total) by mouth daily. 5 Active TRUEplus Lancets 28 gauge lancets 1 each daily. 5 Active losartan (COZAAR) 25 mg tablet Take 1 tablet (25 mg total) by mouth daily. 5 Active pen needle, diabetic 31 gauge x 08/21 needle 1 each by Other route daily. 5 Active pioglitazone (ACTOS) 30 mg tablet Take 1 tablet (30 mg total) by mouth daily. 5 Active Ozempic 0.25 mg or 0.5 mg (2 mg/3 mL) injection pen Inject 0.25 mg under the skin every 7 (seven) days. 5 Active ibuprofen (ADVIL,MOTRIN) 200 mg tablet Take 1 tablet (200 mg total) by mouth every 6 (six) hours if needed (2 tabs twice daily). 01/21/20 25 Discontinu ed(Therapy completed) Active Problems Problem Noted Date Diagnosed Date Carotid stenosis 09/20/2009 Pure hypercholesterolemia 09/19/2009 Uterine fibroid 09/19/2009 Encounters Date Type Department Care Team Description 01/20/2025 10:20 AM EDT Office Visit Endocrinology [address] [address] Moses Jose MD Nodular goiter (Primary Dx) from Last 3 Months Immunizations Immunization Administration Dates Next Due Influenza [...] Sexual Orientation Not on file Obstetrics History Last Filed Vital Signs Vital Sign Reading Time Taken Comments Blood Pressure 122/78 01/20/2025 10:18 AM EDT Pulse 72 01/20/2025 10:18 AM EDT Temperature 36.6 C (97.8 F) 01/20/2025 10:18 AM EDT Respiratory Rate - - Oxygen Saturation 97% 01/20/2025 10:18 AM EDT Inhaled Oxygen Concentration - - Weight - - Height - - Body Mass Index - - Plan of Treatment Health Maintenance Due Date Last Done Comments Breast Cancer Screening 1960 Colorectal Cancer Screening: Colonoscopy 1960 Diabetes: Annual Foot Exam 01/25/1972 Diabetes: Annual Retina Eye Exam 01/25/1972 Cervical Cancer Screening: Pap Smear 1983 RSV Immunization Adult Patients (1 - Risk 50-74 years 1-dose series) 01/25/2012 Zoster Vaccines (1 of 2) 01/25/2012 Pneumococcal Vaccine: 50+ Years (2 of 2 - PCV) 02/19/2013 02/20/2012 Cholesterol Screening (Lipid Panel) 04/05/2024 02/29/2012 HIV Screening 04/05/2024 Lung Cancer Screening (Low Dose CT) 04/05/2024 Medicare Annual Wellness Visit 04/05/2024 Social Influencers of Health Screening 04/05/2024 Depression Screening 04/08/2024 Diabetes: Annual GFR (Glomerular Filtration Rate) 09/03/2024 09/04/2023, 11/20/2022, 11/23/2020, Additional history exists Diabetes: Annual Urine Albumin-Creatinine Ratio (uACR) 01/20/2025 10/14/2023, 02/15/2022, 11/23/2020, Additional history exists Diabetes: Blood Sugar Control Test (HGBA1C) 01/20/2025 02/29/2012 Hypertension/CHF/CAD Annual BMP Blood Test 01/20/2025 09/04/2023, 11/20/2022, 11/23/2020, Additional history exists DTaP,Tdap,and Td Vaccines (3 - Td or Tdap) 10/11/2028 10/11/2018, 02/20/2012 Hepatitis C Screening Completed 12/30/2018 COVID-19 Vaccine Completed 01/06/2025, , 03/23/2022, Additional history exists Influenza Vaccine Completed 01/06/2025, , 01/15/2023, Additional history exists HIB Vaccines Aged Out No longer eligi [...] 20 months Aged Out No longer eligible based on patient's age to complete this topic Varicella Vaccines Aged Out No longer eligible based on patient's age to complete this topic Procedures Procedure Name Priority Date/Time Associated Diagnosis Comments ANNUAL BMP BLOOD TEST Routine 02/29/2012 HEMOGLOBIN A1C Routine 02/29/2012 LIPID PANEL Routine 02/29/2012 HM URINE ALBUMIN CREATININE RATIO Routine 11/17/2011 from Last 3 Months or Most Recently Relevant to Health Maintenance Results * Annual BMP Blood Test (02/29/2012) Annual BMP Blood Test abstracted Result [facility] Provider HEALTH MAINTENANCE Final Result * Hemoglobin A1c (02/29/2012) Pathologist [facility] Hemoglobin A1C 5.4 4.0 - 6.0 % Blood Venous blood specimen / Unknown Result [facility] Provider LAB BLOOD ORDERABLES Maura l Result * (ABNORMAL) Lipid panel (02/29/2012) Pathologist [facility] LDL/HDL Ratio 3 0 - 4 Triglycerides 42 0 - 150 mg/dL Cholesterol 168 0 - 200 mg/dL HDL 59 >=40 mg/dL LDL Cholesterol 101(A) 0 - 100 mg/dL Blood Venous blood specimen / Unknown Result [facility] Provider LAB BLOOD ORDERABLES Maura l Result * Urine Albumin Creatinine Ratio (11/17/2011) Pathologist [facility] Urine Albumin Creatinine Ratio abstracted Result [facility] Provider HEALTH MAINTENANCE Final Result from Last 3 Months or Most Recently Relevant to Health Maintenance Insurance MEDICARE ADVANTAGE [place] Care Teams Nitric Acid Concentrator Operator Relationship Specialty Start Date End Date Jaret Bourgeois MD [address] [place] [address] PCP - General 07/29/09
--- OUTSIDE RECORDS SUMMARY | 2025-02-15 12:55 | XMS_ITS | Clinical Summary ---
Author Organization [facility] Address [address] [place] [address] Phone Care Team Providers Care Humanities Coordinator Name Role Phone Winter Dietrich Primary Care Provider [phone] Allergies Active Allergy Reactions Criticality Noted Date Comments Terbinafine Hcl Swelling 09/19/2009 Made hands and feet swell and itch Medications cholecalciferol (VITAMIN D3) 5,000 unit capsule Take 5,000 Units by mouth daily. Active blood sugar diagnostic Strp strips 1 each by Miscellaneous route 2 (two) times a day. 100 strip 1 10/12/19 23 Active Additional Information Patient taking differently:1 each [...] to test glucose 1x/day 50 strip 3 04/20/19 25 Active Additional Information Patient not taking.Reported on 10/20/2024 losartan (COZAAR) 25 MG tabletIndicatio ns:Essential hypertension Take 1 tablet (25 mg total) by mouth daily. 90 tablet 3 05/07/19 25 Active AMOXICILLIN, BULK, MISC by Miscellaneous route. Active atorvastatin (LIPITOR) 20 MG tablet Take 1 tablet (20 mg total) by mouth daily. 90 tablet 1 07/09/19 25 Active hydroCHLOROthia zide 25 MG tablet Take 1 tablet (25 mg total) by mouth daily. 90 tablet 1 07/09/19 25 Active insulin pen needles, disposable, 31 gauge x /16 Ndle 1 each by Miscellaneous route every morning. 100 each 1 07/09/19 Active Additional Information Patient not taking.Reported on 10/20/2024 amoxicillin (AMOXIL) 500 MG capsule Take 4 capsules 1 hour prior to dental procedure Active EASY TOUCH ALCOHOL PREP PADS PadM every morning. 08/19/19 Active TRUEPLUS LANCETS 28 gauge Misc 1 each every morning. Active pioglitazone (ACTOS) 30 MG tablet Take 30 mg by mouth every evening. 09/24/19 Active semaglutide (OZEMPIC) 0.25 mg or 0.5 mg (2 mg/3 mL) subcutaneous injection penIndications: Type 2 diabetes mellitus without complication, without long-term current use of insulin 0.5 mg subcutaneously, once weekly 3 mL 5 01/05/20 Active Active Problems Problem Noted Date Diagnosed [...] glycemic control. Up to date with ophtho. BP under reasonable control. Will call for [...] glycemic control. Up to date with ophtho. Umalb/creat up to date, normal. BP under [...] PM EDT): Continue medications as prescribed by benefits specialist recruiter. Chronic idiopathic constipation 07/09/2017 Assessment & Plan [...] , TPO antibody +ve, FNA bilaterally ~ [id number], [facility] endo - benign Assessment & Plan (10/20/2024 10:38 AM EDT): Has undergone FNA bilaterally ~ 10 yrs ago @ [facility] endo. + TPO antibody. Has been euthyroid other than an isolated TSH of 8 several years ago. Last u/s without suspicious findings, right lobe TIRADS 5 nodule stable [id number]. No compressive symptoms. Exam stable. Would continue [...] elbow tendonitis 06/05/20232023 Carotid stenosis 09/20/2009 09/04/2023 Immunizations Immunization Administration Dates Next Due COVID-19 [...] high school, GED, job training, learning the [place]une[place] language, technical skills, or developing parenting skills)? 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 Not on file [...] Description 04/12/2025 8:40 AM EST Office Visit [facility] Endocrinology [address] [address] Monse Pete MD [address] [place] [address] [email or web address] Health Maintenance Due Date Last Done Comments [...] SCREENING 09/03/2024 09/04/2023 HEMOGLOBIN A1C 10/19/2024 04/21/2024, 08/07, 04/10/2023, Additional history exists INFLUENZA VACCINE (#1) [...] current use of insulin BASIC METABOLIC PANEL (BMP) Routine 04/21/2024 1:11 PM EST Type 2 diabetes mellitus without complication, without long-term current use of insulin HM MAMMOGRAPHY Routine 02/19/2024 4:12 PM EST HM DIABETES EYE EXAM FOR RESULT ENTRY ONLY Routine 07/18/2023 10:00 AM EDT HM PAP SMEAR FOR RESULT ENTRY ONLY Routine 05/12/2019 HEPATITIS C ANTIBODY, QUALITATIVE Routine 12/30/2018 9:27 AM EDT Need for hepatitis C screening test from Last 3 Months or Most Recently Relevant to Health Maintenance Results * HM LDCT PROCEDURE FOR RESULT ENTRY ONLY (06/11/2024 2:50 PM EST) us Historical Provider HEALTH MAINTENANCE Edited Result - Final * ENDOSCOPY, COLON (06/08/2024 8:54 AM EST) Narrative Transcriptions Thien Heath MD - 06/08/2024 8:54 AM EST [facility] Patient Name: Rosetta Pressley Attending MD:: THIEN HEATH , , Procedure Date: 06/08/2024 8:54 AM Date of : 1960 Age: 64 Admit Type: Outpatient Gender: Female Room: [place] [address] Referring MD: Karan Wick MD Exam Type: [...] monitored continuously. The Olympus adult variable colonoscope [id number] #3 was introduced through the anus and advanced to the cecum, identified by appendiceal orifice andileocecal valve. The colonoscopy was performed without difficulty. The patient tolerated the procedurewell. The quality of the bowel preparation was adequate.The quality of the bowel preparation was evaluatedusing the BBPS (Wilder Bowel Preparation Scale) withscores of: Right Colon [...] 8:54 AM Procedure Code(s): --- Professional --- 73990, Colonoscopy, flexible; with biopsy, single or multiple --- Technical --- 70696, Colonoscopy, flexible; with biopsy, single or multiple Diagnosis Code(s): --- Professional --- Z86.010, Personal history of colonic polyps K64.8, Other hemorrhoids D12.2, Benign neoplasm of ascending colon --- Technical --- Z86.010, Personal history of colonic polyps K64.8, Other hemorrhoids D12.2, Benign neoplasm of ascending colon CPT copyright 2021 [employer]. All rights reserved. The codes documented in this report are preliminary and upon speech and drama teacher reviewmay be revised to meet current compliance requirements. Procedure Date: 06/08/2024 8:54:[address] [place] [address] [id number] Karan Wick MD GI PROCEDURE ORDERABLES Fi nal Result * (ABNORMAL) Hemoglobin A1c (04/21/2024 1:11 PM EST) HEMOGLOBIN A1C 6.2(H) 4.3 - 5.8 % [facility] Blood 04/21/2024 1:11 PM EST 04/21/2024 1:14 PM EST Karan Wick MD LAB BLOOD BKR ORDERABLES F inal Result Performing Organization Address City/[facility] Co de Phone Number [address] [address] * (ABNORMAL) Basic metabolic panel (04/21/2024 1:11 PM EST) SODIUM 138 133 - 146 mmol/L [facility] CHLORIDE 100 96 - 108 mmol/L [facility] POTASSIUM 4.3 3.3 - 5.1 mmol/L [facility] CO2 27 21 - 35 mmol/L [facility] BUN 10 6 - 19 mg/dL [facility] CREATININE 0.50 0.5 - 1.5 mg/dL [facility] GLUCOSE 114(H) 70 - 99 mg/dL [facility] CALCIUM 9.5 8.4 - 10.3 mg/dL [facility] EGFR 106 >59 mL/min/1.7 3m2 [facility] Comment:Estimated glomerular filtration rate calculated using the CKD-EPI refit equation. ANION GAP 15 10 - 20 mmol/L [facility] Blood 04/21/2024 1:11 PM EST 04/21/2024 1:14 PM EST Karan Wick MD LAB BLOOD BKR ORDERABLES F inal Result Performing Organization Address [facility] Co de Phone Number [address] [address] * HM MAMMOGRAPHY FOR RESULT ENTRY ONLY (02/19/2024 4:12 PM EST) us Karan Wick MD HEALTH MAINTENANCE Edited Result - Final * HM DIABETES EYE EXAM FOR RESULT ENTRY ONLY (07/18/2023 10:00 AM EDT) Historical Provider HEALTH MAINTENANCE Final Result * HM PAP SMEAR FOR RESULT ENTRY ONLY (05/12/2019) Historical Provider HEALTH MAINTENANCE Edited Result - Final * Hepatitis C antibody, qualitative (12/30/2018 9:27 AM EDT) HCV NON-REACTIV E NON-REACTI VE [facility] Blood 12/30/2018 9:27 AM EDT 12/30/2018 9:32 AM EDT us Zaira Jewell NP LAB BLOOD BKR ORDERABLES Final Result [facility] [address] [place] [address] from Last 3 Months or Most Recently Relevant to Health Maintenance Insurance [place] NON NSPG PCP [place] [employer] [place] NON NSPG PCP [place] [employer] NON NSPG PCP [place] [employer] NON NSPG PCP S[place] [employer] [place] NON NSPG PCP [place] [employer] NON NSPG PCP [employer] Care Teams Humanities Coordinator Relationship Specialty Start Date End Date Winter Dietrich PA [address] [place] [address] PCP - General Physician Financial Aid Coordinator 10/20/24 Additional Source Comments The information contained in this document represents components of the legal health record. It is not the complete legal health record.[facility]
--- OUTSIDE RECORDS SUMMARY | 2025-02-15 12:55 | XMS_ITS | Encounter Summary ---
Author Organization [facility] Address [address] [place] [phone] Phone Care Team Providers Care Supervisor Metal Hanging Name Role Phone Nate Vaughn MD Unavailable [phone] Zaira Jewell MANAGER OF SOFTWARE Unavailable [phone] Zaira Jewell NP Primary Care Provider [phone] Karan Wick MD Primary Care Provider + [phone] Karan Wick MD Unavailable [phone] Winter Dietrich Primary Care Provider [phone] Encounter Details Date Type Department Care Team (Late st Contact Info) Description 05/23/2018 Transcribe Orders [address] [address] Monse Pete MD [address] [place] [address] [id number] [email or web address] Abnormal thyroid screen (blood) (Primary Dx) Social [...] Description 04/12/2025 8:40 AM EST Office Visit [facility] Endocrinology [address] [place] [address] Monse Pete MD [address] [place] [phone] [email or web address] documented as of this encounter Results * Free T4 (05/23/2018 8:39 AM EST) FREE T4 1.3 0.9 - 1.7 ng/dL [facility] Blood 05/23/2018 8:39 AM EST 05/23/2018 8:43 AM EST Monse Pete MD LAB BLOOD BKR ORDERABL ES Final Result Performing Organization Address City/[facility]/ZIP Co de Phone Number [address] [address] * TSH with reflex (05/23/2018 8:39 AM EST) TSH 1.89 0.27 - 4.20 uIU/mL [facility] Blood 05/23/2018 8:39 AM EST 05/23/2018 8:43 AM EST Monse Pete MD LAB BLOOD BKR ORDERABL ES Final Result Performing Organization Address [facility]/ZIP Co de Phone Number [address] [address] documented in this encounter Visit Diagnoses Diagnosis Abnormal thyroid screen (blood)- Primary Nonspecific abnormal results of thyroid function study documented in this encounter Additional Health Concerns Infection Onset Date Last Indicated Resolved Time CoV-Risk 12/22/2020 12/22/2020 01/01/2021 1:22 AM EDT Assessment Noted Time PHQ-2 Depression Total Score: 0 04/03/20 18 3:26 PM EDT documented as of this encounter Care Teams Supervisor Metal Hanging Relationship Specialty Start Date End Date Zaira Jewell, JOE [address] [place] [phone] PCP - General Family Medicine 12/13/17 06/11/23 Karan Wick MD [address] [place] [address], [address] [place] [address] PCP - General Internal Medicine 06/12/23 10/19/24 Winter Dietrich PA [address] [place] [phone] PCP - General Physician Equipment Cleaner 10/20/24 Nate Vaughn MD [address] [place] [address] Historical LMR Provider 01/23/17 12/03/19 Zaira Jewell NP [address] [place] [address] Historical LMR Provider 01/23/17 12/03/19 Karan Wick MD [address] [place] [address], [address] [place] [address] Insurance Assigned Provider 12/14/23 07/12/24 documented as of this encounter Additional Source Comments The information contained in this document represents components of the legal health record. It is not the complete legal health record.[facility]
--- OUTSIDE RECORDS SUMMARY | 2025-02-15 12:55 | XMS_ITS | Continuity of Care Document ---
Author Organization [facility] Address [address] [facility] [address] [place], [place] Phone [phone] Care Team Providers Care Certification And Selection Specialist Name Role Phone Zaira Jewell NP Care Team Information Boiler Fireman U navailable PREETHI MONROY M.D. Care Team [...] Qnty Indications Ordering Provider Date Metformin HCL [id number] Tablets ER 24HR 3 tab by mouth every day 90tabs E88.81 Preethi Monroy M.D. 11/04/2018
--- OUTSIDE RECORDS SUMMARY | 2025-02-15 12:55 | XMS_ITS | Encounter Summary ---
Author Organization [facility] Address [address] [place] [address] [place] [phone] Phone Care Team Providers Care Supervisor Furnace Process Name Role Phone Karan Wick MD Primary Care Provider [phone] Karan Wick MD Unavailable [phone] Winter Dietrich Primary Care Provider [phone] Encounter Details Date Type Department Care Team (Late st Contact Info) Description 06/08/2024 Procedure Pass [facility] Endoscopy Admitting Dept Virtual Department [address], [place] [phone] Social History Tobacco Use Types Packs/Day Years [...] high school, GED, job training, learning the [place] language, technical skills, or developing parenting skills)? 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 Not on file Not on file documented as of this encounter Plan of Treatment Upcoming Encounters Date Type Department Care Team (Late st Contact Info) Description 04/12/2025 8:40 AM EST Office Visit [facility] Endocrinology [address] [address] Monse Pete MD [address] [place] [phone] [email or web address] documented as of this encounter Visit Diagnoses Not on filedocumented in this encounter Additional Health Concerns Assessment Noted Time PHQ-2 Depression Total Score: 0 09/04/19 9:15 AM EDT documented as of this encounter Care Teams Supervisor Furnace Process Relationship Specialty Start Date End Date Karan Wick MD [address] [place] [address], [address] [place] [address] [email or web address] PCP - General Internal Medicine 06/12/23 10/19/24 Winter Dietrich PA [address] [place] [phone] PCP - General Physician Bronc Buster 10/20/24 Karan iWck MD [address] [place] [address], [address] [place] [address] [email or web address] Insurance Assigned Provider 12/14/23 07/12/24 documented as of this encounter Additional Source Comments The information contained in this document represents components of the legal health record. It is not the complete legal health record.[facility]
== END 2025-02-15 11:39 | disposition home or self-care (01) ==
LOC: HO.HUSH 10:49
PROVIDERS: PCP Internal Medicine; Visit Provider Nurse Practitioner Family
DX: N28.1 Cyst of kidney, acquired (principal); R10.9 Unspecified abdominal pain
CPT/HCPCS: 99203

== ENCOUNTER → 2025-02-15 10:49 | Outpatient (BNVA) | payer OTHER, SELFPAY | PROVIDERS: PCP Internal Medicine; Visit Provider Nurse Practitioner Family | DX: R74.01 Elevation of levels of liver transaminase levels (principal); K76.0 Fatty (change of) liver, not elsewhere classified; K76.89 Other specified diseases of liver; N28.1 Cyst of kidney, acquired; R10.9 Unspecified abdominal pain | CPT/HCPCS: 99202 ==

== ENCOUNTER 2025-02-15 13:03 | Outpatient (AMB) | payer OTHER, SELFPAY ==
--- NOTE | 2025-02-15 13:06 | A.OFFVIS_ITS ---
Vital Signs 02/15/25 13:13 Height 5 ft 1 in Weight 242 lb BMI 45.7 BP 148/72 H Blood Pressure Location Rt brachial Position Sitting Pulse 78 Pulse Source Pulse Oximeter Pulse Oximetry (%) 94 Oxygen Delivery Method Room Air Intake Visit Reasons: Liver cyst Intake Note: New pt for initial eval of liver abnormality. CC: C.O. LUQ, diarrhea/loose stools, occasional BRB per rectum w/ hx of hemorrhoids. Pt is s/p cholecystectomy. Precision Jig Grinder Required: No Accompanied by: Self / Same As Patient Allergies No Known Allergies (No Known Allergies*) Allergy (Verified 02/15/25 13:06) HPI Comments Details: 65 y.o F with PMH of obesity BMI 45, T2DM, HLD who is here for liver cyst. Pt reports intermittent epigastric pain but otherwise no R sided pain, N,V, pruritus or increase in abd girth. Had CT abd/pel earlier this year which showed R hepatic dome lesion. Pt also noted to have elevated LFTs with hepatic steatosis in imaging since at least 2021. BMI 45, has T2DM, HLD. Does not drink etOH. No fam hx of liver disease. Last colo Apr 2024- Rodrigo Montes, recall in 5 years per her report. [facility] Medical History Stenosis of left carotid artery Stenosis of right carotid artery Thyroid nodule Fatty liver Degenerative disc disease Umbilical hernia Liver cyst Renal cyst Carotid artery disease Elevated vitamin B12 level Elevated ALT measurement Elevated AST (SGOT) Morbid obesity with BMI of 40.0-44.9, adult General medical exam Magnesium deficiency Vitamin D deficiency Uterine fibroid Hyperlipidemia LDL goal <70 Type 2 diabetes mellitus with hemoglobin A1c goal of less than 7.0% Establishing care with new doctor, encounter for Abdominal pain History of mammogram (~01/09/25) Nicotine dependence, cigarettes, uncomplicated Lipoma Mass of uterus Hypertension Obesity Family history of premature CAD Diabetes mellitus Surgical History History of colonoscopy (~04/2024) History of bilateral knee replacement Hx of cholecystectomy History of endometrial ablation Family History Paternal Aunt Breast cancer Lung cancer Social History Household Members: Spouse Housing: House Do you presently have visiting nurse or other home services: No Alcohol intake: current Alcohol intake frequency: holidays/special occasions only Patient Tobacco Use Status: Current everyday Tobacco user Tobacco use type: Smokeless Tobacco Years Smoked: 44 e-Cigarette/Vaping Use: Currently Using service: No Current occupational status: retired Cognitive needs: No Hearing needs: No Vision needs: Yes (rx glasses) Review of Systems Const All systems reviewed & are unremarkable except as noted in HPI and below Physical Exam Exam Exam: No apparent distress With obesity, nonicteric Abdomen soft, nondistended Alert and oriented x3, normal gait Vital Signs: Last Vital Signs Pulse 78 02/15/25 13:13 BP 148/72 H 02/15/25 13:13 Pulse Ox 94 02/15/25 13:13 Oxygen Delivery Method Room Air 02/15/25 13:13 BMI result Body Mass Index 45.7 Results AMB Urinalysis, Automated UA Leukoctes 0 Jacques/uL Last Edit by Meme Bergman [facility] on 02/15/25 11:06 UA Nitrite Negative Last Edit by Meme Bergman [facility] on 02/15/25 11:06 UA Urobilinogen 0.2 mg/dL Last Edit by Meme Bergman [facility] on 02/15/25 11:06 UA Protein 0 mg/dL Last Edit by Meme Bergman [facility] on 02/15/25 11:06 UA pH 7.0 Last Edit by Meme Bergman [facility] on 02/15/25 11:06 UA Blood 0 Marco/uL Last Edit by Meme Bergman [facility] on 02/15/25 11:06 UA Specific [place] 1.010 Last Edit by Meme Bergman [facility] on 02/15/25 11:0 6 UA Ketone Negative Last Edit by Meme Bergman [facility] on 02/15/25 11:06 UA Bilirubin 0 mg/dL Last Edit by Meme Bergman [facility] on 02/15/25 11:06 UA Glucose 500 mg/dL Last Edit by Meme Bergman [facility] on 02/15/25 11:06 Assessment & Plan Assessment & Plan (1) Liver cyst: Code(s): K76.89 - Other specified diseases of liver Category: Medical (2) Fatty liver: Code(s): K76.0 - Fatty (change of) liver, not elsewhere classified Category: Medical (3) Elevated ALT measurement: Code(s): R74.01 - Elevation of levels of liver transaminase levels Category: Medical Plan 1. Liver lesion Reassured the pt that likely incidental finding and was unrelated to her epigastric pain at that time. Plan: - Check US - If unable to fully characterize, will get MRI liver protocol 2. ELevated LFTs Likely 2/2 MAFLD/MASH. Risk factors include obesity, T2DM, limited physical activity. Plan: - Labs ordered to w/up other causes of chronic liver disease - 10% TBW loss recommended in 6 months - Cont GLP-1. Advised pt to discuss increasing dose with PCP for i) T2DM mgmt, ii) weight loss iii) fatty liver - At least 20 mins of mod intensity exercise daily - High protein diet. Limit simple sugars and saturated fats - Avoid etOH Follow up 3 months Orders: Orders US abdomen complete Today K76.89 - Other specified diseases of liver Complete Blood Count no Diff Today K76.0 - Fatty (change of) liver, not elsewhere classified Comprehensive Met. Panel Today K76.0 - Fatty (change of) liver, not elsewhere classified Immunoglobulin G Today K76.0 - Fatty (change of) liver, not elsewhere classif ied Hepatitis B Core Antibody Today K76.0 - Fatty (change of) liver, not elsewhere classified Hepatitis B Surface Antibody Today K76.0 - Fatty (change of) liver, not elsewhere classified Hepatitis C Antibody Reflex Today K74.60 - Unspecified cirrhosis of liver, K76.0 - Fatty (change of) liver, not elsewhere classified HIV Ab/Ag Today K76.0 - Fatty (change of) liver, not elsewhere classified Liver Kidney Microsomal Ab Today K76.0 - Fatty (change of) liver, not elsewhere classified Phosphatidylethanol, Blood Today K76.0 - Fatty (change of) liver, not elsewhere classified Immunoglobulin A Today K76.0 - Fatty (change of) liver, not elsewhere classified Transglutaminase IgA Today K76.0 - Fatty (change of) liver, not elsewhere classified Hepatitis A IgG Today K76.0 - Fatty (change of) liver, not elsewhere classified Hepatitis B Surface Antigen Today K76.0 - Fatty (change of) liver, not elsewhere classified Ferritin Today K76.0 - Fatty (change of) liver, not elsewhere classified IRON PROFILE Today K76.0 - Fatty (change of) liver, not elsewhere classified Alpha 1 Anti-trypsin Today K76.0 - Fatty (change of) liver, not elsewhere classified Ceruloplasmin Today K76.0 - Fatty (change of) liver, not elsewhere classified Prothrombin Time INR Today K76.0 - Fatty (change of) liver, not elsewhere classified Smooth Muscle Antibody Today K76.0 - Fatty (change of) liver, not elsewhere classified Hemoglobin A1c Today K76.0 - Fatty (change of) liver, not elsewhere classified TSH reflex Free T4 Today K76.0 - Fatty (change of) liver, not elsewhere classified Coding Level of Care Code New Pt Level 4 (19401) Complex EM visit Add On G2211 Diagnoses Liver cyst K76.89 Fatty liver K76.0 Elevated ALT measurement R74.01
[2025-02-15 13:13] VITALS: BP 148/72; PULSE 78; O2SAT 94; BMI 45.7
== END 2025-02-15 14:01 | disposition home or self-care (01) ==
LOC: HO.HGI 13:03
PROVIDERS: PCP Internal Medicine; Visit Provider Internal Medicine
DX: K76.89 Other specified diseases of liver (principal); K76.0 Fatty (change of) liver, not elsewhere classified; R74.01 Elevation of levels of liver transaminase levels
CPT/HCPCS: 99204